=== PATIENT | female | born 1955 | race Caucasian/White ===

== ENCOUNTER 2021-05-15 14:05 | Emergency (ER) | payer MEDICARE, MEDICAID, SELFPAY ==
[2021-05-15 14:19] VITALS: BP 139/74; PULSE 111; RESP 20; TEMP 37.6; O2SAT 96
--- NOTE | 2021-05-15 14:21 | ED.FEMALEGU ---
HPI - Female Genitourinary General Chief complaint: Urogenital-Female Stated complaint: UTI Time Seen by Provider: 05/15/21 14:35 Source: patient Mode of arrival: ambulatory Limitations: no limitations History of Present Illness HPI Narrative: Ariadna Giraldo is a 65 yo female with a PMH of hypertension high cholesterol and 3-way bypass, she stopped smoking 2 months ago, comes here with burning and frequency of urination that started last night, she started taking Azo this morning but realize she needs more medication. Has had multiple UTIs in the past Related Data Home Medications Medication Instructions Recorded Confirmed amitriptyline 05/15/21 amlodipine 05/15/21 aripiprazole mg 05/15/21 atorvastatin 05/15/21 carvedilol 05/15/21 ezetimibe mg 05/15/21 lactulose [Constulose] 05/15/21 liothyronine mcg 05/15/21 lorazepam 05/15/21 lubiprostone [Amitiza] mcg PO 05/15/21 olanzapine mg 05/15/21 omeprazole 05/15/21 warfarin 05/15/21 warfarin 05/15/21 Allergies Allergy/AdvReac Type Severity Reaction Status Date / Time Iodine and Iodide Containing Allergy Hives Verified 05/15/21 14:28 Produc Review of Systems Review of Systems: CONSTITUTIONAL: Denies fever, chills, sweats. EYES: Denies visual changes, redness, discharge. ENT: Denies rhinorrhea, congestion, sore throat, otalgia. CARDIOVASCULAR: Denies chest pain, palpitations, edema. RESPIRATORY: Denies dyspnea, wheezing, cough GASTROINTESTINAL: Denies abdominal pain, nausea, vomiting, diarrhea. GENITOURINARY: has dysuria, hematuria, abnormal discharge SKIN: Denies rash or itching. NEUROLOGIC: Denies numbness, or focal weakness. PSYCHIATRIC: Denies anxiety or depression. [facility] Past Medical History Medical History (Updated 05/15/21 @ 14:49 by Nathalie Coffman CNP) High cholesterol Hypertension Surgical History Surgical History S/P triple vessel bypass Family History Family History (Updated 05/15/21 @ 14:43 by Nathalie Coffman CNP) Other Hypertension Social History Social History (Updated 05/15/21 @ 14:44 by Nathalie Coffman CNP) Smoking status: Former smoker Tobacco type: cigarettes Smoking end date: 03/09/21 Alcohol intake: current Comments At time of signature, I agree with nursing past medical, surgical, social and family history. There is no relevant family history pertinent to the presenting complaint. Exam Narrative: GENERAL: This is a well-nourished, well-developed patient, in mild distress. HEAD: normocephalic, atraumatic. EYES: Sclera clear/white. Vision is grossly intact. EARS: External ears normal. Hearing grossly intact. NOSE: External nose normal without nasal discharge, nares without redness, no rhinorrhea. THROAT: Mucous membranes moist, NECK: Neck supple, non-tender CARDIOVASCULAR: Regular rate and rhythm without murmurs, gallops, or rubs. RESPIRATORY: Clear to auscultation. Breath sounds equal bilaterally. No wheezes, rales, or rhonchi. GASTROINTESTINAL: Abdomen soft, SKIN: warm, intact with no suspicious lesions or rash, good texture and turgor. NEURO: awake, alert, and oriented to person, place and time. There were no obvious focal neurologic abnormalities. Steady gait EXTREMITIES: Normal range of motion. BACK: Nontender without deformity Course Course Emergency [facility]: [facility] of [facility] and frequency since last night UA shows positive nitrite 1+ leukocytes 2+ blood trace ketones 2+ protein Started on Keflex 500 mg 1 twice daily x5 days patient denies history of yeast infection Vital Signs Vital signs: Vital Signs Temperature 99.6 F 05/15/21 14:19 Pulse Rate 111 H 05/15/21 14:19 Respiratory Rate 20 05/15/21 14:19 Blood Pressure 139/74 05/15/21 14:19 Pulse Oximetry 96 05/15/21 14:19 Temperature 99.6 F 05/15/21 14:19 Pulse Rate 111 H 05/15/21 14:19 Res
== END 2021-05-15 14:55 | disposition home or self-care (01) ==
PROVIDERS: Emergency Provider Nurse Practitioner
DX: N30.01 Acute cystitis with hematuria (principal); Z87.891 Personal history of nicotine dependence; E78.00 Pure hypercholesterolemia, unspecified; I10 Essential (primary) hypertension; Z95.1 Presence of aortocoronary bypass graft
CPT/HCPCS: 81003; 87086; 87088; 99213; G0463

== ENCOUNTER 2024-10-25 09:31 | Outpatient (CLI) | payer MEDICARE, MEDICAID, SELFPAY ==
--- OUTSIDE RECORDS SUMMARY | 2024-10-25 10:36 | XMS_ITS | Encounter Summary ---
Author Organization [facility] Address Formerly [facility] [place] [address] Care Team Providers Care Director Of Catering Name Role Phone Catrachito Judd MD Primary Care Provider Unavailab norman Godinez MD, [place] Unavailable [phone] [facility] [phone] Wesley Tinsley DO Unavailable [phone] Raji Judd MD Primary Care Provider [phone] Encounter Details Date Type Department Care Team (Late st Contact Info) Description 03/02/2019 Abstract [facility] [address] [place] [address] Miladis Young, [facility]- [address] [facility] [address] [place] [phone] Social History Tobacco Use Types Packs/Day Years Used Date Smoking Tobacco: Former Cigarettes Q uit: 10/31/2018 Smokeless Tobacco: Never Alcohol Use Standard Drinks/Week Comments Yes 0 (1 standard drink = 0.6 oz pur e alcohol) rarely Comments Unknown Sex and Gender Information Value Date Recorded Sex Assigned at Female 08/28/2024 7:35 AM DISTRIBUTION ANALYST Legal Sex Female 8:01 PM CDT Gender Identity Not on file Sexual Orientation Not on file documented as of this encounter Plan of Treatment Upcoming Encounters Date Type Department Care Team (Late st Contact Info) Description 11/27/2024 10:30 AM CDT [facility] [address] [place] [phone] Miladis Young, ANP- [address] [facility] [address] [place] [phone] documented as of this encounter Procedures Procedure Name Priority Date/Time Associated Diagnosis Comments CMP (ABSTRACTED LAB) Routine 02/07/2019 LIPID PANEL Routine 02/07/2019 documented in this encounter Results * LIPID PANEL (02/07/2019) CHOLESTEROL 165 HDL 49 TRIGLYCERIDES 143 CHOL/HDL RATIO 3.4 LDL (CALCULATED) 87 VLDL CALCULATION 29 02/07/2019 us Catrachito Judd MD LABORATORY Final Result * (ABNORMAL) CMP (ABSTRACTED LAB) (02/07/2019) SODIUM S/P/B 142 POTASSIUM S/P/B 4.4 CHLORIDE S/P/B 108 CO2 24 BUN 12 CREATININE S/P/B 0.6 0.5 - 1.0 EGFR NON-AFR. AMER. 108(A) <=90 CALCIUM S/P/B 8.8 GLUCOSE 130 mg/dL TOTAL PROTEIN S/P/B 6.3 ALBUMIN S/P/B 3.9 3.5 - 5.0 AST 14 ALT 18 ALKALINE PHOSPHATASE S/P/B 97 BILIRUBIN TOTAL S/P/B 0.4 02/07/2019 us Catrachito Judd MD LAB-OUTSIDE/ABSTRACTED Final Res ult documented in this encounter Visit Diagnoses Not on filedocumented in this encounter Additional Health Concerns Infection Onset Date Last Indicated Resolved Time COVID-19 Rule Out 07/11/2023 07/11/2023 07/11/2023 11:22 AM DISTRIBUTION ANALYST COVID-19 Rule Out 10/02/2024 10/02/2024 10/02/2024 1:16 PM DISTRIBUTION ANALYST Respiratory Rule-Out 10/04/2024 10/04/2024 025 11:57 AM DISTRIBUTION ANALYST COVID-19 Rule Out 10/04/2024 10/04/2024 10/04/2024 12:07 PM DISTRIBUTION ANALYST Influenza - Seasonal 10/04/2024 10/04/2024 025 12:33 AM DISTRIBUTION ANALYST documented as of this encounter Care Teams Director Of Catering Relationship Specialty Start Date End Date Catrachito Judd MD PCP - General FAMILY PRACTICE 02/05/16 01/22/22 Raji Judd MD [address] [place] [address] PCP - General acute hospital PRACTICE 01/23/22 Garfield Jean MD CARDIOVASCULAR DISEASE 02/05/16 Miladis Young, ANP- [address] [facility] [address] [place] [address] NURSE PRACTITIONER 12/14/16 Wesley Tinsley DO [address] [place] [address] SURGERY 12/14/16 documented as of this encounter
--- OUTSIDE RECORDS SUMMARY | 2024-10-25 10:36 | XMS_ITS | Data Portability ---
Author Organization [facility], [address] [place] [address] Neurology ([place]) Address [address] [place] [address] Care Team Providers Care Performance Test Architect Name Role Phone RAJI SARAVIA Primary Care Provider Assessment Encounter Date Assessment Date Assessment LastModified by Organization Details LastModified Time 08/23/2024 08/23/2024 DM - A1c was 6.2. Will plan to increase Ozempic to maintenance dose (in hopes of encouraging continued weight loss) when she has used up her current pens. She will let us know she she is on her last shot and we will send 2mg dose. Hemorrhoids -continued pain and bleeding. She saw Dr. Tinsley back in November. She feels her symptoms have worsened. Will arrange recheck to see if surgical options now recommended. CBC collected today. (all complicated by chronic anticoagulation for thromboembolic disorder). Involuntary arm and leg movements -I am wondering if this could be an adverse effect from aripiprazole. Symptoms are not present (or at least not as severely) all day. Her mother has Parkinson's disease. Though this does not sound like Parkinson's, it is very bothersome to Alva. Will plan referral to neuro to evaluate for possible movement disorders. She will also mention to her psychiatrist at next visit. Hyperlipidemia -continue atorvastatin, next lipid panel in the Spring. HTN/ CAD -continue carvedilol, amlodipine, statin, ASA. Thromboembolic disorder -continue Coumadin ppx Continue current medication regimen. Plan routine follow up in 6 months, sooner if needed. Patient voices understanding of and agreement with plan. [email or web address] Not available 08/23/2024 12:48:33 09/25/2024 09/25/2024 Acute worsening of chronic rectal bleeding today. In office, INR 2.1, fingerstick Hb 11.8. We had planned to HOLD Coumadin and continue outpt monitoring but on her way out the door, Alva got very light headed and SOB, had to sit down. So, we decided to have her evaluated and monitored in the ER for syptomatic active bleeding. We will likely have to hold her Coumadin and consult w/ Dr. Tinsley about scope vs hemorrhoid procedure, depending on the outcome of ER observations. Patient voices understanding and agreement with the plan. [email or web address] Not available 09/25/2024 15:35:37 09/29/2024 09/29/2024 ASSESSMENT AND PLAN: Ariadna Giraldo is a 68-year-old female who presents for evaluation of new onset abnormal movements that have since discontinued over the past 2 months in addition to gait instability. At this point, she has multiple stroke risk factors including hypertension, hyperlipidemia, history of smoking and elevation of blood glucose. At this time I recommend we proceed with MRI of the brain with and without contrast to rule out lesions of the basal ganglia that could correlate with hemiballismus abnormal movement. In addition, we will also obtain an MRI of the cervical spine to rule out degenerative changes within the cervical spine that could create difficulty with movement in the right upper extremity and maybe myelopathy induced myoclonus. We will also screen for demyelinating conditions such as multiple sclerosis. I am less inclined to believe this is medication related since she has been on aripiprazole and amitriptyline for long duration. I will check metabolic labs including repeat B12 since she was on a borderline end of 222 at her last check in December 2023. In addition to this, I will check a hepatic function panel and ammonia level. She will have a ceruloplasmin, copper and zinc obtained. I will see her back for follow-up via telehealth in approximately 4 months. I personally spent a total of 20 minutes on the patient on this date of service including both qsmg-ie-hbyx and kqn-irok-iy-face time excluding any separately reportable services. [email or web address] Not available 09/29/2024 13:49:26 10/17/2024 10/17/2024 Anemia, rectal bleeding, anal cancer, ongoing constipation - rectal bleeding has stopped. Hgb was stable at 8.7 on 10/11. We will repeat a CBC today. -Alva has follow up w/ colorectal surgeon at [facility] on of this week. -Alva has not had a BM since she has been home from the hospital on Wednesday. She stopped the Linzess Rx'd by Dr. Tinsley. We are going to add Colace and daily fiber. If not effective, consider Lactulose again. DM -keep Ozempic on hold for now. Continue metformin. A1c collected today. If <7, will likely keep her off of the Ozempic until 1) constipation better controlled and 2) we know what the plan is for her anal carcinoma. She hopes to resume it, as she was pleased with the weight loss. Thromboembolic disorder -she has been back on Coumadin since at least Wednesday, but even before, she thinks, while still in the hospital. Her INR today is 1.3. INcrease Coumadin, alternating 3.5mg and 3mg. Recheck INR on Wednesday. Influenza A -positive on admission. She is still coughing, but overall feeling better. This likely was contributing to some of her increased generalized weakness / fall prior to this admission. Plan f/u with me in 1 week, sooner if needed. Patient voices understanding and agreement with the plan. Results addendum: Hgb 9.1 A1c 5.4, so will keep Alva OFF of Ozempic for the time being. [email or web address] Not available 10/18/2024 17:10:46 10/23/2024 10/23/2024 INR today 1.8. Continue alternating 3mg and 3.5mg. Repeat INR on Wednesday of next week. She has had a good response to BID Colace and daily fiber supplement so far. Will continue. She has an apt w/ specialist this week in [place]. She says that last week the colorectal specialist told her she'd need chemo and radiation and the next apt is to discuss that. We will get records. Plan f/u her in 3-4 weeks, sooner if needed or is any rectal bleeding noted. [email or web address] Not available 10/23/2024 18:35:58 Plan of Treatment Reminders Order Date Submit Date Provider Last Modified By Organization Details Last Modified Time Details Appointments Establish ed Patient 40.EST 2024 01:00P M Cyndi Farris Not available Not available Not available TeleHealt h 15.TELE 2024 02:45P M Dr. Carla Quijano Not available Not available Not available Lab PT (prothrom bin time), fingersti ck, blood 2024 025 [facility], [address], [place], [address], 10/23/2024 11:27:37 hemoglobi n A1c + average glucose, QN, blood 2024 025 [facility] (Pr), [address] [place], [address], 10/18/2024 16:01:55 PT (prothrom bin time), fingersti ck, blood - INR due 10/23/24. Will be done at apt date and time. 2024 025 [facility], [address] [place] [address], [id number], 10/23/2024 11:17:49 CBC 2024 025 [facility] (Pr), [facility] [place], [address], 10/18/2024 16:13:44 hepatic function panel, serum [id number] [facility], [address], [place], [address], 10/13/2024 10:43:10 ammonia, blood 2024 025 [email or web address] [facility], [address], [place], [address], 10/13/2024 10:43:10 cerulopla smin, serum [address] [facility], [address], [place], [address], 10/13/2024 10:43:10 copper, serum or plasma 2024 025 [facility], [address], [place], [address], 10/13/2024 10:43:10 zinc, serum or plasma 2024 025 [email or web address] [facility], [address], [place], [address], 10/13/2024 10:43:10 vitamin B12, serum 2024 025 [email or web address] [facility], [address], [place], [address], 10/13/2024 10:43:10 hemoglobi n (Hb), fingersti ck, blood 2024 025 [email or web address] [facility], [address] [place] [address], [address], 09/25/2024 14:51:07 PT (prothrom bin time), fingersti ck, blood 2024 025 [email or web address] [facility], [address] [place] [address], [address], 09/25/2024 14:51:07 CBC 2024 025 LINDA [facility], [address] [place] [address], [address], 08/24/2024 16:35:55 lipid panel, serum 2024 025 [email or web address] [facility], [address] [place] [address], [address], 08/23/2024 12:47:36 CMP, serum or plasma 2024 025 [email or web address] [facility], [address] [place] [address], [address], 08/23/2024 12:47:36 hemoglobi n A1c + average glucose, QN, blood 2024 025 [email or web address] [facility], [facility] [address], [address], 10/24/2024 17:18:33 Referral general surgeon referral - return to Dr. Tinsley (establ[facility] for this problem, but symptoms worsening ) 2024 025 [email or web address] Not available 09/20/2024 09:32:41 neurologi referral - Dr. Roberson in [facility] 2024 025 [email or web address] Carla Chaudhry'Lam , [address], [address], 10/16/2024 09:00:36 Procedures None recorded. Surgeries None recorded. Imaging MRI, brain + brain stem, w/wo contrast 2024 025 [facility], [address], [place], [address], 10/03/2024 15:30:37 MRI, cervical spine, w/wo contrast 2024 025 [facility], [address], [place], [address], 10/03/2024 15:30:37 Medication Orders warfarin 1 mg tablet 2024 025 [email or web address] [facility] [place], [address], 10/23/2024 11:27:37 Colace 100 mg capsule 2024 025 [facility] [address] [place], [address], 10/17/2024 12:49:22 warfarin 3 mg tablet 2024 025 [facility] [address] [place], [address], 10/17/2024 12:57:50 amlodipin e 2.5 mg tablet 2024 025 [id number] [facility] [address] [place], [address], 09/04/2024 15:47:06 atorvasta tin 80 mg tablet [address] [place] [address] [address] [place], [address], 08/23/2024 12:47:36 ezetimibe 10 mg tablet [address] [place] [address] [address], [address] [place], [address], 08/23/2024 12:47:36 metformin 500 mg tablet [address] [place], [address], 08/23/2024 12:47:36 carvedilo l 25 mg tablet [address] [place] [address] [address], [address] [place], [address], 08/23/2024 12:47:36 Patient TargetsNo targets recorded. Patient InstructionsNo instructions recorded. Reason for Referral Neurologist Referral for Inv oluntary movement Dr. Roberson in [place] Referring Physician: Cyndi Farris, Family Medicine, Encounter Date: 08/23/2024 General Surgeon Referral for Bleeding hemorrhoids return to Dr. Tinsley (established for this problem, but symptoms worsening) Referring Physician: Cyndi Farris Family Medicine, Encounter Date: 08/23/2024 Results Created Date Observation Date Name Description Value Unit Range Abnormal Flag Note LastModifiedBy Organization Detail LastModifiedTime 08/23/19 08/24/2024 CBC CBC Not Available [facility] [address] [place] [address], [address], 08/24/2024 16:35:55 08/23/19 25 08/24/2024 CBC WBC 8.1 K/uL 3.8-11 .2 Not Available [facility] [address] [place] [address], [address], 08/24/2024 16:35:55 08/23/19 25 08/24/2024 CBC RBC 4.44 M/uL 3.92-5 .10 Not Available [facility] [address] [place] [address], [address], 08/24/2024 16:35:55 08/23/19 25 08/24/2024 CBC HGB 9.7 g/dL 11.8-1 5.3 low Not Available [facility] [address] [place] [address], [address], 08/24/2024 16:35:55 08/23/19 25 08/24/2024 CBC HCT 32.5 % 36.5-4 4.8 low Not Available [facility] [address] [place] [address], [address], 08/24/2024 16:35:55 08/23/19 25 08/24/2024 CBC MCV 73.2 fL 80.0-9 9.0 low Not Available [facility] [address] [place] [address], [address], 08/24/2024 16:35:55 08/23/19 25 08/24/2024 CBC MCH 21.8 pg 25.5-3 3.6 low Not Available [facility] [address] [place] [address], [address], 08/24/2024 16:35:55 08/23/19 25 08/24/2024 CBC MCHC 29.8 g/dL 32.0-3 6.0 low Not Available [facility] [address] [place] [address], [address], 08/24/2024 16:35:55 08/23/19 25 08/24/2024 CBC RDW-SD 47.1 fL 35.1 - 46.3 high Not Available [facility] [address] [place] [address], [address], 08/24/2024 16:35:55 08/23/19 25 08/24/2024 CBC plt 231 K/uL 130-40 0 Not Available [facility] [address] [place] [address], [address], 08/24/2024 16:35:55 08/23/19 25 08/24/2024 CBC MPV 10.5 fL 9.3-12 .8 Sligh t aniso cytos is Sligh t poiki locyt osis Sligh t micro cytos is Sligh t polyc hroma rhiannon Few sariah cells Few acant hocyt es Plate lets appea r adequ ate Not Available [facility] [address] [place] [address], [address], 08/24/2024 16:35:55 09/25/19 25 09/25/2024 PT (prot hromb in time) , finge rstic k, blood PT/INR fingerstick Not Available [facility] [address] [place] [address], [address], 09/25/2024 13:01:27 09/25/19 25 09/25/2024 PT (prot hromb in time) , finge rstic k, blood INR 2.1 INR INTER PRETA TION 2.0-3 .0 FOR DEEP VEIN THROM BOSIS PULMO NARY EMBOL ISM ACUTE MYOCA RDIAL INFAR CTION ATRIA L FIBRI LLATI ON 3.0-4 .5 FOR MECHA NICAL HEART VALVE S Not Available [facility] [address] [place] [address], [address], 09/25/2024 13:01:27 09/25/19 25 09/25/2024 hemog lobin (Hb), taylor rstic k, blood hemoglobin, fingerstick 11.8 g/dL 12.0-1 6.0 low Not Available [facility] [address] [place] [address], [address], 09/25/2024 13:01:29 10/18/19 25 10/17/2024 PT (prot hromb in time) , espinozae rstic k, blood PT/INR fingerstick Not Available [facility] [address] [place] [address], [address], 10/17/2024 12:26:44 10/18/19 25 10/17/2024 PT (prot hromb in time) , taylor rstic k, blood INR 1.3 INR INTER PRETA TION 2.0-3 .0 FOR DEEP VEIN THROM BOSIS PULMO NARY EMBOL ISM ACUTE MYOCA RDIAL INFAR CTION ATRIA L FIBRI LLATI ON 3.0-4 .5 FOR MECHA NICAL HEART VALVE S Not Available [facility] [address] [place] [address], [address], 10/17/2024 12:26:44 10/18/19 25 10/18/2024 hemog lobin A1c + avera ge gluco se, QN, blood hemoglobin A1C Not Available [facility] [address] [place] [address], [address], 10/18/2024 16:01:55 10/18/19 25 10/18/2024 hemog lobin A1c + avera ge gluco se, QN, blood HGB A1C 5.4 %_A1C 4.3 - 5.6 Not Available [facility] [address] [place] [address], [address], 10/18/2024 16:01:55 10/18/19 25 10/18/2024 hemog lobin A1c + avera ge gluco se, QN, blood estimated average glucose 108 mg/dL Not Available [facility] [address] [place] [address], [address], 10/18/2024 16:01:55 10/18/19 25 10/18/2024 CBC CBC Not Available [facility] [address] [place] [address], [address], 10/18/2024 16:13:44 10/18/19 25 10/18/2024 CBC WBC 5.9 K/uL 3.8-11 .2 Not Available [facility] [address] [place] [address], [address], 10/18/2024 16:13:44 10/18/19 25 10/18/2024 CBC RBC 3.53 M/uL 3.92-5 .10 low Not Available [facility] [address] [place] [address], [address], 10/18/2024 16:13:44 10/18/19 25 10/18/2024 CBC HGB 9.1 g/dL 11.8-1 5.3 low Not Available [facility] [address] [place] [address], [address], 10/18/2024 16:13:44 10/18/1910/18/2024 CBC HCT 29.9 % 36.5-4 4.8 low Not Available [facility] [address] [place] [address], [address], 10/18/2024 16:13:44 10/18/19 25 10/18/2024 CBC MCV 84.7 fL 80.0-9 9.0 Not Available [facility] [address] [place] [address], [address], 10/18/2024 16:13:44 10/18/1910/18/2024 CBC MCH 25.8 pg 25.5-3 3.6 Not Available [facility] [address] [place] [address], [address], 10/18/2024 16:13:44 10/18/19 25 10/18/2024 CBC MCHC 30.4 g/dL 32.0-3 6.0 low Not Available [facility] [address] [place] [address], [address], 10/18/2024 16:13:44 10/18/19 25 10/18/2024 CBC RDW-SD 70.0 fL 35.1 - 46.3 high Not Available [facility] [address] [place] [address], [address], 10/18/2024 16:13:44 10/18/19 25 10/18/2024 CBC plt 311 K/uL 130-40 0 Not Available [facility] [address] [place] [address], [address], 10/18/2024 16:13:44 10/18/19 25 10/18/2024 CBC MPV 10.4 fL 9.3-12 .8 Plate lets appea r adequ ate Sligh t aniso cytos is Sligh t polyc hroma rhiannon Not Available [facility] [address] [place] [address], [address], 10/18/2024 16:13:44 10/24/19 25 10/23/2024 PT (prot hromb in time) , finge rstic k, blood PT/INR fingerstick Not Available [facility] [address] [place] [address], [address], 10/23/2024 11:17:49 10/24/19 25 10/23/2024 PT (prot hromb in time) , finge rstic k, blood INR 1.8 INR INTER PRETA TION 2.0-3 .0 FOR DEEP VEIN THROM BOSIS PULMO NARY EMBOL ISM ACUTE MYOCA RDIAL INFAR CTION ATRIA L FIBRI LLATI ON 3.0-4 .5 FOR MECHA NICAL HEART VALVE S Not Available [facility] [address] [place] [address], [address], 10/23/2024 11:17:49 09/25/19 25 09/25/2024 CT, head + brain , w/o contr ast No observ ation record ed. [address] [facility] [address] [place], [address], 09/25/2024 17:24:56 09/25/19 25 09/25/2024 XR, chest , 2 view No observ ation record ed. [address] [facility] [address] [place], [address], 09/25/2024 17:24:56 09/26/19 25 09/25/2024 elect citlaly chaney am, jacob ne ECG, 12 leads min No observ ation record ed. [email or web address] [facility] [address] [place], [address], 09/27/2024 10:40:00 10/25/19 25 10/19/2024 CT, abdom en + pelvi s, w/ contr ast No observ ation record ed. [facility] Surgery Speacialist [address] [facility], [place], [address], 10/25/2024 09:43:45 Result Notes None recorded. Problems Name Problem SNOMED Code Status Onset Date Resolution Date Notes Provider Name and Address Organization Details Recorded Time Bleeding hemorrho ids 17358709 Active 2024 Cyndi Farris, EMBROIDERER HAND, [employer] [address] [place] [address], [address], [facility] 5 12:27:37 Post-dis charge follow-u p [id number] Active admitted from office 09/21/24- 09/26/24 for rectal bleeding / anemia. Hb reid 8.2. Gen/surg consulte d. Rec'd OP f/u & HC supposit ory & HOLD Coumadin . 09/28/24 pt reports she resumed Coumadin . Then, is ER visit for fall / difficul ty getting up 10/02/24 (Hb 8.3 stable there, d/c home). Then return 10/04/24, transfer to [facility] ([facility]) for suspecte d GI bleed where EGD unimpres sive (chronic gastriti s), but colonosc opy biopsy identifi ed Anal Carcinom a. May need outpt colorect al referral (?) post-dis charge. Raji Saravia MD [address] [place] [address], [address], [facility] 5 11:36:58 Abnormal movement 514994949 Active radha-bal istic type in . Neurolog y onboard (where-i n pt reported sx's perhaps resolved x2mo). Raji Saravia MD [address] [place] [address], [address], [facility] 5 11:45:05 Abnormal gait 09717369 Active onset perhaps mid . Neurolog y onboard . Raji Saravia MD [address] [place] [address], [address], [facility] 5 11:44:32 Carcinom a in situ of anus [id number] Active on bx at [facility] 10/11/24. Pending outpt colorect al Surg followup on 10/19/24 at [facility], Dr. Jayesh Farris, EMBROID[employer]ER HAND, [employer] [address] [place] [address], [address], [facility] 5 15:00:50 Disorder of tendon 63827975 Completed 01/21/2024 History of Achilles tendonos is of right lower extremit y right calcanea l spur resectio n Achilles tenoplas ty 3 Karuna fry, [facility] 4 09:24:09 Adrenal adenoma [id number] Completed incident al finding on lung CT, left 1.7cm. MRI confirme d aderenal adenoma. Raji Saravia MD [address] [place] [address], [address], [facility] 4 07:03:17 Anemia 798643947 Active 2023 Hb 10.9 on --> nmL on . Then, declined again to 11.1 in in setting of chronic bleeding hemorrho ids. Hb stable at 11.3 (w/ improvin g bleeding ). pt reports increase d hemorrho id bleeding over 6 mo. Hb 9.7. Plan short interval repeat while awaiting return to gen/surg . Fe sulfate started. 08/28/24 Hb 9.4. 09/04 Hb 9.9. pt admitted for acute bleeding , 10/17/24 Hb stable 9.1, see anal ca. - RBC Folate nmL . Cyndi Farris APRN, [employer] [address] [place] [address], [phone], [facility] 5 17:11:30 Coronary arterios clerosis 62877922 Active 2023 dx on cath 2015 (w/u exertion al dyspnea) , & CABG done 02/2016. Cyndi Farris APRN, [employer] [address] [place] [address], [address], [facility] 4 12:33:14 Chronic constipa tion 927788260 Active 2023 Lactulos e nightly rx'd by Dr. Tinsley, who then added Amitiza (along w/ fiber/ topical HC for bleeding hemorrho ids). Amtiza ineffect mavis. then Modest control w/ return to daily docusate , fiber. - prior hx Trial of Linzess ordered by Dr. Alvina Farris, [employer]BR[employer], [employer] [address] [place] [address], [address], [facility] 5 18:37:04 Screenin g colonosc opy Active s/p repeat colonosc opy (while inpt at [facility] ) . - see also Anal Carcinom a. Raji Saravia MD [address] [facility], [facility] [place], [address], [facility] 5 11:36:07 Type 2 diabetes mellitus 02966441 Active dx by A1c >6.5 x2 in 2014. Goal A1c < 7. Hx diet control until metormin e started p A1c 7.5 on . Ozempic added (for DM, wt loss). on hold p GI bleed, constipa tion, dx anal CA & A1c 5.4. Consider re-start ing cautious ly dependin g outcome of upcoming colorect al surgeon consulta tion. - hx Jardianc e until (p Ozempic onboard and instance of UTI). Cyndi Farris APRN, [employer] [address] [facility], [place], [address], [facility] 5 17:13:13 Steatosi s of liver 663754427 Active 2023 noted on MRI abd (for adrenal adenoma) . Cyndi Farris APRN, [employer] [address] [place] [address], [place], [address], [facility] 4 12:34:25 History of divertic ulitis [id number] 9100 Completed 05/2018, persumed divertic ulitis with mild LLQ pain tx with Augmenti n and again 11/2018. Raji Saravia MD [address] [facility], [facility] [place], [address], [facility] 4 07:06:47 Screenin g for malignan t neoplasm of cervix Completed 202301/22/2024 9 nmL cytology and Neg HPV (no further Pap screenin g indicate d after age 65). Cyndi Farris APRN, [employer] [address] [facility], [facility] [place], [address], [facility] 4 12:35:17 Hyperlip idemia 65551636 Active 2023 Statin indicate d for CAD. Tx atorvast atin & ezetimib e - LDL 27 Cyndi Farris APRN, [employer] [address] [place] [address], [address], [facility] 4 12:35:39 [facility] hyperten katelyn 25565284 Active 2023 Goal < 140/90 per JNC8 for concurre nt DM. Controll ed on amlodipi ne and carvedil ol. - HCTZ stopped in 2012 d/t fatigue and hypotens ion. Cyndi Farris APRN, [employer] [address] [place] [address], [address], [facility] 4 12:36:03 Hypothyr oidism 92549868 Active 2023 intermit tent low TSH, T4 f/b multiple normals mx by AMADOU psych. TSH 0.421 Cyndi Farris APRN, [employer] [address] [place] [address], [address], [facility] 4 16:42:10 Hepatiti s C screenin g Completed non-reac tive . Raji Saravia MD [address] [place] [address], [address], [facility] 4 07:06:38 Screenin g for malignan t neoplasm of lung Active 2023 benign appearin g lung nodules on CT, repeat 1 yr. stable, repeat 2024 Cyndi Farris APRN, [employer] [facility] [address] [place] [address], [phone], [facility] 4 12:37:52 Obesity [id number] Active 2023 Ozempic added. on hold d/t constipa tion / newly dx'd anal ca. Cyndi Farris APRN, [employer] [facility] [address] [place] [address], [phone], [facility] 5 13:30:48 Osteoart hritis of knee [id number] Active left, s/p Euflexxa injxn series 2019- 1 (p pain refrctry to steroid injxns & PT). Synvis injxn then by Ortho 04/18/24. Cyndi Farris APRN, [employer] [facility] [address] [place] [address], [phone] 3, [facility] 4 11:34:43 Tear of meniscus of knee [id number] Active 2023 on MRI 02/2021. Cyndi Farris APRN, [employer] [facility] [address] [place] [address], [phone], [facility] 4 12:40:37 Thromboe mbolic disorder [id number] Active 2023 Dx per [facility] Dr. Mc Fall 2010 on w/u L.U.E. DVT & strong FHx DVTs. Labs then (Fall 2010): Factor VIII hyperact ivity & Lupus Anticoag ulant positive . Dr. Mc recommen ded long-ter m anticoag ualtion at that time. Note, also then likely indicati ng Enoxapar in bridgin g while off coumadin for planned procedur es, etc. Cyndi Farris APRN, [employer] [facility] [address] [place] [address], [phone] 3, [facility] 4 12:41:00 Deep venous thrombos is of upper extremit y [id number] Completed L. arm 04/2011 Raji Saravia MD [address] [place], [phone], [facility] 4 07:06:24 Thyroid nodule 991199368 Active 10/2020 Incident ally on carotid u/s (cardiol ogy). Then, Thyroid u/s: multiple bilatera l & isthmus nodules, B9 findings . several stable/ smaller nodules, one rt nodule increase d from 1.3cm to 1.6 cm, stable, Rad's recommen ded repeat u/s again in 1 year. -of note to consider , GLP1 drug started Cyndi Farris APRN, [employer] [facility] [address] [facility], [facility] [place], [phone], [facility] 4 12:42:50 Tibialis posterio r tendinit is [id number] Completed 202301/22/2024 hx repair of left achilles tendon 04/28/17. Cyndi Farris APRN, [employer] [facility] [address] [facility], [facility] [place], [phone], [facility] 4 12:43:26 Mixed anxiety and depressi ve disorder [id number] Active f/b [facility]. Raji Saravia MD [address] [facility], [facility] [place], [phone], [facility] 4 07:05:16 Diabetic retinal eye exam Active 2023 no retinopa thy detected . Cyndi Farris APRN, [employer] [employer] [facility] [address] [facility], [facility] [place], [phone], [facility] 4 11:09:06 Screenin g mammogra phy Active 2023 nmL HH 03/02/24 Cyndi Farris APRN, [employer] [facility] [address] [facility], [facility] [place], [phone], [facility] 4 10:02:03 Problem Notes Documentation Provider Name and Address Organization Details Recorded Time [address] [address] Ariadna Giraldo 68yo F [id number] #[id number] 10/02/2024 Millie Saravia MD, Ariadna Giraldo was seen in our office today 09/29/2024, and a copy of that evaluation is enclosed. Thank you for allowing us to participate in the care of your patient. Please contact us with any questions. Sincerely, Electronically Signed by: CARLA QUIJANO MD, DO Encounter Reason/Date Involuntary arm and leg movements 09/29/2024 - 10:00AM - [facility] ([place])ProblemsReviewed Problems Thyroid nodule - Onset: 01/22/2024 - 10/2020 Incidentally on carotid u/s (cardiology). Then, Thyroid u/s: multiple bilateral & isthmus nodules, B9 findings . several stable/ smaller nodules, one rt nodule increased from 1.3cm to 1.6 cm, stable, Rad's recommended repeat u/s again in 1 year. -of note to consider, GLP1 drug started Hypothyroidism - Onset: 01/22/2024 - intermittent low TSH, T4 f/b multiple normals mx by [facility] psych. TSH 0.421 Type 2 diabetes mellitus - dx by A1c >6.5 x2 in 2014. Goal A1c < 7. Hx diet control until metormine started p A1c 7.5 on . Ozempic added (for DM, wt loss). - hx Jardiance until (p Ozempic onboard and instance of UTI). Hyperlipidemia - Onset: 01/22/2024 - Statin indicated for CAD. Tx atorvastatin & ezetimibe - LDL 27 Obesity - Onset: 01/22/2024 - Jardiance added, Ozempic added. Anemia - Onset: 01/22/2024 - Hb 10.9 on --> nmL on . Then, declined again to 11.1 in in setting of chronic bleeding hemorrhoids. Hb stable at 11.3 (w/ improving bleeding). pt reports increased hemorrhoid bleeding over 6 mo. Hb 9.7. Plan short interval repeat while awaiting return to gen/surg. Fe sulfate started. 08/28/24 Hb 9.4. 09/04 Hb 9.9. - RBC Folate nmL . Mixed anxiety and depressive disorder - f/b [facility]. Essential hypertension - Onset: 01/22/2024 - Goal < 140/90 per J[facility]8 for concurrent DM. Controlled on amlodipine and carvedilol. - HCTZ stopped in 2012 d/t fatigue and hypotension. Coronary arteriosclerosis - Onset: 01/22/2024 - dx on cath 2015 (w/u exertional dyspnea), & CABG done 02/2016. Thromboembolic disorder - Onset: 01/22/2024 - Dx per [facility] Dr. Mc Fall 2010 on w/u L.U.E. DVT & strong FHx DVTs. Labs then (Fall 2010): Factor VIII hyperactivity & Lupus Anticoagulant positive. Dr. Mc recommended long-term anticoagualtion at that time. Note, also then likely indicating Enoxaparin bridging while off coumadin for planned procedures, etc. Bleeding hemorrhoids - Onset: 08/23/2024 Chronic constipation - Onset: 01/22/2024 - Lactulose nightly rx'd by Dr. Tinsley, who then added Amitiza (along w/ fiber/ topical HC for bleeding hemorrhoids). Amtiza ineffective. Sx controlled w/ dulcolax, docusate, fiber. - prior hx Trial of Linzess ordered by Dr. Tinsley Steatosis of liver - Onset: 01/22/2024 - noted on MRI abd (for adrenal adenoma). Acute urinary tract infection - Onset: 04/18/2024 Osteoarthritis of knee - left, s/p Euflexxa injxn series 6766-2946 (p pain refrctry to steroid injxns & PT). Synvis injxn then by Ortho 04/18/24. Involuntary movement - Onset: 08/23/2024 - arm & leg jerking, starting in late 2023. Questionable a.e of aripiprazole vs onset of mvmt disorder. Pending neuro consult. Abnormal movement - Onset: 09/29/2024 Abnormal gait - Onset: 09/29/2024 Tear of meniscus of knee - Onset: 01/22/2024, Left - on MRI 02/2021. Screening mammography - Onset: 03/03/2024 - nmL HH 03/02/24 Screening for malignant neoplasm of lung - Onset: 01/22/2024 - benign appearing lung nodules on CT, repeat 1 yr. stable, repeat 2024 Screening colonoscopy - Onset: 01/22/2024 - s/p colonoscopy 03/2019 tubular adenoma next due in 3 years s/p colonoscopy 07/21/22 tubular adenoma x 2. Diabetic retinal eye exam - Onset: 03/01/2024 - no retinopathy detected. Post-discharge follow-up - Onset: 09/27/2024 - admitted from office 09/21/24-09/26/24 for rectal bleeding/ anemia. Hb reid 8.2. Gen/surg consulted. Rec'd OP f/u & HC suppository & HOLD Coumadin. 09/28/24 pt reports she resumed Coumadin. Plan f/u w/ INR on Wednesday. Allergies Allergies not reviewed (last reviewed 08/23/2024) IODINATED CONTRAST MEDIA: Hives - Reaction: Hives; IODINE-SODIUM IODIDE: Hives - Reaction: Hives; No Known Allergies (InActive) OnsetDate: 06/15/2011; Comment: No Known Allergies ; Some allergies listed in Document: #[id number] could not be added to this patient's chart. Please review this document and add these allergies to the patient's chart manually as needed. Medications Medications not reviewed (last reviewed 09/25/2024) NameDate Source albuterol sulfate HFA 90 mcg/actuation aerosol inhalerINHALE 2 PUFFS BY MOUTH EVERY 6 HOURS NEEDED FOR WHEEZING AND FOR SHORTNESS OF WUYUBQ19/03/23 filled surescripts amitriptyline 100 mg tabletTAKE 1 TABLET BY MOUTH AT WIRXLEH01/29/25 filled surescripts amLODIPine 2.5 mg tabletTAKE 1 TABLET BY MOUTH ONCE DAILY09/15/24 filled surescripts ARIPiprazole 2 mg tabletTAKE 2 TABLETS BY MOUTH IN THE HXNFPQM53/07/25 filled surescripts aspirin 81 mg tablet,delayed releaseTake 1 tablet(s) every day by oral route.04/18/24 entered Nicole Casey atorvastatin 80 mg tabletTAKE 1 TABLET BY MOUTH AT TIJAJOS53/07/25 filled surescripts carvediloL 25 mg tabletTAKE 1 TABLET BY MOUTH TWICE DAILY09/15/24 filled surescripts ezetimibe 10 mg tabletTAKE 1 TABLET BY MOUTH AT WONNBND07/15/25 prescribed Cyndi Farris APRN, CNP FeroSuL 325 mg (65 mg iron) tabletTAKE 1 TABLET BY MOUTH ONCE DAILY09/17/24 filled surescripts hydrocortisone 2.5 % topical creamAPPLY CREAM TO AFFECTED AREA TWICE DAILY09/17/24 filled surescripts Linzess 145 mcg capsuleTAKE 1 CAPSULE BY MOUTH ONCE DAILY09/01/24 filled surescripts liothyronine 5 mcg tabletTAKE 2 TABLETS BY MOUTH ONCE DAILY09/17/24 filled surescripts LORazepam 1 mg tabletTAKE 1 TABLET BY MOUTH TWICE DAILY AND 1/2 (ONE-HALF) TABLET ONCE DAILY NEEDED FOR ANXIETY TOTAL DAILY DOSE 2.5MG09/16/24 filled surescripts metFORMIN 500 mg tabletTAKE 1 TABLET BY MOUTH TWICE DAILY09/15/24 filled surescripts omeprazole 40 mg capsule,delayed releaseTAKE 1 CAPSULE BY MOUTH ONCE DAILY BEFORE BREAKFAST 6AM108/15/23 filled surescripts ONETOUCH DELICA PLUS LANCET 33 GAUGEUSE 1 LANCET TO CHECK GLUCOSE ONCE DAILY BHCWEIRX82/05/25 renewed Raji Saravia MD OneTouch Ultra Test stripsUSE 1 STRIP TO CHECK GLUCOSE ONCE DAILY EWKLGDDO62/05/25 renewed Raji Saravia MD OneTouch Ultra2 MeterCHECK GLUCOSE ONCE DAILY03/29/24 filled surescripts Ozempic 1 mg/dose (4 mg/3 mL) subcutaneous pen injectorINJECT 1MG SUBCUTANEOUSLY ONCE DGAQHQ99/09/25 filled surescripts Tylenol Arthritis Pain 650 mg tablet,extended releaseTake 2 tablet(s) every 8 hours by oral route as needed.04/18/24 entered Nicole Casey warfarin 3 mg tabletTake 1 tab daily on Wednesday, Wednesday and Wednesday. Recheck INR on .09/04/24 prescribed Cyndi Farris APRN, CNP Family HistoryFamily History not reviewed (last reviewed 05/03/2024) Brother - Essential hypertension - Cardiac complication Father - Myocardial infarction ( age: 57) Mother - Parkinson's disease Social HistorySocial History not reviewed (last reviewed 04/18/2024) Substance UseDo you or have you ever smoked tobacco?: Current every day smokerHow many packs per day (PPD)?: 0.5How long have you smoked?: 45 yearsAlcohol Use (History), Type: Chronic Last Edited: 15 Jun 2011 10:41AM Last Reviewed Date: [id number] Former smoker-Quit last week around February 11, 2016. Wearing nicotine patch. - pt did start smoking again - quit again on 12/03/19, Type: Chronic Last Edited: 07 Dec 2019 8:47AM ICD9 Code: V15.82 Last Reviewed Date: [id number] SnomedCode: [id number] ICD10 Code: Z87.891 Surgical HistorySurgical & Procedure History not reviewed (last reviewed 05/03/2024) Surgical procedure - both feet Extraction of cataract - s/p surgical treatment 12/27/17 right eye and 01/10/[address] Alcazar. Open heart surgery - 08/09/2015 Additional HistoryNone recordedHistory of Present IllnessAriadna Giraldo is a 68-year-old female who presents for evaluation of abnormal movements. She has past medical history significant for hypertension, hyperlipidemia, refractory depression, constipation in addition to thyroid nodules, gastroesophageal reflux disease currently on metformin with question of diabetes although last A1c was within reasonable range but elevated also on Ozempic and warfarin for historical upper extremity clot. She is currently on amitriptyline and aripiprazole for mood management and has been on these medications for long duration greater than a year. Within 6 months she began to notice jerking of the right upper and right lower extremity more prominent within the lower extremity in comparison to right upper extremity. This is almost a myoclonic or hemiballismus type movement. This occurred sporadically over the last 6 months, but within the last month or 2 this has completely discontinued. She has not noticed these movements any longer. She has concerns for gait instability for long duration including difficulty and instability and falls correlated with this. She does not know why. She does have a bad knee on the left and attributes most of this to moderate degenerative changes within the left knee. She has had x-rays in confirmation of this. She has had no recent neuro imaging. She has had some lab work including a vitamin B12 that was in a lower range at 222. She had a recent thyroid within normal range. She does not report known history of liver dysfunction. No family members with difficulty with movement as they have aged. She has no known history of B12 deficiency. She reports no hereditary conditions such as Wilsons within the family. She does not report any tremor in correlation with this. No difficulty starting or stopping movements.Review of SystemsAdditionally reports:CONST: No fever, chills, night sweats, or weight loss.EYES: No blurred vision or double vision.ENT: No ear pain, ringing in the ears, hearing loss, sore throat, or mouth lesions.RESP: No cough, sputum production, wheezing, or shortness of breath.CV: No palpitations or chest pain.GI: No abdominal pain, nausea, or vomiting.: No urinary frequency, dysuria, nocturia, or incontinence.MSK: No joint pain, redness, or swelling.SKIN: No lesions or bruising.PSYCH: No recent changes in mood or affect.Reviewed past medical history, surgical history, family history, social history. No changes except as noted.saw Physical ExamCONST: Awake, alert, oriented, pleasant, cooperative, no acute distress.HEENT: Head atraumatic, normocephalic, no lymphadenopathy, normal external ears. Visual mccullough full.RESP: Normal respiratory rate, no increased work of breathing.CV: Normal rate and regular rhythm.GI: No distention, no tenderness.MSK: Extremities: Strength 5 out of 5 in the upper and lower extremities throughout.NEURO: Awareness: Awake, alert and oriented 3, pleasant and cooperative, follows commandsSpeech: No dysarthria, no aphasia, naming, comprehension and fluency intactCranial nerves: Pupils 3 mm both eyes, equally reactive to light, no APD, EOMI, VFF, V1-V3 intact to light touch throughout, smile symmetrical, forehead wrinkling symmetrical, hearing grossly intact conversation, tongue protrudes midline, uvula midlineMotor:Upper extremities: 5/5 Hand flexion b/l, 5/5 biceps b/l, triceps 5/5 b/l, deltoid 5/5 b/lLower extremities: Iliopsoas 5/5 b/l, hamstrings 5/5 b/l, quadriceps 5/5 b/l, dorsiflexion 5/5 b/l, plantar flexion 5/5 b/lSensory:Upper extremities: Intact to light touch b/lLower extremities intact light touch b/lCerebellar: Kyjcls-ce-asuy intact without dysmetria, bjkz-fs-qwxf intact without dysmetriaGait: There is significant decreased leeanna and stride with an antalgic appearance gait more prominent on the left. She does not swing the right upper extremity during ambulation.Reviewed recent diagnostic tests, lab work, and imaging. These were reviewed with the patient.saw Procedure DocumentationNone recordedAssessment/PlanASSESS MENT AND PLAN:Ariadna Giraldo is a 68-year-old female who presents for evaluation of new onset abnormal movements that have since discontinued over the past 2 months in addition to gait instability. At this point, she has multiple stroke risk factors including hypertension, hyperlipidemia, history of smoking and elevation of blood glucose. At this time I recommend we proceed with MRI of the brain with and without contrast to rule out lesions of the basal ganglia that could correlate with hemiballismus abnormal movement. In addition, we will also obtain an MRI of the cervical spine to rule out degenerative changes within the cervical spine that could create difficulty with movement in the right upper extremity and maybe myelopathy induced myoclonus. We will also screen for demyelinating conditions such as multiple sclerosis. I am less inclined to believe this is medication related since she has been on aripiprazole and amitriptyline for long duration. I will check metabolic labs including repeat B12 since she was on a borderline end of 222 at her last check in December 2023. In addition to this, I will check a hepatic function panel and ammonia level. She will have a ceruloplasmin, copper and zinc obtained. I will see her back for follow-up via telehealth in approximately 4 months. I personally spent a total of 20 minutes on the patient on this date of service including both mthu-cy-dzlb and ouo-mnzz-mh-face time excluding any separately reportable services.saw 1.Abnormal wwlivszgcK23.9: Unspecified abnormal involuntary movements MRI, BRAIN + BRAIN STEM, W/WO CONTRAST Height (ft.): 5 ft 2 in Weight (lbs): 191 MRI, CERVICAL SPINE, W/WO CONTRAST Height (ft.): 5 ft 2 in Weight (lbs): 191 HEPATIC FUNCTION PANEL, SERUM AMMONIA, BLOOD CERULOPLASMIN, SERUM COPPER, SERUM OR PLASMA ZINC, PLASMA ([place] ONLY) VITAMIN B12, SERUM 2.Gait jbmiyyebwheI38.81: Unsteadiness on feet Return to Office Raji Saravia MD for TCM Visit 20.EST at [facility] ([place]) on 10/02/2024 at 03:40 PM Carla Quijano MD for TeleHealth 15.TELE at [address] [facility] ([place]) on 02/05/2025 at 02:45 PM Raji Saravia MD [facility], [address], [facility] 10/02/2024 11:46:01 Procedures Surgical History Date Name Laterality Status Provider Name and Address Organization Details Recorded Time 08/09/19 16 open heart surgery completed [facility] 05/03/2024 14:59:17 [facility] 09:25:54 surgical procedure completed [facility] 05/03/2024 14:59:53 Imaging Results Imaging Date Name Status LastModified by Organiz ation Details LastModified Time 09/25/2024 CT, head + brain, w/o contrast completed [address] [facility] [address] [place], [address], 09/25/2024 17:24:56 09/25/2024 XR, chest, 2 view completed [address] [facility] [address] [place], [address], 09/25/2024 17:24:56 09/25/2024 electrocardio gram, routine ECG, 12 leads min completed [address] [facility] [address] [place], [address], 09/27/2024 10:40:00 10/19/2024 CT, abdomen + pelvis, w/ contrast active [facility] [address] [facility], [place], [address], 10/25/2024 09:43:45 Procedure Notes None recorded. Medical Equipment None Reported. Allergies Allergen ID Allergen Name Allergen Category Reaction Reaction Severity Criticality Documentation Date Start Date Code Code System Note Provider Name and Address Organization Details Recorded Time 749169 iodine-so dium iodide medicatio n hives Not available Not available 09/06/20232011 95233 UNK React ion: Hives ; Not Available Not Available Not Available 745852 Iodinated contrast media (substanc e) medicatio n hives Not available Not available 09/06/20232011 94108 2004 SNOMED React ion: Hives ; Not Available Not Available Not Available Medications Name Sig Start Date Stop Date Status Note LastModified by Organization Details LastModified Time metformin 500 mg tablet TAKE 1 TABLET BY MOUTH TWICE DAILY active Not Available Not Available No t Available atorvasta tin 80 mg tablet TAKE 1 TABLET BY MOUTH AT BEDTIME active Not Available Not Available No t Available carvedilo l 25 mg tablet TAKE 1 TABLET BY MOUTH TWICE DAILY active Not Available Not Available No t Available Colace 100 mg capsule Take 1 capsule twice a day by oral route. 2024 active Not Available Not Available Not Avai lable amitripty line 75 mg tablet TAKE 1 TABLET BY MOUTH AT BEDTIME 04/18 completed Not Available Not Available Not Available prednison e 20 mg tablet TAKE TWO TABLETS BY MOUTH 12 HOURS AND [address] SCAN 10/23 completed Not Available Not Available Not Available Tylenol Arthritis Pain 650 mg tablet,ex tended release Take 2 tablets every 8 hours by oral route as needed. active Not Available Not Available No t Available warfarin 2.5 mg tablet take 2.5mg tab along with 1mg tab for a total of 3.5mg tab every day except sat. sun take 4 mg on sat and sun 09/04 completed Not Available Not Available Not Available amlodipin e 2.5 mg tablet TAKE 1 TABLET BY MOUTH ONCE DAILY active Not Available Not Available No t Available acetamino phen 300 mg-codein e 30 mg tablet TAKE 1 TABLET BY MOUTH EVERY 4 TO 6 HOURS NEEDED FOR FOOT PAIN AFTER SURGERY 04/18 completed Not Available Not Available Not Available omeprazol e 40 mg capsule,d elayed release TAKE 1 CAPSULE BY MOUTH ONCE DAILY BEFORE BREAKFAS T 6AM active Not Available Not Available No t Available liothyron ine 5 mcg tablet TAKE 2 TABLETS BY MOUTH ONCE DAILY active Not Available Not Available No t Available aspirin 81 mg tablet,de layed release Take 1 tablet every day by oral route. 10/16 completed Not Available Not Available Not Available warfarin 4 mg tablet take 4mg tab on wed and wednesday only 09/04 completed Not Available Not Available Not Available warfarin 3 mg tablet ALTERNAT E TAKING 3MG AND 3.5MG ONCE DAILY, START 3.5MG TONIGHT (WEDNESDAY ) active Not Available Not Available No t Available OneTouch Ultra Test strips USE 1 STRIP TO CHECK GLUCOSE ONCE DAILY DIRECTED 2024 active Not Available Not Available Not Avai lable cephalexi n 500 mg capsule TAKE ONE CAPSULE BY MOUTH THE DAY BEFORE SURGERY, NONE THE DAY OF SURGERY, THEN TAKE ONE CAPSULE BY MOUTH DAILY FOR 3 DAYS AFTER SURGERY 04/18 completed Not Available Not Available Not Available hydrocort isone 2.5 % topical cream APPLY CREAM TO AFFECTED AREA TWICE DAILY active Not Available Not Available No t Available lorazepam 1 mg tablet TAKE 1 TABLET BY MOUTH TWICE DAILY AND 1/2 TABLET (ONE-CHRISTIANO F) ONCE DAILY NEEDED FOR ANXIETY active Not Available Not Available No t Available warfarin 1 mg tablet take 0.5 tab along with 1- 3mg tab to equal a total of 3.5mg every other day 2024 active Not Available Not Available Not Avai lable cefuroxim e axetil 500 mg tablet TAKE 1 TABLET BY MOUTH EVERY 12 HOURS FOR 7 DAYS 05/03 completed Not Available Not Available Not Available methylpre dnisolone 4 mg tablets in a dose pack TAKE BY MOUTH DIRECTED ON INSIDE OF PACKAGE 01/23 completed Not Available Not Available Not Available albuterol sulfate HFA 90 mcg/actua tion aerosol inhaler INHALE 2 PUFFS BY MOUTH EVERY 6 HOURS NEEDED FOR WHEEZING AND FOR SHORTNES S OF BREATH active Not Available Not Available No t Available amitripty line 100 mg tablet TAKE 1 TABLET BY MOUTH AT BEDTIME active Not Available Not Available No t Available ezetimibe 10 mg tablet TAKE 1 TABLET BY MOUTH AT BEDTIME 2024 active Not Available Not Available Not Avai lable lubiprost one 24 mcg capsule TAKE 1 CAPSULE BY MOUTH TWICE DAILY 04/18 completed Not Available Not Available Not Available aripipraz ole 2 mg tablet TAKE 2 TABLETS BY MOUTH IN THE MORNING active Not Available Not Available No t Available FeroSul 325 mg (65 mg iron) tablet TAKE 1 TABLET BY MOUTH ONCE DAILY active Not Available Not Available No t Available Linzess 145 mcg capsule TAKE 1 CAPSULE BY MOUTH ONCE DAILY 10/16 completed Not Available Not Available Not Available Linzess 290 mcg capsule TAKE 1 CAPSULE BY MOUTH ONCE DAILY 04/18 completed Not Available Not Available Not Available Jardiance 10 mg tablet TAKE 1 TABLET BY MOUTH ONCE DAILY 01/23 completed Not Available Not Available Not Available Jardiance 25 mg tablet TAKE 1 TABLET BY MOUTH ONCE DAILY 05/03 completed ON HOLD 04/18/24* then plan indefint ie hold 05/03/24 p UTI. Could resume if needed for DM control in the future. Not Available Not Available Not Available naloxone 4 mg/actuat ion nasal spray CALL 911. ADMINIST ER A SINGLE SPRAY INTRANAS ALLY INTO ONE NOSTRIL UPON SIGNS OF OPIOID OVERDOSE . MAY REPEAT AFTER 3 MINUTES IF NO RESPONSE . 04/18 completed Not Available Not Available Not Available OneTouch Ultra2 Meter CHECK GLUCOSE ONCE DAILY active Not Available Not Available No t Available OneTouch Delica Plus Lancet 33 gauge USE 1 LANCET TO CHECK GLUCOSE ONCE DAILY DIRECTED 2024 active Not Available Not Available Not Avai lable Ozempic 1 mg/dose (4 mg/3 mL) subcutane ous pen injector INJECT 1MG SUBCUTAN EOUSLY ONCE WEEKLY 10/23 completed Not Available Not Available Not Available Ozempic 0.25 mg or 0.5 mg (2 mg/3 mL) subcutane ous pen injector INJECT 0.5 MG SUBCUTAN EOUSLY WEEKLY 06/06 completed Not Available Not Available Not Available Vitals Date Recorded Body height Body mass index (BMI) Body weight Body temperature Heart rate Oxygen saturation Oxygen saturation in Arterial blood by Pulse oximetry Systolic blood pressure Diastolic blood pressure Provider Name and Address Organization Details Last Updated DateTime 5 157.48 cm 35.4 kg/m2 14996.4 8 g 98.3 [degF] 85 /min 98 % 98 % 108 mm[Hg] 64 mm[Hg] Nicole Carmela [facility] 5 12:04:50 Date Recorded Body height Body mass index (BMI) Body weight Body temperature Heart rate Oxygen saturation Oxygen saturation in Arterial blood by Pulse oximetry Systolic blood pressure Diastolic blood pressure Provider Name and Address Organization Details Last Updated DateTime 5 157.48 cm 34 kg/m2 31246.4 6 g 97.8 [degF] 93 /min 99 % 99 % 102 mm[Hg] 80 mm[Hg] Karuna Licealisa arcos [facility] 5 12:19:33 Date Recorded Body height Body mass index (BMI) Body weight Heart rate Oxygen saturation Oxygen saturation in Arterial blood by Pulse oximetry Systolic blood pressure Diastolic blood pressure Provider Name and Address Organization Details Last Updated DateTime 5 157.48 cm 34.9 kg/m2 83761.4 2 g 90 /min 98 % 98 % 122 mm[Hg] 66 mm[Hg] Sandra Simpson [facility] 5 10:01:20 Date Recorded Body height Body mass index (BMI) Body weight Body temperature Heart rate Oxygen saturation Oxygen saturation in Arterial blood by Pulse oximetry Systolic blood pressure Diastolic blood pressure Provider Name and Address Organization Details Last Updated DateTime 5 157.48 cm 33.5 kg/m2 83356.8 4 g 98.2 [degF] 85 /min 96 % 96 % 128 mm[Hg] 76 mm[Hg] Nicole Casey [facility] 5 12:21:01 Date Recorded Body height Body mass index (BMI) Body weight Body temperature Respiratory rate Heart rate Oxygen saturation Oxygen saturation in Arterial blood by Pulse oximetry Systolic blood pressure Diastolic blood pressure Provider Name and Address Organization Details Last Updated DateTime 5 157.48 cm 33.7 kg/m2 79233.7 g 97.4 [degF] 20 /min 90 /min 99 % 99 % 136 mm[Hg] 82 mm[Hg] Arpita Lee [facility] 5 10:41:30 Social History Question Answer Notes LastModified by Organizat ion Details LastModified Time Tobacco Smoking Status Current Every Day [facility]18[facility] 14:24:04 How Many Packs Per Day (PPD)? 0.5 Information not available 04/18/2024 How Long Have You Smoked? 45 Years Information not available 04/18/2024 Sex: Unknown Functional Status None recorded. Mental Status None recorded. Family History Relationship Description Onset Age of this Age Resolved Age Notes LastModified by Organization Details LastModified Time Brother Essential hypertension [email or web address] Not available 14:57:15 Brother Cardiac complication hcopple Not available 14:57:47 Father Myocardial infarction 57 [email or web address] Not available 05/03 14:58:08 Mother Parkinson's disease hcopple Not available 2023 14:58:18 Medical History No medical history recorded. Gynecological HistoryNo gynecological history recorded. Obstetrics History GPAL:G 0 P 0 0 0 0 Immunizations Vaccine Type Date Status Note Provider Nam e and Address Organization Details Recorded Time Tdap 2 completed Nicole Casey [facility] 10/17/2024 12:01:41 Influenza, split virus, quadrivalent, preservative 0 completed [facility] 09/25/2024 12:19:51 Influenza, recombinant, quadrivalent, PF 2 completed [facility] 09/25/2024 12:19:51 COVID-19, mRNA, LNP-S, PF, 100 mcg/0.5mL dose or 50 mcg/0.25mL dose 1 completed [facility] 09/25/2024 12:19:51 COVID-19, mRNA, LNP-S, PF, 100 mcg/0.5mL dose or 50 mcg/0.25mL dose 1 completed [facility] 09/25/2024 12:19:51 COVID-19, mRNA, LNP-S, PF, 100 mcg/0.5mL dose or 50 mcg/0.25mL dose 1 completed [facility] 09/25/2024 12:19:51 COVID-19, mRNA, LNP-S, bivalent, PF, 30 mcg/0.3 mL dose 2 completed Karuna [facility] 09/25/2024 12:19:51 Past Encounters Encounter ID Performer Location Encounter Start Date Encounter Closed Date Diagnosis/Indication Diagnosis SNOMED-CT Code Diagnosis ICD10 Code Diagnosis Note [id number] Raji Saravia MD [facility] ([place]) [place] [address] 01/24/2024 11:19:56 01/24/2024 12:21:34 Type 2 diabetes mellitus without complication 645320081 E11.9 Anemia 498793855 D64.9 Thromboemb olic disorder 033543553 I74.9 Hypothyroidism 28277856 E03.9 [id number] Raji Saravia MD [facility] ([place] [address] 04/18/2024 14:02:48 04/18/2024 14:58:13 Acute urinary tract infection 024648168 N39.0 [id number] Raji Saravia MD [facility] ([place]) [address] [place] [address] 05/03/2024 14:27:06 05/03/2024 15:42:20 Type 2 diabetes mellitus without complication 178912834 E11.9 Acute urin iván tract infection 672909404 N39.0 Type 2 tiffanie betes mellitus 18745261 E11.9 [id number] [facility]) [place] [address] 08/23/2024 11:48:17 08/23/2024 12:36:03 Type 2 diabetes mellitus without complication 475468355 E11.9 Bleeding hemorrhoids 515 17190 K64.9 Involuntary movement 267 792562 R25.9 Hypertensive disorder 38 337141 I10 Hyperlipidemia 50269999 E78.5 Coronary arteriosclerosis 17187922 I25.10 Thromboemb olic disorder 549160563 I74.9 [id number] Carla Quijano MD [facility] ([place]) [address] [place] [address] 09/29/2024 09:53:14 09/29/2024 11:49:32 Abnormal movement 374626750 R25.9 Abnormal gait 69244591 R 26.81 [id number] Raji Saravia MD [facility] ([place]) [address] [place] [address] 09/25/2024 12:10:54 09/25/2024 13:03:15 Bleeding hemorrhoids 95256353 K64.9 Anemia 732669841 D64.9 Thromboemb olic disorder 768956321 I74.9 [id number] [facility]) [address] [place] [address] 10/17/2024 11:56:17 10/17/2024 13:02:02 Type 2 diabetes mellitus 84713601 E11.9 Anemia 524237922 D64.9 Chronic constipation 236 546025 K59.09 Thromboemb olic disorder 580765322 I74.9 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 Post-disch arge follow-up 393734440 Z09 [id number] Raji Saravia MD [facility] ([place]) [address] [place] [address] 10/23/2024 10:33:08 10/23/2024 11:01:11 Thromboembolic disorder 254633955 I74.9 Carcinoma in situ of anus 58305813 D01.3 Chronic constipation 236 613047 K59.09 Health Concerns Section Related Observation LastModified by Organization Detai ls LastModified Time None Recorded Concern Status LastModified by Organization Details LastModified Time None Recorded Advance Directives Directive None Recorded Payers Encounter Date Sequence Insurance Name Policy Number Policy De [place] Covered Member ID De La [place]ega Member ID Guarantor Name 08/23/2024 1 [place] Ariadna Camposikin [id number] Ariadna Olguin [place] 08/23/2024 2 [place] [employer] Ariadna Giraldo [id number] Ariadna Olguin Entri[place] 09/25/2024 1 [place] Ariadna Olguin [place] [id number] Ariadna Olguin Entrikin 09/25/2024 2 [place] Ariadna Camposikiisrrael [id number] Ariadna Olguin Entrikin 09/29/2024 1 [place] Ariadna Camposikin [id number] Ariadna Olguin Entrikin 09/29/2024 2 [place] [facility] Ariadna Rubion [id number] Ariadna Olguin Entrikin 10/17/2024 1 [place] Ariadna Camposikin [id number] Ariadna Olguin Entrikin 10/17/2024 2 [place] [facility] Ariadna Camposikin [id number] Ariadna Olguin Entrikin 10/23/2024 1 [place] Ariadna Camposikin [id number] Ariadna Olguin [place]kin 10/23/2024 2 [place] [facility] AID Ariadna Camposikin [id number] Ariadna Giraldo Notes Date Note Type Note Provider Name and Address Organization Details Recorded Time 08/23/2024 text/html Med Check- [facility] [place]- 2 falls in the last month in the snow, no injuries Follow up on HYPERTENSION-Do you check your blood pressure range outside of clinic (if so, what values)?: no-Blood pressure medication(s) taken today?: yes-Dizziness?: no-Chest pain?: no-shortness of breath?: no Targeted Review of Systems:-Headaches?: no-Heart palpitations?: no-weakness/numbness?: no-Vision changes?: no-Leg or ankle swelling?: yes, left leg sometimes Follow Up DIABETES- Frequency of home glucose checks?: 3 times a week---- fasting (range):---- pre-lunch: 127-134---- pre-supper:---- bedtime:- Diabetic eye exam in the past 12 months? yes- Checking feet daily? yes- Do you ever or how many days per week do you miss your medication doses? no- Low Blood Sugar episodes? no- Are you interested in cadmium liquor maker referral for diabetes education? no- Numbness or tingling in the toes? no-weight loss has stalled on Ozempic. Jerking movements in hands and legs- most days (about 5 days per week) Alva has been having involuntary jerking motions of her arms. Typically worse in the mornings and evenings. This doesn't happen during the day. It is disruptive enough that she gets so frustrated, she just goes to bed in the evenings. Arms jerk backwards, sometimes she even hits herself.- Onset 1.5 Months approximately.- sometimes also notes similar in legs but arms are worse. Bleeding hemorrhoid-seems to be worse. Sometimes clots, [employer]. Often has blood in the stool after BM. Cyndi Farris APRN, [employer] [address] [place] [address], [phone], [facility] 08/23/2024 12:48:53 09/25/2024 text/html Alva woke up at 2 am having active bleeding from her rectum. She was oozing blood and passing larger amounts every 20 minutes all morning. She is feeling lightheaded at times, a little short of breath.-she has been battling bleeding hemorrhoids for months. Dr. Tinsley has started Linzess, HC suppositoriees.-she had noted a slowing in the bleeding the last month or so, until today. She has never had this much bleeding before.-no abdominal pain. She continues to struggle w/ constipation. Last BM 2 weeks ago, but that is not all that unusual for her. Goes about every 5 days usually. Normal appetite, no n/v. Cyndi Farris APRN, [employer] [address] [place] [address], [phone], [facility] 09/25/2024 15:36:21 09/29/2024 text/html Ariadna Giraldo is a 68-year-old female who presents for evaluation of abnormal movements. She has past medical history significant for hypertension, hyperlipidemia, refractory depression, constipation in addition to thyroid nodules, gastroesophageal reflux disease currently on metformin with question of diabetes although last A1c was within reasonable range but elevated also on Ozempic and warfarin for historical upper extremity clot. She is currently on amitriptyline and aripiprazole for mood management and has been on these medications for long duration greater than a year. Within 6 months she began to notice jerking of the right upper and right lower extremity more prominent within the lower extremity in comparison to right upper extremity. This is almost a myoclonic or hemiballismus type movement. This occurred sporadically over the last 6 months, but within the last month or 2 this has completely discontinued. She has not noticed these movements any longer. She has concerns for gait instability for long duration including difficulty and instability and falls correlated with this. She does not know why. She does have a bad knee on the left and attributes most of this to moderate degenerative changes within the left knee. She has had x-rays in confirmation of this. She has had no recent neuro imaging. She has had some lab work including a vitamin B12 that was in a lower range at 222. She had a recent thyroid within normal range. She does not report known history of liver dysfunction. No family members with difficulty with movement as they have aged. She has no known history of B12 deficiency. She reports no hereditary conditions such as [place] within the family. She does not report any tremor in correlation with this. No difficulty starting or stopping movements. 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 Patient initially presented to outside hospital on 10/04/2024 with weakness and has been falling for couple of months. No syncope. Will get lightheaded and fall. Reported some dark tarry stool but not consistently. Reported constipation. At outside hospital noted to have hypertension, anemia. Fecal occult blood positive. Respiratory viral panel positive for influenza infection. Status post Tamiflu. Chest x-ray with small right pleural effusion, groundglass opacity in the left lung base, mild cardiomegaly. CT head negative. CT chest opacities( likely atelectasis) in right and left lung, motion artifact. Patient is transferred for GI consult. Admitted with acute blood loss anemia, suspected GI blood loss. Warfarin held. GI consulted. Course complicated by multiple loose stools with blood on 10/08/2024. Underwent endoscopy on 10/11/2024. Noted normal esophagus, erythematous mucosa in the prepyloric region of the stomach. Biopsied. Recommended no aspirin, ibuprofen, naproxen or other nonsteroidal anti-inflammatory drugs. Recommended use of proton pump inhibitor daily for 2 weeks. Palpable rectal mass found on distal rectal exam. Colonoscopy revealed diverticulosis in the sigmoid colon, in the descending colon. Noted likely malignant tumor at the anus. Biopsied. Colorectal surgery consulted in the setting of anal mass, most likely a new cancer. CEA normal. Colorectal surgery team recommended CT abdomen pelvis, however patient was very eager to discharge home and would like to follow-up with colorectal surgery team as an outpatient. Outpatient imaging ordered. Pending biopsy results, recommended establishing care with medication oncology and radiation oncology. Falls were thought to be secondary to hypotension and anemia. Worked with PT and OT who recommended home. Patient is discharged to home in stable condition. Advised to follow-up with PCP in 5 days and specialist as per schedule. - Pt has a follow up apt on at [facility] for Dr. Randell Naqvi Colorectal Surgery with a CT scan prior to apt. - Seeing psychiatrist tomorrow - Due for INR, has been back on Coumadin 3mg since home on Wednesday. Overall feeling better. She has had no rectal bleeding since admission to the hospital. She is still constipated. No BM since being in the hospital and getting a suppository. Cyndi Farris APRN, [employer] [address] [place] [address], [phone], [facility] 10/18/2024 17:10:55 10/23/2024 text/html patient is here today for a 1 week follow up on constipation. Needs INR rechecked today.-since starting the Colace BID and fiber daily, she has had a good BM. She feels overall better in that respect. She has not had any rectal bleeding. -wants to know if she should restart ozempic or not Cyndi Farris APRN, [employer] [address] [place] [address], [phone], [facility] 10/23/2024 18:38:25 OBGyn Episode No OBEpisode recorded.
--- OUTSIDE RECORDS SUMMARY | 2024-10-25 10:36 | XMS_ITS | Clinical Summary ---
Author Organization 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 Active LORazepam (ATIVAN) 1 mg tablet Take 1 mg by mouth 2 times daily. Active metFORMIN (GLUCOPHAGE) 500 mg tablet Take 500 mg by mouth 2 times daily with meals. Active warfarin (COUMADIN) 3 mg tablet Take 3 mg by mouth daily. Active amLODIPine (NORVASC) 2.5 mg tablet Take 1 Tablet (2.5 mg) by mouth daily. 30 Tablet 10/12/19 25 Active omeprazole (PriLOSEC) 40 mg Capsule, Delayed Release(E.C.) Take 1 Capsule (40 mg) by mouth daily. 30 Capsule 10/12/19 25 Active amitriptyline (ELAVIL) 100 mg tablet Take 1 Tablet (100 mg) by mouth daily at bedtime. 30 Tablet 10/12/19 25 Active carvediloL (COREG) 25 mg tablet Take 1 Tablet (25 mg) by mouth 2 times daily with meals. 60 Tablet 10/12/19 25 Active atorvastatin (LIPITOR) 80 mg tablet Take 1 Tablet (80 mg) by mouth daily. 30 Tablet 10/12/19 25 Active ezetimibe (ZETIA) 10 mg tablet Take 1 Tablet (10 mg) by mouth daily. 30 Tablet 10/12/19 25 Active liothyronine (CYTOMEL) 5 mcg Tablet Take 2 Tablets (10 mcg) by mouth daily. 60 Tablet 10/12/19 25 Active predniSONE (DELTASONE) 20 mg tablet Take 2 Tablets (40 mg) by mouth see administration instructions. 4 Tablet 10/14/19 25 Active diphenhydrAMI NE (BENADRYL) 25 mg capsule Take 2 Capsules (50 mg) by mouth see administration instructions. 2 Capsule 10/14/19 25 Active amitriptyline (ELAVIL) 100 mg tablet Take 100 mg by mouth daily at bedtime. 2024 Discontinued amLODIPine (NORVASC) 2.5 mg tablet Take 2.5 mg by mouth daily. 2024 Discontinued aspirin (ECOTRIN EC) 81 mg Tablet, Delayed Release (E.C.) Take 81 mg by mouth daily. 2024 Discontinued atorvastatin (LIPITOR) 80 mg tablet Take 80 mg by mouth daily. 2024 Discontinued carvediloL (COREG) 25 mg tablet Take 25 mg by mouth 2 times daily with meals. 2024 Discontinued ezetimibe (ZETIA) 10 mg tablet Take 10 mg by mouth daily. 2024 Discontinued liothyronine (CYTOMEL) 5 mcg Tablet Take 10 mcg by mouth daily. 2024 Discontinued omeprazole (PriLOSEC) 40 mg Capsule, Delayed Release(E.C.) Take 40 mg by mouth daily. 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 Influenza with pneumonia 10/05/2024 Hematochezia 10/05/2024 terminal carman (current) use of anticoagulants 2024 Encounters Date Type Department Care Team Description 10/26/19 9:00 AM CDT Office Visit [facility] Oncology and Hematology - [place] [address] [place] [id number] Rufus Amin MD Anal cancer (CMS/HCC) (Primary Dx) 10/21/19 25 Results Follow-Up [facility] Gastroenterology [facility] [address] [facility] [address] [place] [phone] Hunter Kemp, PATHOLOGY 10/20/19 25 12:30 PM CDT Office Visit [facility] Surgical [facility] [place] [id number] [place] [phone] Dennis Boothe MD 10/20/19 25 10:15 AM CDT Ancillary Procedure [address] [id number] Cristin Vázquez PA-C Mass of anus 10/20/19 25 Orders Only [facility] [place] [id number] [facility] [address] [place] [phone] Dennis Boothe MD Anal cancer (CMS/HCC) (Primary Dx) 10/20/19 25 Orders Only [facility] [place] [id number] [facility] [address] [place] [phone] Dennis Boothe MD Anal cancer (CMS/HCC) (Primary Dx) 10/14/19 25 Orders Only [facility] [place] [id number] [facility] [address] [place] [phone] Dennis Boothe MD 10/13/19 25 Orders Only [facility] [place] [id number] [facility] [address] [place] [phone] Cristin Vázquez PA-C Mass of anus (Primary Dx) 10/12/19 25 8:30 AM [employer] H[employer]ORY TE[employer]ER - 10/12/19 25 9:15 AM [employer] HISTORY TEACHER Surgery [facility] GI Lab [facility] [address] [place] [phone] Hunter Kemp DO ESOPHAGOGASTRODUODENOSCOPY 10/12/19 8:26 AM [employer] TE[employer]ER Anesthesia Event [facility] GI Lab S [facility] [address] [place] [address] Shon Gilmore MD 10/12/19 External Device Data STL ABSTRACTION Provider, Abstract 10/11/19 External Device Data [facility] ABSTRACTION Provider, Abstract 10/11/19 External Device Data ST[facility] ABSTRACTION Provider, Abstract 10/05/19 Travel 10/04/19 11:13 PM [employer] H[employer]ORY TE[employer]ER - 10/12/19 6:48 PM [employer] HISTORY TEACHER Hospital Encounter [facility] Medical Telemetry [address] [place] [address] Loida Ferguson MD Weitzel, MD Ras Sutton Shady, MD Nuspl, DO Danyel Acosta Vanaja, MD Acute blood loss anemia Discharge Disposition: Home or Self Care from Last 3 Months Family History Medical History Relation Name Comments Colon Cancer Neg Hx Social History Tobacco Use Types Packs/Day Years Used Date Smoking Tobacco: Some Days Cigarettes Tobacco Cessation:Ready to Q uit: Not Asked; Counseling Given: Not Answered Alcohol Use Standard Drinks/Week Comments Yes 0 (1 standard drink = 0.6 oz pur e alcohol) occ. Feeling Safe Answer Date Recorded Are you in a relationship wi th someone who hurts you emotionally and/or physically? No 10/04/2024 Food Insecurity Answer Date Recorded Social/Environmental Concerns No concerns Transportation Needs Answer Date Record ed Social/Environmental Concerns No concerns Housing Stability Answer Date Recorded Social/Environmental Concerns No concerns Utility Needs Answer Date Recorded Social/Environmental Concerns No concerns Comments Unknown Sex and Gender Information Value Date Recorded Sex Assigned at Not on file Legal Sex Female 4:49 PM [employer] TE[employer]ER Gender Identity Not on file Sexual Orientation Not on file Last Filed Vital Signs Vital Sign Reading Time Taken Comments Blood Pressure 131/81 10/25/2024 8:39 AM CDT Pulse 84 10/25/2024 8:39 AM CDT Temperature 35 C (95 F) 10/25/2024 8:39 AM CDT Respiratory Rate 15 10/25/2024 8:39 AM CDT Oxygen Saturation 90% 10/25/2024 8:39 AM CDT Inhaled Oxygen Concentration - - Weight 81.9 kg (180 lb 9.6 oz) 10/25/2024 8:39 A M CDT Height 157.5 cm (5' 2 ) 10/25/2024 8:39 AM CDT Body Mass Index 33.03 10/25/2024 8:39 AM CDT Plan of Treatment Upcoming Encounters Date Type Department Care Team (Late st Contact Info) Description 11/14/2024 4:00 PM CDT Telephone Check Up [facility]ology - [place] [address] [facility] [address] [place] [address] Rufus Amin MD [address] [facility] [employer] [address] [place] [address] Health Maintenance Due Date Last Done Comments DIABETES ANNUAL FOOT EXAM 11/04/1975 DIABETES ANNUAL RETINAL EXAM 11/04/1975 DIABETES MICROALBUMIN ANNUAL SCREEN 11/04/1975 LDL CHOLESTEROL ANNUAL 11/04/1975 PNEUMOCOCCAL VACCINE 50+ YEA RS (1 of 2 - PCV) 1976 Traditional Medicare (ACO) A nnual Wellness Visit 1976 BREAST CANCER SCREENING 1997 FIT-DNA Q 3 years 2002 FIT/FOBT Q 1 year 2002 Flex Sig/CT Colonography Q 5 years 2002 ZOSTER VACCINE (1 of 2) 11/04/2007 RSV VACCINE (60+ or ) (1 - Risk 60-74 years 1-dose series) 2017 OSTEOPOROSIS SCREENING 2022 INFLUENZA VACCINE (#1) 2024 05/21/2022, 2019 COVID-19 Vaccine (5 - 2023-2 5 season) 2024 05/21/2022, 07/08/2021, 11/20/2020, Additional history exists DIABETES HBA1C Q 6 MONTHS 04/19/20252024, 10/05/2024, 12/24/2023 DTAP/TDAP/TD VACCINES (2 - T d or Tdap) 01/24/2032 01/23/2022 COLORECTAL SCREENING 10/11/2034 10/11/2024, 10/11/2024, Colorectal Cancer Screening 10/11/2034 Procedures Procedure Name Priority Date/Time Associated Diagnosis Comments CT ABDOMEN PELVIS W CONTRAST Routine 10:54 AM CDT Mass of anus POC GLUCOSE Routine 10/11/2024 1:34 PM [employer] H[employer] TE[employer]ER POC GLUCOSE Routine 10/11/2024 10:44 AM [employer] HISTORY TEACHER POC GLUCOSE Routine 10/11/2024 9:06 AM [employer] HISTORY TEACHER COLONOSCOPY REPORT 10/11/2024 9:02 AM [employer] H[employer]ORY TEACHER PATHOLOGY Pathology 10/11/2024 8:42 AM [employer] HISTORY TEACHER UPPER ENDOSCOPY REPORT 8:41 AM [employer] HISTORY TEACHER COLONOSCOPY 10/11/2024 8:30 AM [employer] S[employer] HISTORY TEACHER ESOPHAGOGASTRODUODENOSCOPY 10/11 8:30 AM [employer] S[employer] HISTORY TEACHER POC GLUCOSE Routine 10/11/2024 8:25 AM [employer] SCHO[employer] HISTORY TEACHER POC GLUCOSE Routine 10/11/2024 6:42 AM [employer] HISTORY TEACHER CEA Routine 10/11/2024 4:53 AM [employer] S[employer] HISTORY TEACHER PROTIME-INR Routine 10/11/2024 4:53 AM [employer] S[employer] HISTORY TEACHER BASIC METABOLIC PANEL Routine 10/11/2024 4:53 AM [employer] S[employer] HISTORY TEACHER CBC WITHOUT DIFFERENTIAL Routine 025 4:53 AM [employer] S[employer] HISTORY TEACHER POC GLUCOSE Routine 10/11/2024 2:26 AM [employer] S[employer] HISTORY TEACHER POC GLUCOSE Routine 10/10/2024 10:03 PM [employer] HISTORY TEACHER POC GLUCOSE Routine 10/10/2024 3:50 PM [employer] HISTORY TEACHER POC GLUCOSE Routine 10/10/2024 2:53 PM [employer] HISTORY TEACHER POC GLUCOSE Routine 10/10/2024 2:52 PM [employer] HISTORY TEACHER PROTIME-INR Routine 10/10/2024 12:34 PM [employer] HISTORY TEACHER CBC WITHOUT DIFFERENTIAL Routine 025 12:34 PM [employer] HISTORY TEACHER POC GLUCOSE Routine 10/10/2024 9:50 AM [employer] HISTORY TEACHER POC GLUCOSE Routine 10/09/2024 11:53 PM [employer] HISTORY TEACHER POC GLUCOSE Routine 10/09/2024 7:40 PM [employer] HISTORY TEACHER POC GLUCOSE Routine 10/09/2024 1:00 PM [employer] HISTORY TEACHER POC GLUCOSE Routine 10/09/2024 8:50 AM [employer] S[employer] HISTORY TEACHER PROTIME-INR Routine 10/09/2024 7:48 AM [employer] S[employer] HISTORY TEACHER BASIC METABOLIC PANEL Routine 10/09/2024 7:48 AM MIDD[employer] S[employer] HISTORY TEACHER CBC WITHOUT DIFFERENTIAL Routine 025 7:48 AM [employer] S[employer] HISTORY TEACHER POC GLUCOSE Routine 10/08/2024 9:30 PM [employer] HISTORY TEACHER POC GLUCOSE Routine 10/08/2024 6:02 PM [employer] HISTORY TEACHER POC GLUCOSE Routine 10/08/2024 12:38 PM MID[employer] S[employer] HISTORY TEACHER CBC WITHOUT DIFFERENTIAL Routine 025 9:37 AM [employer] S[employer] HISTORY TEACHER PROTIME-INR Routine 10/08/2024 9:37 AM MIDD[employer] SCHOOL HISTORY TEACHER POC GLUCOSE Routine 10/08/2024 7:47 AM MID[employer] SCHOOL HISTORY TEACHER POC GLUCOSE Routine 10/07/2024 11:33 PM [employer] SCHO[employer] HISTORY TEACHER POC GLUCOSE Routine 10/07/2024 9:15 PM MIDD[employer] S[employer] HISTORY TEACHER POC GLUCOSE Routine 10/07/2024 6:20 PM MIDD[employer] S[employer] HISTORY TEACHER POC GLUCOSE Routine 10/07/2024 1:28 PM [employer] S[employer] HISTORY TEACHER BASIC METABOLIC PANEL Routine 10/07/2024 9:57 AM MIDD[employer] S[employer] HISTORY TEACHER CBC WITHOUT DIFFERENTIAL Routine 9:57 AM [employer] S[employer] HISTORY TEACHER PROTIME-INR Routine 10/07/2024 9:57 AM MIDD[employer] S[employer]OL HISTORY TEACHER POC GLUCOSE Routine 10/07/2024 7:45 AM MID[employer] S[employer] HISTORY TEACHER POC GLUCOSE Routine 10/06/2024 11:46 PM [employer] S[employer] HISTORY TEACHER POC GLUCOSE Routine 10/06/2024 7:02 PM [employer] S[employer]OL HISTORY TEACHER HEMOGLOBIN AND HEMATOCRIT Routine 2024 4:42 PM MID[employer] S[employer] HISTORY TEACHER POC GLUCOSE Routine 10/06/2024 12:21 PM MIDD[employer] SCHOOL HISTORY TEACHER POC GLUCOSE Routine 10/06/2024 8:34 AM [employer] SCHOOL HISTORY TEACHER HEMOGLOBIN AND HEMATOCRIT Routine 2024 4:30 AM MIDD[employer] SCHOOL HISTORY TEACHER PROTIME-INR Routine 10/06/2024 4:30 AM MIDD[employer] SCHOOL HISTORY TEACHER HEMOGLOBIN AND HEMATOCRIT Routine 2024 10:54 PM MID[employer] SCHOOL HISTORY TEACHER POC GLUCOSE Routine 10/05/2024 8:16 PM MIDD[employer] SCHOOL HISTORY TEACHER POC GLUCOSE Routine 10/05/2024 4:39 PM MIDD[employer] SCHOOL HISTORY TEACHER HEMOGLOBIN A1C Routine 10/05/2024 4:14 PM MIDDLE SCHOOL HISTORY TEACHER HEMOGLOBIN AND HEMATOCRIT Routine 2024 4:14 PM MIDD[employer] SCHOOL HISTORY TEACHER HEMOGLOBIN AND HEMATOCRIT Routine 2024 1:20 PM MIDD[employer] SCHOOL HISTORY TEACHER POC GLUCOSE Routine 10/05/2024 11:39 AM MIDD[employer] SCHOOL HISTORY TEACHER POC GLUCOSE Routine 10/05/2024 10:34 AM MIDD[employer] SCHOOL HISTORY TEACHER POC GLUCOSE Routine 10/05/2024 8:53 AM MIDD[employer] SCHOOL HISTORY TEACHER POC GLUCOSE Routine 10/05/2024 8:34 AM MIDD[employer] SCHOOL HISTORY TEACHER POC GLUCOSE Routine 10/05/2024 8:15 AM MIDD[employer] SCHOOL HISTORY TEACHER HEMOGLOBIN AND HEMATOCRIT Routine 2024 7:25 AM MIDD[employer] SCHOOL HISTORY TEACHER POC GLUCOSE Routine 10/05/2024 7:24 AM MIDD[employer] SCHOOL HISTORY TEACHER POC GLUCOSE Routine 10/05/2024 6:54 AM MIDD[employer] SCHOOL HISTORY TEACHER POC GLUCOSE Routine 10/05/2024 6:20 AM MIDD[employer] SCHOOL HISTORY TEACHER POC GLUCOSE Routine 10/05/2024 6:18 AM MIDD[employer] SCHOOL HISTORY TEACHER POC GLUCOSE Routine 10/05/2024 5:39 AM MIDD[employer] SCHOOL HISTORY TEACHER POC GLUCOSE Routine 10/05/2024 5:37 AM MIDD[employer] SCHOOL HISTORY TEACHER POC GLUCOSE Routine 10/05/2024 4:17 AM MIDD[employer] SCHOOL HISTORY TEACHER POC GLUCOSE Routine 10/05/2024 3:54 AM MIDD[employer] SCHO[employer] HISTORY TEACHER POC GLUCOSE Routine 10/05/2024 3:43 AM MIDD[employer] S[employer] HISTORY TEACHER PROTIME-INR Routine 10/05/2024 2:33 AM [employer] S[employer] HISTORY TEACHER FERRITIN Routine 10/05/2024 12:36 AM [employer] HISTORY TEACHER IRON, TIBC, AND PERCENT SATURATION Routine 10/05/2024 12:36 AM [employer] S[employer] HISTORY TEACHER DIFFERENTIAL, MANUAL Stat 10/05/2024 12:36 AM [employer] S[employer] HISTORY TEACHER PROCALCITONIN Routine 10/05/2024 12:36 AM [employer] S[employer] HISTORY TEACHER LACTIC ACID Stat 10/05/2024 12:36 AM [employer] S[employer] HISTORY TEACHER COMPREHENSIVE METABOLIC PANEL Stat 12:36 AM MIDD[employer] S[employer] HISTORY TEACHER CBC WITH DIFFERENTIAL Stat 10/05/2024 12:36 AM MIDDLE S[employer] HISTORY TEACHER from Last 3 Months Results * CT ABDOMEN PELVIS W CONTRAST (10/19/2024 10:54 AM CDT) Anatomical Region Laterality Modality Abdomen Computed Tomogra phy 10/19/2024 10:4 1 AM CDT Impressions 10/19/2024 11:30 AM CDT IMPRESSION: Mass-like soft tissue at the anus, probably represents the reported anal mass. Limited evaluation due to lack of distention. 2.9 x 1.5 x 1.8 cm right inguinal node. This is nonspecific. Narrative 10/19/2024 11:30 AM CDT EXAM: CT ABDOMEN PELVIS W CONTRAST STUDY DATE: 10/19/2024 10:54 AM CLINICAL INDICATION: Mass of anus COMPARISON: None CONTRAST: IOPAMIDOL 61 % INTRAVENOUS SOLUTION (SINGLE USE VIAL) Given:100 mL PROCEDURE: Contiguous axial CT images of the abdomen and pelvis are obtained after administration of intravenous contrast. Coronal and sagittal reformatted images were processed and reviewed. Radiation dose reduction technique was utilized. FINDINGS: The visualized lung bases are clear. There are moderate calcifications of the descending thoracic aorta. No pericardial effusion or pericardial thickening. There are no focal enhancing lesions in the liver. The gallbladder is normal in appearance. No calcified gallstones. No gallbladder wall thickening or pericholecystic fluid. There is no intrahepatic or extrahepatic biliary ductal dilatation. There are no focal enhancing lesions in the spleen. No perihepatic or perisplenic fluid collections. There are no focal lesions in the pancreas. No pancreatic ductal dilatation or peripancreatic fluid collections. The bilateral adrenal glands are normal in appearance. There are no obstructing renal or ureteral calculi. No hydronephrosis bilaterally. The bilateral kidneys demonstrates symmetric renal parenchymal enhancement. There are moderate chronic artery calcifications. There are moderate calcifications in the proximal superior mesenteric artery. There are severe calcifications at the origin of the bilateral renal arteries. No abdominal aortic aneurysm. There are advanced calcifications of the infrarenal abdominal aorta. There is no lymphadenopathy in the abdomen and pelvis by CT size criteria. There is a 2.9 x 1.5 x 1.8 cm right inguinal node (series 2, image 163). There is a 3 x 1.9 mass-like soft tissue at the anus (series 601, images 36-40), probably corresponds to the reported interval mass. There is limited evaluation on this CT study due to lack distention of the anus. No dilated loops of bowel or small bowel obstruction. There is a duodenal diverticulum arising from the junction of the second and third portions of the duodenum (series 2, image 51). No free air or free fluid. The bladder is normal in appearance. There are no stones in the bladder. The reproductive organs are unremarkable. There is a hemangioma in L3 vertebral body. There are degenerative changes of the lumbar spine. There is a 3 mm calcified lesion in the uterus (series 602, image 89), may represent a small calcified fibroid. Procedure Note Marlene Galarza MD - 10/19/2024 EXAM: CT ABDOMEN PELVIS W CONTRAST STUDY DATE: 10/19/2024 10:54 AM CLINICAL INDICATION: Mass of anus COMPARISON: None CONTRAST: IOPAMIDOL 61 % INTRAVENOUS SOLUTION (SINGLE USE VIAL) Given:100 mL PROCEDURE: Contiguous axial CT images of the abdomen and pelvis are obtained after administration of intravenous contrast. Coronal and sagittal reformatted images were processed and reviewed. Radiation dose reduction technique was utilized. FINDINGS: The visualized lung bases are clear. There are moderate calcifications of the descending thoracic aorta. No pericardial effusion or pericardial thickening. There are no focal enhancing lesions in the liver. The gallbladder is normal in appearance. No calcified gallstones. No gallbladder wall thickening or pericholecystic fluid. There is no intrahepatic or extrahepatic biliary ductal dilatation. There are no focal enhancing lesions in the spleen. No perihepatic or perisplenic fluid collections. There are no focal lesions in the pancreas. No pancreatic ductal dilatation or peripancreatic fluid collections. The bilateral adrenal glands are normal in appearance. There are no obstructing renal or ureteral calculi. No hydronephrosis bilaterally. The bilateral kidneys demonstrates symmetric renal parenchymal enhancement. There are moderate chronic artery calcifications. There are moderate calcifications in the proximal superior mesenteric artery. There are severe calcifications at the origin of the bilateral renal arteries. No abdominal aortic aneurysm. There are advanced calcifications of the infrarenal abdominal aorta. There is no lymphadenopathy in the abdomen and pelvis by CT size criteria. There is a 2.9 x 1.5 x 1.8 cm right inguinal node (series 2, image 163). There is a 3 x 1.9 mass-like soft tissue at the anus (series 601, images 36-40), probably corresponds to the reported interval mass. There is limited evaluation on this CT study due to lack distention of the anus. No dilated loops of bowel or small bowel obstruction. There is a duodenal diverticulum arising from the junction of the second and third portions of the duodenum (series 2, image 51). No free air or free fluid. The bladder is normal in appearance. There are no stones in the bladder. The reproductive organs are unremarkable. There is a hemangioma in L3 vertebral body. There are degenerative changes of the lumbar spine. There is a 3 mm calcified lesion in the uterus (series 602, image 89), may represent a small calcified fibroid. IMPRESSION: Mass-like soft tissue at the anus, probably represents the reported anal mass. Limited evaluation due to lack of distention. 2.9 x 1.5 x 1.8 cm right inguinal node. This is nonspecific. Cristin Vázquez PA-C CT ORDERABLES Final Result * (ABNORMAL) POC GLUCOSE (10/11/2024 1:34 PM [employer]ORY TEACHER) Only the most recent of44 resultswithin the time period is included. GLUCOSE POC 147(H) 74 - 99 mg/dL 10/11/2024 1:34 PM [employer] H[employer]ORY TEACHER [facility] SPECIMEN SOURCE, GLUCOSE POC Whole Blood 10/11/2024 1:34 PM [employer] H[employer]ORY TE[employer]ER [employer] [facility] COMMENT, GLU POC Notified RN/MD 10/11/2024 1:34 PM [employer] H[employer]ORY TEACHER [facility] Blood, whole 10/11/2024 1:34 PM [employer] HISTORY TEACHER 10/11/2024 1:36 PM [employer] H[employer]ORY TEACHER us Odell Montaño MD POINT OF CARE TESTING [id number] [address] [place] [address] * COLONOSCOPY REPORT (10/11/2024 9:02 AM [employer] HISTORY TEACHER) Narrative Procedure Note Hunter Kemp DO - 10/11/2024 9:02 AM CST [facility] Endoscopy Patient Name: Ariadna Giraldo Procedure Date: 10/11/2024 Date of : 1955 Attending MD: Hunter Kemp MD, Procedure: Colonoscopy Indications: Hematochezia, Acute post hemorrhagic anemia Providers: Hunter Kemp MD Referring MD: Medicines: Monitored Anesthesia Care Complications: No immediate complications. Procedure: Informed consent was obtained for the procedure, including moderate sedation after risks were discussed. Based on the pre-procedure assessment, including review of the patient's medical history, medications, allergies, and review of systems, the patient was deemed to be an appropriate candidate for sedation. A timeout was performed. Continuous ECG monitoring, pulse oximetry, blood pressure monitoring, and direct observation were performed. The Colonoscope was introduced through the anus and advanced to the terminal ileum. The colonoscopy was performed without difficulty. The patient tolerated the procedure well. The quality of the bowel preparation was good. Anatomical landmarks were photographed. Estimated Blood Loss: Estimated blood loss was minimal. Findings: The perianal examination was normal. The digital rectal exam findings include palpable rectal mass. Diverticula were found in the sigmoid colon and descending colon. Retroflexion in the right colon was performed. The terminal ileum appeared normal. A frond-like/villous non-obstructing mass was found at the anus. Oozing was present. This was biopsied with a cold forceps for histology. Estimated blood loss was minimal. Impression: - Palpable rectal mass found on digital rectal exam. - Diverticulosis in the sigmoid colon and in the descending colon. - The examined portion of the ileum was normal. - Likely malignant tumor at the anus. Biopsied. Recommendation: - Await pathology results. - [facility] to [facility]. - Refer to a colo-rectal surgeon. - No further recommendations from GI. Will sign off. Hunter Kemp MD 10/11/2024 9:02:16 AM This report has been signed electronically. Number of Addenda: [address]; [place] [address] Hunter Kemp DO GI PROCEDURE ORDERABLES Fin al Result * PATHOLOGY (10/11/2024 8:42 AM [employer] H[employer]ORY TEACHER) CASE REPORT Surgical Pathology R eport Case: [id number] Authorizing Provider: Hunter Kemp DO Collected: 10/11/2024 08:42 AM Ordering Location: [facility] GI Lab [place] Received: 10/11/2024 10:57 AM Pathologist: Eber Holcomb MD Specimens: A) - Stomach, bx B) - Anus, anal mass bx 5:12 PM [employer]ORY TE[employer]ER [facility] FINAL DIAGNOSIS A. Stomach, biopsy: - Active chronic gastritis. B. 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 - See microscopic description. 5:12 PM [employer] HISTORY TEACHER [facility] at [address] [employer] H[employer] TEACHER GROSS DESCRIPTION The specimens are received in two containers labeled Ariadna Sharif Giraldo. Received in the first container, additionally labeled stomach biopsy are 2 pieces of white-coleman tissue that are 0.2 cm in greatest dimension. The entire specimen is submitted in cassette A1. Received in the second container additionally labeled anal mass biopsy is a 0.3 x 0.2 x 0.1 cm piece of pink-red tissue that is entirely submitted in cassette B1. [facility] 5 5:12 PM [facility] MICROSCOPIC DESCRIPTION The slides are labeled [id number] and Ariadna Giraldo. The stomach biopsy shows antral mucosa with mild active inflammation within gastric pits and mild to moderate associated chronic inflammation within the lamina propria. Metaplastic changes are not identified. A cytokeratin immunostain does not show an occult infiltrative process. Helicobacter organisms are not identified on H&E, and a Helicobacter pylori immunostain is negative. The anal mass shows thickened squamous epithelium which shows enlarged, hyperchromatic, moderately atypical cells with a lack of maturation from base to surface. The cells show a high nuclear-cytoplasmic ratio and and elevated mitotic rate. A p16 immunostain shows strong, diffuse staining. There is a dense associated chronic inflammatory infiltrate within the submucosa, however a definitively infiltrative growth pattern is not identified, including with the aid of a pancytokeratin immunostain. Notably, however, there is a small focus of tumor cells with adherent fibrin in what appears to be a vascular space. A CD31 immunostain performed on the slide (only seen on A1-1, H&E slide destained and restained; see attached image for original H&E) does not show circumferential staining such that lymphovascular invasion is not definitive. The impression of a frond-like, palpable mass is noted, and the tissue sampled may not be farm loan representative of the entire lesion. 5 5:12 PM [facility] OPERATIVE PROCEDURE 1: ESOPHAGOGASTRODUODENOSCOP Y 2: COLONOSCOPY 5 5:12 PM [facility] CLINICAL INFORMATION A Gastritis, r/o h.pylori Gastritis, r/o h.pylori 5 5:12 PM [facility] COMMENT Special stain, immunohistochemical, and/or in situ hybridization results are interpreted with controls that demonstrate appropriate staining reactions. Note on use of immunohistochemistry reagents and in situ hybridization probes: These tests were developed and their performance characteristics determined by [facility], Department of Laboratory Medicine. It has not been cleared or approved by the U.S. Food and Drug Administration. The FDA has determined that such clearance or approval is not necessary. The test is used for clinical purposes. It should not be regarded as investigational or for research. This laboratory is certified to perform high complexity testing. Frozen section/operating room consultation, gross examination and dissection, and case sign out may have been performed in part or completely in the following laboratories: [facility], CLIA #[id number] [address] [place] [address] [facility], CLIA #[id number] [address] [place] [address] [facility], [place] #[id number] [address] [place] [address] This report was created with the [employer] voice-activated dictation system. Inherent to this system is the possibility of syntax, grammar, punctuation and other errors that could impact the interpretation of the report. If there are interpretative questions about aspects of this report, please contact the performing pathologist. 5:12 PM [employer] [facility] Tissue ENTIRE STOMACH / Unknown Collection / Unknown 10/11/2024 8:42 AM [employer] 10/11/2024 10:57 AM [employer] Comment:Gastritis, r/o h.pyl lito Tissue specimen (specimen) ANAL STRUCTURE / Unknown 10/11/2024 8:57 AM [employer] 10/11/2024 10:57 AM [employer] Comment:R/o malignancy Hunter Kemp DO PATHOLOGY/CYTOLOGY ORDERABL ES Final Result [id number] [address] [facility] [address] * UPPER ENDOSCOPY REPORT (10/11/2024 8:41 AM [employer]) Narrative Procedure Note Hunter Kemp DO - 10/11/2024 8:41 AM CST [facility] Endoscopy Patient Name: Ariadna Giraldo Procedure Date: 10/11/2024 Date of : 1955 Attending MD: Hunter Kemp MD, Procedure: Upper GI endoscopy Indications: Acute post hemorrhagic anemia, Hematochezia, Melena Providers: Hunter Kemp MD Referring MD: Medicines: Monitored Anesthesia Care Complications: No immediate complications. Procedure: Informed consent was obtained for the procedure, including moderate sedation after risks were discussed. Based on the pre-procedure assessment, including review of the patient's medical history, medications, allergies, and review of systems, the patient was deemed to be an appropriate candidate for sedation. A timeout was performed. Continuous ECG monitoring, pulse oximetry, blood pressure monitoring, and direct observation were performed. The was introduced through the mouth, and advanced to the third part of duodenum. The upper GI endoscopy was accomplished without difficulty. The patient tolerated the procedure well. Estimated Blood Loss: Estimated blood loss was minimal. Findings: The examined esophagus was normal. Patchy mildly erythematous mucosa without bleeding was found in the prepyloric region of the stomach. Biopsies were taken with a cold forceps for histology. Biopsies were taken with a cold forceps for Helicobacter pylori testing. Estimated blood loss was minimal. The examined duodenum was normal. The cardia and gastric fundus were normal on retroflexion. Impression: - Normal esophagus. - Erythematous mucosa in the prepyloric region of the stomach. Biopsied. - Normal examined duodenum. Recommendation: - Await pathology results. - No aspirin, ibuprofen, naproxen, or other non-steroidal anti-inflammatory drugs. - Use a proton pump inhibitor PO daily for 2 weeks. Hunter Kemp MD 10/11/2024 8:41:28 AM This report has been signed electronically. Number of Addenda: [address]; [place] [address] us Hunter Kemp DO GI PROCEDURE ORDERABLES Fin al Result * PROTIME-INR (10/11/2024 4:53 AM [employer]) Only the most recent of7 resultswithin the time period is included. PROTIME 14.2 12.7 - 15.1 Seconds 10/11/2024 5:24 AM [employer] [facility] LABORATORY [facility] INR 1.1 0.9 - 1.1 10/11/2024 5:24 AM [facility] Blood Venipuncture / Unknown 10/11/2024 4:53 AM [employer] 10/11/2024 5:02 AM [employer]ER Narrative [facility] LABORATORY [facility] - 10/11/2024 5:24 AM [employer] INR Therapeutic Range: Adult: 2.0 - 3.0 for pulmonary embolism or prophylaxis against venous thrombosis or systemic embolization. 2.0 - 3.0 for patients with tissue heart valves. 2.5 - 3.5 for patients with mechanical heart valves or post CA. Pediatric (12 years and under): 1.5 - 3.0 Although the target range in children is not well established, INR values of 1.5 - 3.0 are recommended for most patients. Higher values have been used in children with prosthetic cardiac valves and hereditary clotting disorders. [place] (<3 days) therapeutic ranges have not been established. Cee Whitt DO HEMATOLOGY ORDERABLES Final Result [facility]# [id number] [address] [facility] [address] * (ABNORMAL) CBC WITHOUT DIFFERENTIAL (10/11/2024 4:53 AM [employer]) Only the most recent of5 resultswithin the time period is included. WBC 5.4 4.0 - 9.8 K/uL 10/11/2024 5:23 AM [facility] RBC 3.62(L) 3.90 - 4.90 M/uL 10/11/2024 5:23 AM [facility] HEMOGLOBIN 8.7(L) 11.8 - 14.8 g/dL 10/11/2024 5:23 AM [facility] HEMATOCRIT 29.6(L) 35.5 - 44.0 % 10/11/2024 5:23 AM [facility] MCV 81.8(L) 82.0 - 99.0 fL 10/11/2024 5:23 AM [facility] MCH 24.0(L) 27.2 - 32.6 pg 10/11/2024 5:23 AM [facility] MCHC 29.4(L) 31.5 - 35.5 g/dL 10/11/2024 5:23 AM [facility] PLATELETS 241 140 - 350 K/uL 10/11/2024 5:23 AM [facility] MPV 10.3 9.3 - 12.4 fL 10/11/2024 5:23 AM [facility] RDW 24.4(H) 11.5 - 14.5 % 10/11/2024 5:23 AM [facility] RDW-STDEV 71.1(H) 37.1 - 48.7 fL 10/11/2024 5:23 AM [facility] Blood Venipuncture / Unknown 10/11/2024 4:53 AM [employer] 10/11/2024 5:02 AM [employer] us Cee Whitt DO HEMATOLOGY ORDERABLES Final Result [facility]# [id number] [address] [facility] [place] [address] * CEA (10/11/2024 4:53 AM [employer]ER) CEA 3.7 <3.9 ng/mL 10/11/2024 3:04 PM [facility] Blood Venipuncture / Unknown 10/11/2024 4:53 AM [employer] 10/11/2024 5:02 AM [employer] TE[employer]ER Narrative [facility] - 10/11/2024 3:04 PM [employer] Reference Range: Non-smoker: </= 3.8 ng/mL Smoker: < 5.5 ng/mL The concentration of CEA in a given specimen, as determined by assays from different manufacturers, can vary because of differences in assay methods and reagent specificity. Values obtained with different assay methods cannot be used interchangeably. The testing method in use is the ADRIAN Electrochemiluminescence immunoassay. Results cannot be interpreted as absolute evidence of the presence or absence of malignancy. Values should be interpreted with caution during . Odell Montaño MD CHEMISTRY ORDERABLES Final Resul t [facility] [employer] SERVICES [facility] CLIA# [id number] [address] [facility] [address] [address] * (ABNORMAL) BASIC METABOLIC PANEL (10/11/2024 4:53 AM [employer]ER) Only the most recent of3 resultswithin the time period is included. SODIUM 144 136 - 145 mmol/L 10/11/2024 5:55 AM [facility] [employer] [facility] POTASSIUM 3.6 3.5 - 5.0 mmol/L 10/11/2024 5:55 AM [facility] CHLORIDE 108(H) 98 - 107 mmol/L 10/11/2024 5:55 AM [facility] CO2 27 22 - 29 mmol/L 10/11/2024 5:55 AM [facility] CALCIUM 8.6 8.6 - 10.2 mg/dL 10/11/2024 5:55 AM [facility] BUN 7(L) 8 - 23 mg/dL 10/11/2024 5:55 AM [facility] CREATININE 0.55 0.51 - 0.95 mg/dL 10/11/2024 5:55 AM [facility] GLUCOSE 89 74 - 99 mg/dL 10/11/2024 5:55 AM [facility] GFR >60 >=60 mL/min/1.7 3 sq meter 10/11/2024 5:55 AM [facility] Comment:eGFR calculated with 2020 CKD-EPI equation. Vegetarian diet, extremely high or low muscle mass, and may affect results. Cystatin C with Glomerular Filtration Rate is a suitable alternative for these patients. ANION GAP 9 8 - 16 mmol/L 10/11/2024 5:55 AM [employer]ER [facility] LABORATORY [facility] Blood Venipuncture / Unknown 10/11/2024 4:53 AM [employer]ER 10/11/2024 5:02 AM [employer]ER Cee Whitt DO CHEMISTRY ORDERABLES Final R esult Performing Organization Address [facility] Co de Phone Number [facility]# [id number] [address] [place] [address] * (ABNORMAL) HEMOGLOBIN AND HEMATOCRIT (10/06/2024 4:42 PM [employer]ER) Only the most recent of6 resultswithin the time period is included. HEMOGLOBIN 8.2(L) 11.8 - 14.8 g/dL 10/06/2024 5:24 PM [employer]ER [facility] HEMATOCRIT 28.2(L) 35.5 - 44.0 % 10/06/2024 5:24 PM [employer]ER [facility] Blood Venipuncture / Unknown 10/06/2024 4:42 PM [employer]ER 10/06/2024 4:58 PM [employer]ER Inez Hogue MD HEMATOLOGY ORDERABLES Sydni l Result Performing Organization Address [facility] Co de Phone Number [facility]# [id number] [address] [place] [address] * HEMOGLOBIN A1C (10/05/2024 4:14 PM [employer]ER) HEMOGLOBIN A1C 5.2 <5.7 % 10/06/2024 1:08 AM [employer]ER [facility] EST. AVG GLUCOSE, A1C 103 mg/dL 10/06/2024 1:08 AM [facility] Blood Venipuncture / Unknown 10/05/2024 4:14 PM [employer] 10/05/2024 4:46 PM [employer]ORY TE[employer]ER [facility]O [facility] - 10/06/2024 1:08 AM [employer]ER HGB A1C INTERPRETATION NORMAL: <5.7% PRE-DIABETES: 5.7 - 6.4% DIABETES: 6.5% OR GREATER Myrna Luis NP CHEMISTRY ORDERABLES Final Re sult [facility] CLIA# [id number] [address] [place] [address] * PROCALCITONIN (10/05/2024 12:36 AM [employer]ER) PROCALCITONIN <0.06 <=0.25 ng/mL 10/05/2024 1:14 AM [employer] H[employer]ORY TE[employer]ER [facility] Blood Venipuncture / Unknown 10/05/2024 12:36 AM [employer]ER 10/05/2024 12:40 AM [employer]ORY TE[employer]ER [facility] - 10/05/2024 1:14 AM [employer]ORY TE[employer]ER The utility of procalcitonin is limited/NOT recommended in certain populations (e.g. newborns, dialysis/ESRD, patients with recent major surgery/trauma/garcia, liver cirrhosis, viral hepatitis, certain cancers, etc.). Procalcitonin levels MUST be interpreted in the context of the patient's clinical condition and CANNOT be solely relied upon for diagnosis of infection. <0.25 ng/mL: Bacterial infection unlikely, particularly lower respiratory tract infections. <0.5 ng/mL: Low risk for progression to severe sepsis/septic shock. Localized infection possible. Measurements done early (<6 hours) after systemic process starts may still be low. 0.5-2 ng/mL: Moderate risk for progression to severe sepsis/septic shock. >2 ng/mL: High risk for progression to severe sepsis/septic shock. If antibiotics ARE administered, repeat testing is recommended every 2-3 days to help guide antibiotic cessation. Once a decrease of 80% or more has occurred from baseline, discontinuation of antibiotics should strongly be considered in clinically stable patients. Procalcitonin is produced in the setting of systemic inflammation, particularly bacterial infections. It is detectable within 2-4 hours and peaks within 6-24 hours. Inez Hogue MD CHEMISTRY ORDERABLES Final Result Performing Organization Address [facility]/ZIP Co de Phone Number [facility]# [id number] [address] [place] [address] * MANUAL DIFFERENTIAL (10/05/2024 12:36 AM [employer]ORY TE[employer]ER) PLATELET EST. Consistent w Count 10/05/2024 1:40 AM [employer] H[employer]ORY TEACHER [facility] LABORATORY SERVICES - . [facility] ANISOCYTOSIS 1+ /hpf 10/05/2024 1:40 AM [employer]ER [facility] LABORATORY SERVICES - . [facility] POIKILOCYTES 1+ /hpf 10/05/2024 1:40 AM [employer] TE[employer]ER [facility] LABORATORY SERVICES - [facility] POLYCHROMASIA 1+ /hpf 10/05/2024 1:40 AM [employer] H[employer] TE[employer]ER [facility] LABORATORY SERVICES - . [facility] OVALOCYTES 1+ /hpf 10/05/2024 1:40 AM [employer] LABORATORY SERVICES - . [facility] Blood Venipuncture / Unknown 10/05/2024 12:36 AM [employer] TE[employer]ER 10/05/2024 12:40 AM [employer] TE[employer]ER Inez Hogue MD HEMATOLOGY ORDERABLES COM Final Result Performing Organization Address [facility] Phone Number [facility]# [id number] [address] [place] [address] * LACTIC ACID (10/05/2024 12:36 AM [employer] H[employer]ORY TEACHER) LACTIC ACID 1.0 <=2.0 mmol/L 10/05/2024 1:04 AM [employer] TE[employer]ER [facility] LABORATORY SERVICES [facility] Blood Venipuncture / Unknown 10/05/2024 12:36 AM [employer] TE[employer]ER 10/05/2024 12:40 AM [employer] TE[employer]ER Inez Hogue MD CHEMISTRY ORDERABLES Final Result Performing Organization Address City/[facility]/ZIP Co de Phone Number [facility]# [id number] [address] [place] [address] * (ABNORMAL) IRON, TIBC, AND PERCENT SATURATION (10/05/2024 12:36 AM [employer] TEACHER) [facility] IRON 12(L) 37 - 145 ug/dL 10/05/2024 2:18 PM [facility] TIBC 314 250 - 450 ug/dL 10/05/2024 2:18 PM [facility] IRON % SATURATION 4(L) 15 - 50 % 10/05/2024 2:18 PM [facility] TRANSFERRIN 247 200 - 360 mg/dL 10/05/2024 2:18 PM [facility] Blood Venipuncture / Unknown 10/05/2024 12:36 AM [employer]ER 10/05/2024 12:40 AM [employer] TE[employer]ER Alka AUGUSTIN CHEMISTRY ORDERABLES [facility] al Result [facility] CLIA# [id number] [address] [place] [address] * (ABNORMAL) CBC WITH DIFFERENTIAL (10/05/2024 12:36 AM [employer] H[employer] TEACHER) [facility] WBC 3.8(L) 4.0 - 9.8 K/uL 10/05/2024 1:03 AM [facility] RBC 3.58(L) 3.90 - 4.90 M/uL 10/05/2024 1:03 AM [facility] HEMOGLOBIN 8.7(L) 11.8 - 14.8 g/dL 10/05/2024 1:03 AM [facility] HEMATOCRIT 30.1(L) 35.5 - 44.0 % 10/05/2024 1:03 AM [facility] MCV 84.1 82.0 - 99.0 fL 10/05/2024 1:03 AM [employer] LABORATORY SERVICES - . [facility] MCH 24.3(L) 27.2 - 32.6 pg 10/05/2024 1:03 AM [employer] LABORATORY SERVICES - [facility] MCHC 28.9(L) 31.5 - 35.5 g/dL 10/05/2024 1:03 AM [employer] LABORATORY SERVICES - . [facility] RDW 10/05/2024 1:03 AM [employer] LABORATORY SERVICES - [facility] Comment:Parameter not availa ble PLATELETS 179 140 - 350 K/uL 10/05/2024 1:03 AM [employer] LABORATORY SERVICES - . [facility] MPV 9.7 9.3 - 12.4 fL 10/05/2024 1:03 AM [employer] LABORATORY SERVICES - . [facility] NEUTROPHILS 73 % 10/05/2024 1:03 AM [employer] LABORATORY SERVICES - . [facility] LYMPHOCYTES 15 % 10/05/2024 1:03 AM [employer] LABORATORY SERVICES - . [facility] MONOCYTES 12 % 10/05/2024 1:03 AM [employer] LABORATORY SERVICES - . [facility] EOSINOPHILS 0 % 10/05/2024 1:03 AM [employer] LABORATORY SERVICES - . [facility] BASOPHILS 0 % 10/05/2024 1:03 AM [employer] LABORATORY SERVICES - . [facility] IMMATURE GRANULOCYTES 0 % 10/05/2024 1:03 AM [employer] LABORATORY SERVICES - [facility] NEUTROPHIL ABSOLUTE 2.72 1.90 - 7.00 K/uL 10/05/2024 1:03 AM [employer] LABORATORY SERVICES - . [facility] LYMPHOCYTE ABSOLUTE 0.56(L) 0.70 - 4.50 K/uL 10/05/2024 1:03 AM [employer] LABORATORY SERVICES - . [facility] MONOCYTE ABSOLUTE 0.45 0.10 - 1.30 K/uL 10/05/2024 1:03 AM [employer] LABORATORY SERVICES - . [facility] EOSINOPHIL ABSOLUTE 0.00 0.00 - 0.70 K/uL 10/05/2024 1:03 AM [employer] LABORATORY SERVICES - . [facility] BASOPHILS ABSOLUTE 0.01 0.00 - 0.20 K/uL 10/05/2024 1:03 AM [employer] LABORATORY SERVICES - . [facility] IMMATURE GRANULOCYTES ABSOLUTE 0.01 0.00 - 0.03 K/uL 10/05/2024 1:03 AM [employer] LABORATORY SERVICES - . [facility] Blood Venipuncture / Unknown 10/05/2024 12:36 AM [employer] 10/05/2024 12:40 AM [employer]ER Inez Hogue MD HEMATOLOGY ORDERABLES Sydni l Result Performing Organization Address [facility]/ZIP Co de Phone Number [facility] CLIA# [id number] [address] [place] [address] * FERRITIN (10/05/2024 12:36 AM [employer] TEACHER) FERRITIN 70.2 13.0 - 150.0 ng/mL 10/05/2024 2:18 PM [facility] [employer] LABORATORY SERVICES [facility] Blood Venipuncture / Unknown 10/05/2024 12:36 AM [employer] TE[employer]ER 10/05/2024 12:40 AM [employer] TE[employer]ER Alka AUGUSTIN CHEMISTRY ORDERABLES Fin al Result Performing Organization Address [facility]/ZIP Co de Phone Number [facility] [employer] [facility] CLIA# [id number] [address] [place] [address] * (ABNORMAL) COMPREHENSIVE METABOLIC PANEL (10/05/2024 12:36 AM [employer] TE[employer]ER) SODIUM 140 136 - 145 mmol/L 10/05/2024 1:09 AM [employer] LABORATORY SERVICES [facility] POTASSIUM 3.7 3.5 - 5.0 mmol/L 10/05/2024 1:09 AM [employer] LABORATORY SERVICES - . [facility] CHLORIDE 105 98 - 107 mmol/L 10/05/2024 1:09 AM [employer] LABORATORY SERVICES - . [facility] CO2 24 22 - 29 mmol/L 10/05/2024 1:09 AM [facility] [employer] LABORATORY SERVICES - [facility] CALCIUM 8.4(L) 8.6 - 10.2 mg/dL 10/05/2024 1:09 AM [employer] LABORATORY SERVICES - [facility] BUN 14 8 - 23 mg/dL 10/05/2024 1:09 AM [employer] LABORATORY SERVICES - [facility] CREATININE 0.63 0.51 - 0.95 mg/dL 10/05/2024 1:09 AM [facility] GLUCOSE 70(L) 74 - 99 mg/dL 10/05/2024 1:09 AM [facility] TOTAL PROTEIN 6.2(L) 6.7 - 8.6 g/dL 10/05/2024 1:09 AM [facility] ALBUMIN 3.4(L) 3.5 - 5.2 g/dL 10/05/2024 1:09 AM [facility] BILIRUBIN TOTAL 0.2 0.2 - 1.1 mg/dL 10/05/2024 1:09 AM [facility] ALKALINE PHOSPHATASE 71 35 - 104 U/L 10/05/2024 1:09 AM [facility] AST 30 <33 U/L 10/05/2024 1:09 AM [facility] ALT 17 <34 U/L 10/05/2024 1:09 AM [facility] GFR >60 >=60 mL/min/1.7 3 sq meter 10/05/2024 1:09 AM [facility] Comment:eGFR calculated with 2020 CKD-EPI equation. Vegetarian diet, extremely high or low muscle mass, and may affect results. Cystatin C with Glomerular Filtration Rate is a suitable alternative for these patients. ANION GAP 11 8 - 16 mmol/L 10/05/2024 1:09 AM [facility] Blood Venipuncture / Unknown 10/05/2024 12:36 AM [employer]ER 10/05/2024 12:40 AM [facility] - 10/05/2024 1:09 AM [facility] Samples containing indocyanine green cause interferences on Total and/or Direct Bilirubin and must not be measured. us Inez Hogue MD CHEMISTRY ORDERABLES Final Result [id number] [address] [place] [address] from Last 3 Months Insurance MEDICARE PART A AND B MED[place]ID [place] RX [facility] Medicare Part D MEDICARE PART A AND B MEDICARE PART A AND B [place] Advance Directives For more information, please contact: [phone] * Full Code (Latest Code Status on File) Date Activated Date Inactivated Comments 10/05/2024 12:38 AM 10/11/2024 8:58 PM Care Teams Hydraulic Plumber Helper Relationship Specialty Start Date End Date Raji Judd MD [address] [place] [address] PCP - General Family Practice 10/05/24
--- OUTSIDE RECORDS SUMMARY | 2024-10-25 10:36 | XMS_ITS | Encounter Summary ---
Author Organization [facility] Address [address] [place] [address] Care Team Providers Care Playback Operator Name Role Phone Catrachito Judd MD Primary Care Provider Unavailab norman Godinez MD, [place] Unavailable [phone] Miladis Young ANP-BC Unavailable +-[phone] Wesley Tinsley DO Unavailable [phone] Raji Judd MD Primary Care Provider [phone] Encounter Details Date Type Department Care Team (Late st Contact Info) Description 01/14/2019 Abstract [facility] CONVERSION [address] [place] [address] , Generic Conversion, Social History Tobacco Use Types Packs/Day Years Used Date Smoking Tobacco: Former Cigarettes Q uit: 07/28/2017 Smokeless Tobacco: Never Alcohol Use Standard Drinks/Week Comments Yes 0 (1 standard drink = 0.6 oz pur e alcohol) once a week Comments Unknown Sex and Gender Information Value Date Recorded Sex Assigned at Female 08/28/2024 7:35 AM CASE LINER Legal Sex Female 8:01 PM CDT Gender Identity Not on file Sexual Orientation Not on file documented as of this encounter Plan of Treatment Upcoming Encounters Date Type Department Care Team (Late st Contact Info) Description 11/27/2024 10:30 AM CDT Office Visit [facility] [address] [place] [phone] Miladis Young, ANP-BC [address] [facility] [address] [place] [address] documented as of this encounter Visit Diagnoses Not on filedocumented in this encounter Additional Health Concerns Infection Onset Date Last Indicated Resolved Time COVID-19 Rule Out 07/11/2023 07/11/2023 07/11/2023 11:22 AM CASE LINER COVID-19 Rule Out 10/02/2024 10/02/2024 10/02/2024 1:16 PM CASE LINER Respiratory Rule-Out 10/04/2024 10/04/2024 025 11:57 AM CASE LINER COVID-19 Rule Out 10/04/2024 10/04/2024 10/04/2024 12:07 PM CASE LINER Influenza - Seasonal 10/04/2024 10/04/2024 025 12:33 AM CASE LINER documented as of this encounter Care Teams Playback Operator Relationship Specialty Start Date End Date Catrachito Judd MD PCP - General FAMILY PRACTICE 02/05/16 01/22/22 Raji Judd MD [address] [place] [address] PCP - General FAMILY PRACTICE 01/23/22 [place] Jean MD CARDIOVASCULAR DISEASE 02/05/16 Miladis Young, [facility]- [address] [facility] [address] [place] [address] NURSE PRACTITIONER 12/14/16 Wesley Tinsley DO [address] [place] [address] SURGERY 12/14/16 documented as of this encounter
--- OUTSIDE RECORDS SUMMARY | 2024-10-25 10:37 | XMS_ITS | Encounter Summary ---
Author Organization [facility] Address [facility] [place] [address] Care Team Providers Care Social Worker Name Role Phone Catrachito Judd MD Primary Care Provider Unavailab norman Godinez MD, [place] Unavailable [phone] Miladis Young [facility]- Unavailable [phone] Wesley Tinsley DO Unavailable [phone] Raji Judd MD Primary Care Provider [phone] Encounter Details Date Type Department Care Team (Late st Contact Info) Description 02/01/2016 Abstract [facility] [address] [place] [address] Gar[place] Jean MD [address] [address] Social History Tobacco Use Types Packs/Day Years Used Date Smoking Tobacco: Smoker, Current Status Unknown Alcohol Use Standard Drinks/Week Comments No 0 (1 standard drink = 0.6 oz pur e alcohol) Comments Unknown Sex and Gender Information Value Date Recorded Sex Assigned at Female 08/28/2024 7:35 AM ACCOUNTING MANAGER Legal Sex Female 8:01 PM CDT Gender Identity Not on file Sexual Orientation Not on file documented as of this encounter Plan of Treatment Upcoming Encounters Date Type Department Care Team (Late st Contact Info) Description 11/27/2024 10:30 AM CDT Office Visit [facility] [address] Miladis Young ANP-BC [address] [facility] [address] [place] [address] documented as of this encounter Visit Diagnoses Not on filedocumented in this encounter Additional Health Concerns Infection Onset Date Last Indicated Resolved Time COVID-19 Rule Out 07/11/2023 07/11/2023 07/11/2023 11:22 AM ACCOUNTING MANAGER COVID-19 Rule Out 10/02/2024 10/02/2024 10/02/2024 1:16 PM ACCOUNTING MANAGER Respiratory Rule-Out 10/04/2024 10/04/2024 025 11:57 AM ACCOUNTING MANAGER COVID-19 Rule Out 10/04/2024 10/04/2024 10/04/2024 12:07 PM ACCOUNTING MANAGER Influenza - Seasonal 10/04/2024 10/04/2024 025 12:33 AM ACCOUNTING MANAGER documented as of this encounter Care Teams Social Worker Relationship Specialty Start Date End Date Catrachito Judd MD PCP - General FAMILY PRACTICE 02/05/16 01/22/22 Raji Judd MD [address] [place] [address] PCP - General FAMILY PRACTICE 01/23/22 [place] Jean MD CARDIOVASCULAR DISEASE 02/05/16 Miladis Young, ANP-BC [address] [facility] [address] [place] [address] NURSE PRACTITIONER 12/14/16 Wesley Tinsley DO [address] [place] [address] SURGERY 12/14/16 documented as of this encounter
--- OUTSIDE RECORDS SUMMARY | 2024-10-25 10:37 | XMS_ITS | Encounter Summary ---
Author Organization [facility] Address [address] [place] [address] Care Team Providers Care Library Director Name Role Phone Raji Judd MD Primary Care Provider [phone] Reason for Referral * Radiology Services (Routine) - Open Specialty Diagnoses / Procedures Referred By Contac t Referred To Contact Diagnoses Anal cancer (CMS/HCC) Procedures IR BIOPSY Rufus Amin MD [email or web address] [place], [place] [address] Phone: tel: fax: Referral ID Status Reason Start Date Expiration Date V isits Requested Visits Authorized [id number] Open CRS to Schedule 10/25/2024 11/25/2025 1 1 * Eval and Treat (Routine) - Open Specialty Diagnoses / Procedures Referred By Contac t Referred To Contact Oncology Diagnoses Anal cancer (CMS/HCC) Procedures [place] OFFICE/OUTPATIENT ESTABLISHED MOD MDM 30 MIN [place] OFFICE/OUTPATIENT NEW MODERATE MDM 45 MINUTES Rufus Amin MD [email or web address] [place] [address] Phone: tel: fax: Referral ID Status Reason Start Date Expiration Date Visits Re quested Visits Authorized [id number] Open 10/25/2024 10/26/2025 1 1 * Radiation Therapy (Routine) - Open Specialty Diagnoses / Procedures Referred By Contac t Referred To Contact Diagnoses Anal cancer (CMS/HCC) Procedures [place] OFFICE/OUTPATIENT ESTABLISHED MOD MDM 30 MIN [place] OFFICE/OUTPATIENT NEW MODERATE MDM 45 MINUTES Noe Escobar MD [address] [place] [address] Phone: tel: fax: Referral ID Status Reason Start Date Expiration Date Visits Re quested Visits Authorized [id number] Open 10/25/2024 10/25/2025 1 1 * PET Scan (Routine) - Open Specialty Diagnoses / Procedures Referred By Contac t Referred To Contact Diagnoses Anal cancer (CMS/HCC) Procedures PET TUMOR OR INFECTION IMG W CT SKB MD Rufus Amin MD [email or web address] [place] [address] Phone: tel: fax: [place] [address] Referral ID Status Reason Start Date Expiration Date V isits Requested Visits Authorized [id number] Open STL CTS 10/25/2024 11/25/2025 1 1 Reason for Visit * Reason Comments Cancer Establish Care * Eval and Treat (Routine) - Authorized Specialty Diagnoses / Procedures Referred By Contac t Referred To Contact Hematology and Oncology / Oncology Diagnoses Anal cancer (CMS/HCC) Procedures [place] OFFICE/OUTPATIENT ESTABLISHED MOD MDM 30 MIN [place] OFFICE/OUTPATIENT NEW MODERATE MDM 45 MINUTES Dennis Boothe MD [address] [place] [address] Phone: tel: fax: Rufus Amin MD [email or web address] [place] [phone] Phone: tel: fax: Referral ID Status Reason Start Date Expiration Date V isits Requested Visits Authorized [id number] Authorized 10/19/2024 10/19/2025 2 2 Encounter Details Date Type Department Care Team (Late st Contact Info) Description 10/25/2024 9:00 AM CDT Office Visit [facility] Oncology and Hematology - [place] [address] [facility] [address] [place] [address] Rufus Amin MD [address] [facility] [address] [place] [address] Anal cancer (CMS/HCC) (Primary Dx) Social History Tobacco Use Types Packs/Day Years [...] on file Legal Sex 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 Gender Identity Not on file Sexual Orientation Not on file documented as of this encounter Last Filed Vital Signs Vital Sign Reading [...] Mass Index 33.03 10/25/2024 8:39 AM CDT documented in this encounter Progress Notes * Rufus Amin MD - 10/25/2024 9:13 AM CDT Hematology-oncology consult Note Requesting Physician Dennis Boothe MD Primary Care Physician Raji Judd MD Problem list Patient Active Problem List Diagnosis Code Acute blood loss anemia D62 Hypotension I95.9 DM (diabetes mellitus), type 2 (CMS/HCC) E11.9 Major depression F32.9 Benign essential HTN I10 CAD (coronary atherosclerotic disease) I25.10 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 Measurable Disease ? Reason for Visit Ariadna Giraldo is a 68 y.o. female who was referred for consultation for anal cancer. History of present illness This is a 68-year-old obese female with history of type 2 diabetes, hypertension, anxietyand depression as well as history of left upper extremity blood clot in 2010 likely provoked with the IV insertion. She has been on Coumadin since then. Patient was admitted to the outside hospital on October 04 with weakness light and lightheadedness. She was found to be anemic and Hemoccult stool was positive. She was transferred to the [facility] with acute blood loss anemia on October 04. She underwent EGD on October 11 that came back normal. Colonoscopy showed diverticulosis in the sigmoid colon and malignant appearing tumor at the anus. Colorectal surgery was consulted. 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 CT scanchest abdomen and pelvis was also performed on October 19 showed 2.9 x 1.5 x 1.8 cm right inguinal lymph node nonspecific along with masslike soft tissue at the anus. Past Medical History No past medical history on file. Hypertension Hyperlipidemia Hypothyroidism History of left upper extremity DVT Depression and anxiety Type 2 diabetes Surgical History Past Surgical History: Procedure Laterality Date HX CATARACT REMOVAL Bilateral 08/2018 HX COLONOSCOPY N/A 10/11/2024 COLONOSCOPY performed by Hunter Kemp DO at [facility] HX ESOPHAGOGASTRODUODENOSCOPY N/A 10/11/2024 ESOPHAGOGASTRODUODENOSCOPY performed by Hunter Kemp DO at [facility] HX FOOT SURGERY Bilateral 08/2016 HX HEART SURGERY 02/07/2016 triple bypass HX NECK SURGERY Left from an infected tooth Medications Current Outpatient Medications Medication Sig Dispense Refill predniSONE (DELTASONE) 20 mg tablet Take 2 Tablets (40 mg) by mouth see administration instructions. 4 Tablet 0 diphenhydrAMINE (BENADRYL) 25 mg capsule Take 2 Capsules (50 mg) by mouth see administration instructions. 2 Capsule 0 amLODIPine (NORVASC) 2.5 mg tablet Take 1 Tablet (2.5 mg) by mouth daily. 30 Tablet 0 omeprazole (PriLOSEC) 40 mg Capsule, Delayed Release(E.C.) Take 1 Capsule (40 mg) by mouth daily. 30 Capsule 0 amitriptyline (ELAVIL) 100 mg tablet Take 1 Tablet (100 mg) by mouth daily at bedtime. 30 Tablet 0 carvediloL (COREG) 25 mg tablet Take 1 Tablet (25 mg) by mouth 2 times daily with meals. 60 Tablet 0 atorvastatin (LIPITOR) 80 mg tablet Take 1 Tablet (80 mg) by mouth daily. 30 Tablet 0 ezetimibe (ZETIA) 10 mg tablet Take 1 Tablet (10 mg) by mouth daily. 30 Tablet 0 liothyronine (CYTOMEL) 5 mcg Tablet Take 2 Tablets (10 mcg) by mouth daily. 60 Tablet 0 empagliflozin (Jardiance) 25 mg tablet Take 25 mg by mouth daily in the morning. LORazepam (ATIVAN) 1 mg tablet Take 1 mg by mouth 2 times daily. metFORMIN (GLUCOPHAGE) 500 mg tablet Take 500 mg by mouth 2 times daily with meals. warfarin (COUMADIN) 3 mg tablet Take 3 mg by mouth daily. No current facility-administered medications for this visit. Allergies Allergies Allergen Reactions Iodinated Contrast Media Hives Iodinated contrast media (substance) Immunizations: Immunization History Administered Date(s) Administered (Pfizer Bivalent)(12 Yr Up) COVID-19 Vaccine - Emergency Use Authorization, MRNA, Lnp-S(Pf) 30 Mcg/0.3 Ml Susp 05/21/2022 (SPIKEVAX) (12 YRS UP PRIMARY SERIES) COVID-19 VACCINE - MRNA-1273(PF) 100 MCG/0.5 ML IM SUSP 10/22/2020, 11/20/2020, 07/08/2021 Family History Family History Problem Relation Name Age of Onset Colon Cancer Neg Hx Social History Social History Tobacco Use Smoking status: Some Days Types: Cigarettes Smokeless tobacco: Not on file Substance Use Topics Alcohol use: Yes Comment: occ. Review of Systems Constitutional: Patient did not mention fever; no night sweats; no anorexia; no weight loss; no fatique NEENT: Patient did not mention headache; no change in vision; no change in hearing; no sore throat;no dysphagia Respiratory: Patient did not mention shortness of breath; no pleuritic chest pain; no cough; no hemoptysis Cardiac: Patient did not mention cardiac-like chest pain; no palpitations; no orthopnea; no PND; noDOE Breasts: Patient did not mention tenderness; no masses GI: Patient did not mention abdominal pain; no nausea; no vomiting; no diarrhea; no hematochezia; no melena : Patient did not mention dysuria; no frequency; no hesitancy; no hematuria MANAGING EDITOR: Musculosketetal: Patient did not mention bone pain; no arthralgia; no joint swelling; no myalgia; Skin: Patient did not mention pruritis; no rash; no petechiae; no ecchymoses Endocrine: Patient did not mention polydipsia; no polyuria; no unusual weight gain Neuro: Patient did not mention headache; no change in vision; no sensory changes; no muscle weakness; no confusion; no seizures Psych: Patient did not mention anxiety; no depression; Physical Exam Vitals: As per nursing note Constitutional: Well developed, well nourished, no acute distress, non-toxic appearance Teeth and gum. No signs of infection or swelling. Eyes: PERRL, conjunctiva normal HEENT: Atraumatic, external ears normal, nose normal, oropharynx moist, no pharyngeal exudates. no sinus tenderness Neck- normal range of motion, no tenderness, supple Respiratory: No respiratory distress, normal breath sounds, no rales, no wheezing Cardiovascular: Normal rate, normal rhythm, no murmurs, no gallops, no rubs GI: Soft, nondistended, normal bowel sounds, nontender, no splenomegaly, no hepatomegaly, no mass, no rebound, no guarding : No costovertebral angle tenderness Musculoskeletal: No edema, no tenderness, no deformities. Back- no tenderness Integument: Well hydrated, no rash, Digits and nails inspection normal Lymphatic: No lymphadenopathy noted Neurologic: Alert & oriented x 3, CN 2-12 normal, normal motor function, normal sensory function, no focal deficits noted Psychiatric: Speech and behavior appropriate Anal exam showed anal tumor. labs No results found for this or any previous visit (from the past 24 hours). Pathology ? Imaging & Other Studies Performance Status? Assessment / Plan: ? 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 Patient presented with GI bleed and anemia. EGD showed gastritis. Colonoscopy showed diverticulosis in the sigmoid colon and malignant appearing tumor at the anus. Colorectal surgery was consulted. 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 CT scan chest abdomen and pelvis was also performed on October 19 showed 2.9 x1.5 x 1.8 cm right inguinal lymph node nonspecific along with masslike soft tissue at the anus. I have discussed this case with Dr. Luna. I discussed with patient regarding the treatment for squamous cell carcinoma of anus. I will order PET scan as well as biopsy of the inguinal lymph node. Iwill also order the HIV testing. We discussed the treatment that include radiation therapy with oral chemotherapy with Xeloda 825 mg/m?? p.o. twice daily during the days of radiation therapy along with mitomycin 10 mg/m?? IV bolus day 1 and day 29. She will be referred for chemotherapy teaching as well. I will discuss the PET scan and the biopsy results with her and 1 to 2 weeks. I have answered all her questions to patient satisfaction. Hypertension. Patient is on amlodipine and carvedilol. Hypothyroidism. Patient is on Cytomel. Hyperlipidemia. She is on Zetia. Type 2 diabetes. Patient is on metformin and Jardiance. History of left upper extremity DVT. That was provoked due to the IV line. She has no further bloodclot. I would recommend discontinuation of warfarin. I recommended to discuss with the primary carephysician as well. Thank you very much for allowing me to participate in Ariadna Giraldo's evaluation and management. Please feel free to contact if I can be of any further assistance in your patient???s care requiring hematology or oncology evaluation. Sincerely, ? ? Rufus Eloisa M.D. cell TOBACCO COUNSELING She is not a tobacco/nicotine user. Rufus Amin MD ,10/25/2024 9:29 AM ? Total time spent 60 minutes, two third of the total time spent counseling patient [id number]. CC:?Dennis Boothe MD Cady, Benjamin Ware, MD documented in this encounter Miscellaneous Notes * Addendum Note - Mitch Leong - 10/25/2024 10:21 AM CDTAddended by: MITCH LEONG on: 10/25/2024 10:21 AM Modules accepted: Orders documented in this encounter Plan of Treatment Upcoming Encounters Date Type Department Care Team (Late st Contact Info) Description 11/14/2024 4:00 PM CDT Telephone Check Up [facility] Oncology and Hematology [facility] [address] [place] [address] [address] Rufus Amin MD [address] [facility] [address] [place] [address] Scheduled Orders Name Type Priority Associated Diagnoses Orde r Schedule PET TUMOR OR INFECTION IMG W CT SKB MDTH Imaging Routine Anal cancer (CMS/HCC) 1 Occurrences starting 10/25/2024 until 10/25/2025 HIV DETECTION W/REFLX CONFIRMATION Lab Routine Anal cancer (CMS/HCC) Ordered: 10/25/2024 BIOPSY Procedures Routine Anal cancer (CMS/HCC) Ordered: 10/25/2024 IR BIOPSY Imaging Routine Anal cancer (CMS/HCC) Expected: 10/25/2024, Expires: 10/25/2025 Scheduled Referrals Name Type Priority Associated Diagnoses Orde r Schedule AMB REFERRAL TO RADIATION ONCOLOGY Outpatient Referral Routine Anal cancer (CMS/HCC) Ordered: 10/25/2024 AMB REFERRAL TO CHEMO TEACHING Outpatient Referral Routine Anal cancer (CMS/HCC) Ordered: 10/25/2024 documented as of this encounter Visit Diagnoses Diagnosis Anal cancer (CMS/HCC)- Primary Malignant neoplasm of anus, unspecified site documented in this encounter Care Teams Library Director Relationship Specialty Start Date End Date Raji Judd MD [address] [place] [address] PCP - General Family Practice 10/05/24 documented as of this encounter
--- OUTSIDE RECORDS SUMMARY | 2024-10-25 10:37 | XMS_ITS | Encounter Summary ---
Author Organization [facility] Address [facility] [place] [address] Care Team Providers Care Research Nurse Practitioner Name Role Phone Catrachito Judd MD Primary Care Provider Unavailab norman Godinez MD, [place] Unavailable [phone] Miladis Young [facility]- Unavailable [phone] Wesley Tinsley DO Unavailable [phone] Raji Judd MD Primary Care Provider [phone] Encounter Details Date Type Department Care Team (Late st Contact Info) Description 12/30/2015 Abstract [facility] [address] [place] [address] [place] Jean MD [address] [address] Social History Tobacco Use Types Packs/Day Years Used Date Smoking Tobacco: Smoker, Current Status Unknown Alcohol Use Standard Drinks/Week Comments No 0 (1 standard drink = 0.6 oz pur e alcohol) Comments Unknown Sex and Gender Information Value Date Recorded Sex Assigned at Female 08/28/2024 7:35 AM FIRST RESPONDER Legal Sex Female 8:01 PM CDT Gender Identity Not on file Sexual Orientation Not on file documented as of this encounter Plan of Treatment Upcoming Encounters Date Type Department Care Team (Late st Contact Info) Description 11/27/2024 10:30 AM CDT Office Visit [facility] [address] Miladis Young ANP-BC [address] [facility] [address] [place] [address] documented as of this encounter Visit Diagnoses Not on filedocumented in this encounter Additional Health Concerns Infection Onset Date Last Indicated Resolved Time COVID-19 Rule Out 07/11/2023 07/11/2023 07/11/2023 11:22 AM FIRST RESPONDER COVID-19 Rule Out 10/02/2024 10/02/2024 10/02/2024 1:16 PM FIRST RESPONDER Respiratory Rule-Out 10/04/2024 10/04/2024 025 11:57 AM FIRST RESPONDER COVID-19 Rule Out 10/04/2024 10/04/2024 10/04/2024 12:07 PM FIRST RESPONDER Influenza - Seasonal 10/04/2024 10/04/2024 025 12:33 AM FIRST RESPONDER documented as of this encounter Care Teams Research Nurse Practitioner Relationship Specialty Start Date End Date Catrachito Judd MD PCP - General FAMILY PRACTICE 02/05/16 01/22/22 Raji Judd MD [address] [place] [address] PCP - General FAMILY PRACTICE 01/23/22 [place] Jean MD CARDIOVASCULAR DISEASE 02/05/16 Miladis Young, ANP-BC [address] [facility] [address] [place] [address] NURSE PRACTITIONER 12/14/16 Wesley Tinsley DO [address] [place] [address] SURGERY 12/14/16 documented as of this encounter
--- OUTSIDE RECORDS SUMMARY | 2024-10-25 10:37 | XMS_ITS | Encounter Summary ---
Author Organization [facility] Address [address] [place] [address] Care Team Providers Care Superintendent Laundry Name Role Phone Miranda Godinez MD, [place] Unavailable [phone] Miladis Young Unavailable [phone] Wesley Tinsley DO Unavailable [phone] Raji Judd MD Primary Care Provider [phone] Reason for Visit * Reason Onset Date Comments Schedule Test 10/24/2024 Encounter Details Date Type Department Care Team (Late st Contact Info) Description 10/24/2024 Telephone [facility] [address] [place] [address] Miladis Young ANP-BC [address] [facility] [address] [place] [address] Schedule Test Social History Tobacco Use Types Packs/Day Years Used Date Smoking Tobacco: Every Day Cigarettes 1 35 Started: 08/04/1985; Last attempted to quit: 08/04/2020 Smokeless Tobacco: Never Alcohol Use Standard Drinks/Week Comments Yes 0 (1 standard drink = 0.6 oz pur e alcohol) rarely AUDIT-C Answer Date Recorded Frequency of Alcohol Consumption Never 07/25/2019 Average Number of Drinks Not on file 019 Frequency of Binge Drinking Not on file 07/09 Comments No Sex and Gender Information Value Date Recorded Sex Assigned at Female 08/28/2024 7:35 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 Legal Sex Female 8:01 PM CDT Gender Identity Not on file Sexual Orientation Not on file documented as of this encounter Progress Notes * Katie Cagle - 10/24/2024 9:25 AM CDT ----- Message from Doretha Ennis sent at 10/23/2024 8:04 AM CDT ----- This needs scheduled ----- Message ----- From: Myrna Ac Sent: 10/21/2024 12:00 AM CDT To: [facility] Miladis Young Nurse Check Carotid Duplex precert documented in this encounter Plan of Treatment Upcoming Encounters Date Type Department Care Team ([facility] st Contact Info) Description 11/27/2024 10:30 AM CDT Office Visit [place] [facility] [address] [place] [id number] Miladis Young ANP-BC [address] [address] documented as of this encounter Visit Diagnoses Not on filedocumented in this encounter Care Teams Superintendent Laundry Relationship Specialty Start Date End Date Raji Judd MD [address] [place] [address] PCP - General FAMILY PRACTICE 01/23/22 [place] Jean MD CARDIOVASCULAR DISEASE 02/05/16 Miladis Young ANP-BC [address] [address] NURSE PRACTITIONER 12/14/16 Wesley Tinsley DO [address] [place] [address] SURGERY 12/14/16 documented as of this encounter
--- OUTSIDE RECORDS SUMMARY | 2024-10-25 10:37 | XMS_ITS | Encounter Summary ---
Author Organization [facility] Address [facility] [place] [address] Care Team Providers Care Senior Painter Name Role Phone Catrachito Judd MD Primary Care Provider Unavailab norman Godinez MD, [place] Unavailable [phone] Miladis Young [facility]- Unavailable [phone] Wesley Tinsley DO Unavailable [phone] Raji Judd MD Primary Care Provider [phone] Encounter Details Date Type Department Care Team (Late st Contact Info) Description 01/29/2016 [facility] [address] [place] [phone] [place] Jean MD [address] [address] Social History Tobacco Use Types Packs/Day Years Used Date Smoking Tobacco: Every Day Cigarettes 1 35 Started: 08/04/1985; Last attempted to quit: 08/04/2020 Smokeless Tobacco: Never Alcohol Use Standard Drinks/Week Comments Yes 0 (1 standard drink = 0.6 oz pur e alcohol) rarely Comments No Sex and Gender Information Value Date Recorded Sex Assigned at Female 08/28/2024 7: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 Legal Sex Female 8:01 PM CDT Gender Identity Not on file Sexual Orientation Not on file documented as of this encounter Plan of Treatment Upcoming Encounters Date Type Department Care Team (Late st Contact Info) Description 11/27/2024 10:30 AM CDT Office Visit [facility] [address] [place] [address] Miladis Yonug ANP-BC [address] [phone] documented as of this encounter Visit Diagnoses Not on filedocumented in this encounter Additional Health Concerns Infection Onset Date Last Indicated Resolved Time COVID-19 Rule Out 07/11/2023 07/11/2023 07/11/2023 11:22 AM ASSORTMENT PLANNER COVID-19 Rule Out 10/02/2024 10/02/2024 10/02/2024 1:16 PM ASSORTMENT PLANNER Respiratory Rule-Out 10/04/2024 10/04/2024 025 11:57 AM ASSORTMENT PLANNER COVID-19 Rule Out 10/04/2024 10/04/2024 10/04/2024 12:07 PM ASSORTMENT PLANNER Influenza - Seasonal 10/04/2024 10/04/2024 025 12:33 AM ASSORTMENT PLANNER documented as of this encounter Care Teams Senior Painter Relationship Specialty Start Date End Date Catrachito Judd MD PCP - General FAMILY PRACTICE 02/05/16 01/22/22 Raji Judd MD [address] [place] [address] PCP - General FAMILY PRACTICE 01/23/22 [place] Jean MD CARDIOVASCULAR DISEASE 02/05/16 Miladis Young, ANP-BC [id number] [place] [address] NURSE PRACTITIONER 12/14/16 Wesley Tinsley DO [address] [place] [address] SURGERY 12/14/16 documented as of this encounter
--- OUTSIDE RECORDS SUMMARY | 2024-10-25 10:37 | XMS_ITS | Clinical Summary ---
Author Organization [facility] Address [address] [place] [address] Care Team Providers Care Grain Shipper Name Role Phone Miranda Godinez MD, [place] Unavailable [phone] Miladis Young ANP-BC Unavailable [phone] Wesley Tinsley DO Unavailable [phone] Raji Judd MD Primary Care Provider [phone] Allergies Active Allergy Reactions Criticality Noted Date Comments Iodine Hives 08/25/2020 Povidone Iodine Hives 08/25/2020 Medications aspirin EC (ASPIRIN EC) 81 MG tablet Take 1 tablet (81 mg total) by mouth daily. 01/17/20 16 Active liothyronine 5 MCG Tab Take 2 tablets (10 mcg total) by mouth daily. 12/31/19 16 Active omeprazole 40 MG capsule Take 1 tablet by mouth daily. 05/15/20 11 Active carvedilol 25 MG tablet Take 1 tablet (25 mg total) by mouth 2 (two) times a day. 60 tablet 11 02/01/20 18 Active amlodipine 2.5 MG tablet Take 1 tablet (2.5 mg total) by mouth daily. 2 01/31/20 19 Active atorvastatin 80 MG tablet Take 1 tablet (80 mg total) by mouth daily. 90 tablet 1 02/23/20 19 Active ezetimibe 10 MG tablet Take 1 tablet (10 mg total) by mouth daily. 90 tablet 3 09/26/19 20 Active Acetaminophen (TYLENOL ARTHRITIS PAIN OR) Take 1 tablet by mouth daily as needed. Active LORazepam 1 MG tablet Take 1 tablet (1 mg total) by mouth. 1 by mouth twice a day and 1/2 tab by mouth once a day 07/10/20 21 Active ARIPiprazole 2 MG tablet Take 2 tablets (4 mg total) by mouth daily. 08/10/19 22 Active metFORMIN (GLUCOPHAGE) 500 MG tablet Take 1 tablet (500 mg total) by mouth 2 (two) times daily. 02/18/20 22 Active JARDIANCE 10 MG tablet Take 2.5 tablets (25 mg total) by mouth daily. 08/19/19 23 Active ONETOUCH ULTRA test strip 1 strip by Other route daily. 07/08/20 22 Active albuterol sulfate HFA 108 (90 Base) MCG/ACT inhaler Inhale 2 puffs into the lungs every 6 (six) hours as needed for Wheezing or Shortness of breath (Chest tightness). 18 g 07/11/20 23 Active Lancets (ONETOUCH DELICA PLUS [id number]) [facility] USE 1 LANCET TO CHECK GLUCOSE ONCE DAILY 08/17/19 24 Active amitriptyline (ELAVIL) 100 MG tablet Take 1 tablet (100 mg total) by mouth nightly at bedtime. at bedtime. 11/11/19 24 Active LINZESS 145 MCG capsule Take 1 capsule (145 mcg total) by mouth daily. Active FEROSUL 325 (65 Fe) MG tablet Take 1 tablet (325 mg total) by mouth daily. 09/17/19 25 Active liothyronine (CYTOMEL) 5 MCG Tab Take 2 tablets (10 mcg total) by mouth daily. Active warfarin (COUMADIN) 3 MG tablet Take 1 tablet (3 mg total) by mouth daily. Wednesday-Wednesday Active warfarin (COUMADIN) 1 MG tablet Take 3.5 tablets (3.5 mg total) by mouth see administration instructions. Wednesday and wednesday Active OZEMPIC 1 mg/dose injection (PEN) 1 mg once a week. Ac tive warfarin 1 MG tablet Take by mouth daily. As directed by primary provider 01/04/20 21 2024 Discontinued OZEMPIC, 0.25 OR 0.5 MG/DOSE, 2 MG/3ML injection (PEN) Inject 1 mg into the skin every 7 days. 2024 Discontinued Active Problems Problem Noted Date Diagnosed Date Loose body of left knee 02/13/2021 Tear of medial meniscus of l eft knee, current, unspecified tear type, subsequent encounter 02/13/2021 Bilateral carotid artery stenosis 10/07/2020 Traumatic tear of left rotat or cuff, unspecified tear extent, initial encounter 08/22/2020 Closed nondisplaced fracture of greater tuberosity of left humerus with routine healing 08/15/2020 Primary osteoarthritis of left knee 08/24/2019 Coronary artery disease invo lving stebbins coronary artery of stebbins heart 02/01/2016 HTN (hypertension) Dyslipidemia Hypercoagulable state (HHS/HCC) Resolved Problems Problem Noted Date Diagnosed Date Resolved Date CAD (coronary artery disease) 12/07/2016 Encounters Date Type Department Care Team Description 10/24/2024 [facility]phone [facility] [address] [place] [address] Miladis Young, ANP- Schedule Test 10/04/2024 10:57 AM MONTESSORI TODDLER TEACHER - 10/04/2024 9:43 PM MONTESSORI TODDLER TEACHER Emergency [facility] [place] [address] Efrain Aguilar, Iglesia Wright MD Generalized Weakness; Fall Discharge Disposition: Transfer to Acute Care Hospital 10/04/2024 Travel 10/02/2024 11:38 AM MONTESSORI TODDLER TEACHER - 10/02/2024 3:14 PM MONTESSORI TODDLER TEACHER Emergency [facility] [place] [address] Kelsy Nichols MD Multiple Falls Discharge Disposition: Home or Self Care (Routine Discharge) 10/02/2024 Travel 09/29/2024 7:55 AM MONTESSORI TODDLER TEACHER - 09/29/2024 11:59 PM MONTESSORI TODDLER TEACHER Hospital Encounter [facility] [address] [place] [address] Wesley Tinsley, Discharge Disposition: Home or Self Care (Routine Discharge) 09/29/2024 Orders Only [facility] [place] [address] Wesley Tinsley DO 09/29/2024 Travel 09/15/2024 2:28 PM MONTESSORI TODDLER TEACHER - 09/15/2024 11:59 PM MONTESSORI TODDLER TEACHER Hospital Encounter [facility] [address] [place] [address] Raji Judd MD Discharge Disposition: Home or Self Care (Routine Discharge) 09/15/2024 Orders Only [facility] [address] [place] [address] Raji Judd MD 09/15/2024 Travel 09/07/2024 8:08 AM MONTESSORI TODDLER TEACHER - 09/07/2024 11:59 PM MONTESSORI TODDLER TEACHER Hospital Encounter [facility] [address] [address] Raji Judd MD Discharge Disposition: Home or Self Care (Routine Discharge) 09/07/2024 Orders Only [facility] [address] [place] [address] [address] Raji Judd MD 09/07/2024 Travel 09/04/2024 7:55 AM MONTESSORI TODDLER TEACHER - 09/04/2024 11:59 PM MONTESSORI TODDLER TEACHER Hospital Encounter [facility] [address] [place] [address] Raji Judd MD Discharge Disposition: Home or Self Care (Routine Discharge) 09/04/2024 7:54 AM MONTESSORI TODDLER TEACHER Hospital Encounter [facility] [address] [place] [address] Cyndi Farris FNP Discharge Disposition: Home or Self Care (Routine Discharge) 09/04/2024 Orders Only [facility] [address] [place] [address] Raji Judd MD 09/04/2024 Orders Only [facility] [address] [place] [address] Cyndi Farris FNP 09/04/2024 Travel 08/28/2024 7:43 AM MONTESSORI TODDLER TEACHER - 08/28/2024 11:59 PM MONTESSORI TODDLER TEACHER Hospital Encounter [facility] [address] [place] [address] Raji Judd MD Discharge Disposition: Home or Self Care (Routine Discharge) 08/28/2024 7:35 AM MONTESSORI TODDLER TEACHER - 08/28/2024 7:42 AM MONTESSORI TODDLER TEACHER Hospital Encounter [facility] [address] [place] [address] Cyndi Farris FNP Discharge Disposition: Home or Self Care (Routine Discharge) 08/28/2024 Orders Only [facility] [address] [place] [address] Raji Judd MD 08/28/2024 Orders Only [facility] [address] [place] [address] Cyndi Farris FNP 08/28/2024 Travel 08/11/2024 8:50 AM MONTESSORI TODDLER TEACHER - 08/11/2024 11:59 PM MONTESSORI TODDLER TEACHER Hospital Encounter [place] [id number] [place] [address] Raji Judd MD Discharge Disposition: Home or Self Care (Routine Discharge) 08/11/2024 Orders Only [place] [address] [place] [address] Raji Judd MD 08/11/2024 Travel from Last 3 Months Immunizations Name Administration Dates Next Due Tdap (Boostrix) 01/23/2022 Family History Medical History Relation Comments mitral valve prolapse Brother Heart Attack Father Heart Disease Father Depression Mother Parkinson's Disease Mother COPD Sister Heart Disease Sister Relation Status Comments Brother Alive Father Mother Alive Sister Alive Social History Tobacco Use Types Packs/Day Years [...] Sex Assigned at Female 08/28/2024 7:35 AM MONTESSORI TODDLER TEACHER Legal Sex Female 8:01 PM CDT Gender Identity Not on file Sexual Orientation Not on file Last Filed Vital Signs Vital Sign Reading Time Taken Comments Blood Pressure 122/96 10/04/2024 9:36 PM MONTESSORI TODDLER TEACHER Pulse 98 10/04/2024 9:36 PM MONTESSORI TODDLER TEACHER Temperature 37.2 C (99 F) 10/04/2024 9:38 PM MONTESSORI TODDLER TEACHER Respiratory Rate 21 10/04/2024 9:36 PM MONTESSORI TODDLER TEACHER Oxygen Saturation 94% 10/04/2024 9:36 PM MONTESSORI TODDLER TEACHER Inhaled Oxygen Concentration - - Weight 89.8 kg (198 lb) 10/04/2024 11:01 AM MONTESSORI TODDLER TEACHER Height 152.4 cm (5') 10/04/2024 11:01 AM MONTESSORI TODDLER TEACHER Body Mass Index 38.67 10/04/2024 11:01 AM MONTESSORI TODDLER TEACHER Plan of Treatment Upcoming Encounters Date Type Department Care Team (Late st Contact Info) Description 11/27/2024 10:30 AM CDT [facility] [address] [place] [address] Miladis Young, ANP-BC [address] [facility] [address] [place] [address] Health Maintenance Due Date Last Done Comments ASCVD Statin 1955 Kidney Health Evaluation 1955 Meningococcal Vaccine (1 - Risk 2-dose series) 11/04/1959 Pneumococcal Vaccine: 65+ Years (1 of 2 - PCV) 11/04/1963 Meningococcal B Vaccine (1 of 5 - Increased Risk) 11/04/1967 Diabetes: Retinopathy Eye Exam 11/04/1975 Hepatitis C 11/04/1975 Mammogram Screening 1997 Zoster Vaccines (1 of 2) 11/04/2007 RSV Immunization or 60+ Years (1 - Risk 60-74 years 1-dose series) 2017 Annual Medicare Wellness Visit 2022 Dexa Scan (General) 2022 COVID-19 Vaccine ( - season) 2024 05/21/2022, 07/08/2021, 11/20/2020, Additional history exists Influenza Adult (#1) 2024 05/21/2022, 05/01/20 20 Hemoglobin A1C 06/25/2024 12/24/2023, 092 08/2022, 07/17/2022, Additional history exists Lipid Panel 12/23/2024 12/24/2023, 06/0 03/2023, 01/31/2021, Additional history exists Colorectal Cancer Screening FIT/FOBT (1 Year) 10/04/2025 10/04/2024 Lung Cancer Screening 10/04/2025 10/04/2024 , 09/13/2023, 09/01/2022 DTaP, Tdap and Td Vaccines (2 - Td or Tdap) 01/24/2032 01/23/2022 Colorectal Cancer Screening Colonoscopy (10 Years) Discontinued RSV Immunizations Under 20 Months Aged Out No longer eligible based on patient's age to complete this topic Procedures Procedure Name Priority Date/Time Associated Diagnosis Comments HEMOGLOBIN AND HEMATOCRIT STAT 10/04/2024 7:05 PM MONTESSORI TODDLER TEACHER TYPE & SCREEN STAT 10/04/2024 3:07 PM MONTESSORI TODDLER TEACHER OCCULT BLOOD, FECES STAT 10/04/2024 2 :37 [address] TODDLER [address]ER CT CHEST WO CON STAT 10/04/2024 1:27 PM MONTESSORI TODDLER TEACHER DRUG SCREEN RAPID STAT 10/04/2024 1:2 3 PM MONTESSORI TODDLER TEACHER HC URINALYSIS AUTO W/MICRO STAT 10/04/2024 1:23 [address]I TODDLER [address]ACHER CT HEAD WO CON STAT 10/04/2024 11:58 AM MONTESSORI TODDLER TEACHER XR TIBIA+FIBULA LT 2V STAT 10/04/2024 11:57 AM MONTESSORI TODDLER TEACHER XR TIBIA+FIBULA RT 2V STAT 10/04/2024 11:57 AM MONTESSORI TODDLER TEACHER XR CHEST PA+LAT STAT 10/04/2024 11:57 AM MONTESSORI TODDLER TEACHER SALICYLATE STAT 10/04/2024 11:30 AM MONTESSORI TODDLER TEACHER ACETAMINOPHEN STAT 10/04/2024 11:30 AM MONTESSORI TODDLER TEACHER ETHANOL STAT 10/04/2024 11:30 AM MONTESSORI TODDLER TEACHER CK (CPK) STAT 10/04/2024 11:30 AM MONTESSORI TODDLER TEACHER TROPONIN, QUANT STAT 10/04/2024 11:30 AM MONTESSORI TODDLER TEACHER COMPREHENSIVE METABOLIC PANEL STAT 10/04/2024 11:30 AM MONTESSORI TODDLER TEACHER CBC W/DIFF AUTOMATED STAT 10/04/2024 11:30 AM MONTESSORI TODDLER TEACHER CORONAVIRUS (COVID-19) ANTIGEN STAT 10/04/2024 11:23 AM MONTESSORI TODDLER TEACHER INFLUENZA A & B STAT 10/04/2024 11:23 AM MONTESSORI TODDLER TEACHER ECG 12-LEAD Routine 10/04/2024 11:20 AM MONTESSORI TODDLER TEACHER CORONAVIRUS (COVID-19) ANTIGEN STAT 10/02/2024 12:22 PM MONTESSORI TODDLER TEACHER INFLUENZA A & B STAT 10/02/2024 12:22 PM MONTESSORI TODDLER TEACHER XR CHEST PORTABLE STAT 10/02/2024 12: 18 [address] MONTESS[address]I TODDLER [address]ACHER CT HEAD WO CON STAT 10/02/2024 12:18 PM MONTESSORI TODDLER TEACHER LACTIC ACID W REFLEX (SEPSIS) STAT 10/02/2024 12:00 PM MONTESSORI TODDLER TEACHER TROPONIN, QUANT STAT 10/02/2024 12:00 PM MONTESSORI TODDLER TEACHER PROTHROMBIN TIME, VENOUS STAT 10/02/2024 12:00 PM MONTESSORI TODDLER TEACHER ETHANOL STAT 10/02/2024 12:00 PM MONTESSORI TODDLER TEACHER CK (CPK) STAT 10/02/2024 12:00 PM MONTESSORI TODDLER TEACHER COMPREHENSIVE METABOLIC PANEL STAT 10/02/2024 12:00 PM MONTESSORI TODDLER TEACHER CBC W/DIFF AUTOMATED STAT 10/02/2024 12:00 PM MONTESSORI TODDLER TEACHER PARTIAL THROMBOPLASTIN TIME,PTT Routine 09/29/2024 8:17 AM MONTESSORI TODDLER TEACHER FPC (current) use of anticoagulants Factor VIII deficiency (CMS/HCC HHS/HCC) PROTHROMBIN TIME, VENOUS Routine 09/29/2024 8:17 AM MONTESSORI TODDLER TEACHER director long term care (current) use of anticoagulants Factor VIII deficiency (CMS/HCC HHS/HCC) CBC W/DIFF AUTOMATED Routine 09/29/2024 8:17 AM MONTESSORI TODDLER TEACHER FPC (current) use of anticoagulants Factor VIII deficiency (CMS/HCC HHS/HCC) PROTHROMBIN TIME, VENOUS Routine 09/15/2024 2:56 PM MONTESSORI TODDLER TEACHER 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) PROTHROMBIN TIME, VENOUS Routine 09/07/2024 8:20 AM MONTESSORI TODDLER TEACHER 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) PROTHROMBIN TIME, VENOUS Routine 09/04/2024 8:08 AM MONTESSORI TODDLER TEACHER 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) CBC W/DIFF AUTOMATED Routine 09/04/2024 8:08 AM MONTESSORI TODDLER TEACHER Anemia, unspecified PROTHROMBIN TIME, VENOUS Routine 08/28/2024 7:46 AM MONTESSORI TODDLER TEACHER 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) CBC W/DIFF AUTOMATED Routine 08/28/2024 7:46 AM MONTESSORI TODDLER TEACHER Anemia, unspecified PROTHROMBIN TIME, VENOUS Routine 08/11/2024 8:58 AM MONTESSORI TODDLER TEACHER 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) LIPID PANEL Routine 12/24/2023 7:08 AM CDT Diabetes mellitus, type 2 Hyperlipidemia HEMOGLOBIN, GLYCOSYLATED Routine 12/24/2023 7:08 AM CDT Diabetes mellitus, type 2 Hyperlipidemia COLONOSCOPY Routine MONTESSORI TODDLER TEACHER from Last 3 Months or Most Recently Relevant to Health Maintenance Results * (ABNORMAL) HEMOGLOBIN AND HEMATOCRIT (10/04/2024 7:05 PM MONTESSORI TODDLER TEACHER) HGB 9.1(L) 12.0 - 16.0 G/DL 10/04/2024 7:10 PM MONTESSORI TODDLER TEACHER [facility] HCT 30.8(L) 36.0 - 47.0 % 10/04/2024 7:10 PM MONTESSORI TODDLER TEACHER [facility] 10/04/2024 7:05 PM MONTESSORI TODDLER TEACHER us Iglesia Oliver MD LABORATORY Final Res ult [facility] [address] [place] [address], * TYPE & SCREEN (10/04/2024 3:07 PM MONTESSORI TODDLER TEACHER) UNITS ORDERED 2 10/04/2024 4:08 PM MONTESSORI TODDLER TEACHER [facility] ABO/RH B POSITIVE 10/04/2024 4:08 PM MONTESSORI TODDLER TEACHER [facility] ANTIBODY SCREEN NEGATIVE 4:08 PM [facility] SAMPLE EXPIRATION 10/07/2024,235 9 10/04/2024 4:08 PM MONTESSORI TODDLER TEACHER [facility] BLOOD UNIT NUMBER [id number] 10/04/2024 4:31 PM MONTESSORI TODDLER TEACHER [facility] PRODUCT: PC LEUKOPOOR 10/04/2024 4:31 PM MONTESSORI TODDLER TEACHER [facility] UNIT DIVISION 00 10/04/2024 4:31 PM MONTESSORI TODDLER TEACHER [facility] BLOOD UNIT STATUS UNIT RELEASED 10/08/2024 10:45 PM MONTESSORI TODDLER TEACHER [facility] TRANSFUSION STATUS OK TO TRANSFUSE 10/04/2024 4:31 PM MONTESSORI TODDLER TEACHER [facility] CROSSMATCH COMPATIBLE 10/04/2024 4:31 PM MONTESSORI TODDLER TEACHER [facility] BLOOD UNIT NUMBER [id number] 10/04/2024 4:31 PM MONTESSORI TODDLER TEACHER [facility] PRODUCT: PC LEUKOPOOR 10/04/2024 4:31 PM MONTESSORI TODDLER TEACHER [facility] UNIT DIVISION 00 10/04/2024 4:31 PM MONTESSORI TODDLER TEACHER [facility] BLOOD UNIT STATUS UNIT RELEASED 10/08/2024 10:45 PM MONTESSORI TODDLER TEACHER [facility] TRANSFUSION STATUS OK TO TRANSFUSE 10/04/2024 4:31 PM MONTESSORI TODDLER TEACHER [facility] CROSSMATCH COMPATIBLE 10/04/2024 4:31 PM MONTESSORI TODDLER TEACHER [facility] 10/04/2024 3:07 PM MONTESSORI TODDLER TEACHER us Efrain Aguilar DO BLOOD BANK TEST ORDERABLES F inal Result Performing Organization Address City/[facility]/ZIP Co de Phone Number [facility] [address] [place] [address], [place] [phone] * (ABNORMAL) OCCULT BLOOD, FECES (10/04/2024 2:37 PM MONTESSORI TODDLER TEACHER) OCCULT BLOOD FECAL POSITIVE(A ) NEGATIVE 10/04/2024 3:27 PM MONTESSORI TODDLER TEACHER [facility] Comment:1+ STOOL SPECIMEN / Unknown 10/04/2024 2:37 PM MONTESSORI TODDLER TEACHER us Efrain Aguilar DO BODY FLUIDS AND STOOLS ORDER JENAINE Final Result Performing Organization Address City/[facility]/ZIP Co de Phone Number [facility] [address] [place] [address], [place] [phone] * CT CHEST WO CON (10/04/2024 1:27 PM MONTESSORI TODDLER TEACHER) Anatomical Region Laterality Modality Chest Computed Tomogra phy 10/04/2024 1:43 PM MONTESSORI TODDLER TEACHER Impressions 10/04/2024 1:47 PM MONTESSORI TODDLER TEACHER IMPRESSION: Suspected atelectatic changes are present within the right and left lung. Respiratory motion artifact compromises the examination. No pleural effusions. Mild cardiomegaly. Ordered By: EFRAIN AGUILAR Interpreted By: Jose G Wiseman MD, 10/04/2024 1:43 PM Narrative 10/04/2024 1:47 PM MONTESSORI TODDLER TEACHER [address] [place] [address] Procedure(s): CT CHEST WO CON Date of service: 10/04/2024 1:12 PM Provided clinical information: 68 years, Female, chest trauma history of a fall. Positive for influenza. Procedure and materials: Helical images of the chest are obtained from superior to the thoracic inlet to inferior to the costophrenic angles. Examination is performed without intravenous contrast. A dose lowering technique was used for this procedure, which may include, but is not limited to, dose reduction technique, automated exposure control, iterative reconstruction, ALARA (As Low As Reasonably Achievable), or Image Gently techniques. Comparison studies: September 13, 2023. Findings: Axillae: No enlarged axillary lymph nodes. Mediastinum/Nikki: Mild Cardiomegaly. No definitely enlarged mediastinal or hilar lymph nodes are present. Lung Parenchyma:Atelectatic changes are present in the posterior aspect of the right upper lobe. Mild dependent atelectatic changes are present in the right left lower lung. Respiratory motion artifact does decrease sensitivity to mild interstitial changes. Slight lower lung opacifications are present this could relate to volume averaging of the pulmonary vasculature versus areas of atelectasis. No pleural effusions. Visualized Upper abdominal structures:Unremarkable. Bone Windows:Mild kyphosis of the thoracic spine. Procedure Note Jose G Wiseman MD - 10/04/[address] [place] [address] Procedure(s): CT CHEST WO CON Date of service: 10/04/2024 1:12 PM Provided clinical information: 68 years, Female, chest trauma historyof a fall. Positive for influenza. Procedure and materials: Helical images of the chest are obtained fromsuperior to the thoracic inlet to inferior to the costophrenic angles.Examination is performed without intravenous contrast. A dose lowering technique was used for this procedure, which may include,but is not limited to, dose reduction technique, automated exposurecontrol, iterative reconstruction, ALARA (As Low As ReasonablyAchievable), or Image Gently techniques. Comparison studies: September 13, 2023. Findings: Axillae: No enlarged axillary lymph nodes. Mediastinum/Nikki: Mild Cardiomegaly. No definitely enlarged mediastinal or hilar lymph nodes are present. Lung Parenchyma:Atelectatic changes are present in the posterior aspect ofthe right upper lobe. Mild dependent atelectatic changes are present inthe right left lower lung. Respiratory motion artifact does decreasesensitivity to mild interstitial changes. Slight lower lung opacifications are present this could relate to volumeaveraging of the pulmonary vasculature versus areas of atelectasis. Nopleural effusions. Visualized Upper abdominal structures:Unremarkable. Bone Windows:Mild kyphosis of the thoracic spine. IMPRESSION: Suspected atelectatic changes are present within the right and left lung.Respiratory motion artifact compromises the examination. No pleural effusions. Mild cardiomegaly. Ordered By: EFRAIN AGUILAR Interpreted By: Jose G Wiseman MD, 10/04/2024 1:43 PM us Efrain Aguilar DO CT Final Result * (ABNORMAL) DRUG SCREEN RAPID (10/04/2024 1:23 PM MONTESSORI TODDLER TEACHER) CANNABINOIDS SCREEN (U) NEGATIVE NEGATIVE 10/04/2024 1:49 PM MONTESSORI TODDLER TEACHER [facility] PHENCYCLIDINE PCP (U) NEGATIVE NEGATIVE 10/04/2024 1:49 PM MONTESSORI TODDLER TEACHER [facility] COCAINE METABOLITES (U) NEGATIVE NEGATIVE 10/04/2024 1:49 PM MONTESSORI TODDLER TEACHER [facility] METHAMPHETAMINE SCREEN (U) NEGATIVE NEGATIVE 10/04/2024 1:49 PM MONTESSORI TODDLER TEACHER [facility] OPIATE SCREEN (U) NEGATIVE NEGATIVE 025 1:49 PM MONTESSORI TODDLER TEACHER [facility] AMPHETAMINE SCREEN (U) NEGATIVE NEGATIVE 10/04/2024 1:49 PM MONTESSORI TODDLER TEACHER [facility] BENZODIAZEPINES SCREEN (U) POSITIVE(A) NEGATIVE 10/04/2024 1:49 PM MONTESSORI TODDLER TEACHER [facility] TRICYCLIC ANTIDEPRESSANT SCREEN (U) POSITIVE(A) NEGATIVE 10/04/2024 1:49 PM MONTESSORI TODDLER TEACHER [facility] METHADONE (U) NEGATIVE NEGATIVE 10/04/2024 1:49 PM MONTESSORI TODDLER TEACHER [facility] BARBITURATES SCREEN (U) NEGATIVE NEGATIVE 10/04/2024 1:49 PM MONTESSORI TODDLER TEACHER [facility] OXYCODONE SCREEN (U) NEGATIVE NEGATIVE 10/04/2024 1:49 PM MONTESSORI TODDLER TEACHER [facility] URINE TOX COMMENT THIS TEST METHODOLOGY IS DESIGNED AND OFFERED A RAPID TURNAROUND, QUALITATIVE SCREENING PROCEDURE TO AID IN THE IMMEDIATE MEDICAL ASSESSMENT OF PATIENTS SUSPECTED OF SUBSTANCE ABUSE. 10/04/2024 1:23 PM MONTESSORI TODDLER TEACHER [facility] Comment: CLINICAL CONSIDERATION AND PROFESSIONAL JUDGMENT MUST BE APPLIED TO ANY DRUG OF ABUSE TEST RESULT, BOTH POSITIVE AND NEGATIVE. CONFIRMATORY QUANTITATIVE RESULTS ARE AVAILABLE THROUGH OUR REFERENCE LABORATORY. URINE SPECIMEN / Unknown 10/04/2024 1:23 PM MONTESSORI TODDLER TEACHER us Efrain Aguilar DO URINE ORDERABLES Final Resul t [facility] [address] [address], * (ABNORMAL) URINALYSIS (10/04/2024 1:23 PM MONTESSORI TODDLER TEACHER) COLOR (U) YELLOW 10/04/2024 1:44 PM MONTESSORI TODDLER TEACHER [facility] TRANSPARENCY SLIGHTLY CLOUDY 10/04/2024 1:44 PM MONTESSORI TODDLER TEACHER [facility] SPECIFIC GRAVITY (U) 1.030(H) 1.000 - 1.025 10/04/2024 1:44 PM MONTESSORI TODDLER TEACHER [facility] Comment:EQUAL TO OR GREATER THAN U PH 5.5 5.0 - 8.0 10/04/2024 1:44 PM MONTESSORI TODDLER TEACHER [facility] LEUKOCYTES (U) NEGATIVE NEGATIVE 10/04/2024 1:44 PM MONTESSORI TODDLER TEACHER [facility] NITRITES NEGATIVE NEGATIVE 10/04/2024 1:44 PM MONTESSORI TODDLER TEACHER [facility] PROTEIN RANDOM (U) 2+(A) NEGATIVE 10/04/2024 1:44 PM MONTESSORI TODDLER TEACHER [facility] GLUCOSE (U) NEGATIVE NEGATIVE 10/04/2024 1:44 PM MONTESSORI TODDLER TEACHER [facility] KETONES MG/DL (U) TRACE(A) NEGATIVE 10/04/2024 1:44 PM MONTESSORI TODDLER TEACHER [facility] UROBILINOGEN 0.2 <1.0 EU/DL 10/04/2024 1:44 PM MONTESSORI TODDLER TEACHER [facility] BLOOD (U) 3+(A) NEGATIVE 10/04/2024 1:44 PM MONTESSORI TODDLER TEACHER [facility] WBC/HPF 0-5 0 - 5 /HPF 10/04/2024 1:44 PM [employer]ESS[employer]I TODDLER TEACHER [facility] Comment:PERFORMED ON UNSPUN URINE RBC/HPF 0-5 0 - 5 /HPF 10/04/2024 1:44 PM [employer] TE[employer]ER [facility] EPI/LPF MANY /LPF 10/04/2024 1:44 PM [employer]ESS[employer] TODDL[employer] TE[employer]ER [facility] MUCUS PRESENT 10/04/2024 1:44 PM [employer]ESS[employer] TODDL[employer] TE[employer]ER [facility] BILIRUBIN CONF ICTO (U) UNABLE TO PERFORM NOT ENOUGH SPECIMEN NEGATIVE 10/04/2024 1:44 PM [employer]ESS[employer] TODDL[employer] TEACHER [facility] URINE SPECIMEN OBTAINED BY CLEAN CATCH PROCEDURE / Unknown 10/04/2024 1:23 PM [employer]ESS[employer]DL[employer] TE[employer]ER us Efrain Aguilar DO URINE ORDERABLES Final Resul t [facility] [address] [place] [address], * CT HEAD WO CON (10/04/2024 11:58 AM [employer]ESS[employer] TODDLER TEACHER) Only the most recent of2 resultswithin the time period is included. Anatomical Region Laterality Modality Head Computed Tomogra phy 10/04/2024 12:0 0 PM [employer] TEACHER Impressions 10/04/2024 12:01 PM [employer] TODDLER TEACHER IMPRESSION: No CT evidence of an acute intracranial abnormality. Ordered By: EFRAIN AGUILAR Interpreted By: Shadi Perez MD, 10/04/2024 12:00 PM Narrative 10/04/2024 12:01 PM [employer] TODDLER TEACHER [place] [id number] [facility] [place] [address] Examination: CT HEAD WO CON, 10/04/2024 11:58 AM. Technique: Computed tomographic images of the head were obtained without intravenous contrast. Additional coronal and sagittal reformatted images were generated at a separate workstation. A dose lowering technique was used for this procedure, which may include, but is not limited to, dose reduction technique, automated exposure control, the use of iterative reconstruction, and ALARA (As Low As Reasonably Achievable) / Image Gently techniques. Clinical history: fall Comparison: CT head 10/02/2024 Findings: There is no acute intracranial hemorrhage. There is no extra-axial collection. Mild global cerebral volume loss with ex vacuo dilatation of ventricles and cerebral sulci. Basal cisterns appear normal. Prior bilateral ocular lens extractions with prosthetic lens implantation. Mild to moderate mucosal thickening involving left maxillary sinus. Mastoid air cells are well aerated. There is no acute fracture nor destructive process of the visualized osseous structures. Procedure Note Shadi Perez MD - 10/04/2024 [place] [id number] [facility] [place] [address] Examination: CT HEAD WO CON, 10/04/2024 11:58 AM. Technique: Computed tomographic images of the head were obtained withoutintravenous contrast. Additional coronal and sagittal reformatted imageswere generated at a separate workstation. A dose lowering technique wasused for this procedure, which may include, but is not limited to, dosereduction technique, automated exposure control, the use of iterativereconstruction, and ALARA (As Low As Reasonably Achievable) / Image Gentlytechniques. Clinical history: fall Comparison: CT head 10/02/2024 Findings: There is no acute intracranial hemorrhage. There is no extra-axialcollection. Mild global cerebral volume loss with ex vacuo dilatation ofventricles and cerebral sulci. Basal cisterns appear normal. Priorbilateral ocular lens extractions with prosthetic lens implantation. Mildto moderate mucosal thickening involving left maxillary sinus. Mastoid aircells are well aerated. There is no acute fracture nor destructive processof the visualized osseous structures. IMPRESSION: No CT evidence of an acute intracranial abnormality. Ordered By: EFRAIN AGUILAR Interpreted By: Shadi Perez MD, 10/04/2024 12:00 PM Efrain Aguilar DO CT Final Result * XR TIBIA+FIBULA RT 2V (10/04/2024 11:57 AM [employer]ESS[employer]I TODDLER TEACHER) Anatomical Region Laterality Modality TibFib Radiographic Gill ging 10/04/2024 12:4 2 PM [employer]ESS[employer]I TODDLER TEACHER Impressions 10/04/2024 12:44 PM [employer] TODDLER TEACHER IMPRESSION: Mild soft tissue swelling about the medial lateral malleoli. Ordered By: EFRAIN AGUILAR Interpreted By: Jose G Wiseman MD, 10/04/2024 12:42 PM Narrative 10/04/2024 12:44 PM [employer]ESS[employer]I TODDLER TEACHER [address] [place] [id number] Procedure(s): XR TIBIA+FIBULA RT 2V Date of service: 10/04/2024 11:30 AM Provided clinical information: 68 years, Female, fall Procedure and materials: AP and lateral Comparison studies: None Findings: No definitive evidence of knee effusion. No fracture, dislocation or acute bony abnormality of the tibia or fibula. Mild soft tissue swelling is present inferior to the medial and lateral malleoli. Achilles and plantar enthesopathy. Procedure Note Jose G Wiseman MD - 10/04/[address] [place] [address] Procedure(s): XR TIBIA+FIBULA RT 2V Date of service: 10/04/2024 11:30 AM Provided clinical information: 68 years, Female, fall Procedure and materials: AP and lateral Comparison studies: None Findings: No definitive evidence of knee effusion. No fracture, dislocation or acute bony abnormality of the tibia orfibula. Mild soft tissue swelling is present inferior to the medial and lateralmalleoli. Achilles and plantar enthesopathy. IMPRESSION: Mild soft tissue swelling about the medial lateral malleoli. Ordered By: EFRAIN AGUILAR Interpreted By: Jose G Wiseman MD, 10/04/2024 12:42 PM us Efrain Aguilar DO GENERAL IMAGING Final Result * XR TIBIA+FIBULA LT 2V (10/04/2024 11:57 AM M[employer]ESSORI TODDLER TEACHER) Anatomical Region Laterality Modality TibFib Radiographic Gill ging 10/04/2024 12:4 4 PM M[employer]ESS[employer]I TODDLER TEACHER Impressions 10/04/2024 12:45 PM M[employer]ESSORI TODDLER TEACHER FINDINGS AND IMPRESSION: The tibia and fibula are intact without evidence of fracture, dislocation or acute bony abnormality. There is cortical irregularity about the medial tibial plateau with medial plateau and medial femoral condyle osteophytes. Findings concerning for degenerative changes. If there is symptomatology at this level further evaluation with knee radiographs recommended. Ordered By: EFRAIN AGUILAR Interpreted By: Jose G Wiseman MD, 10/04/2024 12:44 PM Narrative 10/04/2024 12:45 PM [employer] TODDL[employer] TE[employer]ER [address] [place] [address] Procedure(s): XR TIBIA+FIBULA LT 2V Date of service: 10/04/2024 11:30 AM Provided clinical information: 68 years, Female, fall Procedure and materials: AP and lateral view. Comparison studies: None. Procedure Note Jose G Wiseman MD - 10/04/[address] [place] [address] Procedure(s): XR TIBIA+FIBULA LT 2V Date of service: 10/04/2024 11:30 AM Provided clinical information: 68 years, Female, fall Procedure and materials: AP and lateral view. Comparison studies: None. FINDINGS AND IMPRESSION: The tibia and fibula are intact without evidence of fracture, dislocationor acute bony abnormality. There is cortical irregularity about the medial tibial plateau with medialplateau and medial femoral condyle osteophytes. Findings concerning fordegenerative changes. If there is symptomatology at this level furtherevaluation with knee radiographs recommended. Ordered By: EFRAIN AGUILAR Interpreted By: Jose G Wiseman MD, 10/04/2024 12:44 PM Efrain Aguilar DO GENERAL IMAGING Final Result * XR CHEST PA+LAT (10/04/2024 11:57 AM M[employer]ESSORI TODDLER TEACHER) Anatomical Region Laterality Modality Chest Radiographic Gill ging 10/04/2024 12:0 5 PM [employer]ESS[employer]I TODDLER TEACHER Impressions 10/04/2024 12:08 PM [employer]ESS[employer]I TODDLER TEACHER IMPRESSION: 1. Small right pleural effusion. 2. Groundglass opacity the left lung base that could be seen with a pulmonary contusion, atelectasis or pneumonia, given the clinical setting. If warranted clinically, CT chest could be beneficial for further characterization. 3. Mild cardiomegaly. Ordered By: EFRAIN AGUILAR Interpreted By: Shadi Perez MD, 10/04/2024 12:05 PM Narrative 10/04/2024 12:08 PM M[employer]ESSORI TODDLER TEACHER [address] [place] [address] Examination: XR CHEST PA+LAT, 10/04/2024 11:30 AM. Technique: Upright AP and lateral radiographs of the chest Clinical history: chest wall injury, fall Comparison: Chest radiograph 10/02/2024 Findings: Multiple leads overlying the chest. Cerclage wires approximating median sternotomy. Vascular ostial markers. Mild cardiomegaly. Pulmonary vascular pattern appears unremarkable. Small right pleural effusion. Groundglass opacity the left lung base that could be seen with atelectasis or pneumonia. Moderate to marked osseous demineralization. The thoracic vertebral body heights appear preserved, allowing for reduced detail. Procedure Note Shadi Perez MD - 10/04/[address] [place] [address] Examination: XR CHEST PA+LAT, 10/04/2024 11:30 AM. Technique: Upright AP and lateral radiographs of the chest Clinical history: chest wall injury, fall Comparison: Chest radiograph 10/02/2024 Findings: Multiple leads overlying the chest. Cerclage wires approximating mediansternotomy. Vascular ostial markers. Mild cardiomegaly. Pulmonary vascularpattern appears unremarkable. Small right pleural effusion. Groundglassopacity the left lung base that could be seen with atelectasis orpneumonia. Moderate to marked osseous demineralization. The thoracicvertebral body heights appear preserved, allowing for reduced detail. IMPRESSION: 1. Small right pleural effusion. 2. Groundglass opacity the left lung base that could be seen with apulmonary contusion, atelectasis or pneumonia, given the clinical setting.If warranted clinically, CT chest could be beneficial for furthercharacterization. 3. Mild cardiomegaly. Ordered By: EFRAIN AGUILAR Interpreted By: Shadi Perez MD, 10/04/2024 12:05 PM us Efrain Aguilar DO GENERAL IMAGING Final Result * (ABNORMAL) COMPREHENSIVE METABOLIC PANEL (10/04/2024 11:30 AM M[employer]ESSORI TODDLER TEACHER) Only the most recent of2 resultswithin the time period is included. SODIUM S/P/B 145 136 - 145 MMOL/L 10/04/2024 12:01 PM [facility] POTASSIUM S/P/B 3.8 3.5 - 5.1 MMOL/L 10/04/2024 12:01 PM [facility] CHLORIDE S/P/B 108(H) 98 - 107 MMOL/L 10/04/2024 12:01 PM [facility] CO2 25.1 21.0 - 32.0 MMOL/L 10/04/2024 12:01 PM [facility] GLUCOSE 80 70 - 99 MG/DL 10/04/2024 12:01 PM [facility] Comment: FASTING GLUCOSE 100 TO 125 MG/DL IS CONSISTENT WITH IMPAIRED FASTING GLUCOSE. FASTING GLUCOSE >125 MG/DL IS CONSISTENT WITH DIABETES. RANDOM GLUCOSE >200 MG/DL WITH HYPERGLYCEMIC SYMPTOMS IS CONSISTENT WITH DIABETES. PER ADA GUIDELINES BUN 21 6 - 24 MG/DL 10/04/2024 12:01 PM [facility] CREATININE S/P/B 0.97 0.55 - 1.02 MG/DL 10/04/2024 12:01 PM [facility] CALCIUM S/P/B 7.9(L) 8.4 - 10.5 MG/DL 10/04/2024 12:01 PM [facility] BILIRUBIN TOTAL S/P/B 0.3 0.2 - 1.0 MG/DL 10/04/2024 12:01 PM [facility] Comment: THIS ASSAY IS NOT RECOMMENDED FOR PATIENTS UNDERGOING TREATMENT WITH ELTROMBOPAG DUE TO THE POTENTIAL FOR FALSELY ELEVATED RESULTS. ALKALINE PHOSPHATASE S/P/B 64 50 - 130 U/L 10/04/2024 12:01 PM [facility] AST 24 15 - 37 U/L 10/04/2024 12:01 PM [facility] ALT 23 14 - 59 U/L 10/04/2024 12:01 PM [facility] TOTAL PROTEIN S/P/B 5.4(L) 6.4 - 8.2 G/DL 10/04/2024 12:01 PM [facility] ALBUMIN S/P/B 2.5(L) 3.4 - 5.0 G/DL 10/04/2024 12:01 PM [facility] ANION GAP 11.9 5.0 - 15.0 MMOL/L 10/04/2024 12:01 PM [facility] OSMOLALITY (CALC) 302 MOSM/KG 025 12:01 PM [facility] Comment:REFERENCE RANGE NOT ESTABLISHED GFR ESTIMATE 64(L) >89 ML/MIN/1. 73 M2 10/04/2024 12:01 PM [facility] GFR NOTES GFR REFERENCE S: 10/04/2024 12:01 PM [facility] Comment: THE ESTIMATED GFR IS CALCULATED USING THE 2020 CKD-EPI EQUATION. THE FOLLOWING CATEGORIES FOR GRADING RENAL FUNCTION ARE RECOMMENDED BY THE INTERNATIONAL SOCIETY OF NEPHROLOGY (KDIGO 2012 CLINICAL PRACTICE GUIDELINE). G1,NORMAL OR HIGH: >89 ml/min/1.73 m2 G2,MILDLY DECREASED: 60-89 ml/min/1.73 m2 G3A,MILDLY TO MODERATELY DECREASED: 45-59 ml/min/1.73 m2 G3B,MODERATELY TO SEVERELY DECREASED: 30-44 ml/min/1.73 m2 G4,SEVERELY DECREASED: 15-29 ml/min/1.73 m2 G5,KIDNEY FAILURE: <15 ml/min/1.73 m2 10/04/2024 11:3 0 AM [employer]ESS[employer]I TODDLER TEACHER us Efrain Aguilar DO LABORATORY Final Result [facility] [address] [address], * (ABNORMAL) CBC W/DIFF AUTOMATED (10/04/2024 11:30 AM MONTESSORI TODDLER TEACHER) Only the most recent of5 resultswithin the time period is included. WBC 3.99(L) 4.00 - 10.80 x10'3/uL 10/04/2024 12:07 PM [facility] RBC 3.28(L) 4.10 - 5.40 x10'6/uL 10/04/2024 12:07 PM [facility] HGB 7.9(L) 12.0 - 16.0 G/DL 10/04/2024 12:07 PM [facility] HCT 26.9(L) 36.0 - 47.0 % 10/04/2024 12:07 PM [facility] MCV 82.0 78.0 - 100.0 FL 10/04/2024 12:07 PM [facility] MCH 24.1(L) 27.0 - 31.0 PG 10/04/2024 12:07 PM [facility] MCHC 29.4(L) 33.0 - 36.0 G/DL 10/04/2024 12:07 PM [facility] RDW RESULTS NOT AVAILABLE 11.5 - 14.5 % 10/04/2024 12:07 PM [facility] PLT 168 150 - 350 x10'3/uL 10/04/2024 12:07 PM [facility] MPV 9.3 7.4 - 10.4 FL 10/04/2024 12:07 PM [facility] CBC COMMENT NORMAL REFERENCE RANGE NOT ESTABLISHED FOR THE PROPORTIONAL LEUKOCYTE DIFFERENTIAL. 10/04/2024 12:07 PM [facility] NEUTROPHILS % 55.8 % 10/04/2024 12:20 PM [facility] LYMPHOCYTES % 19.0 % 10/04/2024 12:20 PM [facility] MONOCYTES % 21.8 % 10/04/2024 12:20 PM [facility] EOSINOPHILS % 2.8 % 10/04/2024 12:20 PM [facility] BASOPHILS % 0.3 % 10/04/2024 12:20 PM [facility] IMMATURE GRANS % 0.3 % 10/04/19 12:20 PM [facility] NRBC % 0.0 % 10/04/2024 12:20 PM [facility] ABS. NEUTROPHILS 2.23 1.60 - 8.30 x10'3/uL 10/04/2024 12:20 PM [facility] ABS. LYMPHOCYTES 0.76(L) 0.80 - 4.70 x10'3/uL 10/04/2024 12:20 PM [facility] ABS. MONOCYTES 0.87 0.00 - 1.50 x10'3/uL 10/04/2024 12:20 PM [facility] ABS. EOSINOPHILS 0.11 0.00 - 0.40 x10'3/uL 10/04/2024 12:20 PM [facility] ABS. BASOPHILS 0.01 0.00 - 0.20 x10'3/uL 10/04/2024 12:20 PM [facility] ABS. IMMATURE GRANULOCYTES 0.01 0.00 - 0.03 x10'3/uL 10/04/2024 12:20 PM [facility] ABS. NUCLEATED RBC'S 0.00 0.00 - 0.01 x10'3/uL 10/04/2024 12:20 PM M[employer]ESSORI TODDLER TEACHER [facility] PLT MORPH. NORMAL 10/04/2024 12:20 PM M[employer]ESSORI TODDLER TEACHER [facility] RBC MORPHOLOGY 2+ 10/04/2024 12:20 PM M[employer]ESSORI TODDLER TEACHER [facility] Comment: ANISOCYTOSIS 2+ POIKILOCYTOSIS 1+ POLYCHROMASIA 2+ HYPOCHROMASIA 1+ TARGET CELLS 10/04/2024 11:3 0 AM M[employer]ESSORI TODDLER TEACHER us Efrain Aguilar DO LABORATORY Final Result Performing Organization Address City/[facility]/ZIP Co de Phone Number [facility] [address] [place] [address], [place] [phone] * TROPONIN, QUANT (10/04/2024 11:30 AM MONTESSORI TODDLER TEACHER) Only the most recent of2 resultswithin the time period is included. TROPONIN I HIGH SENSITIVITY 8 0 - 51 ng/L 10/04/2024 12:01 PM M[employer]ESSORI TODDLER TEACHER [facility] 10/04/2024 11:3 0 AM MONTESSORI TODDLER TEACHER us Efrain Aguilar DO LABORATORY Final Result Performing Organization Address [facility]/ZIP Co de Phone Number [facility] [address] [place] [address], [place] [phone] * SALICYLATE (10/04/2024 11:30 AM MONTESSORI TODDLER TEACHER) SALICYLATES 5.9 2.8 - 20.0 MG/DL 10/04/2024 12:01 PM MONTESSORI TODDLER TEACHER [facility] 10/04/2024 11:3 0 AM MONTESSORI TODDLER TEACHER us Efrain Aguilar DO LABORATORY Final Result Performing Organization Address City/[facility]/ZIP Co de Phone Number [facility] [address] [place] [address], [place] [phone] * ETHANOL (10/04/2024 11:30 AM MONTESSORI TODDLER TEACHER) Only the most recent of2 resultswithin the time period is included. ALCOHOL S/P/B <0.003 <0.003 G/DL 10/04/2024 12:01 PM MONTESSORI TODDLER TEACHER [facility] 10/04/2024 11:3 0 AM MONTESSORI TODDLER TEACHER us Efrain Aguilar DO LABORATORY Final Result Performing Organization Address City/[facility]/ZIP Co de Phone Number [facility] [address] [place] [address], [place] [phone] * CK (CPK) (10/04/2024 11:30 AM MONTESSORI TODDLER TEACHER) Only the most recent of2 resultswithin the time period is included. CPK 79 26 - 192 U/L 10/04/2024 12:01 PM MONTESSORI TODDLER TEACHER [facility] 10/04/2024 11:3 0 AM MONTESSORI TODDLER TEACHER us Efrain Aguilar DO LABORATORY Final Result Performing Organization Address [facility] Co de Phone Number [facility] [address] [place] [address], * (ABNORMAL) ACETAMINOPHEN (10/04/2024 11:30 AM MONTESSORI TODDLER TEACHER) ACETAMINOPHEN S/P/B 9.9(L) 10.0 - 30.0 MCG/ML 10/04/2024 12:01 PM MONTESSORI TODDLER TEACHER [facility] 10/04/2024 11:3 0 AM MONTESSORI TODDLER TEACHER us Efrain Aguilar DO LABORATORY Final Result Performing Organization Address City/[facility] Co de Phone Number [facility] [address] [place] [address], [place] [phone] * CORONAVIRUS (COVID-19) ANTIGEN (10/04/2024 11:23 AM MONTESSORI TODDLER TEACHER) Only the most recent of2 resultswithin the time period is included. CORONAVIRUS ANTIGEN IA NEGATIVE NEGATIVE 10/04/2024 12:07 PM MONTESSORI TODDLER TEACHER [facility] Comment: NEGATIVE RESULTS DO NOT RULE OUT SARS-COV-2 INFECTION AND SHOULD NOT BE USED THE SOLE BASIS FOR TREATMENT OR PATIENT MANAGEMENT DECISIONS, INCLUDING INFECTION CONTROL DECISIONS. NEGATIVE RESULTS SHOULD BE CONSIDERED IN THE CONTEXT OF A PATIENT'S RECENT EXPOSURES, HISTORY AND THE PRESENCE OF CLINICAL SIGNS AND SYMPTOMS CONSISTENT WITH COVID 19. THIS TEST HAS BEEN AUTHORIZED BY THE FDA UNDER AN EMERGENCY USE AUTHORIZATION (EUA) FOR USE BY AUTHORIZED LABORATORIES. SPECIMEN TYPE NASAL 10/04/2024 11:27 AM MONTESSORI TODDLER TEACHER [facility] NASAL NASAL STRUCTURE / Unknown 10/04/2024 11:23 AM MONTESSORI TODDLER TEACHER us Efrain Aguilar DO MICROBIOLOGY - GENERAL ORDER JEANINE Final Result Performing Organization Address City/[facility]/ZIP Co de Phone Number [facility] [address] [place] [address], [place] [phone] * (ABNORMAL) INFLUENZA A & B (10/04/2024 11:23 AM MONTESSORI TODDLER TEACHER) Only the most recent of2 resultswithin the time period is included. Pathologist [facility] SPECIMEN TYPE (INFLUENZA) NASOPHARYNGEAL SWAB 10/04/2024 11:27 AM MONTESSORI TODDLER TEACHER [facility] INFLUENZA A POSITIVE(A) NEGATIVE 10/04/2024 11:57 AM MONTESSORI TODDLER TEACHER [facility] Comment: CALLED TO BASILIO LOPEZ AT 1157 SH READ BACK AND VERIFIED INFLUENZA B NEGATIVE NEGATIVE 10/04/2024 11:57 AM MONTESSORI TODDLER TEACHER [facility] NASAL NASOPHARYNGEAL SWAB / Unknown 10/04/2024 11:23 AM MONTESSORI TODDLER TEACHER us Efrain Aguilar DO MICROBIOLOGY - GENERAL ORDER JEANINE Final Result Performing Organization Address City/[facility]/ZIP Co de Phone Number [facility] [address] [place] [address], [place] [phone] * ECG 12 lead (10/04/2024 11:20 AM MONTESSORI TODDLER TEACHER) 10/04/2024 11:2 0 AM MONTESSORI TODDLER TEACHER Narrative [facility] [place] [facility] - 10/04/2024 8:06 PM MONTESSORI TODDLER TEACHER [address] 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: : 1955 Requested By: EFRAIN AGUILAR Order Number: [id number] Reading MD: Chritsiano Zambrano Measurements Intervals [place] Rate: 73 P: 29 AK: 154 QRS: -8 QRSD: 124 T: 4 QT: 402 QTc: 445 Interpretive Statements SINUS RHYTHM POSSIBLE RIGHT VENTRICULAR CONDUCTION DELAY MINIMAL ST DEPRESSION ESSORI TODDLER TEACHER us Efrain Aguilar DO ECG ORDERABLES Final Result [facility] * XR CHEST PORTABLE (10/02/2024 12:18 PM MONTESSORI TODDLER TEACHER) Anatomical Region Laterality Modality Chest Radiographic Gill ging 10/02/2024 12:2 1 PM M[employer]ESSORI TODDLER TEACHER Impressions 10/02/2024 12:22 PM MONTESSORI TODDLER TEACHER IMPRESSION: No acute findings Ordered By: KELSY NICHOLS Interpreted By: Loc Castaneda MD, 10/02/2024 12:21 PM Narrative 10/02/2024 12:22 PM MONTESSORI TODDLER TEACHER [place] [address] [place] [address] SINGLE VIEW OF THE CHEST Clinical history: Cough Comparison: July 11, 2023 A single view of the chest demonstrates a limited inspiratory effort with crowding of bronchovascular markings. The cardiac silhouette is normal in size. Sternotomy changes are again evident. Overall, the lungs are clear Procedure Note Loc Castnaeda MD - 10/02/[address] [place] [address] SINGLE VIEW OF THE CHEST Clinical history: Cough Comparison: July 11, 2023 A single view of the chest demonstrates a limited inspiratory effort withcrowding of bronchovascular markings. The cardiac silhouette is normal insize. Sternotomy changes are again evident. Overall, the lungs are clear IMPRESSION: No acute findings Ordered By: KELSY NICHOLS Interpreted By: Loc Castaneda MD, 10/02/2024 12:21 PM Kelsy Nichols MD GENERAL IMAGING Final Result * LACTIC ACID W REFLEX (SEPSIS) (10/02/2024 12:00 PM MONTESSORI TODDLER TEACHER) LACTIC ACID VENOUS 1.4 0.4 - 2.0 MMOL/L 10/02/2024 12:36 PM MONTESSORI TODDLER TEACHER [facility] 10/02/2024 12:0 0 PM M[employer]ESSORI TODDLER TEACHER Kelsy Nichols MD LABORATORY Final Result [facility] [address] [place] [address], * (ABNORMAL) PROTIME/INR, VENOUS (10/02/2024 12:00 PM MONTESSORI TODDLER TEACHER) Only the most recent of7 resultswithin the time period is included. PROTIME 17.0(H) 9.4 - 12.5 SEC 10/02/2024 1:24 PM MONTESSORI TODDLER TEACHER [facility] INR 1.5(H) 0.8 - 1.0 10/02/2024 1:24 PM MONTESSORI TODDLER TEACHER [facility] 10/02/2024 12:0 0 PM MONTESSORI TODDLER TEACHER Kelsy Nichols MD LABORATORY Final Result Performing Organization Address [facility]/ZIP Co de Phone Number [facility] [address] [place], [place] [id number], * PARTIAL THROMBOPLASTIN TIME,PTT (09/29/2024 8:17 AM MONTESSORI TODDLER TEACHER) PTT 28.7 25.1 - 36.5 SEC 09/29/2024 8:37 AM MONTESSORI TODDLER TEACHER [facility] 09/29/2024 8:17 AM MONTESSORI TODDLER TEACHER Wesley Tinsley DO LABORATORY Final Result Performing Organization Address [facility]/ZIP Co de Phone Number [facility] [address] [place] [id number], * (ABNORMAL) HEMOGLOBIN, GLYCOSYLATED (12/24/2023 7:08 AM CDT) HGB A1C 6.2(H) <5.7 % 12/24/2023 1:08 PM CDT [facility] ESTIMATED AVG GLUCOSE 131(H) 74 - 114 MG/DL 12/24/2023 1:08 PM CDT [facility] 12/24/2023 7:08 AM CDT Cyndi E White FLAP PRESSER LABORATORY Final Result [facility] [address] [place] [address], [id number] * LIPID PANEL (12/24/2023 7:08 AM CDT) CHOLESTEROL 104 MG/DL 12/24/2023 12:16 PM CDT [facility] Comment:DESIRABLE: <200 TRIGLYCERIDES 104 MG/DL 12/24/2023 12:16 PM CDT [facility] Comment:<150 NORMAL HDL 56 >49 MG/DL 12/24/2023 12:16 PM CDT [facility] LDL-C 27 MG/DL 12/24/2023 12:16 PM CDT [facility] Comment:<100 OPTIMAL VLDL CALCULATION 21 MG/DL 12/24/19 24 12:16 PM CDT [facility] Comment:REFERENCE RANGE NOT ESTABLISHED CHOL/HDL RATIO 1.9 12/24/2023 12:16 PM CDT [facility] Comment:REFERENCE RANGE NOT ESTABLISHED LDL/HDL 0.5 12/24/2023 12:16 PM CDT [facility] Comment:REFERENCE RANGE NOT ESTABLISHED NON HDL CHOLESTEROL 48 MG/DL 12/24/2023 12:16 PM CDT [facility] Comment:REFERENCE RANGE NOT ESTABLISHED 12/24/2023 7:08 AM CDT Cyndi Farris [facility] Final Result Performing Organization Address City/[facility]/ZIP Co de Phone Number [facility] [address] [place] [address], [id number] * Colonoscopy ( MONTESSORI TODDLER TEACHER) Narrative [facility] TO EPIC CONVERSION - MONTESSORI TODDLER TEACHER Documented hx of procedure Procedure Note , Generic Conversion, - 06/12/2018 Documented hx of procedure us Generic Conversion Md MD CASTRO PROCEDURE ORDERABLES Final Result [facility] TO EPIC CONVERSION from Last 3 Months or Most Recently Relevant to Health Maintenance [place] [id number] MEDICARE MEDICARE MEDICAID Care Teams Grain Shipper Relationship Specialty Start Date End Date Raji Judd MD [address] [place] [id number] PCP - General FAMILY PRACTICE 01/23/22 Garfield Jean MD CARDIOVASCULAR DISEASE 02/05/16 Miladis Young, ANP- [address] [facility] [address] [place] [address] NURSE PRACTITIONER 12/14/16 Wesley Tinsley DO [address] [place] [address] SURGERY 12/14/16
--- OUTSIDE RECORDS SUMMARY | 2024-10-25 10:37 | XMS_ITS | Encounter Summary ---
Author Organization [facility] Address [address] [place] [address] Care Team Providers Care Drying Machine Operator Package Yarns Name Role Phone Raji Judd MD Primary Care Provider [phone] Encounter Details Date Type Department Care Team ([facility] Contact Info) Description 10/20/2024 Results Follow-Up [facility] Gastroenterology [facility] [address] [address] Hunter Kemp, DO [address] [address] PATHOLOGY Social History Tobacco Use Types Packs/Day Years Used Date Smoking Tobacco: Some Days Cigarettes Alcohol Use Standard Drinks/Week Comments Yes 0 [...] on file Legal Sex Female 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 Gender Identity Not on file Sexual Orientation Not on file documented as of this encounter Plan of Treatment Upcoming Encounters Date Type Department Care Team ([facility] Contact Info) Description 11/14/2024 4:00 PM CDT Telephone Check Up [facility] Oncology and Hematology - Christian [address] [facility] [address] [place] [address] Rufus Amin MD [address] [facility] [address] [place] [address] documented as of this encounter Visit Diagnoses Not on filedocumented in this encounter Care Teams Drying Machine Operator Package Yarns Relationship Specialty Start Date End Date Raji Judd MD [address] [place] [address] PCP - General Family Practice 10/05/24 documented as of this encounter
[2024-10-25 11:06] LABS: HIV 1/2 Ab P24 Ag Result Negative (Negative)
== END 2024-10-25 09:32 | disposition home or self-care (01) ==
LOC: ANHLAB 09:32
PROVIDERS: Visit Provider Internal Medicine Hematology & Oncology
DX: C21.0 Malignant neoplasm of anus, unspecified (principal)
CPT/HCPCS: 36415; 86703; G0432

== ENCOUNTER 2024-11-07 08:14 | Outpatient (CLI) | payer MEDICARE, MEDICAID, SELFPAY ==
--- NOTE | ~2024-11-07 | PE_ITS ---
EXAMINATION: PET skull to mid thigh DATE: 11/07/2024 11:51 INDICATION: Anal cancer TECHNIQUE: Blood glucose level was 93 mg/dL. 10.431 mCi of 18-fluorodeoxyglucose (18-FDG) was adminis tered i.v. Low dose computed tomography (CT) images were acquired from the base of the brain to the p roximal thighs for attenuation correction and anatomic localization. Positron emission tomography (PE T) images were acquired in the same distribution beginning 54 minutes after injection. Images includi ng fused PET/CT images were reconstructed in axial, coronal, and sagittal planes. Automated exposure control technique was employed. The dose-length product was 1071.27mGy-cm. COMPARISON: None FINDINGS: Head/neck: There is symmetric increased activity in the oral cavity, palatine tonsils, laryngeal muscles and ocu lar muscles without CT correlate, likely physiologic. No pathologically enlarged cervical lymphadenop athy or suspicious foci of increased FDG uptake in the visualized head or neck. Chest: Mild bibasilar atelectasis. No suspicious pulmonary nodules, pneumonia, pulmonary edema or pleural ef fusion. Heart size normal. Atherosclerotic coronary artery calcific lesion. Postoperative change of p rior sternotomy and coronary artery bypass grafting. Vascular is normal in caliber. No pathologically enlarged or FDG avid thoracic lymphadenopathy. Abdomen/pelvis/proximal thighs: Physiologic renal accumulation and excretion of FDG activity in the kidneys, bladder and along portio ns of ureters. Normal degree and heterogenous pattern of increased uptake throughout the liver withou t radiologic correlate or dominant FDG avid lesion. The gallbladder, pancreas, spleen and bilateral a drenal glands are normal. Mild to moderate uptake scattered throughout the bowels without radiologic correlate, also likely physiologic. There is significantly higher uptake at the anus with maximal SUV of 22.6 and where there is circumferential wall thickening consistent with reported primary anal can cer. 3.4 x 1.5 cm right inguinal lymph node with marked increased FDG uptake with maximal SUV of 20.3 . No other abnormal foci of increased FDG uptake or pathologically enlarged lymphadenopathy in the ab domen, pelvis or proximal thighs. Musculoskeletal: There is extravasated soft tissue activity at the central rounded site of injection at the dorsal rig ht hand with mild activity extending linearly along the lymphatics of the right upper extremity. Ther e is mild activity with maximal SUV of 3.2 cm about the peripheral cortex of the lateral right clavic le the level of the coracoclavicular ligament which is without evident correlate on the CT imaging. N o suspicious lytic, blastic or other FDG avid bone lesions to suggest osseous metastatic disease. IMPRESSION: 1. Circumferential wall thickening with prominent increased FDG uptake at the anus consistent with re ported primary anal cancer. 2. Enlarged and similarly promptly FDG avid right inguinal lymph node consistent with metastatic dise ase. No other lesions suspicious for metastatic disease. 3. Very mild uptake at the lateral right clavicle which appears centered peripherally along the tal x/periosteum which given the relatively low activity, lack of radiologic correlate or other concernin g bone lesions be highly unlikely for metastatic disease. The peripheral pattern of activity suggests possible healing nondisplaced fracture. Correlate for history of prior trauma or pain at this locati on. Reviewed, dictated and finalized at location A. IMPRESSION: 1. Circumferential wall thickening with prominent increased FDG uptake at the a nus consistent with reported primary anal cancer. 2. Enlarged and similarly promptly FDG avid right inguinal lymph node consisten t with metastatic disease. No other lesions suspicious for metastatic disease. 3. Very mild uptake at the lateral right clavicle which appears centered periph erally along the cortex/periosteum which given the relatively low activity, lac k of radiologic correlate or other concerning bone lesions be highly unlikely f or metastatic disease. The peripheral pattern of activity suggests possible hea ling nondisplaced fracture. Correlate for history of prior trauma or pain at is location.
--- OUTSIDE RECORDS SUMMARY | 2024-11-07 08:20 | XMS_ITS | Encounter Summary ---
Author Organization [facility] Address [address] [place] [address] Care Team Providers Care Body Presser Name Role Phone Catrachito Judd MD Primary Care Provider Unavailab norman Godinez MD, Garfield Unavailable [phone] Miladis Young ANP-BC Unavailable +-[phone] Wesley Tinsley DO Unavailable +-[phone] Raji Judd MD Primary Care Provider [phone] Encounter Details Date Type Department Care Team (Late st Contact Info) Description 01/14/2019 Abstract [facility] CONVERSION [address] [place] [address] , Generic Conversion, Social History Tobacco Use Types Packs/Day Years Used Date Smoking Tobacco: Former Cigarettes Q uit: 07/28/2017 Smokeless Tobacco: Never Alcohol Use Standard Drinks/Week Comments Yes 0 (1 standard drink = 0.6 oz pur e alcohol) once a week Comments Unknown Sex and Gender Information Value Date Recorded Sex Assigned at Female 08/28/2024 7:35 AM OTC CLERK Legal Sex Female 8:01 PM CDT Gender Identity Not on file Sexual Orientation Not on file documented as of this encounter Plan of Treatment Upcoming Encounters Date Type Department Care Team (Late st Contact Info) Description 11/27/2024 10:30 AM CDT Office Visit [facility] [address] [place] [address] Miladis Young, ANP-BC [address] [facility] [address] [place] [address] documented as of this encounter Visit Diagnoses Not on filedocumented in this encounter Additional Health Concerns Infection Onset Date Last Indicated Resolved Time COVID-19 Rule Out 07/11/2023 07/11/2023 07/11/2023 11:22 AM OTC CLERK COVID-19 Rule Out 10/02/2024 10/02/2024 10/02/2024 1:16 PM OTC CLERK Respiratory Rule-Out 10/04/2024 10/04/2024 025 11:57 AM OTC CLERK COVID-19 Rule Out 10/04/2024 10/04/2024 10/04/2024 12:07 PM OTC CLERK Influenza - Seasonal 10/04/2024 10/04/2024 025 12:33 AM OTC CLERK documented as of this encounter Care Teams Body Presser Relationship Specialty Start Date End Date Catrachito Judd MD PCP - General FAMILY PRACTICE 02/05/16 01/22/22 Raji Judd MD [address] [place] [address] PCP - General FAMILY PRACTICE 01/23/22 Garfield Jean MD CARDIOVASCULAR DISEASE 02/05/16 Miladis Young, [facility]- [address] [facility] [address] [place] [address] NURSE PRACTITIONER 12/14/16 Wesley Tinsley DO [address] [place] [address] SURGERY 12/14/16 documented as of this encounter
--- OUTSIDE RECORDS SUMMARY | 2024-11-07 08:20 | XMS_ITS | Encounter Summary ---
Author Organization [facility] Address [facility] [place] [address] Care Team Providers Care Drop Wire Stringer Name Role Phone Catrachito Judd MD Primary Care Provider Unavailab norman Godinez MD, Garfield Unavailable +-[phone] [facility] Un[facility] +[phone] Wesley Tinsley DO Unavailable [phone] Raji Judd MD Primary Care Provider [phone] Encounter Details Date Type Department Care Team (Late st Contact Info) Description 03/02/2019 Abstract [facility] [address] [place] [address] Miladis Young, [facility]- [address] [facility] [address] [place] [address] Social History Tobacco Use Types Packs/Day Years Used Date Smoking Tobacco: Former Cigarettes Q uit: 10/31/2018 Smokeless Tobacco: Never Alcohol Use Standard Drinks/Week Comments Yes 0 (1 standard drink = 0.6 oz pur e alcohol) rarely Comments Unknown Sex and Gender Information Value Date Recorded Sex Assigned at Female 08/28/2024 7:35 AM FINISHING MANAGER Legal Sex Female 8:01 PM CDT Gender Identity Not on file Sexual Orientation Not on file documented as of this encounter Plan of Treatment Upcoming Encounters Date Type Department Care Team (Late st Contact Info) Description 11/27/2024 10:30 AM CDT [facility] [address] [place] [address] Miladis Young, ANP- [address] [facility] [address] [place] [address] documented as of this encounter Procedures Procedure [...] Rule Out 07/11/2023 07/11/2023 07/11/2023 11:22 AM FINISHING MANAGER COVID-19 Rule Out 10/02/2024 10/02/2024 10/02/2024 1:16 PM FINISHING MANAGER Respiratory Rule-Out 10/04/2024 10/04/2024 025 11:57 AM FINISHING MANAGER COVID-19 Rule Out 10/04/2024 10/04/2024 10/04/2024 12:07 PM FINISHING MANAGER Influenza - Seasonal 10/04/2024 10/04/2024 025 12:33 AM FINISHING MANAGER documented as of this encounter Care Teams Drop Wire Stringer Relationship Specialty Start Date End Date Catrachito Judd MD PCP - General FAMILY PRACTICE 02/05/16 01/22/22 Raji Judd MD [address] [place] [address] PCP - [facility] PRACTICE 01/23/22 Garfield Jean MD CARDIOVASCULAR DISEASE 02/05/16 Miladis Young, ANP- [address] [facility] [address] [place] [address] NURSE PRACTITIONER 12/14/16 Wesley Tinsley DO [address] [place] [address] SURGERY 12/14/16 documented as of this encounter
--- OUTSIDE RECORDS SUMMARY | 2024-11-07 08:21 | XMS_ITS | Encounter Summary ---
Author Organization [facility] Address [facility] [place] [address] Care Team Providers Care Pharmacy District Manager Name Role Phone Catrachito Judd MD Primary Care Provider Unavailab norman Godinez MD, Garfield Unavailable [phone] Miladis Young [facility]- Unavailable +[phone] Wesley Tinsley DO Unavailable [phone] Raji Judd MD Primary Care Provider [phone] Encounter Details Date Type Department Care Team (Late st Contact Info) Description 02/01/2016 Abstract [facility] [address] [place] [address] Garfield Jean MD [address] [address] Social History Tobacco Use Types Packs/Day Years Used Date Smoking Tobacco: Smoker, Current Status Unknown Alcohol Use Standard Drinks/Week Comments No 0 (1 standard drink = 0.6 oz pur e alcohol) Comments Unknown Sex and Gender Information Value Date Recorded Sex Assigned at Female 08/28/2024 7:35 AM FRUIT LOADER Legal Sex Female 8:01 PM CDT Gender Identity Not on file Sexual Orientation Not on file documented as of this encounter Plan of Treatment Upcoming Encounters Date Type Department Care Team (Late st Contact Info) Description 11/27/2024 10:30 AM CDT Office Visit [facility] [address] Miladis Young ANP-BC [address] [facility] [address] [place] [address] documented as of this encounter Visit Diagnoses Not on filedocumented in this encounter Additional Health Concerns Infection Onset Date Last Indicated Resolved Time COVID-19 Rule Out 07/11/2023 07/11/2023 07/11/2023 11:22 AM FRUIT LOADER COVID-19 Rule Out 10/02/2024 10/02/2024 10/02/2024 1:16 PM FRUIT LOADER Respiratory Rule-Out 10/04/2024 10/04/2024 025 11:57 AM FRUIT LOADER COVID-19 Rule Out 10/04/2024 10/04/2024 10/04/2024 12:07 PM FRUIT LOADER Influenza - Seasonal 10/04/2024 10/04/2024 025 12:33 AM FRUIT LOADER documented as of this encounter Care Teams Pharmacy District Manager Relationship Specialty Start Date End Date Catrachito Judd MD PCP - General FAMILY PRACTICE 02/05/16 01/22/22 Raji Judd MD [address] [place] [address] PCP - General FAMILY PRACTICE 01/23/22 Garfield Jean MD CARDIOVASCULAR DISEASE 02/05/16 Miladis Young, ANP-BC [address] [facility] [address] [place] [address] NURSE PRACTITIONER 12/14/16 Wesley Tinsley DO [address] [place] [address] SURGERY 12/14/16 documented as of this encounter
--- OUTSIDE RECORDS SUMMARY | 2024-11-07 08:21 | XMS_ITS | Encounter Summary ---
Author Organization [facility] Address [address] [place] [address] Care Team Providers Care Service Clerk Name Role Phone Raji Judd MD Primary Care Provider [phone] Encounter Details Date Type Department Care Team (Late Contact Info) Description 10/20/2024 Results Follow-Up 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 Gender Identity Not on file Sexual Orientation Not on file documented as of this encounter Plan of Treatment Upcoming Encounters Date Type Department Care Team (Late Contact Info) Description 11/14/2024 4:00 PM CDT Telephone Check Up [facility] Oncology and Hematology - Christian [address] [facility] [address] [place] [address] Rufus Amin MD [address] [facility] [address] [place] [address] documented as of this encounter Visit Diagnoses Not on filedocumented in this encounter Care Teams Service Clerk Relationship Specialty Start Date End Date Raji Judd MD [address] [place] [address] PCP - General Family Practice 10/05/24 documented as of this encounter
--- OUTSIDE RECORDS SUMMARY | 2024-11-07 08:21 | XMS_ITS | Encounter Summary ---
Author Organization [facility] Address [facility] [place] [address] Care Team Providers Care Systems Lead Name Role Phone Catrachito Judd MD Primary Care Provider Unavailab norman Godinez MD, Garfield Unavailable [phone] Miladis Young [facility]- Unavailable +[phone] Wesley Tinsley DO Unavailable [phone] Raji Judd MD Primary Care Provider [phone] Encounter Details Date Type Department Care Team (Late st Contact Info) Description 01/29/2016 [facility] [address] [place] [address] Garfield Jean MD [address] [address] Social History Tobacco Use Types Packs/Day Years Used Date Smoking Tobacco: Every Day Cigarettes 1 35 Started: 08/04/1985; Last attempted to quit: 08/04/2020 Smokeless Tobacco: Never Alcohol Use Standard Drinks/Week Comments Yes 0 (1 standard drink = 0.6 oz pur e alcohol) rarely Comments No Sex and Gender Information Value Date Recorded Sex Assigned at Female 08/28/2024 7:35 AM PIANO REGULATOR Legal Sex Female 8:01 PM CDT Gender Identity Not on file Sexual Orientation Not on file documented as of this encounter Plan of Treatment Upcoming Encounters Date Type Department Care Team (Late st Contact Info) Description 11/27/2024 10:30 AM CDT Office Visit [facility] [address] [place] [address] Miladis Young ANP-BC [address] [address] documented as of this encounter Visit Diagnoses Not on filedocumented in this encounter Additional Health Concerns Infection Onset Date Last Indicated Resolved Time COVID-19 Rule Out 07/11/2023 07/11/2023 07/11/2023 11:22 AM PIANO REGULATOR COVID-19 Rule Out 10/02/2024 10/02/2024 10/02/2024 1:16 PM PIANO REGULATOR Respiratory Rule-Out 10/04/2024 10/04/2024 025 11:57 AM PIANO REGULATOR COVID-19 Rule Out 10/04/2024 10/04/2024 10/04/2024 12:07 PM PIANO REGULATOR Influenza - Seasonal 10/04/2024 10/04/2024 025 12:33 AM PIANO REGULATOR documented as of this encounter Care Teams Systems Lead Relationship Specialty Start Date End Date Catrachito Judd MD PCP - General FAMILY PRACTICE 02/05/16 01/22/22 Raji Judd MD [address] [place] [address] PCP - General FAMILY PRACTICE 01/23/22 Garfield Jean MD CARDIOVASCULAR DISEASE 02/05/16 Miladis Young, ANP-BC [address] [place] [place] [address] NURSE PRACTITIONER 12/14/16 Wesley Tinsley DO [address] [place] [address] SURGERY 12/14/16 documented as of this encounter
--- OUTSIDE RECORDS SUMMARY | 2024-11-07 08:21 | XMS_ITS | Encounter Summary ---
Author Organization [facility] Address [facility] [place] [address] Care Team Providers Care Automation Consultant Name Role Phone Catrachito Judd MD Primary Care Provider Unavailab norman Godinez MD, Garfield Unavailable [phone] Miladis Young [facility]- Unavailable +-[phone] Wesley Tinsley DO Unavailable [phone] Raji Judd MD Primary Care Provider [phone] Encounter Details Date Type Department Care Team (Late st Contact Info) Description 12/30/2015 Abstract [facility] [address] [place] [address] Garfield Jean MD [address] [address] Social History Tobacco Use Types Packs/Day Years Used Date Smoking Tobacco: Smoker, Current Status Unknown Alcohol Use Standard Drinks/Week Comments No 0 (1 standard drink = 0.6 oz pur e alcohol) Comments Unknown Sex and Gender Information Value Date Recorded Sex Assigned at Female 08/28/2024 7:35 AM SHOT BAGGER Legal Sex Female 8:01 PM CDT Gender Identity Not on file Sexual Orientation Not on file documented as of this encounter Plan of Treatment Upcoming Encounters Date Type Department Care Team (Late st Contact Info) Description 11/27/2024 10:30 AM CDT Office Visit [facility] [address] Miladis Young ANP-BC [address] [facility] [address] [place] [address] documented as of this encounter Visit Diagnoses Not on filedocumented in this encounter Additional Health Concerns Infection Onset Date Last Indicated Resolved Time COVID-19 Rule Out 07/11/2023 07/11/2023 07/11/2023 11:22 AM SHOT BAGGER COVID-19 Rule Out 10/02/2024 10/02/2024 10/02/2024 1:16 PM SHOT BAGGER Respiratory Rule-Out 10/04/2024 10/04/2024 025 11:57 AM SHOT BAGGER COVID-19 Rule Out 10/04/2024 10/04/2024 10/04/2024 12:07 PM SHOT BAGGER Influenza - Seasonal 10/04/2024 10/04/2024 025 12:33 AM SHOT BAGGER documented as of this encounter Care Teams Automation Consultant Relationship Specialty Start Date End Date Catrachito Judd MD PCP - General FAMILY PRACTICE 02/05/16 01/22/22 Raji Judd MD [address] [place] [address] PCP - General FAMILY PRACTICE 01/23/22 Garfield Jean MD CARDIOVASCULAR DISEASE 02/05/16 Miladis Young, ANP-BC [address] [facility] [address] [place] [address] NURSE PRACTITIONER 12/14/16 Wesley Tinsley DO [address] [place] [address] SURGERY 12/14/16 documented as of this encounter
--- OUTSIDE RECORDS SUMMARY | 2024-11-07 08:21 | XMS_ITS | Clinical Summary ---
Author Organization [facility] Address [address] [place] [address] Phone Care Team Providers Care Minilab Operator Name Role Phone Raji Judd MD Primary Care Provider [phone] Allergies Active Allergy Reactions Criticality Noted Date [...] administration instructions. 2 Capsule 10/14/19 25 Active capecitabine (Xeloda) 500 mg tablet Take 3 tablets by mourh twice a day Wednesday through Wednesday with radiation therapy treatment 120 Tablet 10/26/19 25 Active amitriptyline (ELAVIL) 100 mg tablet [...] 10/05/2024 Influenza with pneumonia 10/05/2024 Hematochezia 10/05/2024 assisted (current) use of anticoagulants 2024 Encounters Date Type Department Care Team Description 11/03/19 10:33 AM CDT - 11/03/19 11:59 PM CDT Hospital Encounter [facility] Interventional Radiology [address] [place] [address] Rufus Amin MD [facility] Ir Discharge Disposition: Home or Self Care 11/01/19 Telephone [facility] Oncology and Hematology [facility] [address] [place] [address] Rufus Amin MD Biopsy Questions 10/28/19 Telephone [facility] Oncology and Hematology [facility] [address] [place] [phone] Rufus Amin MD Medication Review 10/27/19 25 Orders Only [facility] Oncology and Hematology [facility] [address] [place] [phone] Rufus Amin MD 10/27/19 Specialty Pharmacy [facility] Specialty Pharmacy [facility] [place] [phone] Evelina Bettencourt, PHARMACIST Specialty Pharmacy Prior Auth Coordination 10/26/19 9:00 AM CDT Office Visit [facility] Oncology [facility] Hematology [facility] [address] [place] [phone] Rufus Amin MD Anal cancer (CMS/HCC) (Primary Dx) 10/26/19 Orders Only [facility] Oncology and Hematology [facility] [address] [place] [phone] Rufus Amin MD 10/21/19 25 Results Follow-Up [facility] Gastroenterology [facility] [address] [facility] [address] [place] [address] Hunter Kemp, DO PATHOLOGY 10/20/19 25 12:30 PM CDT Office Visit [facility] Surgical Spec [id number] [facility] [address] [place] [address] Dennis Boothe MD 10/20/19 25 10:15 AM CDT Ancillary Procedure [facility] [address] [place] [phone] Cristin Vázquez PA-C Mass of anus 10/20/19 25 Orders Only [facility] Surgical Spec [id number] [place] [phone] Dennis Boothe MD Anal cancer (CMS/HCC) (Primary Dx) 10/20/19 25 Orders Only [facility] Surgical Spec [id number] [place] [phone] Dennis Boothe MD Anal cancer (CMS/HCC) (Primary Dx) 10/14/19 25 Orders Only [facility] Surgical Spec [id number] [place] [phone] Dennis Boothe MD 10/13/19 25 Orders Only [facility] Surgical Spec [id number] [place] [phone] Cristin Vázquez PA-C Mass of anus (Primary Dx) 10/12/19 25 8:30 AM SHERIFF SERGEANT - 10/12/19 25 9:15 AM SHERIFF SERGEANT Surgery [facility] [address] [place] [address] Hunetr Kemp, ESOPHAGOGASTRODUODENOSCOPY 10/12/19 25 8:26 AM SHERIFF SERGEANT Anesthesia Event [facility] [address] [place] [address] Shon Gilmore MD 10/12/19 25 External Device Data STL ABSTRACTION Provider, Abstract 10/11/19 25 External Device Data STL ABSTRACTION Provider, Abstract 10/11/19 25 External Device Data ST[facility] ABSTRACTION Provider, Abstract 10/05/19 25 Travel 10/04/19 25 11:13 PM SHERIFF SERGEANT - 10/12/19 6:48 PM SHERIFF SERGEANT Hospital Encounter [facility] Medical Telemetry [address] [place] [address] Loida Ferguson MD Weitzel, MD Ras Sutton [...] on file Legal Sex Female 4:49 PM SHERIFF SERGEANT Gender Identity Not on file Sexual Orientation Not on file Last Filed Vital Signs Vital Sign Reading Time Taken Comments Blood Pressure 122/48 11/02/2024 11:28 AM CDT Pulse 87 11/02/2024 11:28 AM CDT Temperature 35 C (95 F) 10/25/2024 8:39 AM CDT Respiratory Rate 18 11/02/2024 11:28 AM CDT Oxygen Saturation 97% 11/02/2024 11:28 AM CDT Inhaled Oxygen Concentration - - Weight 81.9 kg (180 lb 9.6 oz) 10/25/2024 8:39 A M CDT Height 157.5 cm (5' 2 ) 10/25/2024 8:39 AM CDT Body Mass Index 33.03 10/25/2024 8:39 AM CDT Plan of Treatment Upcoming Encounters Date Type Department Care Team (Late st Contact Info) Description 11/14/2024 4:00 PM CDT Telephone Check Up [facility] Oncology and Hematology - [place] [address] [facility] [address] [place] [address] Rufus Amin MD [address] [facility] [address] [place] [address] Health Maintenance Due Date Last [...] VACCINE (#1) 2024 05/21/2022, 2019 COVID-19 Vaccine ( - 2023-2 5 season) 2024 05/21/2022, 07/08/2021, 11/20/2020, Additional history exists DIABETES HBA1C Q 6 MONTHS 04/19/20252024, 10/05/2024, 12/24/2023 DTAP/TDAP/TD VACCINES (2 - T d or Tdap) 01/24/2032 01/23/2022 COLORECTAL SCREENING 10/11/2034 10/11/2024, 10/11/2024, Colorectal Cancer Screening 10/11/2034 Procedures Procedure Name Priority Date/Time Associated Diagnosis Comments US GUIDE NEEDLE PLACEMENT Routine 2024 11:44 AM CDT Anal cancer (CMS/HCC) PATHOLOGY Pathology 11/02/2024 11:38 AM CDT CHG HIV 1&2 ANTIBODY SINGLE ASSAY IA Routine 10/25/2024 3:[address] ABDOMEN PELVIS W CONTRAST Routine 10:54 AM CDT Mass of anus POC GLUCOSE Routine 10/11/2024 1:34 PM SHERIFF SERGEANT POC GLUCOSE Routine 10/11/2024 10:44 AM SHERIFF SERGEANT POC GLUCOSE Routine 10/11/2024 9:06 AM SHERIFF SERGEANT COLONOSCOPY REPORT 10/11/2024 9:02 AM SHERIFF SERGEANT PATHOLOGY Pathology 10/11/2024 8:42 AM SHERIFF SERGEANT UPPER ENDOSCOPY REPORT 8:41 AM SHERIFF SERGEANT COLONOSCOPY 10/11/2024 8:30 AM SHERIFF SERGEANT ESOPHAGOGASTRODUODENOSCOPY 10/11 8:30 AM SHERIFF SERGEANT POC GLUCOSE Routine 10/11/2024 8:25 AM SHERIFF SERGEANT POC GLUCOSE Routine 10/11/2024 6:42 AM SHERIFF SERGEANT CEA Routine 10/11/2024 4:53 AM SHERIFF SERGEANT PROTIME-INR Routine 10/11/2024 4:53 AM SHERIFF SERGEANT BASIC METABOLIC PANEL Routine 10/11/2024 4:53 AM SHERIFF SERGEANT CBC WITHOUT DIFFERENTIAL Routine 025 4:53 AM SHERIFF SERGEANT POC GLUCOSE Routine 10/11/2024 2:26 AM SHERIFF SERGEANT POC GLUCOSE Routine 10/10/2024 10:03 PM SHERIFF SERGEANT POC GLUCOSE Routine 10/10/2024 3:50 PM SHERIFF SERGEANT POC GLUCOSE Routine 10/10/2024 2:53 PM SHERIFF SERGEANT POC GLUCOSE Routine 10/10/2024 2:52 PM SHERIFF SERGEANT PROTIME-INR Routine 10/10/2024 12:34 PM SHERIFF SERGEANT CBC WITHOUT DIFFERENTIAL Routine 025 12:34 PM SHERIFF SERGEANT POC GLUCOSE Routine 10/10/2024 9:50 AM SHERIFF SERGEANT POC GLUCOSE Routine 10/09/2024 11:53 PM SHERIFF SERGEANT POC GLUCOSE Routine 10/09/2024 7:40 PM SHERIFF SERGEANT POC GLUCOSE Routine 10/09/2024 1:00 PM SHERIFF SERGEANT POC GLUCOSE Routine 10/09/2024 8:50 AM SHERIFF SERGEANT PROTIME-INR Routine 10/09/2024 7:48 AM SHERIFF SERGEANT BASIC METABOLIC PANEL Routine 10/09/2024 7:48 AM SHERIFF SERGEANT CBC WITHOUT DIFFERENTIAL Routine 025 7:48 AM SHERIFF SERGEANT POC GLUCOSE Routine 10/08/2024 9:30 PM SHERIFF SERGEANT POC GLUCOSE Routine 10/08/2024 6:02 PM SHERIFF SERGEANT POC GLUCOSE Routine 10/08/2024 12:38 PM SHERIFF SERGEANT CBC WITHOUT DIFFERENTIAL Routine 025 9:37 AM SHERIFF SERGEANT PROTIME-INR Routine 10/08/2024 9:37 AM SHERIFF SERGEANT POC GLUCOSE Routine 10/08/2024 7:47 AM SHERIFF SERGEANT POC GLUCOSE Routine 10/07/2024 11:33 PM SHERIFF SERGEANT POC GLUCOSE Routine 10/07/2024 9:15 PM SHERIFF SERGEANT POC GLUCOSE Routine 10/07/2024 6:20 PM SHERIFF SERGEANT POC GLUCOSE Routine 10/07/2024 1:28 PM SHERIFF SERGEANT BASIC METABOLIC PANEL Routine 10/07/2024 9:57 AM SHERIFF SERGEANT CBC WITHOUT DIFFERENTIAL Routine 025 9:57 AM SHERIFF SERGEANT PROTIME-INR Routine 10/07/2024 9:57 AM SHERIFF SERGEANT POC GLUCOSE Routine 10/07/2024 7:45 AM SHERIFF SERGEANT POC GLUCOSE Routine 10/06/2024 11:46 PM SHERIFF SERGEANT POC GLUCOSE Routine 10/06/2024 7:02 PM SHERIFF SERGEANT HEMOGLOBIN AND HEMATOCRIT Routine 2024 4:42 PM SHERIFF SERGEANT POC GLUCOSE Routine 10/06/2024 12:21 PM SHERIFF SERGEANT POC GLUCOSE Routine 10/06/2024 8:34 AM SHERIFF SERGEANT HEMOGLOBIN AND HEMATOCRIT Routine 2024 4:30 AM SHERIFF SERGEANT PROTIME-INR Routine 10/06/2024 4:30 AM SHERIFF SERGEANT HEMOGLOBIN AND HEMATOCRIT Routine 2024 10:54 PM SHERIFF SERGEANT POC GLUCOSE Routine 10/05/2024 8:16 PM SHERIFF SERGEANT POC GLUCOSE Routine 10/05/2024 4:39 PM SHERIFF SERGEANT HEMOGLOBIN A1C Routine 10/05/2024 4:14 PM SHERIFF SERGEANT HEMOGLOBIN AND HEMATOCRIT Routine 2024 4:14 PM SHERIFF SERGEANT HEMOGLOBIN AND HEMATOCRIT Routine 2024 1:20 PM SHERIFF SERGEANT POC GLUCOSE Routine 10/05/2024 11:39 AM SHERIFF SERGEANT POC GLUCOSE Routine 10/05/2024 10:34 AM SHERIFF SERGEANT POC GLUCOSE Routine 10/05/2024 8:53 AM SHERIFF SERGEANT POC GLUCOSE Routine 10/05/2024 8:34 AM SHERIFF SERGEANT POC GLUCOSE Routine 10/05/2024 8:15 AM SHERIFF SERGEANT HEMOGLOBIN AND HEMATOCRIT Routine 2024 7:25 AM SHERIFF SERGEANT POC GLUCOSE Routine 10/05/2024 7:24 AM SHERIFF SERGEANT POC GLUCOSE Routine 10/05/2024 6:54 AM SHERIFF SERGEANT POC GLUCOSE Routine 10/05/2024 6:20 AM SHERIFF SERGEANT POC GLUCOSE Routine 10/05/2024 6:18 AM SHERIFF SERGEANT POC GLUCOSE Routine 10/05/2024 5:39 AM SHERIFF SERGEANT POC GLUCOSE Routine 10/05/2024 5:37 AM SHERIFF SERGEANT POC GLUCOSE Routine 10/05/2024 4:17 AM SHERIFF SERGEANT POC GLUCOSE Routine 10/05/2024 3:54 AM SHERIFF SERGEANT POC GLUCOSE Routine 10/05/2024 3:43 AM SHERIFF SERGEANT PROTIME-INR Routine 10/05/2024 2:33 AM SHERIFF SERGEANT FERRITIN Routine 10/05/2024 12:36 AM SHERIFF SERGEANT IRON, TIBC, AND PERCENT SATURATION Routine 10/05/2024 12:36 AM SHERIFF SERGEANT DIFFERENTIAL, MANUAL Stat 10/05/2024 12:36 AM SHERIFF SERGEANT PROCALCITONIN Routine 10/05/2024 12:36 AM SHERIFF SERGEANT LACTIC ACID Stat 10/05/2024 12:36 AM SHERIFF SERGEANT COMPREHENSIVE METABOLIC PANEL Stat 12:36 AM SHERIFF SERGEANT CBC WITH DIFFERENTIAL Stat 10/05/2024 12:36 AM SHERIFF SERGEANT from Last 3 Months Results * US GUIDE NEEDLE PLACEMENT (11/02/2024 11:44 AM CDT) Anatomical Region Laterality Modality X-Ray Angiograph y 11/02/2024 11:4 4 AM CDT Impressions 11/02/2024 4:26 PM CDT Impression: Ultrasound-guided biopsy of a right inguinal lymph node, as described above. DICTATION LOCATION: Location [address] [place] [address] 11/02/2024 4:26 PM CDT Procedure: Ultrasound-guided biopsy of a right inguinal lymph node. History: 68-year-old female with enlarged right inguinal lymph node IR: Garfield Bocanegra MD Anesthesia: Local Procedure in detail: The procedure and possible complications were explained in detail and informed consent was obtained. Limited ultrasound evaluation of the region of interest was performed. A site was marked in the right groin. The marked site and skin around the region was prepped and draped in a sterile fashion. Local anesthesia was provided with 1% Lidocaine. A 17 gauge co-axial needle system was advanced to the enlarged right inguinal lymph node under real-time ultrasound guidance. A grayscale ultrasound image was obtained for PACS. Subsequently, multiple core samples were acquired with an 18 gauge biopsy device. Samples were sent for pathology and flow cytometry testing. A dressing was applied. Final post-biopsy imaging did not show any immediate complication. The patient tolerated the procedure well. Procedure Note Garfield Bocanegra MD - 11/02/2024 Procedure: Ultrasound-guided biopsy of a right inguinal lymph node. History: 68-year-old female with enlarged right inguinal lymph node IR: Garfield Bocanegra MD Anesthesia: Local Procedure in detail: The procedure and possible complications were explained in detail and informed consent was obtained. Limited ultrasound evaluation of the region of interest was performed. A site was marked in the right groin. The marked site and skin around the region was prepped and draped in a sterile fashion. Local anesthesia was provided with 1% Lidocaine. A 17 gauge co-axial needle system was advanced to the enlarged right inguinal lymph node under real-time ultrasound guidance. A grayscale ultrasound image was obtained for PACS. Subsequently, multiple core samples were acquired with an 18 gauge biopsy device. Samples were sent for pathology and flow cytometry testing. A dressing was applied. Final post-biopsy imaging did not show any immediate complication. The patient tolerated the procedure well. Impression: Ultrasound-guided biopsy of a right inguinal lymph node, as described above. DICTATION LOCATION: Location 1 - [facility] us Rufus Amin MD US ORDERABLES Final Result * PATHOLOGY (11/02/2024 11:38 AM CDT) Only the most recent of2 resultswithin the time period is included. 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 The tissue is entirely submitted in cassettes A1 and A2. Additionally received with the specimen in saline are 3 semitranslucent white-coleman tissue cores each measuring approximately 1.0 cm in length and less than 0.1 cm in diameter. The remaining 2 cores are submitted in cassette A3. The remaining core in saline is sent to [facility] for flow cytometry. Per the specimen problem report: The specimen container was originally received with no source designation. The source was confirmed to be right inguinal lymph node . [facility] 5 3:06 PM [facility] MICROSCOPIC DESCRIPTION The slides are labeled [id number] and Ariadna Giraldo. 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 Sections of the right inguinal lymph node biopsy show multiple cores of predominately fibrotic lymph node with extensive involvement by metastatic carcinoma characterized by nests of basaloid cells with a streaming appearance with multifocal areas of glenda keratinization. Mitoses and apoptoses are readily appreciated, as well as central necrosis. The tumor cells are diffusely positive for CK5/6, p40, and p16. These findings are consistent with metastatic p16 positive squamous cell carcinoma, most likely from the anal mass. 5 3:06 PM [facility] OPERATIVE PROCEDURE right inguinal lymph node biopsy 5 3:06 PM [facility] CLINICAL INFORMATION Right inguinal lymph node biopsy. Please send 2 specimens- 1 pathology 1 RPMI enlarged node 5 3:06 PM [facility] IMMUNOPHENOTYPIC ANALYSIS Flow cytometric analysis performed on the right inguinal lymph node at [email or web address] shows a paucicellular specimen with decreased viability. 47% of the total events are lymphocytes, consisting predominately of CD3 positive T cells (79%) with a normal CD4/CD8 ratio (1.8: 1) and no aberrant antigen loss of CD2, CD5, or CD7. 17% of the lymphocytes (76 total events) are CD19 positive, CD20 positive B cells. Too few B cells are present for adequate clonality and immunophenotypic analyses. 45% of the total events are granulocytes with no CD34 positive blast population. Moreover, 5% of the total events are NK cells and less than 1% of the total nodes are monocytes and plasma cells. The technical component only of flow cytometry analysis (17 markers) is performed by [employer], [place], [place]. To view the report, click the link below. 3:06 PM CDT [facility] COMMENT Special stain, immunohistochemical, and/or in situ hybridization results are interpreted with controls that demonstrate appropriate staining reactions. Note on use of immunohistochemistry reagents and in situ hybridization probes: These tests were developed and their performance characteristics determined by [facility], Department of Laboratory Medicine. It has not [...] part or completely in the following laboratories: [facility], CLIA #[id number] [address] [place] [address] [facility], [place] #[id number] [address] [place] [address] [facility]/[place], [place] #[id number] [place] [address] This report was created with the [email or web address] voice-activated dictation system. Inherent to this system is the possibility of syntax, grammar, punctuation and other errors that could impact the interpretation of the report. If there are interpretative questions about aspects of this report, please contact the performing pathologist. 3:06 PM CDT [facility] Tissue (Lymph nodes, right) Collection / Unknown 11/02/2024 11:38 AM CDT 11/02/2024 2:27 PM CDT Comment:Right inguinal lymph node biopsy. Please send 2 specimens- 1 pathology 1 [facility] Tissue specimen (specimen) (Lymph nodes, right) Collection / Unknown 11/02/2024 11:38 AM CDT 11/02/2024 4:02 PM CDT us Garfield Bocanegra MD PATHOLOGY/CYTOLOGY ORDERABLES F inal Result [facility]# [id number] [address] [place] [address] * CHG HIV 1&2 ANTIBODY SINGLE ASSAY IA (10/25/2024 3:34 PM CDT) Rufus Amin MD [facility] - LABORATORY Final Result * CT ABDOMEN PELVIS W CONTRAST (10/19/2024 [...] * (ABNORMAL) POC GLUCOSE (10/11/2024 1:34 PM SHERIFF SERGEANT) Only the most recent of44 resultswithin the time period is included. GLUCOSE POC 147(H) 74 - 99 mg/dL 10/11/2024 1:34 PM SHERIFF SERGEANT [facility] SPECIMEN SOURCE, GLUCOSE POC Whole Blood 10/11/2024 1:34 PM SHERIFF SERGEANT [facility] COMMENT, GLU POC Notified RN/MD 10/11/2024 1:34 PM SHERIFF SERGEANT [facility] Blood, whole 10/11/2024 1:34 PM SHERIFF SERGEANT 10/11/2024 1:36 PM SHERIFF SERGEANT us Odell Montaño MD POINT OF CARE TESTING Final Resu lt [facility]# [id number] [address] [place] [address] * COLONOSCOPY REPORT (10/11/2024 9:02 AM SHERIFF SERGEANT) Narrative Procedure Note Hunter Kemp, - 10/11/2024 9:02 AM CST [facility] Endoscopy Patient Name: Ariadna Giraldo Procedure Date: [...] of Addenda: [address]; [place] [address] Hunter Kemp DO GI PROCEDURE ORDERABLES Fin al Result * UPPER ENDOSCOPY REPORT (10/11/2024 8:41 AM SHERIFF SERGEANT) Narrative Procedure Note Hunter Kemp DO - 10/11/2024 8:41 AM CST [facility] Endoscopy Patient Name: Ariadna Giraldo Procedure Date: [...] electronically. Number of Addenda: [address]; [place] [address] Hunter Kemp DO GI PROCEDURE ORDERABLES Fin al Result * PROTIME-INR (10/11/2024 4:53 AM SHERIFF SERGEANT) Only the most recent of7 resultswithin the time period is included. PROTIME 14.2 12.7 - 15.1 Seconds 10/11/2024 5:24 AM SHERIFF SERGEANT [facility] INR 1.1 0.9 - 1.1 10/11/2024 5:24 AM [facility] Blood Venipuncture / Unknown 10/11/2024 4:53 AM SHERIFF SERGEANT 10/11/2024 5:02 AM SHERIFF SERGEANT [facility] LABORATORY SERVICES - [facility] - 10/11/2024 5:24 AM SHERIFF SERGEANT INR Therapeutic Range: Adult: 2.0 - 3.0 for pulmonary embolism or prophylaxis against venous thrombosis or systemic embolization. 2.0 - 3.0 for patients with tissue heart valves. 2.5 - 3.5 for patients with mechanical heart valves or post ME. Pediatric (12 years and under): 1.5 - 3.0 Although the target range in children is not well established, INR values of 1.5 - 3.0 are recommended for most patients. Higher values have been used in children with prosthetic cardiac valves and hereditary clotting disorders. (<3 days) therapeutic ranges have not been established. us Cee Whitt DO HEMATOLOGY ORDERABLES Final Result [employer] [facility] CLIA# [id number] [address] [place] [address] * (ABNORMAL) CBC WITHOUT DIFFERENTIAL (10/11/2024 4:53 AM SHERIFF SERGEANT) Only the most recent of5 resultswithin the time period is included. WBC 5.4 4.0 - 9.8 K/uL 10/11/2024 5:23 AM [facility] RBC 3.62(L) 3.90 - 4.90 M/uL 10/11/2024 5:23 AM [facility] HEMOGLOBIN 8.7(L) 11.8 - 14.8 g/dL 10/11/2024 5:23 AM [facility] HEMATOCRIT 29.6(L) 35.5 - 44.0 % 10/11/2024 5:23 AM [facility] MCV 81.8(L) 82.0 - 99.0 fL 10/11/2024 5:23 AM [facility] MCH 24.0(L) 27.2 - 32.6 pg 10/11/2024 5:23 AM [facility] MCHC 29.4(L) 31.5 - 35.5 g/dL 10/11/2024 5:23 AM [facility] PLATELETS 241 140 - 350 K/uL 10/11/2024 5:23 AM [facility] [employer] MPV 10.3 9.3 - 12.4 fL 10/11/2024 5:23 AM [facility] RDW 24.4(H) 11.5 - 14.5 % 10/11/2024 5:23 AM [facility] [employer] RDW-STDEV 71.1(H) 37.1 - 48.7 fL 10/11/2024 5:23 AM [facility] [employer] [facility] Blood Venipuncture / Unknown 10/11/2024 4:53 AM SHERIFF SERGEANT 10/11/2024 5:02 AM SHERIFF SERGEANT Cee Whitt DO HEMATOLOGY ORDERABLES Final Result Performing Organization Address [facility]/ZIP Co de Phone Number [facility]# [id number] [address] [place] [address] * CEA (10/11/2024 4:53 AM SHERIFF SERGEANT) Pathologist [facility] CEA 3.7 <3.9 ng/mL 10/11/2024 3:04 PM [facility] Blood Venipuncture / Unknown 10/11/2024 4:53 AM SHERIFF SERGEANT 10/11/2024 5:02 AM SHERIFF SERGEANT Narrative [facility] - 10/11/2024 3:04 PM SHERIFF SERGEANT Reference Range: Non-smoker: </= 3.8 ng/mL Smoker: [...] Montaño MD CHEMISTRY ORDERABLES Final Resul t Performing Organization Address [facility] Co de Phone Number [facility]# [id number] [address] [place] [address] * (ABNORMAL) BASIC METABOLIC PANEL (10/11/2024 4:53 AM SHERIFF SERGEANT) Only the most recent of3 resultswithin the time period is included. SODIUM 144 136 - 145 mmol/L 10/11/2024 5:55 AM [facility] POTASSIUM 3.6 3.5 - 5.0 mmol/L 10/11/2024 5:55 AM [facility] CHLORIDE 108(H) 98 - 107 mmol/L 10/11/2024 5:55 AM [facility] CO2 27 22 - 29 mmol/L 10/11/2024 5:55 AM [facility] CALCIUM 8.6 8.6 - 10.2 mg/dL 10/11/2024 5:55 AM [facility] BUN 7(L) 8 - 23 mg/dL 10/11/2024 5:55 AM [facility] CREATININE 0.55 0.51 - 0.95 mg/dL 10/11/2024 5:55 AM [facility] GLUCOSE 89 74 - 99 mg/dL 10/11/2024 5:55 AM [facility] GFR >60 >=60 mL/min/1.7 3 sq meter 10/11/2024 5:55 AM [facility] Comment:eGFR calculated with 2020 CKD-EPI equation. Vegetarian diet, extremely high or low muscle mass, and may affect results. Cystatin C with Glomerular Filtration Rate is a suitable alternative for these patients. ANION GAP 9 8 - 16 mmol/L 10/11/2024 5:55 AM [facility] Blood Venipuncture / Unknown 10/11/2024 4:53 AM [facility] 10/11/2024 5:02 AM [facility] us Cee Whitt DO CHEMISTRY ORDERABLES Final R esult [facility]# [id number] [address] [place] [address] [place] [address] * (ABNORMAL) HEMOGLOBIN AND HEMATOCRIT (10/06/2024 4:42 PM [facility]) Only the most recent of6 resultswithin the time period is included. HEMOGLOBIN 8.2(L) 11.8 - 14.8 g/dL 10/06/2024 5:24 PM [facility] HEMATOCRIT 28.2(L) 35.5 - 44.0 % 10/06/2024 5:24 PM [facility] Blood Venipuncture / Unknown 10/06/2024 4:42 PM [facility] 10/06/2024 4:58 PM [facility] Inez Hogue MD HEMATOLOGY ORDERABLES Sydni l Result Performing Organization Address [facility] Co de Phone Number [facility]# [id number] [address] [place] [address] * HEMOGLOBIN A1C (10/05/2024 4:14 PM [facility]) HEMOGLOBIN A1C 5.2 <5.7 % 10/06/2024 1:08 AM [facility] EST. AVG GLUCOSE, A1C 103 mg/dL 10/06/2024 1:08 AM [facility] Blood Venipuncture / Unknown 10/05/2024 4:14 PM [facility] 10/05/2024 4:46 PM [facility] [employer] [facility] - 10/06/2024 1:08 AM [facility] HGB A1C INTERPRETATION NORMAL: <5.7% PRE-DIABETES: 5.7 - 6.4% DIABETES: 6.5% OR GREATER Myrna Luis NP CHEMISTRY ORDERABLES Final Re sult Performing Organization Address [facility] Co de Phone Number [facility]# [id number] [address] [place] [address] * PROCALCITONIN (10/05/2024 12:36 AM [facility]) PROCALCITONIN <0.06 <=0.25 ng/mL 10/05/2024 1:14 AM [facility] Blood Venipuncture / Unknown 10/05/2024 12:36 AM [facility] 10/05/2024 12:40 AM [facility] [employer] [employer] [facility] - 10/05/2024 1:14 AM [facility]ER[facility]GE[facility] The utility of procalcitonin is limited/NOT recommended [...] Inez Hogue MD CHEMISTRY ORDERABLES Final Result [facility] SERVICES [facility]# [id number] [address] [facility] [place] [address] * MANUAL DIFFERENTIAL (10/05/2024 12:36 AM [facility]) PLATELET EST. Consistent w Count 10/05/2024 1:40 AM [facility] - . [facility] ANISOCYTOSIS 1+ /hpf 10/05/2024 1:40 AM [facility] [employer] SERVICES - . [facility] POIKILOCYTES 1+ /hpf 10/05/2024 1:40 AM [facility] - . [facility] POLYCHROMASIA 1+ /hpf 10/05/2024 1:40 AM [facility] - . [facility] OVALOCYTES 1+ /hpf 10/05/2024 1:40 AM [facility] - . [facility] Blood Venipuncture / Unknown 10/05/2024 12:36 AM [facility] 10/05/2024 12:40 AM [facility] Inez Hogue MD HEMATOLOGY ORDERABLES COM Final Result Performing Organization Address [facility] Co de Phone Number [id number] [address] [place] [address] * LACTIC ACID (10/05/2024 12:36 AM [facility]GE[facility]) LACTIC ACID 1.0 <=2.0 mmol/L 10/05/2024 1:04 AM [facility] Blood Venipuncture / Unknown 10/05/2024 12:36 AM [facility] 10/05/2024 12:40 AM [facility] Inez Hogue MD CHEMISTRY ORDERABLES Final Result Performing Organization Address [facility] de Phone Number [facility] [id number] [address] [place] [address] * (ABNORMAL) IRON, TIBC, AND PERCENT SATURATION (10/05/2024 12:36 AM [facility]) IRON 12(L) 37 - 145 ug/dL 10/05/2024 2:18 PM [facility] TIBC 314 250 - 450 ug/dL 10/05/2024 2:18 PM [facility] IRON % SATURATION 4(L) 15 - 50 % 10/05/2024 2:18 PM [facility] TRANSFERRIN 247 200 - 360 mg/dL 10/05/2024 2:18 PM [facility] Blood Venipuncture / Unknown 10/05/2024 12:36 AM [facility] 10/05/2024 12:40 AM [facility] [employer] AUGUSTIN CHEMISTRY ORDERABLES Fin al Result [facility] CLIA# [id number] [address] [place] [address] * (ABNORMAL) CBC WITH DIFFERENTIAL (10/05/2024 12:36 AM SHERIFF SERGEANT) [facility] WBC 3.8(L) 4.0 - 9.8 K/uL 10/05/2024 1:03 AM [facility] RBC 3.58(L) 3.90 - 4.90 M/uL 10/05/2024 1:03 AM [employer] [facility] - [facility] HEMOGLOBIN 8.7(L) 11.8 - 14.8 g/dL 10/05/2024 1:03 AM [facility] HEMATOCRIT 30.1(L) 35.5 - 44.0 % 10/05/2024 1:03 AM [employer] [facility] - [facility] MCV 84.1 82.0 - 99.0 fL 10/05/2024 1:03 AM [employer] [facility] MCH 24.3(L) 27.2 - 32.6 pg 10/05/2024 1:03 AM [employer] [facility] - [facility] MCHC 28.9(L) 31.5 - 35.5 g/dL 10/05/2024 1:03 AM [employer] [facility] RDW 10/05/2024 1:03 AM [employer] [facility] Comment:Parameter not availa ble PLATELETS 179 140 - 350 K/uL 10/05/2024 1:03 AM [employer] [facility] MPV 9.7 9.3 - 12.4 fL 10/05/2024 1:03 AM [employer] [facility] NEUTROPHILS 73 % 10/05/2024 1:03 AM [employer] [facility] LYMPHOCYTES 15 % 10/05/2024 1:03 AM [employer] [facility] MONOCYTES 12 % 10/05/2024 1:03 AM [employer] [facility] EOSINOPHILS 0 % 10/05/2024 1:03 AM [employer] [facility] BASOPHILS 0 % 10/05/2024 1:03 AM [facility] IMMATURE GRANULOCYTES 0 % 10/05/2024 1:03 AM [facility] NEUTROPHIL ABSOLUTE 2.72 1.90 - 7.00 K/uL 10/05/2024 1:03 AM [facility] LYMPHOCYTE ABSOLUTE 0.56(L) 0.70 - 4.50 K/uL 10/05/2024 1:03 AM [facility]ORY [facility] MONOCYTE ABSOLUTE 0.45 0.10 - 1.30 K/uL 10/05/2024 1:03 AM [facility] EOSINOPHIL ABSOLUTE 0.00 0.00 - 0.70 K/uL 10/05/2024 1:03 AM [facility]ORY [facility] BASOPHILS ABSOLUTE 0.01 0.00 - 0.20 K/uL 10/05/2024 1:03 AM [facility] IMMATURE GRANULOCYTES ABSOLUTE 0.01 0.00 - 0.03 K/uL 10/05/2024 1:03 AM [facility] Blood Venipuncture / Unknown 10/05/2024 12:36 AM [facility] 10/05/2024 12:40 AM [facility] Inez Hogue MD HEMATOLOGY ORDERABLES Sydni l Result [facility] CLIA# [id number] [address] [facility] [place] [address] * FERRITIN (10/05/2024 12:36 AM SHERIFF SERGEANT) Pathologist [facility] FERRITIN 70.2 13.0 - 150.0 ng/mL 10/05/2024 2:18 PM [facility]ER[facility]GEANT [facility] Blood Venipuncture / Unknown 10/05/2024 12:36 AM [facility]ER[facility]GEANT 10/05/2024 12:40 AM [facility] [employer] AUGUSTIN CHEMISTRY ORDERABLES Fin al Result [facility] [place]# [id number] [address] [address] * (ABNORMAL) COMPREHENSIVE METABOLIC PANEL (10/05/2024 12:36 AM [facility]) SODIUM 140 136 - 145 mmol/L 10/05/2024 1:09 AM [facility] - [facility] POTASSIUM 3.7 3.5 - 5.0 mmol/L 10/05/2024 1:09 AM [facility] CHLORIDE 105 98 - 107 mmol/L 10/05/2024 1:09 AM [facility] CO2 24 22 - 29 mmol/L 10/05/2024 1:09 AM [facility] CALCIUM 8.4(L) 8.6 - 10.2 mg/dL 10/05/2024 1:09 AM [facility] BUN 14 8 - 23 mg/dL 10/05/2024 1:09 AM [facility] CREATININE 0.63 0.51 - 0.95 mg/dL 10/05/2024 1:09 AM [facility] GLUCOSE 70(L) 74 - 99 mg/dL 10/05/2024 1:09 AM [facility] TOTAL PROTEIN 6.2(L) 6.7 - 8.6 g/dL 10/05/2024 1:09 AM [facility] ALBUMIN 3.4(L) 3.5 - 5.2 g/dL 10/05/2024 1:09 AM [facility] BILIRUBIN TOTAL 0.2 0.2 - 1.1 mg/dL 10/05/2024 1:09 AM [facility] ALKALINE PHOSPHATASE 71 35 - 104 U/L 10/05/2024 1:09 AM [facility] AST 30 <33 U/L 10/05/2024 1:09 AM [facility] ALT 17 <34 U/L 10/05/2024 1:09 AM [facility] GFR >60 >=60 mL/min/1.7 3 sq meter 10/05/2024 1:09 AM [facility] Comment:eGFR calculated with 2020 CKD-EPI equation. Vegetarian diet, extremely high or low muscle mass, and may affect results. Cystatin C with Glomerular Filtration Rate is a suitable alternative for these patients. ANION GAP 11 8 - 16 mmol/L 10/05/2024 1:09 AM [facility] Blood Venipuncture / Unknown 10/05/2024 12:36 AM [facility] 10/05/2024 12:40 AM [facility] Narrative [facility] - 10/05/2024 1:09 AM [facility]GE[facility] Samples containing indocyanine green cause interferences on Total and/or Direct Bilirubin and must not be measured. us Inez Hogue MD CHEMISTRY ORDERABLES Final Result [facility] CLIA# [id number] [address] [facility] [address] [place] [address] from Last 3 Months Insurance MEDICARE PART A AND B MEDICAID [place] RX MOVE Guides Medicare Part D RX RoomReveal Medicare Part B MEDICARE PART A AND B MEDICARE [place] A [place] B [place] Advance Directives For more information, please contact: [phone] * Full Code (Latest Code Status on File) Date Activated Date Inactivated Comments 10/05/2024 12:38 AM 10/11/2024 8:58 PM Care Teams [employer] Operator Relationship Specialty Start Date End Date Raji Judd MD [address] [place] [address] PCP - General Family Practice 10/05/24
--- OUTSIDE RECORDS SUMMARY | 2024-11-07 08:21 | XMS_ITS | Clinical Summary ---
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 6 Active liothyronine 5 MCG Tab Take 2 tablets (10 mcg total) by mouth daily. 6 Active omeprazole 40 MG capsule Take 1 tablet by mouth daily. 1 Active carvedilol 25 MG tablet Take 1 tablet (25 mg total) by mouth 2 (two) times a day. 60 tablet 11 8 Active amlodipine 2.5 MG tablet Take 1 tablet (2.5 mg total) by mouth daily. 2 9 Active atorvastatin 80 MG tablet Take 1 tablet (80 mg total) by mouth daily. 90 tablet 1 9 Active ezetimibe 10 MG tablet Take 1 tablet (10 mg total) by mouth daily. 90 tablet 3 0 Active Acetaminophen (TYLENOL ARTHRITIS PAIN OR) Take 1 tablet by mouth daily as needed. Active LORazepam 1 MG tablet Take 1 tablet (1 mg total) by mouth. 1 by mouth twice a day and 1/2 tab by mouth once a day 1 Active ARIPiprazole 2 MG tablet Take 2 tablets (4 mg total) by mouth daily. 2 Active metFORMIN (GLUCOPHAGE) 500 MG tablet Take 1 tablet (500 mg total) by mouth 2 (two) times daily. 2 Active JARDIANCE 10 MG tablet Take 2.5 tablets (25 mg total) by mouth daily. 3 Active mVisumTOUCH ULTRA test strip 1 strip by Other route daily. 2 Active albuterol sulfate HFA 108 (90 Base) MCG/ACT inhaler Inhale 2 puffs into the lungs every 6 (six) hours as needed for Wheezing or Shortness of breath (Chest tightness). 18 g 3 Active Lancets (ONETOUCH DELICA PLUS [id number]) [facility] USE 1 LANCET TO CHECK GLUCOSE ONCE DAILY 4 Active amitriptyline (ELAVIL) 100 MG tablet Take 1 tablet (100 mg total) by mouth nightly at bedtime. at bedtime. 4 Active LINZESS 145 MCG capsule Take 1 capsule (145 mcg total) by mouth daily. Active FEROSUL 325 (65 Fe) MG tablet Take 1 tablet (325 mg total) by mouth daily. 5 Active liothyronine (CYTOMEL) 5 MCG Tab Take [...] 1 mg once a week. Ac tive Active Problems Problem Noted Date Diagnosed Date [...] knee 08/24/2019 Coronary artery disease invo lving [place] coronary artery of [place] heart 02/01/2016 HTN (hypertension) Dyslipidemia Hypercoagulable state (HHS/HCC) Resolved Problems Problem Noted Date Diagnosed Date Resolved Date CAD (coronary artery disease) 12/07/2016 Encounters Date Type Department Care Team Description 10/24/2024 Telephone [facility] [address] [place] [address] Miladis Young, ANP-BC Schedule Test 10/04/2024 10:57 AM RECORD CENTER SPECIALIST - 10/04/2024 9:43 PM RECORD CENTER SPECIALIST Emergency [facility] [place] [address] Efrain Aguilar, Iglesia Wright MD Generalized Weakness; Fall Discharge Disposition: Transfer to [facility] 10/04/2024 Travel 10/02/2024 11:38 AM RECORD CENTER SPECIALIST - 10/02/2024 3:14 PM RECORD CENTER SPECIALIST [facility] [place] [address] Kelsy Nichols MD Multiple Falls Discharge Disposition: Home or Self Care (Routine Discharge) 10/02/2024 Travel 09/29/2024 7:55 AM RECORD CENTER SPECIALIST - 09/29/2024 11:59 PM RECORD CENTER SPECIALIST Hospital Encounter [facility] [place] [address] Wesley Tinsley DO Discharge Disposition: Home or Self Care (Routine Discharge) 09/29/[address] [facility] [place] [address] Wesley Tinsley DO 09/29/2024 Travel 09/15/2024 2:28 PM RECORD CENTER SPECIALIST - 09/15/2024 11:59 PM RECORD CENTER SPECIALIST Hospital Encounter [facility] [address] Raji Judd MD Discharge Disposition: Home or Self Care (Routine Discharge) 09/15/[address] [facility] [place] [address] Raji Judd MD 09/15/2024 Travel 09/07/2024 8:08 AM RECORD CENTER SPECIALIST - 09/07/2024 11:59 PM RECORD CENTER SPECIALIST Hospital Encounter [facility] [address] [place] [address] Raji Judd MD Discharge Disposition: Home or Self Care (Routine Discharge) 09/07/2024 Orders Only [facility] [address] [place] [address] Raji Judd MD 09/07/2024 Travel 09/04/2024 7:55 AM RECORD CENTER SPECIALIST - 09/04/2024 11:59 PM RECORD CENTER SPECIALIST Hospital Encounter [facility] [address] [place] [address] Raji Judd MD Discharge Disposition: Home or Self Care (Routine Discharge) 09/04/2024 7:54 AM RECORD CENTER SPECIALIST Hospital Encounter [facility] [address] [place] [address] Cyndi Farris FNP Discharge Disposition: Home or Self Care (Routine Discharge) 09/04/2024 Orders Only [facility] [address] [place] [address] Raji Judd MD 09/04/2024 Orders Only [facility] [address] [place] [address] Cyndi Farris FNP 09/04/2024 Travel 08/28/2024 7:43 AM RECORD CENTER SPECIALIST - 08/28/2024 11:59 PM RECORD CENTER SPECIALIST Hospital Encounter [facility] [address] [place] [address] Raji Judd MD Discharge Disposition: Home or Self Care (Routine Discharge) 08/28/2024 7:35 AM RECORD CENTER SPECIALIST - 08/28/2024 7:42 AM RECORD CENTER SPECIALIST Hospital Encounter [facility] [address] [place] [address] Cyndi Farris FNP Discharge Disposition: Home or Self Care (Routine Discharge) 08/28/2024 Orders Only [facility] [address] [place] [address] Raji Judd MD 08/28/2024 Orders Only [facility] [address] [place] [address] KaleighCyndiROBERT 08/28/2024 Travel 08/11/2024 8:50 AM RECORD CENTER SPECIALIST - 08/11/2024 11:59 PM RECORD CENTER SPECIALIST Hospital Encounter [facility] [address] [place] [address] Raji Judd MD Discharge Disposition: Home or Self Care (Routine Discharge) 08/11/2024 Orders Only [address] [place] [address] Raji Judd MD 08/11/2024 Travel from Last [...] Sex Assigned at Female 08/28/2024 7:35 AM RECORD CENTER SPECIALIST Legal Sex Female 8:01 PM CDT Gender Identity Not on file Sexual Orientation Not on file Last Filed Vital Signs Vital Sign Reading Time Taken Comments Blood Pressure 122/96 10/04/2024 9:36 PM RECORD CENTER SPECIALIST Pulse 98 10/04/2024 9:36 PM RECORD CENTER SPECIALIST Temperature 37.2 C (99 F) 10/04/2024 9:38 PM RECORD CENTER SPECIALIST Respiratory Rate 21 10/04/2024 9:36 PM RECORD CENTER SPECIALIST Oxygen Saturation 94% 10/04/2024 9:36 PM RECORD CENTER SPECIALIST Inhaled Oxygen Concentration - - Weight 89.8 kg (198 lb) 10/04/2024 11:01 AM RECORD CENTER SPECIALIST Height 152.4 cm (5') 10/04/2024 11:01 AM RECORD CENTER SPECIALIST Body Mass Index 38.67 10/04/2024 11:01 AM RECORD CENTER SPECIALIST Plan of Treatment Upcoming Encounters Date Type Department Care Team (Late st Contact Info) Description 11/27/2024 10:30 AM CDT Office Visit [facility] [address] [place] [address] Miladis Young, ANP-BC [address] [facility] [address] [place] [id number] Health Maintenance Due Date Last Done Comments [...] 05/21/2022, 05/01/20 20 Hemoglobin A1C 06/25/2024 12/24/2023, 09/2 08/2022, 07/17/2022, Additional history exists Lipid Panel [...] HEMOGLOBIN AND HEMATOCRIT STAT 10/04/2024 7:05 PM RECORD CENTER SPECIALIST TYPE & SCREEN STAT 10/04/2024 3:07 PM RECORD CENTER SPECIALIST OCCULT BLOOD, FECES STAT 10/04/2024 2 :[address] CHEST WO CON STAT 10/04/2024 1:27 PM RECORD CENTER SPECIALIST DRUG SCREEN RAPID STAT 10/04/2024 1:2 3 PM RECORD CENTER SPECIALIST HC URINALYSIS AUTO W/MICRO STAT 10/04/2024 1:[address] HEAD WO CON STAT 10/04/2024 11:58 AM RECORD CENTER SPECIALIST XR TIBIA+FIBULA LT 2V STAT 10/04/2024 11:57 AM RECORD CENTER SPECIALIST XR TIBIA+FIBULA RT 2V STAT 10/04/2024 11:57 AM RECORD CENTER SPECIALIST XR CHEST PA+LAT STAT 10/04/2024 11:57 AM RECORD CENTER SPECIALIST SALICYLATE STAT 10/04/2024 11:30 AM RECORD CENTER SPECIALIST ACETAMINOPHEN STAT 10/04/2024 11:30 AM RECORD CENTER SPECIALIST ETHANOL STAT 10/04/2024 11:30 AM RECORD CENTER SPECIALIST CK (CPK) STAT 10/04/2024 11:30 AM RECORD CENTER SPECIALIST TROPONIN, QUANT STAT 10/04/2024 11:30 AM RECORD CENTER SPECIALIST COMPREHENSIVE METABOLIC PANEL STAT 10/04/2024 11:30 AM RECORD CENTER SPECIALIST CBC W/DIFF AUTOMATED STAT 10/04/2024 11:30 AM RECORD CENTER SPECIALIST CORONAVIRUS (COVID-19) ANTIGEN STAT 10/04/2024 11:23 AM RECORD CENTER SPECIALIST INFLUENZA A & B STAT 10/04/2024 11:23 AM RECORD CENTER SPECIALIST ECG 12-LEAD Routine 10/04/2024 11:20 AM RECORD CENTER SPECIALIST CORONAVIRUS (COVID-19) ANTIGEN STAT 10/02/2024 12:22 PM RECORD CENTER SPECIALIST INFLUENZA A & B STAT 10/02/2024 12:22 PM RECORD CENTER SPECIALIST XR CHEST PORTABLE STAT 10/02/2024 12: [address] HEAD WO CON STAT 10/02/2024 12:18 PM RECORD CENTER SPECIALIST LACTIC ACID W REFLEX (SEPSIS) STAT 10/02/2024 12:00 PM RECORD CENTER SPECIALIST TROPONIN, QUANT STAT 10/02/2024 12:00 PM RECORD CENTER SPECIALIST PROTHROMBIN TIME, VENOUS STAT 10/02/2024 12:00 PM RECORD CENTER SPECIALIST ETHANOL STAT 10/02/2024 12:00 PM RECORD CENTER SPECIALIST CK (CPK) STAT 10/02/2024 12:00 PM RECORD CENTER SPECIALIST COMPREHENSIVE METABOLIC PANEL STAT 10/02/2024 12:00 PM RECORD CENTER SPECIALIST CBC W/DIFF AUTOMATED STAT 10/02/2024 12:00 PM RECORD CENTER SPECIALIST PARTIAL THROMBOPLASTIN TIME,PTT Routine 09/29/2024 8:17 AM RECORD CENTER SPECIALIST [facility]CI (current) use of anticoagulants Factor VIII deficiency (CMS/HCC HHS/HCC) PROTHROMBIN TIME, VENOUS Routine 09/29/2024 8:17 AM RECORD CENTER SPECIALIST [employer] (current) use of anticoagulants Factor VIII deficiency (CMS/HCC HHS/HCC) CBC W/DIFF AUTOMATED Routine 09/29/2024 8:17 AM RECORD CENTER SPECIALIST [facility]CI (current) use of anticoagulants Factor VIII deficiency (CMS/HCC HHS/HCC) PROTHROMBIN TIME, VENOUS Routine 09/15/2024 2:56 PM RECORD CENTER SPECIALIST 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) PROTHROMBIN TIME, VENOUS Routine 09/07/2024 8:20 AM RECORD CENTER SPECIALIST 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) PROTHROMBIN TIME, VENOUS Routine 09/04/2024 8:08 AM RECORD CENTER SPECIALIST 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) CBC W/DIFF AUTOMATED Routine 09/04/2024 8:08 AM RECORD CENTER SPECIALIST Anemia, unspecified PROTHROMBIN TIME, VENOUS Routine 08/28/2024 7:46 AM RECORD CENTER SPECIALIST 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) CBC W/DIFF AUTOMATED Routine 08/28/2024 7:46 AM RECORD CENTER SPECIALIST Anemia, unspecified PROTHROMBIN TIME, VENOUS Routine 08/11/2024 8:58 AM RECORD CENTER SPECIALIST 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) LIPID PANEL Routine 12/24/2023 7:08 AM CDT Diabetes mellitus, type 2 Hyperlipidemia HEMOGLOBIN, GLYCOSYLATED Routine 12/24/2023 7:08 AM CDT Diabetes mellitus, type 2 Hyperlipidemia COLONOSCOPY Routine RECORD CENTER SPECIALIST from Last 3 Months or Most Recently Relevant to Health Maintenance Results * (ABNORMAL) HEMOGLOBIN AND HEMATOCRIT (10/04/2024 7:05 PM RECORD CENTER SPECIALIST) [facility] Signature HGB 9.1(L) 12.0 - 16.0 G/DL 10/04/2024 7:10 PM RECORD CENTER SPECIALIST [facility] HCT 30.8(L) 36.0 - 47.0 % 10/04/2024 7:10 PM RECORD CENTER SPECIALIST [facility] 10/04/2024 7:05 PM RECORD CENTER SPECIALIST us Iglesia Oliver MD LABORATORY Final Res ult [facility] [address] [place] [address], * TYPE & SCREEN (10/04/2024 3:07 PM RECORD CENTER SPECIALIST) UNITS ORDERED 2 10/04/2024 4:08 PM RECORD CENTER SPECIALIST [facility] ABO/RH B POSITIVE 10/04/2024 4:08 PM RECORD CENTER SPECIALIST [facility] ANTIBODY SCREEN NEGATIVE 4:08 PM RECORD CENTER SPECIALIST [facility] SAMPLE EXPIRATION 10/07/2024,235 9 10/04/2024 4:08 PM RECORD CENTER SPECIALIST [facility] BLOOD UNIT NUMBER [id number] 10/04/2024 4:31 PM RECORD CENTER SPECIALIST [facility] PRODUCT: PC LEUKOPOOR 10/04/2024 4:31 PM RECORD CENTER SPECIALIST [facility] UNIT DIVISION 00 10/04/2024 4:31 PM RECORD CENTER SPECIALIST [facility] BLOOD UNIT STATUS UNIT RELEASED 10/08/2024 10:45 PM RECORD CENTER SPECIALIST [facility] TRANSFUSION STATUS OK TO TRANSFUSE 10/04/2024 4:31 PM RECORD CENTER SPECIALIST [facility] CROSSMATCH COMPATIBLE 10/04/2024 4:31 PM RECORD CENTER SPECIALIST [facility] BLOOD UNIT NUMBER [id number] 10/04/2024 4:31 PM RECORD CENTER SPECIALIST [facility] PRODUCT: PC LEUKOPOOR 10/04/2024 4:31 PM RECORD CENTER SPECIALIST [facility] UNIT DIVISION 00 10/04/2024 4:31 PM RECORD CENTER SPECIALIST [facility] BLOOD UNIT STATUS UNIT RELEASED 10/08/2024 10:45 PM RECORD CENTER SPECIALIST [facility] TRANSFUSION STATUS OK TO TRANSFUSE 10/04/2024 4:31 PM RECORD CENTER SPECIALIST [facility] CROSSMATCH COMPATIBLE 10/04/2024 4:31 PM RECORD CENTER SPECIALIST [facility] 10/04/2024 3:07 PM RECORD CENTER SPECIALIST us Efrain Aguilar DO BLOOD BANK TEST ORDERABLES F inal Result [place] [address] [place] [address], [place] [phone] * (ABNORMAL) OCCULT BLOOD, FECES (10/04/2024 2:37 PM RECORD CENTER SPECIALIST) OCCULT BLOOD FECAL POSITIVE(A ) NEGATIVE 10/04/2024 3:27 PM RECORD CENTER SPECIALIST [facility] Comment:1+ STOOL SPECIMEN / Unknown 10/04/2024 2:37 PM RECORD CENTER SPECIALIST us Efrain Aguilar DO BODY FLUIDS AND STOOLS ORDER JEANINE Final Result Performing Organization Address [facility] Co de Phone Number [address] [address], [place] [phone] * CT CHEST WO CON (10/04/2024 1:27 PM RECORD CENTER SPECIALIST) Anatomical Region Laterality Modality Chest Computed Tomogra phy 10/04/2024 1:43 PM RECORD CENTER SPECIALIST Impressions 10/04/2024 1:47 PM RECORD CENTER SPECIALIST IMPRESSION: Suspected atelectatic changes are present within the right and left lung. Respiratory motion artifact compromises the examination. No pleural effusions. Mild cardiomegaly. Ordered By: EFRAIN AGUILAR Interpreted By: Jose G Wiseman MD, 10/04/2024 1:43 PM Narrative 10/04/2024 1:47 PM RECORD CENTER SPECIALIST [address] [place] [address] Procedure(s): CT CHEST WO CON Date of [...] Note Jose G Wiseman MD - 10/04/[address] [place] [address] [facility] [place] [address] Procedure(s): CT CHEST WO CON Date of [...] Jose G Wiseman MD, 10/04/2024 1:43 PM Efrain Aguilar DO CT Final Result * (ABNORMAL) DRUG SCREEN RAPID (10/04/2024 1:23 PM RECORD CENTER SPECIALIST) CANNABINOIDS SCREEN (U) NEGATIVE NEGATIVE 10/04/2024 1:49 PM RECORD CENTER SPECIALIST [facility] PHENCYCLIDINE PCP (U) NEGATIVE NEGATIVE 10/04/2024 1:49 PM RECORD CENTER SPECIALIST [facility] COCAINE METABOLITES (U) NEGATIVE NEGATIVE 10/04/2024 1:49 PM RECORD CENTER SPECIALIST [facility] METHAMPHETAMINE SCREEN (U) NEGATIVE NEGATIVE 10/04/2024 1:49 PM RECORD CENTER SPECIALIST [facility] OPIATE SCREEN (U) NEGATIVE NEGATIVE 025 1:49 PM RECORD CENTER SPECIALIST [facility] AMPHETAMINE SCREEN (U) NEGATIVE NEGATIVE 10/04/2024 1:49 PM RECORD CENTER SPECIALIST [facility] BENZODIAZEPINES SCREEN (U) POSITIVE(A) NEGATIVE 10/04/2024 1:49 PM RECORD CENTER SPECIALIST [facility] TRICYCLIC ANTIDEPRESSANT SCREEN (U) POSITIVE(A) NEGATIVE 10/04/2024 1:49 PM RECORD CENTER SPECIALIST [facility] METHADONE (U) NEGATIVE NEGATIVE 10/04/2024 1:49 PM RECORD CENTER SPECIALIST [facility] BARBITURATES SCREEN (U) NEGATIVE NEGATIVE 10/04/2024 1:49 PM RECORD CENTER SPECIALIST [facility] OXYCODONE SCREEN (U) NEGATIVE NEGATIVE 10/04/2024 1:49 PM RECORD CENTER SPECIALIST [facility] URINE TOX COMMENT THIS TEST METHODOLOGY IS DESIGNED AND OFFERED A RAPID TURNAROUND, QUALITATIVE SCREENING PROCEDURE TO AID IN THE IMMEDIATE MEDICAL ASSESSMENT OF PATIENTS SUSPECTED OF SUBSTANCE ABUSE. 10/04/2024 1:23 PM RECORD CENTER SPECIALIST [facility] Comment: CLINICAL CONSIDERATION AND PROFESSIONAL JUDGMENT MUST BE APPLIED TO ANY DRUG OF ABUSE TEST RESULT, BOTH POSITIVE AND NEGATIVE. CONFIRMATORY QUANTITATIVE RESULTS ARE AVAILABLE THROUGH OUR REFERENCE LABORATORY. URINE SPECIMEN / Unknown 10/04/2024 1:23 PM RECORD CENTER SPECIALIST us Efrain Aguilar DO URINE ORDERABLES Final Resul t [facility] [address] [email or web address] [address], * (ABNORMAL) URINALYSIS (10/04/2024 1:23 PM RECORD CENTER SPECIALIST) COLOR (U) YELLOW 10/04/2024 1:44 PM RECORD CENTER SPECIALIST [facility] TRANSPARENCY SLIGHTLY CLOUDY 10/04/2024 1:44 PM RECORD CENTER SPECIALIST [facility] SPECIFIC GRAVITY (U) 1.030(H) 1.000 - 1.025 10/04/2024 1:44 PM RECORD CENTER SPECIALIST [facility] Comment:EQUAL TO OR GREATER THAN U PH 5.5 5.0 - 8.0 10/04/2024 1:44 PM RECORD CENTER SPECIALIST [facility] LEUKOCYTES (U) NEGATIVE NEGATIVE 10/04/2024 1:44 PM RECORD CENTER SPECIALIST [facility] NITRITES NEGATIVE NEGATIVE 10/04/2024 1:44 PM RECORD CENTER SPECIALIST [facility] PROTEIN RANDOM (U) 2+(A) NEGATIVE 10/04/2024 1:44 PM RECORD CENTER SPECIALIST [facility] GLUCOSE (U) NEGATIVE NEGATIVE 10/04/2024 1:44 PM RECORD CENTER SPECIALIST [facility] KETONES MG/DL (U) TRACE(A) NEGATIVE 10/04/2024 1:44 PM RECORD CENTER SPECIALIST [facility] UROBILINOGEN 0.2 <1.0 EU/DL 10/04/2024 1:44 PM RECORD CENTER SPECIALIST [facility] BLOOD (U) 3+(A) NEGATIVE 10/04/2024 1:44 PM RECORD CENTER SPECIALIST [facility] WBC/HPF 0-5 0 - 5 /HPF 10/04/2024 1:44 PM RECORD CENTER SPECIALIST [facility] Comment:PERFORMED ON UNSPUN URINE RBC/HPF 0-5 0 - 5 /HPF 10/04/2024 1:44 PM RECORD CENTER SPECIALIST [facility] EPI/LPF MANY /LPF 10/04/2024 1:44 PM RECORD CENTER SPECIALIST [facility] MUCUS PRESENT 10/04/2024 1:44 PM RECORD CENTER SPECIALIST [facility] BILIRUBIN CONF ICTO (U) UNABLE TO PERFORM NOT ENOUGH SPECIMEN NEGATIVE 10/04/2024 1:44 PM RECORD CENTER SPECIALIST [facility] URINE SPECIMEN OBTAINED BY CLEAN CATCH PROCEDURE / Unknown 10/04/2024 1:23 PM RECORD CENTER SPECIALIST us Efrain Aguilar DO URINE ORDERABLES Final Resul t [place] [id number] [email or web address] [address], * CT HEAD WO CON (10/04/2024 11:58 AM RECORD CENTER SPECIALIST) Only the most recent of2 resultswithin the time period is included. Anatomical Region Laterality Modality Head Computed Tomogra phy 10/04/2024 12:0 0 PM RECORD CENTER SPECIALIST Impressions 10/04/2024 12:01 PM RECORD CENTER SPECIALIST IMPRESSION: No CT evidence of an acute intracranial abnormality. Ordered By: EFRAIN AGUILAR Interpreted By: Shadi Perez MD, 10/04/2024 12:00 PM Narrative 10/04/2024 12:01 PM RECORD CENTER SPECIALIST [place] [address] [facility] [address] [place] [address] Examination: CT HEAD WO CON, 10/04/2024 11:58 [...] Procedure Note Shadi Perez MD - 10/04/[address] [place] [address] [facility] [place] [address] Examination: CT HEAD WO CON, 10/04/2024 11:58 [...] By: Shadi Perez MD, 10/04/2024 12:00 PM us Efrain Aguilar DO CT Final Result * XR TIBIA+FIBULA RT 2V (10/04/2024 11:57 AM RECORD CENTER SPECIALIST) Anatomical Region Laterality Modality TibFib Radiographic Gill ging 10/04/2024 12:4 2 PM RECORD CENTER SPECIALIST Impressions 10/04/2024 12:44 PM RECORD CENTER SPECIALIST IMPRESSION: Mild soft tissue swelling about the medial lateral malleoli. Ordered By: EFRAIN AGUILAR Interpreted By: Jose G Wiseman MD, 10/04/2024 12:42 PM Narrative 10/04/2024 12:44 PM RECORD CENTER SPECIALIST [address] [place] [address] Procedure(s): XR TIBIA+FIBULA RT 2V Date of [...] Note Jose G Wiseman MD - 10/04/[address] [place] [address] Procedure(s): XR TIBIA+FIBULA RT 2V Date of [...] XR TIBIA+FIBULA LT 2V (10/04/2024 11:57 AM RECORD CENTER SPECIALIST) Anatomical Region Laterality Modality TibFib Radiographic Gill ging 10/04/2024 12:4 4 PM RECORD CENTER SPECIALIST Impressions 10/04/2024 12:45 PM RECORD CENTER SPECIALIST FINDINGS AND IMPRESSION: The tibia and fibula [...] 10/04/2024 12:44 PM Narrative 10/04/2024 12:45 PM RECORD CENTER SPECIALIST [address] [place] [address] Procedure(s): XR TIBIA+FIBULA LT 2V Date of service: 10/04/2024 11:30 AM Provided clinical information: 68 years, Female, fall Procedure and materials: AP and lateral view. Comparison studies: None. Procedure Note Jose G Wiseman MD - 10/04/[address] [place] [address] Procedure(s): XR TIBIA+FIBULA LT 2V Date of [...] Jose G Wiseman MD, 10/04/2024 12:44 PM us Efrain Aguilar DO GENERAL IMAGING Final Result * XR CHEST PA+LAT (10/04/2024 11:57 AM RECORD CENTER SPECIALIST) Anatomical Region Laterality Modality Chest Radiographic Gill ging 10/04/2024 12:0 5 PM RECORD CENTER SPECIALIST Impressions 10/04/2024 12:08 PM RECORD CENTER SPECIALIST IMPRESSION: 1. Small right pleural effusion. 2. Groundglass opacity the left lung base that could be seen with a pulmonary contusion, atelectasis or pneumonia, given the clinical setting. If warranted clinically, CT chest could be beneficial for further characterization. 3. Mild cardiomegaly. Ordered By: EFRAIN AGUILAR Interpreted By: Shadi Perez MD, 10/04/2024 12:05 PM Narrative 10/04/2024 12:08 PM RECORD CENTER SPECIALIST [address] [place] [address] Examination: XR CHEST PA+LAT, 10/04/2024 11:30 AM. [...] Procedure Note Shadi Perez MD - 10/04/[address] [place] [address] Examination: XR CHEST PA+LAT, 10/04/2024 11:30 AM. [...] (ABNORMAL) COMPREHENSIVE METABOLIC PANEL (10/04/2024 11:30 AM RECORD CENTER SPECIALIST) Only the most recent of2 resultswithin the time period is included. SODIUM S/P/B 145 136 - 145 MMOL/L 10/04/2024 12:01 PM [facility] POTASSIUM S/P/B 3.8 3.5 - 5.1 MMOL/L 10/04/2024 12:01 PM [facility] CHLORIDE S/P/B 108(H) 98 - 107 MMOL/L 10/04/2024 12:01 PM [facility] CO2 25.1 21.0 - 32.0 MMOL/L 10/04/2024 12:01 PM [facility] GLUCOSE 80 70 - 99 MG/DL 10/04/2024 12:01 PM [facility] Comment: FASTING GLUCOSE 100 TO 125 MG/DL IS CONSISTENT WITH IMPAIRED FASTING GLUCOSE. FASTING GLUCOSE >125 MG/DL IS CONSISTENT WITH DIABETES. RANDOM GLUCOSE >200 MG/DL WITH HYPERGLYCEMIC SYMPTOMS IS CONSISTENT WITH DIABETES. PER ADA GUIDELINES BUN 21 6 - 24 MG/DL 10/04/2024 12:01 PM [facility] CREATININE S/P/B 0.97 0.55 - 1.02 MG/DL 10/04/2024 12:01 PM [facility] CALCIUM S/P/B 7.9(L) 8.4 - 10.5 MG/DL 10/04/2024 12:01 PM [facility] BILIRUBIN TOTAL S/P/B 0.3 0.2 - 1.0 MG/DL 10/04/2024 12:01 PM [facility] Comment: THIS ASSAY IS NOT RECOMMENDED FOR PATIENTS UNDERGOING TREATMENT WITH ELTROMBOPAG DUE TO THE POTENTIAL FOR FALSELY ELEVATED RESULTS. ALKALINE PHOSPHATASE S/P/B 64 50 - 130 U/L 10/04/2024 12:01 PM [facility] AST 24 15 - 37 U/L 10/04/2024 12:01 PM [facility] ALT 23 14 - 59 U/L 10/04/2024 12:01 PM [facility] TOTAL PROTEIN S/P/B 5.4(L) 6.4 - 8.2 G/DL 10/04/2024 12:01 PM [facility] ALBUMIN S/P/B 2.5(L) 3.4 - 5.0 G/DL 10/04/2024 12:01 PM [facility] ANION GAP 11.9 5.0 - 15.0 MMOL/L 10/04/2024 12:01 PM [facility] OSMOLALITY (CALC) 302 MOSM/KG 025 12:01 PM [facility] Comment:REFERENCE RANGE NOT ESTABLISHED GFR ESTIMATE 64(L) >89 ML/MIN/1. 73 M2 10/04/2024 12:01 PM [facility] GFR NOTES GFR REFERENCE S: 10/04/2024 12:01 PM [facility] Comment: THE ESTIMATED GFR IS [...] <15 ml/min/1.73 m2 10/04/2024 11:3 0 AM [facility] us Efrain Aguilar DO LABORATORY Final Result [facility] [address] [email or web address] [address], * (ABNORMAL) CBC W/DIFF AUTOMATED (10/04/2024 11:30 AM [facility]IST) Only the most recent of5 resultswithin the time period is included. WBC 3.99(L) 4.00 - 10.80 x10'3/uL 10/04/2024 12:07 PM [facility] RBC 3.28(L) 4.10 - 5.40 x10'6/uL 10/04/2024 12:07 PM [facility] HGB 7.9(L) 12.0 - 16.0 G/DL 10/04/2024 12:07 PM [facility] HCT 26.9(L) 36.0 - 47.0 % 10/04/2024 12:07 PM [facility] MCV 82.0 78.0 - 100.0 FL 10/04/2024 12:07 PM [facility] MCH 24.1(L) 27.0 - 31.0 PG 10/04/2024 12:07 PM [facility] MCHC 29.4(L) 33.0 - 36.0 G/DL 10/04/2024 12:07 PM [facility] RDW RESULTS NOT AVAILABLE 11.5 - 14.5 % 10/04/2024 12:07 PM [facility] PLT 168 150 - 350 x10'3/uL 10/04/2024 12:07 PM [facility] MPV 9.3 7.4 - 10.4 FL 10/04/2024 12:07 PM [facility] CBC COMMENT NORMAL REFERENCE RANGE NOT ESTABLISHED FOR THE PROPORTIONAL LEUKOCYTE DIFFERENTIAL. 10/04/2024 12:07 PM [facility] NEUTROPHILS % 55.8 % 10/04/2024 12:20 PM [facility] LYMPHOCYTES % 19.0 % 10/04/2024 12:20 PM [facility] MONOCYTES % 21.8 % 10/04/2024 12:20 PM [facility] EOSINOPHILS % 2.8 % 10/04/2024 12:20 PM [facility] BASOPHILS % 0.3 % 10/04/2024 12:20 PM [facility] IMMATURE GRANS % 0.3 % 10/04/19 12:20 PM [facility] NRBC % 0.0 % 10/04/2024 12:20 PM [facility] ABS. NEUTROPHILS 2.23 1.60 - 8.30 x10'3/uL 10/04/2024 12:20 PM [facility] ABS. LYMPHOCYTES 0.76(L) 0.80 - 4.70 x10'3/uL 10/04/2024 12:20 PM [facility] ABS. MONOCYTES 0.87 0.00 - 1.50 x10'3/uL 10/04/2024 12:20 PM [facility] ABS. EOSINOPHILS 0.11 0.00 - 0.40 x10'3/uL 10/04/2024 12:20 PM [facility] ABS. BASOPHILS 0.01 0.00 - 0.20 x10'3/uL 10/04/2024 12:20 PM [facility] ABS. IMMATURE GRANULOCYTES 0.01 0.00 - 0.03 x10'3/uL 10/04/2024 12:20 PM [facility] ABS. NUCLEATED RBC'S 0.00 0.00 - 0.01 x10'3/uL 10/04/2024 12:20 PM [facility] PLT MORPH. NORMAL 10/04/2024 12:20 PM [facility] RBC MORPHOLOGY 2+ 10/04/2024 12:20 PM [facility] Comment: ANISOCYTOSIS 2+ POIKILOCYTOSIS 1+ POLYCHROMASIA 2+ HYPOCHROMASIA 1+ TARGET CELLS 10/04/2024 11:3 0 AM [facility] SPECIALIST us Efrain Aguilar DO LABORATORY Final Result Performing Organization Address City/[facility]/ZIP Co de Phone Number [facility] [address] [place] [address], * TROPONIN, QUANT (10/04/2024 11:30 AM [facility]) Only the most recent of2 resultswithin the time period is included. TROPONIN I HIGH SENSITIVITY 8 0 - 51 ng/L 10/04/2024 12:01 PM [facility] 10/04/2024 11:3 0 AM [facility] us Efrain Aguilar DO LABORATORY Final Result Performing Organization Address [facility] Co de Phone Number [facility] [address] [place] [phone], * SALICYLATE (10/04/2024 11:30 AM [facility]) SALICYLATES 5.9 2.8 - 20.0 MG/DL 10/04/2024 12:01 PM [facility] 10/04/2024 11:3 0 AM [facility] us Efrain Aguilar DO LABORATORY Final Result Performing Organization Address City/[facility] Co de Phone Number [facility] [address] [place] [phone], * ETHANOL (10/04/2024 11:30 AM [facility]) Only the most recent of2 resultswithin the time period is included. ALCOHOL S/P/B <0.003 <0.003 G/DL 10/04/2024 12:01 PM [facility] 10/04/2024 11:3 0 AM [facility] us Efrain Aguilar DO LABORATORY Final Result Performing Organization Address [facility]/ZIP Co de Phone Number [facility] [address] [place] [address], [place] [phone] * CK (CPK) (10/04/2024 11:30 AM [facility]) Only the most recent of2 resultswithin the time period is included. CPK 79 26 - 192 U/L 10/04/2024 12:01 PM [facility] 10/04/2024 11:3 0 AM [facility] us Efrani Aguilar DO LABORATORY Final Result Performing Organization Address [facility] de Phone Number [facility] [address] [place] [address], [place] [phone] * (ABNORMAL) ACETAMINOPHEN (10/04/2024 11:30 AM [facility]) ACETAMINOPHEN S/P/B 9.9(L) 10.0 - 30.0 MCG/ML 10/04/2024 12:01 PM [facility] 10/04/2024 11:3 0 AM [facility] us Efrain Aguilar DO LABORATORY Final Result Performing Organization Address [facility] Co de Phone Number [facility] [address] [place] [address], [place] [phone] * CORONAVIRUS (COVID-19) ANTIGEN (10/04/2024 11:23 AM [facility]) Only the most recent of2 resultswithin the time period is included. CORONAVIRUS ANTIGEN IA NEGATIVE NEGATIVE 10/04/2024 12:07 PM [facility] Comment: NEGATIVE RESULTS DO NOT [...] LABORATORIES. SPECIMEN TYPE NASAL 10/04/2024 11:27 AM [facility] NASAL NASAL STRUCTURE / Unknown 10/04/2024 11:23 AM [facility] us Efrain Aguilar DO MICROBIOLOGY - GENERAL ORDER JEANINE Final Result Performing Organization Address [facility] Co de Phone Number [address] [address], [place] [phone] * (ABNORMAL) INFLUENZA A & B (10/04/2024 11:23 AM [facility]) Only the most recent of2 resultswithin the time period is included. SPECIMEN TYPE (INFLUENZA) NASOPHARYNGEAL SWAB 10/04/2024 11:27 AM [facility] INFLUENZA A POSITIVE(A) NEGATIVE 10/04/2024 11:57 AM [facility] Comment: CALLED TO BASILIO LOPEZ AT 1157 [address] READ BACK AND VERIFIED INFLUENZA B NEGATIVE NEGATIVE 10/04/2024 11:57 AM [facility] NASAL NASOPHARYNGEAL SWAB / Unknown 10/04/2024 11:23 AM [facility] us Efrain Aguilar DO MICROBIOLOGY - GENERAL ORDER JEANINE Final Result Performing Organization Address [facility] Co de Phone Number [facility] [address] [place], [place] [address] [address], [place] [phone] * ECG 12 lead (10/04/2024 11:20 AM [facility]) 10/04/2024 11:2 0 AM [facility] Maricarmen [facility] - 10/04/2024 8:[address] [place] [address] Test Date: 2024-10-04 Pat Name: ARIADNA PINEDA Department: 3 Room: EXAM 606 Gender: Female Perinatal Director: : 1955 Requested By: EFRAIN AGUILAR Order Number: [id number] Reading MD: Christiano Zambrano Measurements Intervals [place]raim Rate: 73 P: 29 RI: 154 QRS: -8 QRSD: 124 T: 4 QT: 402 QTc: 445 Interpretive Statements SINUS RHYTHM POSSIBLE RIGHT VENTRICULAR CONDUCTION DELAY MINIMAL ST DEPRESSION RD CENTER SPECIALIST Procedure Note Christiano Zambrano MD - 10/04/[address] [place] [address] Test Date: 2024-10-04 Pat Name: ARIADNA PINEDA Department: 3 Room: EXAM 606 Gender: Female Perinatal Director: : 1955 Requested By: EFRAIN AGUILAR Order Number: [id number] Reading MD: Christiano Zambrano Measurements Intervals [place]im Rate: 73 P: 29 RI: 154 QRS: -8 QRSD: 124 T: 4 QT: 402 QTc: 445 Interpretive Statements SINUS RHYTHM POSSIBLE RIGHT VENTRICULAR CONDUCTION DELAY MINIMAL ST DEPRESSION RD CENTER SPECIALIST Efrain Aguilar DO ECG ORDERABLES Final Result Performing Organization Address City/State/[facility] Co de Phone Number [facility] * XR CHEST PORTABLE (10/02/2024 12:18 PM [facility]) Anatomical Region Laterality Modality Chest Radiographic Gill ging 10/02/2024 12:2 1 PM [facility] Impressions 10/02/2024 12:22 PM [facility] IMPRESSION: No acute findings Ordered By: KELSY NICHOLS Interpreted By: Loc Castaneda MD, 10/02/2024 12:21 PM Narrative 10/02/2024 12:22 PM [facility] [address] [place] [address] SINGLE VIEW OF THE CHEST Clinical history: Cough Comparison: July 11, 2023 A single view of the chest demonstrates a limited inspiratory effort with crowding of bronchovascular markings. The cardiac silhouette is normal in size. Sternotomy changes are again evident. Overall, the lungs are clear Procedure Note Loc Castaneda MD - 10/02/2024 [facility] [address] [facility] [place] [address] SINGLE VIEW OF THE CHEST Clinical history: [...] ACID W REFLEX (SEPSIS) (10/02/2024 12:00 PM [facility]) LACTIC ACID VENOUS 1.4 0.4 - 2.0 MMOL/L 10/02/2024 12:36 PM [facility] 10/02/2024 12:0 0 PM [facility] Kelsy Nichols MD LABORATORY Final Result [facility] [address] [place] [address], * (ABNORMAL) PROTIME/INR, VENOUS (10/02/2024 12:00 PM [facility]) Only the most recent of7 resultswithin the time period is included. PROTIME 17.0(H) 9.4 - 12.5 SEC 10/02/2024 1:24 PM [facility] INR 1.5(H) 0.8 - 1.0 10/02/2024 1:24 PM [facility] 10/02/2024 12:0 0 PM [facility] Kelsy Nichols MD LABORATORY Final Result Performing Organization Address City/[facility]/ZIP Co de Phone Number [facility] [address] [place] [address], * PARTIAL THROMBOPLASTIN TIME,PTT (09/29/2024 8:17 AM [facility]) PTT 28.7 25.1 - 36.5 SEC 09/29/2024 8:37 AM [facility] 09/29/2024 8:17 AM [facility] Wesley Tinsley DO LABORATORY Final Result Performing Organization Address [facility] Co de Phone Number [facility] [place] [address], * (ABNORMAL) HEMOGLOBIN, GLYCOSYLATED (12/24/2023 7:08 AM CDT) HGB A1C 6.2(H) <5.7 % 12/24/2023 1:08 PM CDT [facility] ESTIMATED AVG GLUCOSE 131(H) 74 - 114 MG/DL 12/24/2023 1:08 PM CDT [facility] 12/24/2023 7:08 AM CDT Cyndi JONES LABORATORY Final Result Performing Organization Address City/[facility]/ZIP Co de Phone Number [facility] [address] [place] [address], [place] [phone] * LIPID PANEL (12/24/2023 7:08 AM CDT) CHOLESTEROL 104 MG/DL 12/24/2023 12:16 PM CDT [facility] Comment:DESIRABLE: <200 TRIGLYCERIDES 104 MG/DL 12/24/2023 12:16 PM CDT [facility] Comment:<150 NORMAL HDL 56 >49 MG/DL 12/24/2023 12:16 PM CDT [facility] LDL-C 27 MG/DL 12/24/2023 12:16 PM CDT [facility] Comment:<100 OPTIMAL VLDL CALCULATION 21 MG/DL 12/24/19 24 12:16 PM CDT [facility] Comment:REFERENCE RANGE NOT ESTABLISHED CHOL/HDL RATIO 1.9 12/24/2023 12:16 PM T [facility] Comment:REFERENCE RANGE NOT ESTABLISHED LDL/HDL 0.5 12/24/2023 12:16 PM T [facility] Comment:REFERENCE RANGE NOT ESTABLISHED NON HDL CHOLESTEROL 48 MG/DL 12/24/2023 12:16 PM T [facility] Comment:REFERENCE RANGE NOT ESTABLISHED 12/24/2023 7:08 AM CDT Cyndi Farris [employer] RENTAL CLERK LABORATORY Final Result Performing Organization Address [facility]/ZIP Co de Phone Number [facility] [address] [place] [address], [phone] * Colonoscopy ( [facility]) Narrative [facility] TO EPIC CONVERSION - [facility] SPECIAL[facility] Documented hx of procedure Procedure Note Md Generic MD Xavier - 06/12/2018 Documented hx of procedure Jamilah Park Md, MD GI PROCEDURE ORDERABLES Final Result [facility] TO EPIC CONVERSION from Last 3 Months or Most Recently Relevant to Health Maintenance [place] [address] MEDICARE MEDICARE MEDICAID Care Teams Bedspread Cutter Relationship Specialty Start Date End Date Raji Judd MD [address] [place] [address] PCP - General FAMILY PRACTICE 01/23/22 Garfield Jean MD CARDIOVASCULAR DISEASE 02/05/16 Miladis Young, [facility]- [address] [facility] [address] [place] [address] NURSE PRACTITIONER 12/14/16 Welsey Tinsley DO [address] [place] [address] SURGERY 12/14/16
[2024-11-07 09:32] LABS: Glucose Point of Care 93 mg/dl (65-105)
[2024-11-07 09:32] LABS: Glucose Point of Care < 20 mg/dl (65-105)
[2024-11-07 09:32] LABS: Glucose Point of Care 30 mg/dl (65-105)
== END 2024-11-07 08:15 | disposition home or self-care (01) ==
PROVIDERS: Visit Provider Internal Medicine Hematology & Oncology
DX: C21.8 Malignant neoplasm of overlapping sites of rectum, anus and anal canal (principal); R59.0 Localized enlarged lymph nodes; R93.7 Abnormal findings on diagnostic imaging of other parts of musculoskeletal system
CPT/HCPCS: 78815; A9552

== ENCOUNTER 2025-01-17 11:59 | Outpatient (CLI) | payer MEDICARE, MEDICAID, SELFPAY ==
--- NOTE | ~2025-01-17 | US_ITS ---
EXAMINATION:US venous doppler LE LT INDICATION:Left leg edema TECHNIQUE: Multiple grayscale, color flow and Doppler images of the left lower extremity deep venous systems were obtained and reviewed. COMPARISON:No prior studies for comparison. FINDINGS: The common femoral, superficial femoral and popliteal veins demonstrate normal respiratory variation, augmentation and compressibility. Color flow is also seen within the posterior tibial, pe roneal, greater saphenous and profunda veins. IMPRESSION: 1: No lower extremity deep venous thrombosis. Reviewed, dictated and finalized at location B.
--- OUTSIDE RECORDS SUMMARY | 2025-01-17 14:06 | XMS_ITS | Encounter Summary ---
Author Organization [facility] Address [address] [place] [address] Care Team Providers Care Contact Person Name Role Phone Raji Judd MD Primary Care Provider [phone] Encounter Details Date Type Department Care Team (Late Contact Info) Description 01/12/2025 Orders Only [facility] Oncology and Hematology - [place] [address] [facility] [address] [place] [address] Rufus Amin MD [address] [facility] [address] [place] [address] Social History Tobacco Use Types Packs/Day Years Used Date Smoking Tobacco: Some Days Cigarettes Alcohol Use Standard Drinks/Week Comments Yes 0 (1 standard drink = 0.6 oz pur e alcohol) occ. Feeling Safe Answer Date Recorded Are you in a relationship wi th someone who hurts you emotionally and/or physically? No 10/04/2024 Food Insecurity Answer Date Recorded Patient needs follow up regardin 11/29/2024 Transportation Needs Answer Date Record ed Patient needs follow up regardin 11/29/2024 Housing Stability Answer Date Recorded Social/Environmental Concerns No concerns Utility Needs Answer Date Recorded Patient needs follow up regardin 11/29/2024 Comments Unknown Sex and Gender Information Value Date Recorded Sex Assigned at Not on file Legal Sex Female 4:49 PM [employer] Gender Identity Not on file Sexual Orientation Not on file documented as of this encounter Plan of Treatment Upcoming Encounters Date Type Department Care Team (Late st Contact Info) Description 02/15/2025 11:15 AM CDT Office Visit [facility] Oncology and Hematology - [place] [address] [facility] [address] [place] [address] Rufus Amin MD [address] [facility] [address] [place] [address] documented as of this encounter Procedures Procedure Name Priority Date/Time Associated Diagnosis Comments BASIC METABOLIC PANEL Routine 01/11/2025 1:18 PM CDT documented in this encounter Results * BASIC METABOLIC PANEL (01/11/2025 1:18 PM CDT) Blood Rufus Amin MD CHEMISTRY ORDERABLES Final Resu lt documented in this encounter Visit Diagnoses Not on filedocumented in this encounter Care Teams Contact Person Relationship Specialty Start Date End Date Raji Judd MD [address] [place] [address] PCP - General Family Practice 10/05/24 documented as of this encounter
--- OUTSIDE RECORDS SUMMARY | 2025-01-17 14:06 | XMS_ITS | Clinical Summary ---
Author Organization [facility] Address [address] [place] [address] Phone Care Team Providers Care Auto Inspection Specialist Name Role Phone Raji Judd MD Primary Care Provider [phone] Allergies Active Allergy Reactions Criticality Noted Date [...] administration instructions. 4 Tablet 10/14/19 25 Active diphenhydrAMIN E (BENADRYL) 25 mg capsule Take 2 Capsules (50 mg) by mouth see administration instructions. 2 Capsule 10/14/19 25 Active ondansetron (ZOFRAN ODT) 8 mg Tablet, Rapid Dissolve Dissolve 1 tablet on top of tongue then swallow with saliva every 8 hours as needed for nausea or vomiting 30 Tablet 1 11/22/19 25 Active capecitabine (Xeloda) 500 mg tablet Take 3 tablets by mouth twice a day with meals Wednesday through Wednesday on days of radiation therapy treatment only 120 Tablet 5 8:02 AM CDT 12/21/19 25 Active capecitabine (Xeloda) 500 mg tablet Take 3 tablets by mouth twice a day with meals Wednesday through Wednesday on days of radiation therapy treatment only 120 Tablet 5 10:51 AM CDT 10/26/19 25 025 Discontin ued(Reord er) Active Problems Problem Noted Date Diagnosed Date Heme positive stool 11/28/2024 Normocytic anemia 10/06/2024 Acute blood loss anemia 10/05/2024 Hypotension 10/05/2024 DM (diabetes mellitus), type 2 10/05/2024 Major depression 10/05/2024 Benign essential HTN 10/05/2024 CAD (coronary atherosclerotic disease) 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 Influenza with pneumonia 10/05/2024 Hematochezia 10/05/2024 FCI (current) use of anticoagulants 2024 Encounters Date Type Department Care Team Description 01/17/2025 9:30 AM CDT Office Visit [facility] Oncology and Hematology [facility] [address] [place] [address] Rufus Amin MD Left leg swelling (Primary Dx); Anal cancer (CMS/HCC) 01/17/2025 Orders Only [facility] Oncology and Hematology [facility] [address] [place] [phone] uRfus Amin MD 01/12/2025 Orders Only [facility] Oncology and Hematology - Christian [address] [place] [address] Rufus Amin MD 01/09/2025 External Device Data STL ABSTRACTION Provider, Abstract 01/08/2025 Orders Only [facility] Oncology and Hematology - [place] [address] [place] [phone] Rufus Amin MD Anal cancer ([facility]/HCC) 01/05/2025 Orders Only [facility] Oncology and Hematology - [address] [place] [address] Rufus Amin MD 01/05/2025 Telephone [facility] Oncology and Hematology - [place] [address] [place] [phone] Rufus Amin MD Medication Review 01/02/2025 9:15 AM CDT Office Visit [facility] Oncology and Hematology - [place] [address] [place] [address] Rufus Amin MD Anal cancer (CMS/HCC) (Primary Dx) 12/25/2024 Orders Only [facility] Oncology and Hematology - [address] [place] [phone] Rufus Amin MD Anal cancer (CMS/HCC) 12/21/2024 Specialty Pharmacy [facility] [address] [place] [address] [place] [address] Ann Ornelas, PHARMACIST Specialty Pharmacy Refill Coordination 12/20/2024 Refill [facility]ematology - [place] [address] [place] [address] Rufus Amin MD 12/14/2024 Orders Only [facility] Oncology and Hematology - [address] [place] [address] Rufus Amin MD 12/13/2024 9:15 AM CDT Office Visit [facility] Oncology and Hematology - [place] [address] [place] [address] Rufus Amin MD Anal cancer (CMS/HCC) (Primary Dx) 12/13/2024 Orders Only [facility] Oncology and Hematology - [place] [address] [place] [address] Rufus Amin MD 12/12/2024 External Device Data STL ABSTRACTION Provider, Abstract 12/12/2024 External Device Data STL ABSTRACTION Provider, Abstract 12/12/2024 External Device Data STL ABSTRACTION Provider, Abstract 12/11/2024 Orders Only [facility] Oncology [facility] Hematology - [place] [address] [place] [address] Rufus Amin MD Anal cancer ([facility]/HCC) 12/06/2024 Abstract [facility]cology [facility] Hematology - [place] [address] [place] [address] Rufus Amin MD 12/05/2024 Orders Only [facility] Oncology and Hematology - [place] [address] [place] [address] Rufus Amin MD 12/04/2024 Orders Only [facility] Oncology and Hematology - [place] [address] [place] [address] Rufus Amin MD 12/01/2024 Orders Only [facility] Oncology and Hematology - [place] [address] [place] [address] Rufus Amin MD Anal cancer ([facility]/HCC) (Primary Dx) 11/28/2024 Specialty Pharmacy [facility] [address] [place] [phone] Colette Lundy, PHARMACIST Specialty Pharmacy Clinical Assessment 11/28/2024 Specialty Pharmacy [facility] [address] [facility] [place] [phone] Colette Lundy, PHARMACIST Specialty Pharmacy Refill Coordination 11/21/2024 Refill [facility] Oncology and Hematology - [place] [address] [place] [address] Rufus Amin MD 11/21/2024 External Device Data STL ABSTRACTION Provider, Abstract 11/14/2024 4:00 PM CDT Telephone Check Up [facility] Oncology and Hematology - [place] [address] [place] [address] Rufus Amin MD 11/08/2024 Orders Only [facility] Oncology [facility] Hematology - [place] [address] [place] [address] Rufus Amin MD 11/07/2024 External Device Data STL ABSTRACTION Provider, Abstract 11/07/2024 External Device Data STL ABSTRACTION Provider, Abstract 11/07/2024 External Device Data STL ABSTRACTION Provider, Abstract 11/07/2024 Orders Only [facility] Oncology and Hematology - [place] [address] [place] [address] Rufus Amin MD 11/02/2024 10:33 AM CDT - 11/02/2024 11:59 PM CDT Hospital Encounter [facility] Interventional Radiology [facility] [address] [place] [address] Rufus Amin MD Nur, [facility] Discharge Disposition: Home or Self Care 10/31/2024 Telephone [facility] Oncology and Hematology - [place] [address] [place] [address] Rufus Amin MD Biopsy Questions 10/27/2024 Telephone [facility] Oncology and Hematology - [address] [place] [address] Rufus Amin MD Medication Review 10/26/2024 Orders Only [facility] Oncology and Hematology [facility] [address] [place] [address] Rufus Amin MD 10/26/2024 Specialty Pharmacy [facility] [address] [facility] [place] [address] Evelina Bettencourt, PHARMACIST Specialty Pharmacy Prior Auth Coordination 10/25/2024 9:00 AM CDT Office Visit [facility] Oncology [facility] [address] [place] [address] Rufus Amin MD Anal cancer (CMS/HCC) (Primary Dx) 10/25/2024 Orders Only [facility] [address] [place] [address] Rufus Amin MD 10/20/2024 Results Follow-Up [facility] Gastroenterology [facility] [address] [facility] [address] [place] [address] Hunter Kemp DO PATHOLOGY 10/19/2024 12:30 PM CDT Office Visit [facility] Surgical [facility] [place] [address] [facility] [address] [place] [address] Dennis Boothe MD Anal squamous cell carcinoma (CMS/HCC) (Primary Dx) 10/19/2024 10:15 AM CDT Ancillary Procedure [facility] [address] [place] [address] Cristin Vázquez PA-C Mass of anus 10/19/2024 Orders Only [facility] [place] [address] [place] [address] Dennis Boothe MD Anal cancer (CMS/HCC) (Primary Dx) 10/19/2024 Orders Only [facility] [place] [address] [place] [address] Dennis Boothe MD Anal cancer (CMS/HCC) (Primary Dx) from Last 3 Months Family History Medical [...] on file Legal Sex Female 4:49 PM DIRECTOR METABOLISM Gender Identity Not on file Sexual Orientation Not on file Last Filed Vital Signs Vital Sign Reading Time Taken Comments Blood Pressure 117/68 01/17/2025 9:21 AM CDT Pulse 83 01/17/2025 9:21 AM CDT Temperature 36.9 C (98.4 F) 01/17/2025 9:21 AM CDT Respiratory Rate 16 01/17/2025 9:21 AM CDT Oxygen Saturation 90% 01/17/2025 9:21 AM CDT Inhaled Oxygen Concentration - - Weight 88 kg (194 lb) 01/17/2025 9:21 AM CDT Height 157.5 cm (5' 2) 10/25/2024 8:39 AM CDT Body Mass Index 35.48 10/25/2024 8:39 AM CDT Plan of Treatment Upcoming Encounters Date Type Department Care Team (Late st Contact Info) Description 02/15/2025 11:15 AM CDT Office Visit [facility] Oncology and Hematology - [place] [address] [facility] [address] [place] [address] Rufus Amin MD [address] [facility] [address] [place] [address] Health Maintenance Due Date Last Done Comments DIABETES ANNUAL FOOT EXAM 11/04/1975 DIABETES ANNUAL RETINAL EXAM 11/04/1975 DIABETES MICROALBUMIN ANNUAL SCREEN 11/04/1975 LDL CHOLESTEROL ANNUAL 11/04/1975 PNEUMOCOCCAL VACCINE 50+ YEA RS (1 of 2 - PCV) 1976 BREAST CANCER SCREENING 1997 FIT-DNA Q [...] Name Priority Date/Time Associated Diagnosis Comments US VENOUS DOPPLER LEG LEFT Routine 01/17/2025 1:18 PM CDT BASIC METABOLIC PANEL Routine 01/17/2025 12:49 PM CDT COMPREHENSIVE METABOLIC PANEL Routine 01/17/2025 12:48 PM CDT BASIC METABOLIC PANEL Routine 01/11/2025 1:18 PM CDT COMPREHENSIVE METABOLIC PANEL Routine 01/02/2025 3:59 PM CDT BASIC METABOLIC PANEL Routine 12/13/2024 4:19 PM CDT CBC WITH AUTODIFFERENTIAL Routine 12/13/2024 10:16 AM CDT COMPREHENSIVE METABOLIC PANEL Routine 12/04/2024 3:47 PM CDT BASIC METABOLIC PANEL Routine 12/04/2024 11:18 AM CDT CO ANOSCOPY DX W/COLLJ SPEC BR/WA SPX WHEN PRFRMD Routine 11/08/2024 9:28 PM CDT Anal squamous cell carcinoma (CMS/HCC) GLUCOSE LEVEL Routine 11/07/2024 1:11 PM CDT PET BONE IMG W CT SKL BSE MID THG Routine 11/07/2024 9:42 AM CDT US GUIDE NEEDLE PLACEMENT Routine 11/02/2024 11:44 AM CDT Anal cancer (CMS/HCC) PATHOLOGY Pathology 11/02/2024 11:38 AM CDT CHG HIV 1&2 ANTIBODY SINGLE ASSAY IA Routine 10/25/2024 3:[address] ABDOMEN PELVIS W CONTRAST Routine 10/19/2024 10:54 AM CDT Mass of anus COLONOSCOPY REPORT 10/11/2024 9: 02 AM DIRECTOR METABOLISM HEMOGLOBIN A1C Routine 10/05/2024 4:14 PM DIRECTOR METABOLISM from Last 3 Months or Most Recently Relevant to Health Maintenance Results * US VENOUS DOPPLER LEG LEFT (01/17/2025 1:18 PM CDT) Anatomical Region Laterality Modality Lower Extremity Ultrasound us Rufus Amin MD US ORDERABLES Final Result * BASIC METABOLIC PANEL (01/17/2025 12:49 PM CDT) Only the most recent of4 resultswithin the time period is included. Blood us Rufus Amin MD CHEMISTRY ORDERABLES Final Resu lt * COMPREHENSIVE METABOLIC PANEL (01/17/2025 12:48 PM CDT) Only the most recent of3 resultswithin the time period is included. Blood us Rufus Amin MD CHEMISTRY ORDERABLES Final Resu lt * CBC WITH AUTODIFFERENTIAL (12/13/2024 10:16 AM CDT) Blood us Rufus Amin MD HEMATOLOGY ORDERABLES Final Res ult * CO ANOSCOPY DX W/COLLJ SPEC BR/WA SPX WHEN PRFRMD (11/08/2024 9:28 PM CDT) Narrative [facility] - 11/08/2024 9:28 PM CDT Dennis Boothe MD 11/08/2024 9:28 PM See progress note. us Dennis Boothe MD PROCEDURE/MINOR SURGICAL O RDERABLES Final Result [facility] * GLUCOSE LEVEL (11/07/2024 1:11 PM CDT) Blood us Rufus Amin MD CHEMISTRY ORDERABLES Final Resu lt * PET BONE IMG W CT SKB MD (11/07/2024 9:42 AM CDT) Anatomical Region Laterality Modality Positron Emissio n Tomography (PET) us Rufus Amin MD PE ORDERABLES Final Result * US GUIDE NEEDLE PLACEMENT (11/02/2024 11:44 AM CDT) Anatomical Region Laterality Modality X-Ray Angiograph y 11/02/2024 11:4 4 AM CDT Impressions 11/02/2024 4:26 PM CDT Impression: Ultrasound-guided biopsy of a right inguinal lymph node, as described above. DICTATION LOCATION: Location 1 - [facility] Narrative 11/02/2024 4:26 PM CDT Procedure: Ultrasound-guided biopsy [...] described above. DICTATION LOCATION: Location 1 - [facility] us Rufus Amin MD US ORDERABLES Final Result * PATHOLOGY (11/02/2024 11:38 AM CDT) CASE REPORT Surgical Pathology Report Case: [id number] Authorizing Provider: Garfield Bocanegra MD Collected: 11/02/2024 11:38 AM Ordering Location: [facility] Interventional Received: 11/02/2024 02:27 PM Radiology [facility] Pathologist: Marie Card MD Specimens: A) - Lymph nodes, right B) - Lymph nodes, right, lymph nodes, right 5 3:06 PM [facility] [employer] [facility] FINAL DIAGNOSIS Lymph node, right inguinal, biopsy: - 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 Per the specimen problem report: The specimen container was originally received with no source designation. The source was confirmed to be right inguinal lymph node. [facility] 5 3:06 PM [facility] MICROSCOPIC DESCRIPTION The slides are labeled [id number] and Ariadna Giraldo. 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 Sections of the right inguinal lymph node [...] from the anal mass. 5 3:06 PM [facility] OPERATIVE PROCEDURE right inguinal lymph node biopsy 5 3:06 PM [facility] CLINICAL INFORMATION Right inguinal lymph node biopsy. Please send 2 specimens- 1 pathology 1 RPMI enlarged node 5 3:06 PM [facility] IMMUNOPHENOTYPIC ANALYSIS Flow cytometric analysis performed on the right inguinal lymph node at [facility] shows a paucicellular specimen with decreased viability. [...] cytometry analysis (17 markers) is performed by [employer], [place], [place]. To view the report, click the link below. 5 3:06 PM [facility] COMMENT Special stain, immunohistochemical, and/or in situ hybridization results are interpreted with controls that demonstrate appropriate staining reactions. Note on use of immunohistochemistry reagents and in situ hybridization probes: These tests were developed and their performance characteristics determined by [facility], Department of Laboratory Medicine. It has [...] part or completely in the following laboratories: [facility], CLIA #[id number] [address] [place] [address] [facility], [place] #[id number] [address] [place] [address] [facility]/[place], [place] #[id number] [address] [place] [address] This report was created with the [employer] voice-activated dictation system. Inherent to this system is the possibility of syntax, grammar, punctuation and other errors that could impact the interpretation of the report. If there are interpretative questions about aspects of this report, please contact the performing pathologist. 3:06 PM CDT [facility] Tissue (Lymph nodes, right) Collection / Unknown 11/02/2024 11:38 AM CDT 11/02/2024 2:27 PM CDT Comment:Right inguinal lymph node biopsy. Please send 2 specimens- 1 pathology 1 [facility] Tissue specimen (specimen) (Lymph nodes, right) Collection / Unknown 11/02/2024 11:38 AM CDT 11/02/2024 4:02 PM CDT us Garfield Bocanegra MD PATHOLOGY/CYTOLOGY ORDERABLES F inal Result [facility]# [id number] [address] [place] [address] * CHG HIV 1&2 ANTIBODY SINGLE ASSAY IA (10/25/2024 3:34 PM CDT) us Rufus Amin MD CHG - LABORATORY Final [...] cm right inguinal node. This is nonspecific. us Cristin Prader PA-C CT ORDERABLES Final Result * COLONOSCOPY REPORT (10/11/2024 9:02 AM DIRECTOR METABOLISM) Narrative Procedure Note Kemp Hunter Ball DO - 10/11/2024 9:02 AM CST [facility] Endoscopy Patient Name: Ariadna Giraldo Procedure [...] signed electronically. Number of Addenda: [address]; [place] [address] Hunter Kemp DO GI PROCEDURE ORDERABLES Fin al Result * HEMOGLOBIN A1C (10/05/2024 4:14 PM DIRECTOR METABOLISM) HEMOGLOBIN A1C 5.2 <5.7 % 10/06/2024 1:08 AM DIRECTOR METABOLISM [employer] EST. AVG GLUCOSE, A1C 103 mg/dL 10/06/2024 1:08 AM DIRECTOR METABOLISM [employer] [facility] Blood Venipuncture / Unknown 10/05/2024 4:14 PM DIRECTOR METABOLISM 10/05/2024 4:46 PM DIRECTOR METABOLISM Narrative [facility] LABORATORY [facility] - 10/06/2024 1:08 AM DIRECTOR METABOLISM HGB A1C INTERPRETATION NORMAL: <5.7% PRE-DIABETES: 5.7 - 6.4% DIABETES: 6.5% OR GREATER Myrna Luis SENIOR STATISTICAL PROGRAMMER CHEMISTRY ORDERABLES Final Re sult [facility] [employer] [facility] CLIA# [id number] [address] [place] [place] [address] from Last 3 Months or Most Recently Relevant to Health Maintenance Insurance MEDICARE PART A AND B MEDICAID [place] RX [employer] Medicare Part D RX [employer] Medicare Part B MEDICARE PART A AND B [place] Advance Directives For more information, please contact: [phone] * Full Code (Latest Code Status on File) Date Activated Date Inactivated Comments 10/05/2024 12:38 AM 10/11/2024 8:58 PM Care Teams Auto Inspection Specialist Relationship Specialty Start Date End Date Raji Judd MD [address] [place] [address] PCP - General Family Practice 10/05/24
--- OUTSIDE RECORDS SUMMARY | 2025-01-17 14:06 | XMS_ITS | Data Portability ---
Author Organization [facility], [address] [place] [address] Neurology ([place]) Address [address] [place] [address] Care Team Providers Care Shrimp Header Name Role Phone RAJI SARAVIA Primary Care Provider [phone] ELENITA AMIN Medical Oncologist Assessment Encounter Date Assessment Date Assessment LastModified by Organization Details LastModified Time 09/25/2024 09/25/2024 Acute worsening of chronic rectal [...] voices understanding and agreement with the plan. [email or web address] Not available 09/25/2024 15:35:37 09/29/2024 09/29/2024 ASSESSMENT [...] on this date of service including both xiuf-xn-zvit and ihy-brcg-qr-face time excluding any separately reportable services. saw [email or web address] Not available 09/29/2024 13:49:26 10/17/2024 10/17/2024 Anemia, rectal bleeding, anal cancer, ongoing constipation - rectal bleeding has stopped. Hgb was stable at 8.7 on 10/11. We will repeat a CBC today. -Alva has follow up w/ colorectal surgeon at [facility] on of this week. -Alva has not [...] OFF of Ozempic for the time being. Not available 10/18/2024 17:10:46 10/23/2024 10/23/2024 INR today 1.8. Continue alternating 3mg and 3.5mg. Repeat INR on Wednesday of next week. She has had a good response to BID Colace and daily fiber supplement so far. Will continue. She has an apt w/ specialist this week in [place]. She says that last week the colorectal specialist told her she'd need chemo and radiation and the next apt is to discuss that. We will get records. Plan f/u her in 3-4 weeks, sooner if needed or is any rectal bleeding noted. Not available 10/23/2024 18:35:58 11/15/2024 11/15/2024 Constipation -resume Colace, continue daily fiber then as needed laxatives. CMP, CBC, lipid, TSH collected today. Plan f/u here in 3 mo, sooner, of course, if needed. She will be busy with upcoming oncology visits. She has a son who is an RN and sister helping her. Patient voices understanding and agreement with the plan. Not available 11/15/2024 16:14:38 Plan of Treatment Reminders Order Date Submit Date Provider Last Modified By Organization Details Last Modified Time Details Appointments Establish ed Patient 40.EST 2024 02:40P M Cyndi Farris Not available Not available Not available Lab PT (prothrom bin time), fingersti ck, blood 2024 025 [facility], [address], [place], [address], 10/26/2024 17:10:56 hemoglobi n A1c + average glucose, QN, blood 2024 025 [facility] ([place]), [address] [place], [address], 10/18/2024 16:01:55 PT (prothrom bin time), fingersti ck, blood - INR due 10/23/24. Will be done at apt date and time. 2024 025 LINDA [facility], [address] [place] [address], [place], [address], 10/23/2024 11:17:49 CBC 2024 025 LINDA [facility] ([place]), [address] [facility], [place], [address], 10/18/2024 16:13:44 hepatic function panel, serum [address] [facility], [address], [place], [address], 12/20/2024 18:27:21 ammonia, blood [address] [facility], [address], [place], [address], 01/04/2025 10:54:23 cerulopla smin, serum [address] [facility], [address], [place], [address], 01/04/2025 10:54:23 copper, serum or plasma [address] [facility], [address], [place], [address], 01/04/2025 10:54:23 zinc, serum or plasma [address] [facility], [address], [place], [address], 01/04/2025 10:54:23 vitamin B12, serum [address] [facility], [address], [place], [address], 01/04/2025 10:54:23 hemoglobi n (Hb), fingersti ck, blood 2024 025 [email or web address] [facility], [address] [place] [address], [id number], 09/25/2024 14:51:07 PT (prothrom bin time), fingersti ck, blood 2024 025 [email or web address] [facility], [address] [place] [address], [id number], 09/25/2024 14:51:07 Referral None recorded. Procedures None recorded. Surgeries None recorded. Imaging MRI, brain + brain stem, w/wo contrast 2024 025 [facility], [address], [place], [address], 12/21/2024 11:23:06 MRI, cervical spine, w/wo contrast 2024 025 [facility], [address], [place], [address], 12/21/2024 11:21:27 Medication Orders Colace 100 mg capsule 2024 025 [facility], [facility] [place], [address], 11/15/2024 15:26:12 warfarin 1 mg tablet 2024 025 [facility], [facility] [place], [address], 10/26/2024 19:01:26 Colace 100 mg capsule 2024 025 [facility], [address] [place] [address], [id number], 10/17/2024 12:49:22 warfarin 3 mg tablet 2024 025 [facility], [address] [place] [address], [id number], 10/26/2024 17:04:35 Patient TargetsNo targets recorded. Patient Instructions Encounter Date Encounter Id Patient Instructions Last Modified By Organization Details Last Modified Time 10/23/2024 [id number] Attending Addendum 10/26/24 At [facility]'s Oncology visit this week, Dr. Amin recommended STOP coumadin. Upon receiving this note, I put in a message to update him on her history and prior workup / recommendatoin for indefinite duration anti-coag. He called me and we spoke directly. 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 Dr. Amin was impressed, as was I, that she has since had about 15yrs of no recurrence (albeit while on coumadin). He felt that best course was to STOP the coumadin given the potential ineraction (negating the benefits) with the planned chemotreatments, and that those labs described are NOT expected to convey much risk for her in the greater context at this point in life. So, we will plan to STOP the coumadin. [email or web address] Not available 10/26/2024 16:59:59 Reason for Referral None Reported. Results Created Date Observation Date Name Description Value Unit Range Abnormal Flag Note LastModifiedBy Organization Detail LastModifiedTime 09/25/1909/25/2024 PT (prot hromb in time) , finge rstic k, blood PT/INR fingerstick Not Available [facility] [address] [place] [address], [id number], 09/25/2024 13:01:27 09/25/19 25 09/25/2024 PT (prot hromb in time) , finge rstic k, blood INR 2.1 INR INTER PRETA TION 2.0-3 .0 FOR DEEP VEIN THROM BOSIS PULMO NARY EMBOL ISM ACUTE MYOCA RDIAL INFAR CTION ATRIA L FIBRI LLATI ON 3.0-4 .5 FOR MECHA NICAL HEART VALVE S Not Available [facility] [address] [place], [address], 09/25/2024 13:01:27 09/25/19 25 09/25/2024 hemog lobin (Hb), taylor rstic k, blood hemoglobin, fingerstick 11.8 g/dL 12.0-1 6.0 low Not Available [facility] [address] [place] [address], [id number], 09/25/2024 13:01:29 10/18/19 25 10/17/2024 PT (prot hromb in time) , espinozae rstic k, blood PT/INR fingerstick Not Available [facility] [address] [place] [address], [id number], 10/17/2024 12:26:44 10/18/19 25 10/17/2024 PT (prot hromb in time) , taylor rstic k, blood INR 1.3 INR INTER PRETA TION 2.0-3 .0 FOR DEEP VEIN THROM BOSIS PULMO NARY EMBOL ISM ACUTE MYOCA RDIAL INFAR CTION ATRIA L FIBRI LLATI ON 3.0-4 .5 FOR MECHA NICAL HEART VALVE S Not Available [facility] [address] [place] [address], [id number], 10/17/2024 12:26:44 10/18/19 25 10/18/2024 hemog lobin A1c + avera ge gluco se, QN, blood hemoglobin A1C Not Available [facility] [address] [place] [address], [address], 10/18/2024 16:01:55 10/18/19 25 10/18/2024 hemog lobin A1c + avera ge gluco se, QN, blood HGB A1C 5.4 %_A1C 4.3 - 5.6 Not Available [facility] [address] [place] [address], [id number], 10/18/2024 16:01:55 10/18/19 25 10/18/2024 hemog lobin A1c + avera ge gluco se, QN, blood estimated average glucose 108 mg/dL Not Available [facility] [address] [place] [address], [id number], 10/18/2024 16:01:55 10/18/19 25 10/18/2024 CBC CBC Not Available [facility] [address] [place] [address], [address], 10/18/2024 16:13:44 10/18/19 25 10/18/2024 CBC WBC 5.9 K/uL 3.8-11 .2 Not Available [facility] [address] [place] [address], [address], 10/18/2024 16:13:44 10/18/19 25 10/18/2024 CBC RBC 3.53 M/uL 3.92-5 .10 low Not Available [facility] [address] [place] [address], [address], 10/18/2024 16:13:44 10/18/19 25 10/18/2024 CBC HGB 9.1 g/dL 11.8-1 5.3 low Not Available [facility] [address] [place] [address], [address], 10/18/2024 16:13:44 10/18/1910/18/2024 CBC HCT 29.9 % 36.5-4 4.8 low Not Available [facility] [address] [place] [address], [address], 10/18/2024 16:13:44 10/18/1910/18/2024 CBC MCV 84.7 fL 80.0-9 9.0 Not Available [facility] [address] [place] [address], [address], 10/18/2024 16:13:44 10/18/1910/18/2024 CBC MCH 25.8 pg 25.5-3 3.6 Not Available [facility] [address] [place] [address], [address], 10/18/2024 16:13:44 10/18/19 25 10/18/2024 CBC MCHC 30.4 g/dL 32.0-3 6.0 low Not Available [facility] [address] [place] [address], [address], 10/18/2024 16:13:44 10/18/19 25 10/18/2024 CBC RDW-SD 70.0 fL 35.1 - 46.3 high Not Available [facility] [address] [place] [address], [address], 10/18/2024 16:13:44 10/18/19 25 10/18/2024 CBC plt 311 K/uL 130-40 0 Not Available [facility] [address] [place] [address], [id number], 10/18/2024 16:13:44 10/18/19 25 10/18/2024 CBC MPV 10.4 fL 9.3-12 .8 Plate lets appea r adequ ate Sligh t aniso cytos is Sligh t polyc hroma rhiannon Not Available [facility] [address] [place] [address], [address], 10/18/2024 16:13:44 10/24/19 25 10/23/2024 PT (prot hromb in time) , finge rstic k, blood PT/INR fingerstick Not Available [facility] [address] [place] [address], [id number], 10/23/2024 11:17:49 10/24/19 25 10/23/2024 PT (prot hromb in time) , finge rstic k, blood INR 1.8 INR INTER PRETA TION 2.0-3 .0 FOR DEEP VEIN THROM BOSIS PULMO NARY EMBOL ISM ACUTE MYOCA RDIAL INFAR CTION ATRIA L FIBRI LLATI ON 3.0-4 .5 FOR MECHA NICAL HEART VALVE S Not Available [facility] [address] [place] [address], [address], 10/23/2024 11:17:49 11/16/1911/16/2024 CBC CBC Not Available [facility] [address] [place] [address], [address], 11/16/2024 15:37:46 11/16/19 25 11/16/2024 CBC WBC 5.6 K/uL 3.8-11 .2 Not Available [facility] [address] [place] [address], [address], 11/16/2024 15:37:46 11/16/19 25 11/16/2024 CBC RBC 4.20 M/uL 3.92-5 .10 Not Available [facility] [address] [place] [address], [address], 11/16/2024 15:37:46 11/16/19 25 11/16/2024 CBC HGB 10.5 g/dL 11.8-1 5.3 low Not Available [facility] [address] [place] [address], [address], 11/16/2024 15:37:46 11/16/1911/16/2024 CBC HCT 33.9 % 36.5-4 4.8 low Not Available [facility] [address] [place] [address], [address], 11/16/2024 15:37:46 11/16/1911/16/2024 CBC MCV 80.7 fL 80.0-9 9.0 Not Available [facility] [address] [place] [address], [address], 11/16/2024 15:37:46 11/16/1911/16/2024 CBC MCH 25.0 pg 25.5-3 3.6 low Not Available [facility] [address] [place] [address], [address], 11/16/2024 15:37:46 11/16/19 25 11/16/2024 CBC MCHC 31.0 g/dL 32.0-3 6.0 low Not Available [facility] [address] [place] [address], [address], 11/16/2024 15:37:46 11/16/19 25 11/16/2024 CBC RDW-SD 59.0 fL 35.1 - 46.3 high Not Available [facility] [address] [place] [address], [address], 11/16/2024 15:37:46 11/16/19 25 11/16/2024 CBC plt 218 K/uL 130-40 0 Not Available [facility] [address] [place] [address], [address], 11/16/2024 15:37:46 11/16/19 25 11/16/2024 CBC MPV 10.6 fL 9.3-12 .8 Not Available [facility] [address] [place] [address], [address], 11/16/2024 15:37:46 11/16/19 25 11/16/2024 TSH, ultra -sens itive , serum TSH3 0.575 uIU/m L .340-5 .600 Not Available [facility] [address] [place] [address], [address], 11/16/2024 16:07:40 11/16/19 25 11/16/2024 lipid panel , serum lipid profile Not Available [facility] [address] [place] [address], [address], 11/16/2024 16:12:48 11/16/19 25 11/16/2024 lipid panel , serum cholesterol 127 mg/dL <25-20 0 Not Available [facility] [address] [place] [address], [address], 11/16/2024 16:12:48 11/16/19 25 11/16/2024 lipid panel , serum triglyceride 133 mg/dL 15-200 Not Available [facility] [address] [place] [address], [address], 11/16/2024 16:12:48 11/16/19 25 11/16/2024 lipid panel , serum HDL 63 mg/dL >40 Not Available [facility] [address] [place] [address], [address], 11/16/2024 16:12:48 11/16/19 25 11/16/2024 lipid panel , serum LDL, calculated 37 mg/dL 5-100 Not Available [facility] [address] [place] [address], [address], 11/16/2024 16:12:48 11/16/19 25 11/16/2024 lipid panel , serum VLDL 27 mg/dL 1-40 Not Available [facility] [address] [place] [address], 15[address], 11/16/2024 16:12:48 11/16/1911/16/2024 lipid panel , serum chol/HDL 2.0 ratio 0.0-4. 4 Not Available [facility] [address] [place] [address], [address], 11/16/2024 16:12:48 11/16/1911/16/2024 CMP, serum or plasm a comp. met. panel Not Available [facility] [address] [place] [address], [address], 11/16/2024 16:35:18 11/16/1911/16/2024 CMP, serum or plasm a sodium 142 mmol/ L 136-14 6 Not Available [facility] [address] [place] [address], [address], 11/16/2024 16:35:18 11/16/19 25 11/16/2024 CMP, serum or plasm a potassium 4.2 mmol/ L 3.5-5. 1 Not Available [facility] [address] [place] [address], 268[address], 11/16/2024 16:35:18 11/16/19 25 11/16/2024 CMP, serum or plasm a chloride 108 mmol/ L 98-110 Not Available [facility] [address] [place] [address], [address], 11/16/2024 16:35:18 11/16/19 25 11/16/2024 CMP, serum or plasm a CO2 25 mEq/L 20-32 Not Available [facility] [address] [place] [address], [address], 11/16/2024 16:35:18 11/16/19 25 11/16/2024 CMP, serum or plasm a anion gap 13 mmol/ L 10-22 Not Available [facility] [address] [place] [address], 100[address], 11/16/2024 16:35:18 11/16/19 25 11/16/2024 CMP, serum or plasm a glucose 174 mg/dL 70-100 high Not Available [facility] [address] [place] [address], 87[address], 11/16/2024 16:35:18 11/16/19 25 11/16/2024 CMP, serum or plasm a calcium 9.5 mg/dL 8.4-10 .4 Not Available [facility] [address] [place] [address], 723[address], 11/16/2024 16:35:18 11/16/19 25 11/16/2024 CMP, serum or plasm a total protein 6.7 g/dL 6.4-8. 3 Not Available [facility] [address] [place] [address], 25681, 11/16/2024 16:35:18 11/16/19 25 11/16/2024 CMP, serum or plasm a albumin 4.5 g/dL 3.5-5. 3 Not Available [facility] [address] [place] [address], 8[address], 11/16/2024 16:35:18 11/16/19 25 11/16/2024 CMP, serum or plasm a ALP 92 U/L 44 - 127 Not Available [facility] [address] [place] [address], [address], 11/16/2024 16:35:18 11/16/19 25 11/16/2024 CMP, serum or plasm a AST (SGOT) 24 U/L 10-40 Not Available [facility] [address] [place] [address], [id number], 11/16/2024 16:35:18 11/16/19 25 11/16/2024 CMP, serum or plasm a total bilirubin 0.2 mg/dL 0.2-1. 2 Not Available [facility] [address] [place] [address], [address], 11/16/2024 16:35:18 11/16/19 25 11/16/2024 CMP, serum or plasm a ALT (SGPT) 18 U/L 8-35 Not Available [facility] [address] [place] [address], [address], 11/16/2024 16:35:18 11/16/19 25 11/16/2024 CMP, serum or plasm a BUN 13 mg/dL 7-21 Not Available [facility] [address] [place] [address], [address]66[address], 11/16/2024 16:35:18 11/16/19 25 11/16/2024 CMP, serum or plasm a creatinine 0.7 mg/dL 0.7-1. 3 Not Available [facility] [address] [place] [address], [address], 11/16/2024 16:35:18 11/16/19 25 11/16/2024 CMP, serum or plasm a CKD-epi GFR 95 eGFR was calcu lated using the 2020 CKD-E PI equat ion. ([employer] salima Kidne y Disea se has an eGFR less than 60 mL/mi n/1.7 3mm for a perio d of three month s or more. ) This calcu latio n has not been valid ated for patie nt ages <18 or >90 years old. Not Available [facility] [address] [place] [address], [place], [address], 11/16/2024 16:35:18 09/25/19 25 09/25/2024 CT, head + brain , w/o contr ast No observ ation record ed. [address] [facility] [address] [place], [address], 09/25/2024 17:24:56 09/25/19 25 09/25/2024 XR, chest , 2 view No observ ation record ed. [address] [facility] [address] [place], [address], 09/25/2024 17:24:56 09/26/19 25 09/25/2024 elect rocar diogr am, routi ne ECG, 12 leads min No observ ation record ed. [email or web address] [facility] [address] [place], [address], 09/27/2024 10:40:00 10/25/19 25 10/19/2024 CT, abdom en + pelvi s, w/ contr ast No observ ation record ed. [address] [facility] Speacialist [address] [place] [address], [place], [address], 10/26/2024 18:56:04 11/16/19 25 11/07/2024 PET, skull base to mid-t high No observ ation record ed. [place] [id number] [facility] [address], [place], [address], 11/16/2024 09:47:59 12/22/19 MRI, cervi scarlett spine , w/wo contr ast No observ ation record ed. [email or web address] [facility] [address], [place], [address], 12/28/2024 16:30:18 12/22/19 MRI, brain + brain stem, w/wo contr ast No observ ation record ed. chelsey [facility] [address], [place], [address], 12/29/2024 08:44:32 Result Notes None recorded. Problems Name Problem SNOMED Code Status Onset Date Resolution Date Notes Provider Name and Address Organization Details Recorded Time Bleeding hemorrho ids 35130320 Active 2024 Cyndi Farris, PHARMACEUTICAL PHYSICIAN, FOILING MACHINE OPERATOR [address] [place] [address], [address], [facility] 5 12:27:37 Post-dis charge follow-u p [id number] Active admitted from office 09/21/24- 09/26/24 for rectal bleeding / anemia. Hb reid 8.2. Gen/surg consulte d. Rec'd OP f/u & HC supposit ory & HOLD Coumadin . 09/28/24 pt reports she resumed Coumadin . Then, [facility] is ER visit for fall / difficul ty getting up 10/02/24 (Hb 8.3 stable there, d/c home). Then return 10/04/24, transfer to [facility] ([facility]) for suspecte d GI bleed where EGD unimpres sive (chronic gastriti s), but colonosc opy biopsy identifi ed Anal Carcinom a. May need outpt colorect al referral (?) post-dis charge. Raji Saravia MD [address] [place], [address], [facility] 5 11:36:58 Abnormal movement 437673508 Active radha-bal istic type in . Neurolog y onboard (where-i n pt reported sx's perhaps resolved x2mo). Raji Saravia MD [address] [place], [address], [facility] 5 11:45:05 Abnormal gait [id number] Active onset perhaps mid . Neurolog y onboard . Raji Saravia MD [address] [facility], [place], [address], [facility] 5 11:44:32 Carcinom a in situ of anus 80551472 Active on bx at [facility] 10/11/24. Heme-Onc onboard ([facility] in [facility] ). 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 Oncology planning radiatio n/ chemo . Cyndi Farris, PHARMACEUTICAL PHYSICIAN, FOILING MACHINE OPERATOR [address] , [place], [address], [facility] 5 21:59:11 Disorder of tendon 55764547 Completed 01/21/2024 History of Achilles tendonos is of right lower extremit y right calcanea l spur resectio n Achilles tenoplas ty 3 Karuna Holley n null, [facility] 4 09:24:09 Adrenal adenoma [id number] Completed incident al finding on lung CT, left 1.7cm. MRI confirme d aderenal adenoma. Raji Saravia MD [address] [facility], [place], [address], [facility] 4 07:03:17 Anemia 493119559 Active 2023 Hb 10.9 on --> nmL [...] 10/17/24 Hb stable 9.1, see anal ca. Hb 10.5 - RBC Folate nmL . Cyndi Farris APRN, FOILING MACHINE OPERATOR [address] [place] [address], [address], [facility] 5 22:21:21 Coronary arterios clerosis 64627384 Active 2023 dx on cath 2015 (w/u exertion al dyspnea) , & CABG done 02/2016. Cyndi Farris APRN, FOILING MACHINE OPERATOR [address] [place] [address], [address], [facility] 4 12:33:14 Chronic constipa tion 389848828 Active 2023 Lactulos e nightly rx'd by Dr. Tinsley, who then added Amitiza (along w/ fiber/ topical HC for bleeding hemorrho ids). Amtiza ineffect mavis. then Modest control w/ return to daily docusate , fiber. Also see anal CA. - prior hx Trial of Linzess ordered by Dr. Alvina Farris, PHARMACEUTICAL PHYSICIAN, FOILING MACHINE OPERATOR [address] [place] [address], [address], [facility] 5 16:15:18 Screenin g colonosc opy Active s/p repeat colonosc opy (while inpt at [facility] ) . - see also Anal Carcinom a. Raji Saravia MD [address] [place] [address], [address], [facility] 5 11:36:07 Type 2 diabetes mellitus 30869763 Active dx by A1c >6.5 x2 in 2015. Goal A1c < 7. Hx diet control [...] and instance of UTI). Cyndi Farris APRN, FOILING MACHINE OPERATOR [address] [facility], [place], [address], [facility] 5 17:13:13 Steatoti c liver disease 438582663 Active 2023 noted on MRI abd (for adrenal adenoma) . Cyndi Farris APRN, FOILING MACHINE OPERATOR [address] [facility], [place], [address], [facility] 4 12:34:25 History of divertic ulitis [id number] 9100 Completed 05/2018, persumed divertic ulitis with mild LLQ pain tx with Augmenti n and again 11/2018. Raji Saravai MD [address] [facility], [place], [address], [facility] 4 07:06:47 Screenin g for malignan t neoplasm of cervix Completed 202301/22/2024 9 nmL cytology and Neg HPV (no further Pap screenin g indicate d after age 65). Cyndi Farris APRN, FOILING MACHINE OPERATOR [address] [place] [address], [address], [facility] 4 12:35:17 Hyperlip idemia 91863014 Active 2023 Statin indicate d for CAD. Tx atorvast atin & ezetimib e - LDL 37 (nmL LFTs) Cyndi Farris APRN, FOILING MACHINE OPERATOR [address] [facility], [place], [address], [facility] 5 22:20:09 [facility] l hyperten katelyn 70987238 Active 2023 Goal < 140/90 per JNC8 for concurre nt DM. Controll ed on amlodipi ne and carvedil ol. - HCTZ stopped in 2012 d/t fatigue and hypotens ion. Cyndi Farris APRN, FOILING MACHINE OPERATOR [address] [place], [address], [facility] 4 12:36:03 Hypothyr oidism 22240650 Active 2023 intermit tent low TSH, T4 f/b multiple normals mx by AMADOU psych. TSH 0.5 Cyndi Farris APRN, FOILING MACHINE OPERATOR [address] [place] [address], [address], [facility] 5 22:21:42 Hepatiti s C screenin g Completed non-reac tive . Raji Saravia MD [address] [place] [address], [address], [facility] 4 07:06:38 Screenin g for malignan t neoplasm of lung Active 2023 benign appearin g lung nodules on CT, repeat 1 yr. stable, no concerni ng lesions noted on chest CT in the ER (nor on PET scan ). Plan repeat LDCT . Cyndi Farris APRN, FOILING MACHINE OPERATOR [address] [place] [address], [address], [facility] 5 11:32:49 Obesity 877423235 Active 2023 Ozempic added. on hold d/t constipa tion / newly dx'd anal ca. Cyndi Farris APRN, FOILING MACHINE OPERATOR [address] [place] [address], [address], [facility] 5 13:30:48 Osteoart hritis of knee 400595922 Active left, s/p Euflexxa injxn series 1 (p pain refrctry to steroid injxns & PT). Synvis injxn then by Ortho 04/18/24. Cyndi Farris APRN, FOILING MACHINE OPERATOR [address] [place] [address], [address], [facility] 4 11:34:43 Tear of meniscus of knee 900930428 Active 2023 on MRI 02/2021. Cyndi Farris APRN, FOILING MACHINE OPERATOR [address] [facility], [place], [address], [facility] 4 12:40:37 Thromboe mbolic disorder 985271764 Active Dx per [facility] Dr. Mc Fall 2010 on w/u L.U.E. DVT & strong FHx DVTs. Labs then (Fall 2010): Factor VIII hyperact ivity & Lupus Anticoag ulant positive . Dr. Mc recommen ded long-ter m anticoag ualtion. Complica kell then by recurren t anemia / hematoch ezia and anal cancer , where-in Heme-Onc reviewed and advised STOP anticoag as of . Raji Saravia MD [address] [facility], [place], [address], [facility] 5 17:02:29 Deep venous thrombos is of upper extremit y 183682464 Completed L. arm 04/2011 Raji Saravia MD [address] [place] [address], [address], [facility] 4 07:06:24 Thyroid nodule 887459247 Active 10/2020 Incident ally on carotid u/s (cardiol ogy). Then, Thyroid u/s: multiple bilatera l & isthmus nodules, B9 findings . several stable/ smaller nodules, one rt nodule increase d from 1.3cm to 1.6 cm, stable, Rad's recommen ded repeat u/s again in 1 year. Cyndi Farris APRN, FOILING MACHINE OPERATOR [address] [facility], [place], [address], [facility] 5 16:42:36 Tibialis posterio r tendinit is 992512622 Completed 202301/22/2024 hx repair of left achilles tendon 04/28/17. Cyndi Farris APRN, FOILING MACHINE OPERATOR [address] [facility], [place], [address], [facility] 4 12:43:26 Mixed anxiety and depressi ve disorder 375774039 Active f/b [facility] Psychiat ry. Raji Saravia MD [address] [facility], [place], [address], [facility] 4 07:05:16 Diabetic retinal eye exam Active 2023 no retinopa thy detected . Cyndi Farris APRN, FOILING MACHINE OPERATOR [address] [facility], [place], [address], [facility] 4 11:09:06 Screenin g mammogra phy Active 2023 nmL HH 03/02/24 Cyndi Farris APRN, FOILING MACHINE OPERATOR [address] [place] [address], [address], [facility] 4 10:02:03 Problem Notes Documentation Provider Name and Address Organization Details Recorded Time [address] [address] Ariadna Giraldo 68yo F 1955 #[id number] 10/02/2024 Millie Saravia MD, Ariadna Giraldo was seen in our office today 09/29/2024, and a copy of that evaluation is enclosed. Thank you for allowing us to participate in the care of your patient. Please contact us with any questions. Sincerely, Electronically Signed by: CARLA QUIJANO MD, DO Encounter Reason/Date Involuntary arm and leg movements 09/29/2024 - 10:00AM - [facility] ([place])ProblemsReviewed Problems Thyroid nodule - Onset: 01/22/2024 - [...] disorder - Onset: 01/22/2024 - Dx per [facility] Dr. Mc Fall 2010 on w/u [...] knee - left, s/p Euflexxa injxn series 7884-7808 (p pain refrctry to steroid injxns & [...] Allergies ; Some allergies listed in Document: #[id number] could not be added to this patient's chart. Please review this document and add these allergies to the patient's chart manually as needed. Medications Medications not reviewed (last reviewed 09/25/2024) NameDate Source albuterol sulfate HFA 90 mcg/actuation aerosol inhalerINHALE 2 PUFFS BY MOUTH EVERY 6 HOURS NEEDED FOR WHEEZING AND FOR SHORTNESS OF AXOGGJ52/03/23 filled surescripts amitriptyline 100 mg tabletTAKE 1 TABLET BY MOUTH AT UBWEJYP75/29/25 filled surescripts amLODIPine 2.5 mg tabletTAKE 1 TABLET BY MOUTH ONCE DAILY09/15/24 filled surescripts ARIPiprazole 2 mg tabletTAKE 2 TABLETS BY MOUTH IN THE MAFWUJS47/07/25 filled surescripts aspirin 81 mg tablet,delayed releaseTake 1 tablet(s) every day by oral route.04/18/24 entered Nicole Casey atorvastatin 80 mg tabletTAKE 1 TABLET BY MOUTH AT MPXDTRZ30/07/25 filled surescripts carvediloL 25 mg tabletTAKE 1 TABLET BY MOUTH TWICE DAILY09/15/24 filled surescripts ezetimibe 10 mg tabletTAKE 1 TABLET BY MOUTH AT EHCQXGD55/15/25 prescribed Cyndi Farris APRN, FOILING MACHINE OPERATOR FeroSuL 325 mg (65 mg iron) tabletTAKE [...] 1 LANCET TO CHECK GLUCOSE ONCE DAILY XQYRWZUU16/05/25 renewed Raji Saravia MD OneTouch Ultra Test stripsUSE 1 STRIP TO CHECK GLUCOSE ONCE DAILY ZTNRKQGH01/05/25 renewed Raji Saravia MD OneTouch Ultra2 MeterCHECK GLUCOSE ONCE DAILY03/29/24 filled surescripts Ozempic 1 mg/dose (4 mg/3 mL) subcutaneous pen injectorINJECT 1MG SUBCUTANEOUSLY ONCE ZPPFIS48/09/25 filled surescripts Tylenol Arthritis Pain 650 mg tablet,extended releaseTake 2 tablet(s) every 8 hours by oral route as needed.04/18/24 entered Nicole Casey warfarin 3 mg tabletTake 1 tab daily on Wednesday, Wednesday and Wednesday. Recheck INR on .09/04/24 prescribed Cyndi Farris, MARITZA, FOILING MACHINE OPERATOR Family HistoryFamily History not reviewed (last reviewed [...] Code: V15.82 Last Reviewed Date: 20191207 SnomedCode: 5672499 ICD10 Code: Z87.891 Surgical HistorySurgical & Procedure [...] touch b/lLower extremities intact light touch b/lCerebellar: Xurhhz-hw-bsoc intact without dysmetria, jbnd-uo-sjbe intact without dysmetriaGait: There is significant decreased [...] on this date of service including both afzi-xq-ocrl and gyo-lelh-qm-face time excluding any separately reportable services.saw 1.Abnormal xatxdxrcoW17.9: Unspecified abnormal involuntary movements MRI, BRAIN + BRAIN STEM, W/WO CONTRAST Height (ft.): 5 ft 2 in Weight (lbs): 191 MRI, CERVICAL SPINE, W/WO CONTRAST Height (ft.): 5 ft 2 in Weight (lbs): 191 HEPATIC FUNCTION PANEL, SERUM AMMONIA, BLOOD CERULOPLASMIN, SERUM COPPER, SERUM OR PLASMA ZINC, PLASMA (OR ONLY) VITAMIN B12, SERUM 2.Gait bhohkcsujisG42.81: Unsteadiness on feet Return to Office Raji Saravia MD for TCM Visit 20.EST at [facility]) on 10/02/2024 at 03:40 PM Carla Quijano MD for TeleHealth 15.TELE at [address] [place] on 02/05/2025 at 02:45 PM Raji Saravia MD [facility], [address], [facility] 10/02/2024 11:46:01 Procedures Surgical History Date Name Laterality Status Provider Name and Address Organization Details Recorded Time 08/09/19 16 open heart surgery completed Sherlyn Tello [facility] 05/03/2024 14:59:17 extraction of cataract completed Karuna Lebron [facility] 01/21/2024 09:25:54 surgical procedure completed [facility] 05/03/2024 14:59:53 Imaging Results None recorded. Procedure Notes None recorded. Medical Equipment None Reported. Allergies Allergen ID Allergen Name Allergen Category Reaction Reaction Severity Criticality Documentation Date Start Date Code Code System Note Provider Name and Address Organization Details Recorded Time 162984 iodine-so dium iodide medicatio n hives Not available Not available 09/06/20232011 69365 UNK React ion: Hives ; Not Available Counts include 234 beds at the [facility] 21:57:00 937579 Iodinated contrast media (substanc e) medicatio n hives Not available Not available 09/06/20232011 69425 2004 SNOMED React ion: Hives ; Not Available Counts include 234 beds at the [facility] 21:57:00 Medications Name Sig Start Date Stop Date [...] Not Available No t Available amitripty line 75 mg tablet TAKE 1 [...] completed Not Available Not Available Not Available ondansetr on 8 mg disintegr ating tablet DISSOLVE 1 TABLET ON TOP OF TONGUE THEN SWALLOW WITH SALIVA EVERY 8 HOURS NEEDED FOR NAUSEA OR VOMITING active Not Available Not Available No t Available warfarin 4 mg tablet take 4mg tab on wed and wednesday only 09/04 completed Not Available Not Available Not Available warfarin 3 mg tablet ALTERNAT E TAKING 3MG AND 3.5MG ONCE DAILY, START 3.5MG TONIGHT (WEDNESDAY ) 10/26 completed Not Available Not Available Not Available OneTouch Ultra Test strips USE 1 STRIP TO CHECK GLUCOSE ONCE DAILY DIRECTED active Not Available Not Available No t Available cephalexi n 500 mg capsule TAKE ONE CAPSULE BY MOUTH THE DAY BEFORE SURGERY, NONE THE DAY OF SURGERY, THEN TAKE ONE CAPSULE BY MOUTH DAILY FOR 3 DAYS AFTER SURGERY 04/18 completed Not Available Not Available Not Available docusate sodium 100 mg capsule TAKE 1 CAPSULE BY MOUTH TWICE DAILY active Not Available Not Available No t Available hydrocort isone 2.5 % topical cream APPLY CREAM TO AFFECTED AREA TWICE DAILY active Not Available Not Available No t Available lorazepam 1 mg tablet TAKE 1 TABLET BY MOUTH TWICE DAILY AND 1/2 TABLET BY MOUTH ONCE DAILY NEEDED FOR ANXIETY active Not Available Not Available No t Available warfarin 1 mg tablet take 0.5 tab along with 1- 3mg tab to equal a total of 3.5mg every other day 10/26 completed Not Available Not Available Not Available cefuroxim e axetil 500 mg tablet TAKE [...] Not Available Not Available No t Available lubiprost one 24 mcg capsule TAKE 1 [...] future. Not Available Not Available Not Available aspirin 80 mg tablet Take by oral route. active Not Available Not Available No t Available naloxone 4 mg/actuat ion nasal spray [...] injector INJECT 0.5 MG SUBCUTAN EOUSLY WEEKLY 10/29 /2024 completed Not Available Not Available Not Available Vitals Date Recorded Body height Body mass index (BMI) Body weight Body temperature Heart rate Oxygen saturation Oxygen saturation in Arterial blood by Pulse oximetry Systolic blood pressure Diastolic blood pressure Provider Name and Address Organization Details Last Updated DateTime 5 157.48 cm 34 kg/m2 18943.4 6 g 97.8 [degF] 93 /min 99 % 99 % 102 mm[Hg] 80 mm[Hg] Karuna arcos [facility] 5 12:19:33 Date Recorded Body height Body mass index (BMI) Body weight Heart rate Oxygen saturation Oxygen saturation in Arterial blood by Pulse oximetry Systolic blood pressure Diastolic blood pressure Provider Name and Address Organization Details Last Updated DateTime 5 157.48 cm 34.9 kg/m2 97355.4 2 g 90 /min 98 % 98 % 122 mm[Hg] 66 mm[Hg] Sandra Simpson [facility] 5 10:01:20 Date Recorded Body height Body mass index (BMI) Body weight Body temperature Heart rate Oxygen saturation Oxygen saturation in Arterial blood by Pulse oximetry Systolic blood pressure Diastolic blood pressure Provider Name and Address Organization Details Last Updated DateTime 5 157.48 cm 33.5 kg/m2 07112.8 4 g 98.2 [degF] 85 /min 96 % 96 % 128 mm[Hg] 76 mm[Hg] Nicole Hernandeze [facility] 5 12:21:01 Date Recorded Body height Body mass index (BMI) Body weight Body temperature Respiratory rate Heart rate Oxygen saturation Oxygen saturation in Arterial blood by Pulse oximetry Systolic blood pressure Diastolic blood pressure Provider Name and Address Organization Details Last Updated DateTime 5 157.48 cm 33.7 kg/m2 14634.7 g 97.4 [degF] 20 /min 90 /min 99 % 99 % 136 mm[Hg] 82 mm[Hg] Arpita Lee [facility] 5 10:41:30 Date Recorded Body height Body mass index (BMI) Body weight Body temperature Heart rate Oxygen saturation Oxygen saturation in Arterial blood by Pulse oximetry Systolic blood pressure Diastolic blood pressure Provider Name and Address Organization Details Last Updated DateTime 5 157.48 cm 34.3 kg/m2 96312.9 3 g 98.5 [degF] 99 /min 96 % 96 % 122 mm[Hg] 70 mm[Hg] Nicole Casey [facility] 15:08:55 Social History Question Answer Notes LastModified by Organizat ion Details LastModified Time Tobacco Smoking Status Current Every Day Smoker Nicole Casey [facility] 04/18/2024 14:24:04 How Many Packs Per Day [...] Recorded Time Tdap 2 completed Nicole Casey [facility] 10/17/2024 12:01:41 Influenza, split virus, quadrivalent, preservative 0 completed [facility] 09/25/2024 12:19:51 Influenza, recombinant, quadrivalent, PF 2 completed [facility] 09/25/2024 12:19:51 COVID-19, mRNA, LNP-S, PF, 100 mcg/0.5mL dose or 50 mcg/0.25mL dose 1 completed [facility] 09/25/2024 12:19:51 COVID-19, mRNA, LNP-S, PF, 100 mcg/0.5mL dose or 50 mcg/0.25mL dose 1 completed [facility] 09/25/2024 12:19:51 COVID-19, mRNA, LNP-S, PF, 100 mcg/0.5mL dose or 50 mcg/0.25mL dose 1 completed [facility] 09/25/2024 12:19:51 COVID-19, mRNA, LNP-S, bivalent, PF, 30 mcg/0.3 mL dose 2 completed [facility] 09/25/2024 12:19:51 Past Encounters Encounter ID Performer Location Encounter Start Date Encounter Closed Date Diagnosis/Indication Diagnosis SNOMED-CT Code Diagnosis ICD10 Code Diagnosis Note [id number] Cyndi Farris APRN [facility]) [address] [place] [address] 01/24/2024 11:19:56 01/24/2024 12:21:34 Type 2 diabetes mellitus without complication 154849865 E11.9 Anemia 401168362 D64.9 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 Hypothyroidism 80555861 E03.9 [id number] Cyndi Farris APRN [facility]) On license [place] [address] 04/18/2024 14:02:48 04/18/2024 14:58:13 Acute urinary tract infection 569162718 N39.0 [id number] Cyndi Farris APRN [facility]) [address] [place] [address] 05/03/2024 14:27:06 05/03/2024 15:42:20 Type 2 diabetes mellitus without complication 925597838 E11.9 Acute urin iván tract infection 978983657 N39.0 Type 2 tiffanie betes mellitus 35674784 E11.9 [id number] Cyndi Farris APRN [facility] ([place]) [address] [place] [address] 08/23/2024 11:48:17 08/23/2024 12:36:03 Type 2 diabetes mellitus without complication 242412198 E11.9 Bleeding hemorrhoids 515 00516 K64.9 Involuntary movement 267 026554 R25.9 Hypertensive disorder 38 994296 I10 Hyperlipidemia 31337412 E78.5 Coronary arteriosclerosis 10927626 I25.10 Thromboemb olic disorder 043087453 I74.9 [id number] Carla Quijano MD [facility] ([place]) [address] [place] [address] 09/29/2024 09:53:14 09/29/2024 11:49:32 Abnormal movement 146804952 R25.9 Abnormal gait 57919519 R 26.81 [id number] Cyndi Farris APRN, CNP [facility] ([place]) [address] [place] [address] 09/25/2024 12:10:54 09/25/2024 13:03:15 Bleeding hemorrhoids 55376667 K64.9 Anemia 783217619 D64.9 Thromboemb olic disorder 461045974 I74.9 [id number] Cyndi Farris APRN, CNP [facility] ([place]) [address] [place] [address] 10/17/2024 11:56:17 10/17/2024 13:02:02 Type 2 diabetes mellitus 23527411 E11.9 Anemia 411318949 D64.9 Chronic constipation 236 169307 K59.09 Thromboemb olic disorder 081503782 I74.9 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 Post-disch arge follow-up 901209258 Z09 [id number] Cyndi Farris APRN, CNP [facility] ([place]) [address] [place] [address] 10/23/2024 10:33:08 10/23/2024 11:01:11 Thromboembolic disorder 502868274 I74.9 Carcinoma in situ of anus 17083860 D01.3 Chronic constipation 236 047973 K59.09 [id number] Cyndi Farris APRN, CNP [facility]) [address] [place] [address] 11/15/2024 14:55:30 11/15/2024 15:57:53 Chronic constipation 509273456 K59.09 Anemia 688983659 D64.9 Carcinoma in situ of anus 87729609 D01.3 Health Concerns Section Related Observation LastModified by Organization Detai ls LastModified Time None Recorded Concern Status LastModified by Organization Details LastModified Time None Recorded Advance Directives Directive None Recorded Payers Insurance Date Sequence Insurance Name Policy Number Policy De La [place] Covered Member ID De La Vega Member ID Guarantor Name 01/07/2025 1 [place] Ariadna Olguin Kristal [id number] Ariadna Olguin Kristal 01/09/2025 2 [place] [facility] Ariadna Olguin Kristal [id number] Ariadna Olguin Kristal 01/05/2025 [place] - [facility] (MEDICARE) Ariadna Olguin Kristal [id number] Ariadna Olguin Kristal Notes Date Note Type Note Provider Name and Address Organization Details Recorded Time 09/25/2024 text/html Alva woke up at 2 [...] Normal appetite, no n/v. Cyndi Farris APRN, FOILING MACHINE OPERATOR [address] [place] [address], [address], [place] [facility] 09/25/2024 15:36:21 09/29/2024 text/html Ariadna Giraldo [...] stopping movements. Carla Quijano MD [address] [place] [address], [phone], [facility] 10/02/2024 11:13:10 10/17/2024 text/html [facility] Discharge Follow up Admitted 10/05/24-10/13/24 Discharge summary: [...] has a follow up apt on at [facility] for Dr. Randell Naqvi Colorectal Surgery with a CT scan prior to apt. - Seeing psychiatrist tomorrow - Due for INR, has been back on Coumadin 3mg since home on Wednesday. Overall feeling better. She has had no rectal bleeding since admission to the hospital. She is still constipated. No BM since being in the hospital and getting a suppository. Cyndi Farris, PHARMACEUTICAL PHYSICIAN, FOILING MACHINE OPERATOR [address] [facility], [place], [address], [facility] 10/18/2024 17:10:55 10/23/2024 text/html patient is here today for a 1 week follow up on constipation. Needs INR rechecked today.-since starting the Colace BID and fiber daily, she has had a good BM. She feels overall better in that respect. She has not had any rectal bleeding. -wants to know if she should restart ozempic or not Raji Saravia MD [address] [place] [address], [phone], [facility] 10/26/2024 17:00:09 11/15/2024 text/html Follow up-since out last visit, Alva stopped taking Colace, but is still taking fiber. She is struggling with constipation again, no bleeding. Rectal cancer-yesterday she found out her lymph node biopsy was + for cancer. 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 Abnormal movement/ falls-still planning to do work up rec'd by neurology, but plans to probably wait until she has at least started cancer treatments. Cyndi Farris, MARITZA, FOILING MACHINE OPERATOR [address] , [place], [address], [facility] 11/16/2024 10:26:39 OBGyn Episode No OBEpisode recorded.
--- OUTSIDE RECORDS SUMMARY | 2025-01-17 14:06 | XMS_ITS | Encounter Summary ---
Author Organization [facility] Address [address] [place] [address] Care Team Providers Care Boathouse Keeper Name Role Phone Raji Judd MD Primary Care Provider [phone]- [phone] Encounter Details Date Type Department Care Team (Late Contact Info) Description 01/17/2025 Orders Only [facility] Oncology and Hematology - [place] [address] [facility] [[email or web address] [address] [place] [address] Rufus Amin MD [address] [facility] [address] [place] [address] Social History Tobacco Use Types [...] on file 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 Gender Identity Not on file Sexual Orientation Not on file documented as of this encounter Plan of Treatment Upcoming Encounters Date Type Department Care Team (Late Contact Info) Description 02/15/2025 11:15 AM CDT Office Visit [facility] Oncology and Hematology - [place] [address] [facility] [address] [place] [address] Rufus Amin MD [address] [facility] [address] [place] [address] documented as of this encounter Procedures Procedure Name Priority Date/Time Associated Diagnosis Comments US VENOUS DOPPLER LEG LEFT Routine 01/17/2025 1:18 PM CDT BASIC METABOLIC PANEL Routine 01/17/2025 12:49 PM CDT COMPREHENSIVE METABOLIC PANEL Routine 01/17/2025 12:48 PM CDT documented in this encounter Results * US VENOUS DOPPLER LEG LEFT (01/17/2025 1:18 PM CDT) Anatomical Region Laterality Modality Lower Extremity Ultrasound us Rufus Amin MD US ORDERABLES Final Result * BASIC METABOLIC PANEL (01/17/2025 12:49 PM CDT) Blood us Rufus Amin MD CHEMISTRY ORDERABLES Final Resu lt * COMPREHENSIVE METABOLIC PANEL (01/17/2025 12:48 PM CDT) Blood us Rufus Amin MD CHEMISTRY ORDERABLES Final Resu lt documented in this encounter Visit Diagnoses Not on filedocumented in this encounter Care Teams Boathouse Keeper Relationship Specialty Start Date End Date Raji Judd MD [address] [place] [address] PCP - General Family Practice 10/05/24 documented as of this encounter
--- OUTSIDE RECORDS SUMMARY | 2025-01-17 14:06 | XMS_ITS | Encounter Summary ---
Author Organization [facility] [employer] Address [address] [place] [address] Care Team Providers Care Nurse Outreach Case Manager Name Role Phone Raji Judd MD Primary Care Provider [phone] Reason for Referral * Radiology Services (Urgent) - Open Specialty Diagnoses / Procedures Referred By Contac t Referred To Contact Diagnoses Left leg swelling Procedures US VENOUS DOPPLER LEG LEFT Rufus Amin MD [address] [place] [address] Phone: tel: fax: Referral ID Status Reason Start Date Expiration Date Visits Re quested Visits Authorized [id number] Open 01/17/2025 02/17/2026 1 1 Reason for Visit * Reason Comments Cancer Follow Up Encounter Details Date Type Department Care Team (Late st Contact Info) Description 01/17/2025 9:30 AM CDT Office Visit [facility] Oncology and Hematology - [place] [address] [place] [address] [address] [place] [address] Rufus Amin MD [address] [place] [address] Left leg swelling (Primary Dx); Anal cancer (CMS/HCC) Social History Tobacco Use Types Packs/Day Years [...] on file 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 Sex: female : 1955 DIAGNOSIS 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 CURRENT TREATMENT Chemotherapy with mitomycin and Xeloda started December 04, 2024. Concurrent radiation therapy. TREATMENT HISTORY SUBJECTIVE Patient came into the office for follow-up visit. She has been taking Xeloda and tolerating it well. Denies any nausea vomiting. No diarrhea and constipation. Denies any excessive tiredness and fatigue and no new complaint. Review of system Constitutional: Patient did not mention fevers, sweats, weight and appetite stable, denies any excessive tiredness and fatigue HEENT: Patient did not mention sinus congestion, hearing or vision problems Respiratory: Patient did not mention cough, dyspnea, wheeze Cardiovascular: Patient did not mention chest pain, exertional chest pressure/discomfort, nausea, syncope, shortness of breath GI: Patient did not mention constipation, diarrhea, dsyphagia, reflux symptoms, vomiting, melena : Patient did not mention dysuria, frequency, incontinence, urgency Integumentary system: no lymphadenopathy, sweats, flushing Musculoskeletal: Patient not mention: myalgia, arthralgia, complain of left lower extremity edema Neurological: Patient did not mention blurry or disturbed vision, numbness/weakness, dizziness Skin: No lumps, bumps or rashes. 12 point review of system was reviewed Objective: Vital signs in last 24 hours: As per nursing note Exam: HEENT: Atraumatic, external ears normal, nose normal, [...] guarding : No costovertebral angle tenderness Musculoskeletal: Swelling in the left lower extremity noted, no tenderness, no deformities. Back- no tenderness Integument: Well hydrated, no rash, bruising noted in the left upper extremity Digits and nails inspection normal Lymphatic: No lymphadenopathy noted Neurologic: Alert & oriented x 3, CN 2-12 normal, normal motor function, normal sensory function, no focal deficits noted Psychiatric: Speech and behavior appropriate Exam as above [facility] Labs from December 13 showed WBC 4.6 hemoglobin 9.9 platelet 177,000 creatinine 0.6 Labs from January 02 showed WBC 4.5 hemoglobin 9.8 platelets 69,000 creatinine 0.7 Labs from January 17 show WBC 4.1 hemoglobin 9.5 platelet 137,000 neutrophils 74% creatinine 0.8 Assessment: Plan: Patient Active Problem List Diagnosis Date Noted Heme positive stool 11/28/2024 Normocytic anemia 10/06/2024 Acute blood loss anemia 10/05/2024 Hypotension 10/05/2024 DM (diabetes mellitus), type 2 (CMS/HCC) 10/05/2024 Major depression 10/05/2024 Benign essential HTN 10/05/2024 CAD (coronary atherosclerotic disease) 10/05/2024 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 PET scan done on November 07 showed circumferential wall thickening with prominent increase FDG uptake at the anus consistent with primary anal cancer along with enlarged FDG avid right inguinal lymph node with no other evidence of metastatic disease. Patient started concurrent chemoradiation therapy with mitomycin and Xeloda on December 04, 2024. Will noted. Platelet count has improved after reducing the dose of Xeloda to 1000 mg twice a day. Iwill increase Xeloda dose to 1500 mg in the morning and 1000 g in the evening. Patient will receivelast dose of mitomycin today. She will finish last radiation therapy treatment on January 26. I plan to see her back in 4 weeks. Patient will have digital rectal exam with inguinal lymph node palpation and anoscopy on every 3 to6 months basis for the first [address] scan chest abdomen pelvis will be done in 3 months after completion of therapy and then 6 months and then annually. Anemia secondary to chemotherapy. Patient will continue iron and vitamin B12. Hemoglobin stable. Type 2 diabetes. Continue metformin and Jardiance. 01/17/2025 Rufus Amin MD documented in this encounter Plan of Treatment Upcoming Encounters Date Type Department Care Team (Late st Contact Info) Description 02/15/2025 11:15 AM CDT Office Visit [facility] Oncology and Hematology - [place] [address] [facility] [address] [place] [address] Rufus Amin MD [address] [facility] [address] [place] [address] Scheduled Orders Name Type Priority Associated Diagnoses Orde r Schedule US VENOUS DOPPLER LEG LEFT Imaging Stat Left leg swelling Expected: 01/17/2025, Expires: 01/17/2026 CBC WITH DIFFERENTIAL Lab Stat Anal cancer (CMS/HCC) Expected: 02/14/2025, Expires: 01/17/2026 BASIC METABOLIC PANEL Lab Stat Anal cancer (CMS/HCC) Expected: 02/14/2025, Expires: 01/17/2026 documented as of this encounter Visit Diagnoses Diagnosis Left leg swelling- Primary Anal cancer (CMS/HCC) Malignant neoplasm of anus, unspecified site documented in this encounter Care Teams Nurse Outreach Case Manager Relationship Specialty Start Date End Date Raji Judd MD [address] [place] [address] PCP - General Family Practice 10/05/24 documented as of this encounter
== END 2025-01-17 12:00 | disposition home or self-care (01) ==
PROVIDERS: Visit Provider Internal Medicine Hematology & Oncology
DX: M79.89 Other specified soft tissue disorders (principal)
CPT/HCPCS: 93971

== ENCOUNTER 2025-05-01 00:46 | Day surgery (SDC) | payer MEDICARE, MEDICAID, SELFPAY ==
[2025-04-17 10:53] VITALS: BMI 34.2
--- OUTSIDE RECORDS SUMMARY | 2025-05-01 00:50 | XMS_ITS | Encounter Summary ---
Author Organization [facility] [employer] Address [address] [place] [address] Care Team Providers Care Taker Away Name Role Phone Raji Judd MD Primary Care Provider [phone] Encounter Details Date Type Department Care Team (Late Contact Info) Description 04/30/2025 Orders Only [facility] Oncology and Hematology - [place] [address] [facility] [address] [place] [address] Rufus Amin MD [address] [facility] [address] [place] [address] Anal cancer (CMS/HCC) Social History Tobacco Use [...] on file Legal Sex Female 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 Gender Identity Not on file Sexual Orientation Not on file documented as of this encounter Plan of Treatment Upcoming Encounters Date Type Department Care Team (Late Contact Info) Description 05/28/2025 11:15 AM CDT Office Visit [facility] Oncology and Hematology - [place] [address] [facility] [place] [address] [place] [address] Rufus Amin MD [address] [facility] [address] [place] [address] documented as of this encounter Visit Diagnoses Diagnosis Anal cancer (CMS/HCC) Malignant neoplasm of anus, unspecified site documented in this encounter Care Teams Taker Away Relationship Specialty Start Date End Date Raji Judd MD [address] [place] [id number] PCP - General Family Practice 10/05/24 documented as of this encounter
--- OUTSIDE RECORDS SUMMARY | 2025-05-01 00:50 | XMS_ITS | Clinical Summary ---
Author Organization [facility] Address [address] [place] [address] Care Team Providers Care Arabic Professor Name Role Phone Miranda Godinez MD, [place] Unavailable [phone] Miladis Young ANP-BC Unavailable [phone] Wesley Tinsley DO Unavailable [phone] Raji Judd MD Primary Care Provider [phone] Allergies Active Allergy Reactions Criticality Noted Date [...] mg total) by mouth daily. 3 Active Listen EditionTOUCH ULTRA test strip 1 strip by Other route daily. 2 Active albuterol sulfate HFA 108 (90 Base) MCG/ACT inhaler Inhale 2 puffs into the lungs every 6 (six) hours as needed for Wheezing or Shortness of breath (Chest tightness). 18 g 3 Active Lancets (ONETOUCH DELICA PLUS [id number]) [facility] [place] 1 LANCET TO CHECK GLUCOSE ONCE [...] knee 08/24/2019 Coronary artery disease invo lving upper [place] coronary artery of upper [place] heart 02/01/2016 HTN (hypertension) Dyslipidemia Hypercoagulable state (HHS/HCC) Resolved Problems Problem Noted Date Diagnosed Date Resolved Date CAD (coronary artery disease) 12/07/2016 Encounters Date Type Department Care Team Description 03/19/2025 Telephone [facility] [address] [place] [address] Miladis Young, HARMONY-BC Reschedule 03/14/2025 2:38 PM CDT - 03/14/2025 11:59 PM CDT Hospital Encounter [facility] [address] [place] [address] Carla Yeh, Discharge Disposition: Home or Self Care (Routine Discharge) 03/14/[address] [facility] [address] [place] [address] Carla Yeh, 03/14/2025 Travel 03/06/2025 Abstract [facility] [address] [place] [address] Abstract, Doc Pccl 02/26/2025 Travel 02/14/2025 Telephone [facility] [address] [place] [address] Miladis Young, HARMONY-BC Appointment Request from Last 3 Months Immunizations Immunization Administration Dates Next Due Tdap (Boostrix) 01/23/2022 [...] Sex Assigned at Female 08/28/2024 7:35 AM MINER ASSISTANT Legal Sex Female 8:01 PM CDT Gender Identity Not on file Sexual Orientation Not on file Last Filed Vital Signs Vital Sign Reading Time Taken Comments Blood Pressure 122/96 10/04/2024 9:36 PM MINER ASSISTANT Pulse 98 10/04/2024 9:36 PM MINER ASSISTANT Temperature 37.2 C (99 F) 10/04/2024 9:38 PM MINER ASSISTANT Respiratory Rate 21 10/04/2024 9:36 PM MINER ASSISTANT Oxygen Saturation 94% 10/04/2024 9:36 PM MINER ASSISTANT Inhaled Oxygen Concentration - - Weight 89.8 kg (198 lb) 10/04/2024 11:01 AM MINER ASSISTANT Height 152.4 cm (5') 10/04/2024 11:01 AM MINER ASSISTANT Body Mass Index 38.67 10/04/2024 11:01 AM MINER ASSISTANT Plan of Treatment Upcoming Encounters Date Type Department Care Team (Late st Contact Info) Description 07/23/2025 11:30 AM MINER ASSISTANT [facility] [address] [place] [address] Miladis Young, ANP-BC [address] [facility] [address] [place] [address] Health Maintenance Due Date Last Done Comments ASCVD Statin 1955 Meningococcal Vaccine (1 - Risk 2-dose series) 11/04/1959 Meningococcal B Vaccine (1 of 5 - Increased Risk) 11/04/1967 Hepatitis C 11/04/1975 Pneumococcal Vaccine: 50+ Years (1 of 2 - PCV) 1976 Mammogram Screening 1997 Zoster Vaccines (1 of 2) 11/04/2007 RSV Immunization or 60+ Years (1 - Risk 60-74 years 1-dose series) 2017 Annual Medicare Wellness Visit 2022 Dexa Scan (General) 2022 COVID-19 Vaccine (5 - season) 2025 05/21/2022, 07/08/2021, 11/20/2020, Additional history exists Colorectal Cancer Screening FIT/FOBT [...] Procedure Name Priority Date/Time Associated Diagnosis Comments HEPATIC FUNCTION PANEL Routine 3:00 PM CDT Unspecified abnormal involuntary movements AMMONIA Routine 03/14/2025 3:00 PM CDT Unspecified abnormal involuntary movements CERULOPLASMIN Routine 03/14/2025 3:00 PM CDT Unspecified abnormal involuntary movements COPPER Routine 03/14/2025 3:00 PM CDT Unspecified abnormal involuntary movements ZINC PLASMA Routine 03/14/2025 3:00 PM CDT Unspecified abnormal involuntary movements VITAMIN B-12 Routine 03/14/2025 3:00 PM CDT Unspecified abnormal involuntary movements OCCULT BLOOD, FECES STAT 10/04/2024 2 :[address] CHEST WO CON STAT 10/04/2024 1:27 PM MINER ASSISTANT COLONOSCOPY Routine MINER ASSISTANT from Last 3 Months or Most Recently Relevant to Health Maintenance Results * ZINC PLASMA (03/14/2025 3:00 PM CDT) ZINC S/P/B 62 60 - 130 mcg/dL 03/17/2025 3:51 AM CDT [facility] Comment: This test was developed and its analytical performance characteristics have been determined by [facility] [place], [place]. It has not been cleared or approved by the U.S. Food and Drug Administration. This assay has been validated pursuant to the CLIA regulations and is used for clinical purposes. Test Performed by [email or web address], [facility], [address] [place] [address] Adryan Galvan M.D., Ph.D., Director of Laboratories , CLIA [id number] 03/14/2025 3:00 PM CDT Carla Yeh DO LABORATORY Final Result Performing Organization Address City/[facility]/ZIP Co de Phone Number [facility] [address] , * VITAMIN B-12 (03/14/2025 3:00 PM CDT) VITAMIN B12 S/P/B 619 193 - 986 PG/ML 03/14/2025 8:24 PM CDT [facility] 03/14/2025 3:00 PM CDT Carla Yeh DO LABORATORY Final Result [facility] [address] [place] [address], [place] [phone] [id number] * (ABNORMAL) HEPATIC FUNCTION PANEL (03/14/2025 3:00 PM CDT) BILIRUBIN TOTAL S/P/B 0.3 0.2 - 1.0 MG/DL 03/14/2025 3:27 PM CDT [facility] Comment: THIS ASSAY IS NOT RECOMMENDED FOR PATIENTS UNDERGOING TREATMENT WITH ELTROMBOPAG DUE TO THE POTENTIAL FOR FALSELY ELEVATED RESULTS. BILIRUBIN DIRECT S/P/B 0.1 0.0 - 0.2 MG/DL 03/14/2025 3:27 PM CDT [facility] ALKALINE PHOSPHATASE S/P/B 94 55 - 142 U/L 03/14/2025 3:27 PM CDT [facility] AST 15 15 - 37 U/L 03/14/2025 3:27 PM CDT [facility] ALT 18 14 - 59 U/L 03/14/2025 3:27 PM CDT [facility] TOTAL PROTEIN S/P/B 6.4 6.4 - 8.2 G/DL 03/14/2025 3:27 PM CDT [facility] ALBUMIN S/P/B 2.9(L) 3.4 - 5.0 G/DL 03/14/2025 3:27 PM CDT [facility] 03/14/2025 3:00 PM CDT Carla Yeh DO LABORATORY Final Result [facility] [place] [address], * (ABNORMAL) AMMONIA (03/14/2025 3:00 PM CDT) AMMONIA <10(L) 11 - 32 UMOL/L 03/14/2025 3:27 PM CDT [facility] 03/14/2025 3:00 PM CDT Carla Misty [employer] LABORATORY Final Result [facility] [address] [place] [address], * COPPER (03/14/2025 3:00 PM CDT) COPPER S/P/B 116 70 - 175 mcg/dL 03/17/2025 3:51 AM CDT [facility] Comment: This test was developed and its analytical performance characteristics have been determined by [facility] [place], [place]. It has not been cleared or approved by the U.S. Food and Drug Administration. This assay has been validated pursuant to the CLIA regulations and is used for clinical purposes. Test Performed by [facility], [place], [address] [place] [address] Adryan Galvan M.D., Ph.D., Director of Laboratories , CLIA [id number] 03/14/2025 3:00 PM CDT Carla Yeh DO LABORATORY Final Result Performing Organization Address [facility]/ZIP Co de Phone Number [facility] , [place] [phone] * CERULOPLASMIN (03/14/2025 3:00 PM CDT) Pathologist [facility] CERULOPLASMIN 28 14 - 48 mg/dL 03/17/2025 4:17 PM CDT [facility]ST[facility] Comment: Test Performed by [facility], [facility] [place], [address] [place] [address] Adryan Galvan M.D., Ph.D., Director of Laboratories , CLIA [id number] 03/14/2025 3:00 PM CDT Carla Yeh DO LABORATORY Final Result Performing Organization Address City/[facility]/ZIP Co de Phone Number [facility] [place] [id number] [place], [place] , [place] [phone] * (ABNORMAL) OCCULT BLOOD, FECES (10/04/2024 2:37 PM MINER ASSISTANT) OCCULT BLOOD FECAL POSITIVE(A ) NEGATIVE 10/04/2024 3:27 PM MINER ASSISTANT [facility] Comment:1+ STOOL SPECIMEN / Unknown 10/04/2024 2:37 PM MINER ASSISTANT us Efrain Aguilar DO BODY FLUIDS AND STOOLS ORDER JEANINE Final Result [facility] [address] [place] [address], * CT CHEST WO CON (10/04/2024 1:27 PM MINER ASSISTANT) Anatomical Region Laterality Modality Chest Computed Tomogra phy 10/04/2024 1:43 PM MINER ASSISTANT Impressions 10/04/2024 1:47 PM MINER ASSISTANT IMPRESSION: Suspected atelectatic changes are present within the right and left lung. Respiratory motion artifact compromises the examination. No pleural effusions. Mild cardiomegaly. Ordered By: EFRAIN AGUILAR Interpreted By: Jose G Wiseman MD, 10/04/2024 1:43 PM Narrative 10/04/2024 1:47 PM MINER ASSISTANT [facility] [address] [facility] [place] [address] Procedure(s): CT CHEST WO CON Date of [...] Note Jose G Wiseman MD - 10/04/2024 [facility] [address] [facility] [place] [address] Procedure(s): CT CHEST WO CON Date of [...] Efrain Aguilar DO CT Final Result * Colonoscopy ( MINER ASSISTANT) Narrative [facility] TO EPIC CONVERSION - MINER ASSISTANT Documented hx of procedure Procedure Note Jamilah Us MD - 06/12/2018 Documented hx of procedure us Generic Conversion Md US GI PROCEDURE ORDERABLES Final Result [facility] TO EP[facility] CONVERSION from Last 3 Months or Most Recently Relevant to Health Maintenance Insurance MEDICAID MEDICARE MEDICARE MEDICAID Care Teams Arabic Professor Relationship Specialty Start Date End Date Raji Judd MD [address] [place] [address] PCP - General FAMILY PRACTICE 01/23/22 [place]field Jean MD CARDIOVASCULAR DISEASE 02/05/16 Miladis Young, ANP- [address] [facility] [address] [place] [address] NURSE PRACTITIONER 12/14/16 Wesley Tinsley DO [address] [place] [address] SURGERY 12/14/16
--- OUTSIDE RECORDS SUMMARY | 2025-05-01 00:50 | XMS_ITS | Clinical Summary ---
Author Organization [facility] Address [address] [place] [address] Phone Care Team Providers Care Exam Proctor Name Role Phone Raji Judd MD Primary Care Provider [phone] Allergies Active Allergy Reactions Criticality Noted Date [...] (2.5 mg) by mouth daily. 30 Tablet 5 Active omeprazole (PriLOSEC) 40 mg Capsule, Delayed Release(E.C.) Take 1 Capsule (40 mg) by mouth daily. 30 Capsule 5 Active amitriptyline (ELAVIL) 100 mg tablet Take 1 Tablet (100 mg) by mouth daily at bedtime. 30 Tablet 5 Active carvediloL (COREG) 25 mg tablet Take 1 Tablet (25 mg) by mouth 2 times daily with meals. 60 Tablet 5 Active atorvastatin (LIPITOR) 80 mg tablet Take 1 Tablet (80 mg) by mouth daily. 30 Tablet 5 Active ezetimibe (ZETIA) 10 mg tablet Take 1 Tablet (10 mg) by mouth daily. 30 Tablet 5 Active liothyronine (CYTOMEL) 5 mcg Tablet Take 2 Tablets (10 mcg) by mouth daily. 60 Tablet 5 Active predniSONE (DELTASONE) 20 mg tablet Take 2 Tablets (40 mg) by mouth see administration instructions. 4 Tablet 5 Active diphenhydrAMIN E (BENADRYL) 25 mg capsule Take 2 Capsules (50 mg) by mouth see administration instructions. 2 Capsule 5 Active ondansetron (ZOFRAN ODT) 8 mg Tablet, Rapid Dissolve Dissolve 1 tablet on top of tongue then swallow with saliva every 8 hours as needed for nausea or vomiting 30 Tablet 1 5 Active capecitabine (Xeloda) 500 mg tablet Take 3 tablets by mouth twice a day with meals Wednesday through Wednesday on days of radiation therapy treatment only 120 Tablet 12/28/2024 8:02 AM CDT 5 Active Active Problems Problem Noted Date Diagnosed Date Heme positive stool 11/28/2024 Normocytic anemia 10/06/2024 Acute blood loss anemia 10/05/2024 Hypotension 10/05/2024 DM (diabetes mellitus), type 2 10/05/2024 Major depression 10/05/2024 Benign essential HTN 10/05/2024 CAD (coronary atherosclerotic disease) 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 Influenza with pneumonia 10/05/2024 Hematochezia 10/05/2024 terminologist (current) use of anticoagulants 2024 Encounters Date Type Department Care Team Description 04/30/2025 Orders Only [facility] Oncology and Hematology - [place] [address] [place] [address] Rufus Amin MD Anal cancer ([facility]/HCC) 04/16/2025 Orders Only [facility] Oncology and Hematology - [place] [address] [place] [address] Rufus Amin MD Anal cancer ([facility]/HCC) 04/02/2025 Orders Only [facility] Oncology and Hematology - [place] [address] [place] [address] Rufus Amin MD Anal cancer ([facility]/HCC) 03/28/2025 External Device Data STL ABSTRACTION Provider, Abstract 03/19/2025 Orders Only [facility] Oncology and Hematology - [place] [address] [place] [address] Rufus Amin MD Anal cancer ([facility]/HCC) 03/05/2025 Orders Only [facility] Oncology and Hematology - [place] [address] [place] [address] Rufus Amin MD Anal cancer ([facility]/HCC) 02/22/2025 Orders Only [facility] Oncology and Hematology - [address] [place] [address] Rufus Amin MD Anal cancer ([facility]/HCC) (Primary Dx) 02/21/2025 External Device Data STL ABSTRACTION Provider, Abstract 02/21/2025 External Device Data STL ABSTRACTION Provider, Abstract 02/21/2025 External Device Data STL ABSTRACTION Provider, Abstract 02/20/2025 External Device Data STL ABSTRACTION Provider, Abstract 02/19/2025 Orders Only [facility] Oncology and Hematology - [address] [place] [address] Rufus Amin MD Anal cancer ([facility]/HCC) 02/15/2025 11:15 AM CDT Office Visit [facility] Oncology and Hematology [facility] [address] [place] [address] Rufus Amin MD Anal cancer ([facility]/HCC) (Primary Dx) 02/15/2025 Specialty [address] 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 Gender Identity Not on file Sexual Orientation Not on file Last Filed Vital Signs Vital Sign Reading Time Taken Comments Blood Pressure 111/73 02/15/2025 10:46 AM CDT Pulse 90 02/15/2025 10:46 AM CDT Temperature 36.7 C (98.1 F) 02/15/2025 10:46 AM CDT Respiratory Rate 16 02/15/2025 10:4 6 AM CDT Oxygen Saturation 91% 02/15/2025 10: 46 AM CDT Inhaled Oxygen Concentration - - Weight 86.5 kg (190 lb 12.8 oz) 025 10:46 AM CDT Height 157.5 cm (5' 2) 10/25/2024 8:39 AM CDT Body Mass Index 34.9 10/25/2024 8:39 AM CDT Plan of Treatment Upcoming Encounters Date Type Department Care Team (Late st Contact Info) Description 05/28/2025 11:15 AM CDT Office Visit [facility] Oncology and Hematology - [address] [place] [address] Rufus Amin MD [address] [facility] [address] [place] [address] Health Maintenance Due Date Last Done Comments DIABETES ANNUAL FOOT EXAM 11/04/1975 DIABETES MICROALBUMIN ANNUAL SCREEN 11/04/1975 LDL CHOLESTEROL ANNUAL 11/04/1975 PNEUMOCOCCAL VACCINE 50+ YEA RS (1 of 2 - PCV) 1976 Traditional Medicare (ACO) A nnual Wellness Visit 1976 FIT-DNA Q 3 years 2002 FIT/FOBT Q 1 year 2002 Flex Sig/CT Colonography Q 5 years 2002 ZOSTER VACCINE (1 of 2) 11/04/2007 RSV VACCINE (60+ or ) (1 - Risk 60-74 years 1-dose series) 2017 OSTEOPOROSIS SCREENING 2022 DIABETES ANNUAL RETINAL EXAM 02/27/2025, 05/18/2023, 04/15/2023, Additional history exists BREAST CANCER SCREENING 03/02/2025 03/02/20 24, 03/02/2024, 02/25/2023, Additional history exists INFLUENZA VACCINE (#1) 2025 05/21/2022, 2019 COVID-19 Vaccine ( - 2024-2 6 season) 2025 05/21/2022, 07/08/2021, 11/20/2020, Additional history exists DIABETES HBA1C Q 6 MONTHS 04/19/20252024, 10/05/2024, 12/24/2023, Additional history exists DTAP/TDAP/TD VACCINES (2 - T d or Tdap) 01/24/2032 01/23/2022 COLORECTAL SCREENING 10/11/2034 10/11/2024, 10/11/2024, 07/21/2022, Additional history exists Colorectal Cancer Screening 10/11/2034 Procedures Procedure Name Priority Date/Time Associated Diagnosis Comments COLONOSCOPY REPORT 10/11/2024 9: 02 AM MEATCUTTER HEMOGLOBIN A1C Routine 10/05/2024 4:14 PM MEATCUTTER from Last 3 Months or Most Recently Relevant to Health Maintenance Results * COLONOSCOPY REPORT (10/11/2024 9:02 AM MEATCUTTER) Narrative Procedure Note Hunter Kemp DO - 10/11/2024 9:02 AM CST [facility] Endoscopy Patient Name: Ariadna Giraldo Procedure [...] of Addenda: [address]; [place] [address] Hunter Ball Kemp DO GI PROCEDURE ORDERABLES Fin al Result * HEMOGLOBIN A1C (10/05/2024 4:14 PM MEATCUTTER) HEMOGLOBIN A1C 5.2 <5.7 % 10/06/2024 1:08 AM [facility] [employer] [facility] EST. AVG GLUCOSE, A1C 103 mg/dL 10/06/2024 1:08 AM [facility] [employer] [facility] Blood Venipuncture / Unknown 10/05/2024 4:14 PM MEATCUTTER 10/05/2024 4:46 PM MEATCUTTER Narrative [facility] [employer] [facility] - 10/06/2024 1:08 AM MEATCUTTER HGB A1C INTERPRETATION NORMAL: <5.7% PRE-DIABETES: 5.7 - 6.4% DIABETES: 6.5% OR GREATER Myrna Luis NP CHEMISTRY ORDERABLES Final Re sult [facility] [employer] [facility] CLIA# [id number] [address] [place] [place] [address] from Last 3 Months or Most Recently Relevant to Health Maintenance Insurance MEDICARE PART A AND B MEDICAID [place] RX [employer] Medicare Part D RX [place] Medicare Part B MEDICARE PART A AND B MED[place] Advance Directives For more information, please contact: [phone] * Full Code (Latest Code Status on File) Date Activated Date Inactivated Comments 10/05/2024 12:38 AM 10/11/2024 8:58 PM Care Teams Exam Proctor Relationship Specialty Start Date End Date Raji Judd MD [address] [place] [address] PCP - General Family Practice 10/05/24
--- OUTSIDE RECORDS SUMMARY | 2025-05-01 00:50 | XMS_ITS | Encounter Summary ---
Author Organization [facility] Address [facility] [place] [address] Care Team Providers Care Electronics Technician Apprentice Name Role Phone Catrachito Judd MD Primary Care Provider Unavailab norman Godinez MD, [place] Unavailable [phone] [facility]- Unavailable +[phone] Wesley Tinsley DO Unavailable [phone] Raji Judd MD Primary Care Provider [phone] Encounter Details Date Type Department Care Team (Late st Contact Info) Description 12/30/2015 Abstract [facility] [address] [place] [address] Garfield Jean MD [address] [address] Social History Tobacco Use Types Packs/Day Years Used Date Smoking Tobacco: Smoker, Current Status Unknown Alcohol Use Standard Drinks/Week Comments No 0 (1 standard drink = 0.6 oz pur e alcohol) Comments Unknown Sex and Gender Information Value Date Recorded Sex Assigned at Female 08/28/2024 7:35 AM MOLTEN IRON POURER Legal Sex Female 8:01 PM CDT Gender Identity Not on file Sexual Orientation Not on file documented as of this encounter Plan of Treatment Upcoming Encounters Date Type Department Care Team (Late st Contact Info) Description 07/23/2025 11:30 AM MOLTEN IRON POURER Office Visit [facility] [address] Miladis Young, ANP-BC [address] [facility] [address] [place] [address] documented as of this encounter Visit Diagnoses Not on filedocumented in this encounter Additional Health Concerns Infection Onset Date Last Indicated Resolved Time COVID-19 Rule Out 07/11/2023 07/11/2023 07/11/2023 11:22 AM MOLTEN IRON POURER COVID-19 Rule Out 10/02/2024 10/02/2024 10/02/2024 1:16 PM MOLTEN IRON POURER Respiratory Rule Out 10/04/2024 10/04/2024 025 11:57 AM MOLTEN IRON POURER COVID-19 Rule Out 10/04/2024 10/04/2024 10/04/2024 12:07 PM MOLTEN IRON POURER Influenza - Seasonal 10/04/2024 10/04/2024 025 12:33 AM MOLTEN IRON POURER documented as of this encounter Care Teams Electronics Technician Apprentice Relationship Specialty Start Date End Date Catrachito Judd MD PCP - General FAMILY PRACTICE 02/05/16 01/22/22 Raji Judd MD [address] [place] [address] PCP - General FAMILY PRACTICE 01/23/22 Garfield Jean MD CARDIOVASCULAR DISEASE 02/05/16 Miladis Young, ANP-BC [address] [facility] [address] [place] [address] NURSE PRACTITIONER 12/14/16 Wesley Tinsley DO [address] [place] [address] SURGERY 12/14/16 documented as of this encounter
--- OUTSIDE RECORDS SUMMARY | 2025-05-01 00:50 | XMS_ITS | Encounter Summary ---
Author Organization [facility] Address [facility] [place] [address] Care Team Providers Care Stem Threshing Machine Operator Name Role Phone Catrachito Judd MD Primary Care Provider Unavailab norman Godinez MD, Gar[place] Unavailable [phone] [facility]- Unavailable +[phone] Wesley Tinsley DO Unavailable [phone] Raji Judd MD Primary Care Provider [phone] Encounter Details Date Type Department Care Team (Late st Contact Info) Description 01/29/2016 [facility] [address] [place] [address] Garfield Jean MD [address] [address] Social History Tobacco Use Types Packs/Day Years Used Date Smoking Tobacco: Every Day Cigarettes 1 35 Started: 08/04/1985; Last attempted to quit: 08/04/2020 Smokeless Tobacco: Never Alcohol Use Standard Drinks/Week Comments Yes 0 (1 standard drink = 0.6 oz pur e alcohol) rarely Comments No Sex and Gender Information Value Date Recorded Sex Assigned at Female 08/28/2024 7:35 AM EPIC PROFESSIONAL Legal Sex Female 8:01 PM CDT Gender Identity Not on file Sexual Orientation Not on file documented as of this encounter Plan of Treatment Upcoming Encounters Date Type Department Care Team (Late st Contact Info) Description 07/23/2025 11:30 AM EPIC PROFESSIONAL Office Visit [facility] [address] [place] [address] Miladis Young ANP-BC [address] [phone] documented as of this encounter Visit Diagnoses Not on filedocumented in this encounter Additional Health Concerns Infection Onset Date Last Indicated Resolved Time COVID-19 Rule Out 07/11/2023 07/11/2023 07/11/2023 11:22 AM EPIC PROFESSIONAL COVID-19 Rule Out 10/02/2024 10/02/2024 10/02/2024 1:16 PM EPIC PROFESSIONAL Respiratory Rule Out 10/04/2024 10/04/2024 025 11:57 AM EPIC PROFESSIONAL COVID-19 Rule Out 10/04/2024 10/04/2024 10/04/2024 12:07 PM EPIC PROFESSIONAL Influenza - Seasonal 10/04/2024 10/04/2024 025 12:33 AM EPIC PROFESSIONAL documented as of this encounter Care Teams Stem Threshing Machine Operator Relationship Specialty Start Date End Date Catrachito Judd MD PCP - General FAMILY PRACTICE 02/05/16 01/22/22 Raji Judd MD [address] [place] [address] PCP - General FAMILY PRACTICE 01/23/22 Garfield Jean MD CARDIOVASCULAR DISEASE 02/05/16 Miladis Young, ANP-BC [address] [place] [address] NURSE PRACTITIONER 12/14/16 Wesley Tinsley DO [address] [id number] SURGERY 12/14/16 documented as of this encounter
--- OUTSIDE RECORDS SUMMARY | 2025-05-01 00:50 | XMS_ITS | Encounter Summary ---
Author Organization [facility] Address [facility] [place] [address] Care Team Providers Care Threshing Department Supervisor Name Role Phone Catrachito Judd MD Primary Care Provider Unavailab norman Godinez MD, [place] Unavailable [phone] Young [facility]- Unavailable [phone] Wesley Tinsley DO Unavailable [phone] Raji Judd MD Primary Care Provider [phone] Encounter Details Date Type Department Care Team (Late st Contact Info) Description 02/01/2016 Abstract [facility] [address] [place] [address] Garfield Jean MD [address] [address] Social History Tobacco Use Types Packs/Day Years Used Date Smoking Tobacco: Smoker, Current Status Unknown Alcohol Use Standard Drinks/Week Comments No 0 (1 standard drink = 0.6 oz pur e alcohol) Comments Unknown Sex and Gender Information Value Date Recorded Sex Assigned at Female 08/28/2024 7:35 AM DERMATOLOGY NURSE Legal Sex Female 8:01 PM CDT Gender Identity Not on file Sexual Orientation Not on file documented as of this encounter Plan of Treatment Upcoming Encounters Date Type Department Care Team (Late st Contact Info) Description 07/23/2025 11:30 AM DERMATOLOGY NURSE Office Visit [facility] [address] Miladis Young, ANP-BC [address] [facility] [address] [place] [address] documented as of this encounter Visit Diagnoses Not on filedocumented in this encounter Additional Health Concerns Infection Onset Date Last Indicated Resolved Time COVID-19 Rule Out 07/11/2023 07/11/2023 07/11/2023 11:22 AM DERMATOLOGY NURSE COVID-19 Rule Out 10/02/2024 10/02/2024 10/02/2024 1:16 PM DERMATOLOGY NURSE Respiratory Rule Out 10/04/2024 10/04/2024 025 11:57 AM DERMATOLOGY NURSE COVID-19 Rule Out 10/04/2024 10/04/2024 10/04/2024 12:07 PM DERMATOLOGY NURSE Influenza - Seasonal 10/04/2024 10/04/2024 025 12:33 AM DERMATOLOGY NURSE documented as of this encounter Care Teams Threshing Department Supervisor Relationship Specialty Start Date End Date Catrachito Judd MD PCP - General FAMILY PRACTICE 02/05/16 01/22/22 Raji Judd MD [address] [place] [address] PCP - General FAMILY PRACTICE 01/23/22 Garfield Jean MD CARDIOVASCULAR DISEASE 02/05/16 Miladis Young, ANP-BC [address] [facility] [address] [place] [address] NURSE PRACTITIONER 12/14/16 Wesley Tinsley DO [address] [place] [address] SURGERY 12/14/16 documented as of this encounter
--- OUTSIDE RECORDS SUMMARY | 2025-05-01 00:50 | XMS_ITS | Encounter Summary ---
Author Organization [facility] Address [facility] [place] [address] Care Team Providers Care Banquet Chef Name Role Phone Catrachito Judd MD Primary Care Provider Unavailab norman Godinez MD, [place] Unavailable [phone] [facility] [phone] Wesley Tinsley DO Unavailable [phone] Raji Judd MD Primary Care Provider [phone] Encounter Details Date Type Department Care Team (Late st Contact Info) Description 03/02/2019 Abstract [facility] [address] [place] [address] Miladis Young, [facility] [address] [facility] [address] [place] [address] Social History Tobacco Use Types Packs/Day Years Used Date Smoking Tobacco: Former Cigarettes Q uit: 10/31/2018 Smokeless Tobacco: Never Alcohol Use Standard Drinks/Week Comments Yes 0 (1 standard drink = 0.6 oz pur e alcohol) rarely Comments Unknown Sex and Gender Information Value Date Recorded Sex Assigned at Female 08/28/2024 7:35 AM PRESS MANAGER Legal Sex Female 8:01 PM CDT Gender Identity Not on file Sexual Orientation Not on file documented as of this encounter Plan of Treatment Upcoming Encounters Date Type Department Care Team (Late st Contact Info) Description 07/23/2025 11:30 AM PRESS MANAGER [facility] [address] [place] [address] Miladis Young, ANP- [address] [facility] [address] [place] [address] documented as of this encounter Procedures Procedure [...] Rule Out 07/11/2023 07/11/2023 07/11/2023 11:22 AM PRESS MANAGER COVID-19 Rule Out 10/02/2024 10/02/2024 10/02/2024 1:16 PM PRESS MANAGER Respiratory Rule Out 10/04/2024 10/04/2024 025 11:57 AM PRESS MANAGER COVID-19 Rule Out 10/04/2024 10/04/2024 10/04/2024 12:07 PM PRESS MANAGER Influenza - Seasonal 10/04/2024 10/04/2024 025 12:33 AM PRESS MANAGER documented as of this encounter Care Teams Banquet Chef Relationship Specialty Start Date End Date Catrachito Judd MD PCP - General FAMILY PRACTICE 02/05/16 01/22/22 Raji Judd MD [address] [place] [address] PCP - General [facility] PRACTICE 01/23/22 Garfield Jean MD CARDIOVASCULAR DISEASE 02/05/16 Miladis Young, ANP- [address] [facility] [address] [address] NURSE PRACTITIONER 12/14/16 Wesley Tinsley DO [address] [place] [address] SURGERY 12/14/16 documented as of this encounter
--- OUTSIDE RECORDS SUMMARY | 2025-05-01 00:50 | XMS_ITS | Encounter Summary ---
Author Organization [facility] Address [address] [place] [address] Care Team Providers Care Culinary Assistant Name Role Phone Catrachito Judd MD Primary Care Provider Unavailab norman Godinez MD, [place] Unavailable [phone] Miladis Young-BC Unavailable [phone] Wesley Tinsley DO Unavailable [phone] Raji Judd MD Primary Care Provider [phone] Encounter Details Date Type Department Care Team (Late st Contact Info) Description 01/14/2019 Abstract [facility] [address] [place] [address] , Generic Conversion, Social History Tobacco Use Types Packs/Day Years Used Date Smoking Tobacco: Former Cigarettes Q uit: 07/28/2017 Smokeless Tobacco: Never Alcohol Use Standard Drinks/Week Comments Yes 0 (1 standard drink = 0.6 oz pur e alcohol) once a week Comments Unknown Sex and Gender Information Value Date Recorded Sex Assigned at Female 08/28/2024 7:35 AM PALEOBOTANIST Legal Sex Female 8:01 PM CDT Gender Identity Not on file Sexual Orientation Not on file documented as of this encounter Plan of Treatment Upcoming Encounters Date Type Department Care Team (Late st Contact Info) Description 07/23/2025 11:30 AM PALEOBOTANIST Office Visit [facility] [address] [place] [address] Miladis Young, ANP-BC [address] [facility] [address] [place] [address] documented as of this encounter Visit Diagnoses Not on filedocumented in this encounter Additional Health Concerns Infection Onset Date Last Indicated Resolved Time COVID-19 Rule Out 07/11/2023 07/11/2023 07/11/2023 11:22 AM PALEOBOTANIST COVID-19 Rule Out 10/02/2024 10/02/2024 10/02/2024 1:16 PM PALEOBOTANIST Respiratory Rule Out 10/04/2024 10/04/2024 025 11:57 AM PALEOBOTANIST COVID-19 Rule Out 10/04/2024 10/04/2024 10/04/2024 12:07 PM PALEOBOTANIST Influenza - Seasonal 10/04/2024 10/04/2024 025 12:33 AM PALEOBOTANIST documented as of this encounter Care Teams Culinary Assistant Relationship Specialty Start Date End Date Catrachito Judd MD PCP - General FAMILY PRACTICE 02/05/16 01/22/22 Raji Judd MD [address] [place] [address] PCP - General FAMILY PRACTICE 01/23/22 Garfield Jean MD CARDIOVASCULAR DISEASE 02/05/16 Miladis Young, [facility] [address] [facility] [address] [place] [address] NURSE PRACTITIONER 12/14/16 Wesley Tinsley DO [address] [place] [address] SURGERY 12/14/16 documented as of this encounter
[2025-05-01 11:20] VITALS: BP 114/63; PULSE 81; RESP 18; TEMP 36.6; O2SAT 93
[2025-05-01 11:30] VITALS: BP 122/65; PULSE 83; RESP 23; O2SAT 88
[2025-05-01] MEDS: LACTATED RINGERS 1,000 ML 150 ML IV CONT (11:30)
--- NOTE | 2025-05-01 11:30 | SUR.PREOP ---
Patient to GI pre-op room 3. Upon received patient from waiting room, patient was slumped in wheelchair, but able to answer questions and have conversation. Transported patient from wheelchair to stretcher via standby assist x2 RN. Patient very unsteady on feet. Laid patient down on stretcher, dressed in gown, and cleaned patient from soiled garments. Patient able to answer questions appropriately, but seems very altered. When asked, the patient states im just really tired and says this is not normal for her. Patient continues to fall asleep during conversation. Vitals checked BP 114/63, HR 81, RESP 18, O2 93%, TEMP 98.0. BG 93. Patient able to state she took her bowel prep, carvedilol, metformin, and ativan this AM at 0515. Patient unable to recall if she fell at home or hit her head during her prep. IV started and LR infusing. Anesthesiology notified.
--- NOTE | 2025-05-01 11:35 | SUR.PREOP ---
Called and spoke with ER charge, Shania, in regards to patient. Report given to Shania that patient is unsafe to sit in waiting room, and she states she will return call when she has a room.
--- NOTE | 2025-05-01 11:35 | SUR.PREOP ---
Per Dr. Wheeler, draw labs for patient and transport to ER when available.
--- NOTE | 2025-05-01 11:40 | SUR.PREOP ---
Per Dr. Wheeler, cancel procedure for today, as it would be unsafe to give patient anesthesia in her current state. MD requests patient to go to ER for workup.
--- NOTE | 2025-05-01 11:44 | WPDANESEPPF ---
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, unspecified Patient Data Age: 69 Gender: F Height: 1.57 m Weight: 85 kg Allergies Allergy/AdvReac Type Severity Reaction Status Date / Time Iodine and Iodide Containing Allergy Hives Verified 04/17/25 10:39 Produc Home Medications ?Medication ?Instructions ?Recorded ?Confirmed ?Type amitriptyline 75 mg tablet 75 mg PO DAILY 05/15/21 04/17/25 History amlodipine 2.5 mg tablet 2.5 mg PO DAILY 05/15/21 04/17/25 History aripiprazole 2 mg tablet 2 mg PO BID 05/15/21 04/17/25 History atorvastatin 80 mg tablet 80 mg PO QPM 05/15/21 04/17/25 History carvedilol 25 mg tablet 25 mg PO Q12H 05/15/21 04/17/25 History ezetimibe 10 mg tablet 10 mg PO QPM 05/15/21 04/17/25 History liothyronine 5 mcg tablet 5 mcg PO BID 05/15/21 04/17/25 History lorazepam 1 mg tablet 0.5 mg PO Q12H 05/15/21 04/17/25 History omeprazole 40 mg capsule,delayed 40 mg PO DAILY 05/15/21 04/17/25 History release metformin 500 mg tablet 500 mg PO BID 11/30/24 04/17/25 History Laboratory Tests 05/01/25 11:13 POC Capillary Glucose 93 mg/dl (65-105) Patient hx anesthesia problems: none Family hx anesthesia problems: none Results Review: All pre-operative results and documents have been reviewed as part of the pre-operative evaluation. [facility] Past Medical History Medical History Anal cancer High cholesterol Hypertension Surgical History Surgical History S/P triple vessel bypass Family History Family History Other Hypertension Social History Social History Years smoked: 47 Smoking status: Current every day smoker Tobacco type: cigarettes Smoking end date: 03/09/21 Alcohol intake: current Spiritual care concerns: No Anes - Eval Final PreProcedure Day of Procedure 05/01/25 11:44 Patient weight: obese Lungs: normal air movement Airway: Mallampati scale class II Neurological: confused ASA classification: III Emergent: no Anesthetic plan: delay Results Review: All pre-operative results and documents have been reviewed as part of the pre-operative evaluation. Pt w altered mental status in preop area, apparently needed a wheelchair to get to restroom and was incontinent of stool. Answers questions but very slow to respond, VSS. Will send pt to ER for further eval and treatment. IV started and prelim labs sent. Family updated by preop RNs. Informed Consent: The patient's anesthetic plan and its attendant risks and benefits were discussed with the patient/family/POA. Questions were solicited and answers provided to the satisfaction of the patient/family/POA.
[2025-05-01 11:45] VITALS: BP 127/70; PULSE 81; RESP 22; O2SAT 91
[2025-05-01 11:50] VITALS: BP 131/74; PULSE 82; RESP 20; O2SAT 94
[2025-05-01 12:00] VITALS: BP 138/76; PULSE 84; RESP 23; O2SAT 90
[2025-05-01 12:01] LABS: Hematocrit 37.7 % (37.0-47.0); Hemoglobin 11.0 g/dL (12.0-15.0); Mean Corpuscular HGB Conc 29.2 g/dl (32-36); Mean Corpuscular Hemoglobin 27.2 pg (26-34); Mean Corpuscular Volume 93.3 fl (80-100); Platelet Count Result 135 k/mm3 (150-375); Red Blood Count 4.04 M/mm3 (4.2-5.4); White Blood Count 6.6 K/mm3 (4.5-10.0)
--- NOTE | 2025-05-01 12:10 | SUR.PREOP ---
Per Shania, ER charge, patient able to admit to ER room H2. Updated patient sister Yael via phone. Per Yael, patient told her when she picked her up that she had fallen in the bathroom. Yael unable to say if she hit her head or hurt anything. Transported patient to ER via stretcher. When moving patient from GI stretcher to ER stretcher, blood was noted on patient pillow case. Shania verbalized blood stains, and left to speak with ER physician regarding find. Full bedside report given to patients Cole RICHMOND.
[2025-05-01 12:28] LABS: Alanine Aminotransferase 19 U/L (6-35); Albumin Level 4.6 g/dL (3.5-5.1); Alkaline Phosphatase 100 U/L (38-126); Anion Gap 13 mmol/L (4-12); Aspartate Amino Transferase 28 U/L (14-36); Bilirubin,Total 0.7 mg/dL (0.2-1.3); Blood Urea Nitrogen 12 mg/dL (7-17); Calcium 9.4 mg/dL (8.4-10.2); Carbon Dioxide 21 mmol/L (22-30); Chloride 105 mmol/L (98-107); Estimated CRCL calculation 56 ml/min; Estimated Glomerular Filt Rate > 60; Glucose 94 mg/dL (65-110); Potassium 4.4 mmol/L (3.4-5.0); Sodium 139 mmol/L (137-145); Total Protein 7.9 g/dL (6.3-8.2)
== END 2025-05-01 12:45 | disposition home or self-care (01) ==
PROVIDERS: Anesthesiology; Referring Provider Internal Medicine Hematology & Oncology; Visit Provider Internal Medicine Gastroenterology
PROC: 0DJD8ZZ Inspection of Lower Intestinal Tract, Via Natural or Artificial Opening Endoscopic (ICD-10-PCS; CPT 45330; principal; 2025-05-01 12:30)
DX: C21.0 Malignant neoplasm of anus, unspecified (principal); Z53.8 Procedure and treatment not carried out for other reasons; R41.82 Altered mental status, unspecified; I10 Essential (primary) hypertension; E03.9 Hypothyroidism, unspecified; E78.00 Pure hypercholesterolemia, unspecified; F17.210 Nicotine dependence, cigarettes, uncomplicated; E66.9 Obesity, unspecified; Z68.33 Body mass index [BMI] 33.0-33.9, adult; Z79.84 Long term (current) use of oral hypoglycemic drugs; Z95.1 Presence of aortocoronary bypass graft
CPT/HCPCS: 36415; 80053; 82948; 85027; 85610; 99215; G0463; J7120

== ENCOUNTER 2025-05-01 12:11 | Emergency (ER) | payer MEDICARE, MEDICAID, SELFPAY ==
--- NOTE | ~2025-05-01 | XR_ITS ---
EXAMINATION: XR chest 1V 05/01/2025 12:51 INDICATION: AMS TECHNIQUE:A single AP upright frontal image of the chest was obtained. COMPARISON: None available FINDINGS: Heart is mildly enlarged. Median sternotomy wires are present. No pneumothorax. Possible small bilateral pleural effusions. No free air under the diaphragm. Small interstitial and airspace opacities scattered throughout both lungs. Minimal atelectasis or scarring in the right lung base. IMPRESSION: 1: Small interstitial and air space opacities scattered throughout both lungs. Differential includes but is not limited to a edema or pneumonia. 2. Possible small bilateral pleural effusions. Reviewed, dictated and finalized at location Q.
--- NOTE | ~2025-05-01 | CT_ITS ---
CT HEAD NON-CONTRAST CT C-SPINE Clinical History: Fall Comparison: None Technique: Unenhanced axial images skull base to vertex. Coronal, sagittal reformats. Axial images thoracic inlet to skull base. Sagittal and coronal reformats. CT images acquired with automatic exposure control for dose reduction DLP: 605 mGy-cm Findings: Head: Mild global atrophy. Mild white matter changes, typically chronic microvascular ischemic disease. Sulci, ventricles: Unremarkable. No intracerebral hemorrhage. No evidence acute territorial infarct. No mass effect, midline shift, intra-/extra-axial fluid collection. Bony calvarium intact. Visualized paranasal sinuses: Clear. Mastoid air cells: Clear. C-spine: No acute fracture or listhesis. Vertebral bodies normal height and alignment. Mild degenerative changes. Disc disease C5-6. Prevertebral soft tissues within normal limits. Visualized lung apices: Clear. Visualized thyroid: Unremarkable. No enlarged cervical nodes. IMPRESSION: HEAD: 1. No acute intracranial findings. C-SPINE: 1. No acute fracture. Reviewed, dictated and finalized at location R. IMPRESSION: HEAD: 1. No acute intracranial findings. C-SPINE: 1. No acute fracture.
[2025-05-01 12:12] VITALS: BP 139/71; PULSE 84; RESP 25; O2SAT 95
[2025-05-01 12:20] VITALS: PULSE 85
[2025-05-01 12:27] VITALS: O2SAT 95
--- OUTSIDE RECORDS SUMMARY | 2025-05-01 12:31 | XMS_ITS | Clinical Summary ---
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 2024 Encounters Date Type Department Care Team Description 04/30/2025 Orders Only [facility] Oncology and Hematology - [place] [address] [place] [address] Rufus Amin MD Anal cancer ([facility]/HCC) 04/16/2025 Orders Only [facility] Oncology and Hematology - [place] [address] [place] [address] Rufus Amin MD Anal cancer ([facility]/HCC) 04/02/2025 Orders Only [facility] Oncology and Hematology - [place] [address] [place] [address] Rufus Amin MD Anal cancer ([facility]/HCC) 03/28/2025 External Device Data STL ABSTRACTION Provider, Abstract 03/19/2025 Orders Only [facility] Oncology and Hematology - [place] [address] [place] [address] Rufus Amin MD Anal cancer ([facility]/HCC) 03/05/2025 Orders Only [facility] Oncology and Hematology - [place] [address] [place] [address] Rufus Amin MD Anal cancer ([facility]/HCC) 02/22/2025 Orders Only [facility] Oncology and Hematology - [place] [address] [place] [address] Rufus Amin MD Anal cancer ([facility]/HCC) (Primary Dx) 02/21/2025 External Device Data STL ABSTRACTION Provider, Abstract 02/21/2025 External Device Data STL ABSTRACTION Provider, Abstract 02/21/2025 External Device Data ST[facility] ABSTRACTION Provider, Abstract 02/20/2025 External Device Data ST[place] ABSTRACTION Provider, Abstract 02/19/2025 Orders Only [facility] Oncology and Hematology - [place] [address] [place] [address] Rufus Amin MD Anal cancer ([facility]/HCC) 02/15/2025 11:15 AM CDT Office Visit [facility] Oncology and Hematology [facility] [address] [place] [address] Rufus Amin MD Anal cancer ([facility]/HCC) (Primary Dx) 02/15/2025 Specialty Pharmacy [facility] [address] [place] [id number] Shelbie Lucas, PHARMACIST 02/06/2025 External Device Data STL ABSTRACTION Provider, Abstract 02/05/2025 Orders Only [facility] Oncology and Hematology - [place] [address] [place] [address] Rufus Amin MD Anal cancer (CMS/HCC) from [...] on file Legal Sex Female 4:49 PM CONSULTING DATABASE ADMINISTRATOR Gender Identity Not on file Sexual Orientation [...] Description 05/28/2025 11:15 AM CDT Office Visit [facility] Oncology and Hematology - [place] [address] [place] [address] Rufus Amin MD [address] [facility] [address] [place] [address] Health Maintenance Due Date Last Done Comments DIABETES ANNUAL FOOT EXAM 11/04/1975 DIABETES MICROALBUMIN ANNUAL SCREEN 11/04/1975 LDL CHOLESTEROL ANNUAL 11/04/1975 PNEUMOCOCCAL VACCINE 50+ YEA RS (1 of 2 - PCV) 1976 FIT-DNA Q 3 years 2002 FIT/FOBT [...] VACCINE (#1) 2025 05/21/2022, 2019 COVID-19 Vaccine (5 - 2024-2 6 season) 2025 05/21/2022, 07/08/2021, 11/20/2020, Additional history exists DIABETES HBA1C Q 6 MONTHS 04/19/20252024, 10/05/2024, 12/24/2023, Additional history exists DTAP/TDAP/TD VACCINES (2 - T d or Tdap) 01/24/2032 01/23/2022 COLORECTAL SCREENING 10/11/2034 10/11/2024, 10/11/2024, 07/21/2022, Additional history exists Colorectal Cancer Screening 10/11/2034 Procedures Procedure Name Priority Date/Time Associated Diagnosis Comments COLONOSCOPY REPORT 10/11/2024 9: 02 AM CONSULTING DATABASE ADMINISTRATOR HEMOGLOBIN A1C Routine 10/05/2024 4:14 PM CONSULTING DATABASE ADMINISTRATOR from Last 3 Months or Most Recently Relevant to Health Maintenance Results * COLONOSCOPY REPORT (10/11/2024 9:02 AM CONSULTING DATABASE ADMINISTRATOR) Narrative Procedure Note Hunter Kemp DO - 10/11/2024 9:[address] [facility] Endoscopy Patient Name: Ariadna Giraldo Procedure Date: [...] of Addenda: [address]; [place] [address] Hunter Ball Kemp DO GI PROCEDURE ORDERABLES Fin al Result * HEMOGLOBIN A1C (10/05/2024 4:14 PM CONSULTING DATABASE ADMINISTRATOR) HEMOGLOBIN A1C 5.2 <5.7 % 10/06/2024 1:08 AM [facility] EST. AVG GLUCOSE, A1C 103 mg/dL 10/06/2024 1:08 AM [facility] Blood Venipuncture / Unknown 10/05/2024 4:14 PM CONSULTING DATABASE ADMINISTRATOR 10/05/2024 4:46 PM CONSULTING DATABASE ADMINISTRATOR Narrative [facility] - 10/06/2024 1:08 AM CONSULTING DATABASE ADMINISTRATOR HGB A1C INTERPRETATION NORMAL: <5.7% PRE-DIABETES: 5.7 - 6.4% DIABETES: 6.5% OR GREATER Myrna Luis NP CHEMISTRY ORDERABLES Final Re sult [facility] CLIA# [id number] [address] [place] [id number] from Last 3 Months or Most Recently Relevant to Health Maintenance Insurance MEDICARE PART A AND B MEDICAID [place] [employer] Medicare Part D RX [employer] Medicare Part B MEDICARE PART A AND B MEDICARE PART A AND B MEDICAID [place] Advance Directives For more information, please contact: [phone] * Full Code (Latest Code Status on File) Date Activated Date Inactivated Comments 10/05/2024 12:38 AM 10/11/2024 8:58 PM Care Teams Benefits Clerk Relationship Specialty Start Date End Date Raji Judd MD [address] [place] [address] PCP - General Family Practice 10/05/24
--- OUTSIDE RECORDS SUMMARY | 2025-05-01 12:31 | XMS_ITS | Encounter Summary ---
Author Organization [facility] Address [address] [place] [address] Care Team Providers Care Satellite Communications Operator Name Role Phone Raji Judd MD Primary Care Provider +1- [phone] Encounter Details Date Type Department Care Team (Late Contact Info) Description 04/30/2025 Orders Only [facility] Oncology and Hematology - [place] [address] [facility] [address] [place] [address] Rufus Amin MD [address] [facility] [address] [place] [address] Anal cancer (CMS/HCC) Social History [...] on file Legal Sex Female 4:49 PM MANAGER ADULT Gender Identity Not on file Sexual Orientation Not on file documented as of this encounter Plan of Treatment Upcoming Encounters Date Type Department Care Team (Late Contact Info) Description 05/28/2025 11:15 AM CDT Office Visit [facility] Oncology and Hematology - [place] [address] [facility] [address] [place] [address] Rufus Amin MD [address] [facility] [address] [place] [address] documented as of this encounter Visit Diagnoses Diagnosis Anal cancer (CMS/HCC) Malignant neoplasm of anus, unspecified site documented in this encounter Care Teams Satellite Communications Operator Relationship Specialty Start Date End Date Raji Judd MD [address] [place] [id number] PCP - General Family Practice 10/05/24 documented as of this encounter
[2025-05-01 12:49] LABS: Add Urine Microscopic? YES; Appearance Urine Clear (Clear); Glucose Urine UA Negative (Negative); Leukocyte Esterase Ur Trace LEU/UL (Negative); Nitrate Urine Positive (Negative); Non Pathogenic Casts 0-2; Specific Grav Ur 1.006 (1.001-1.035)
--- NOTE | 2025-05-01 13:01 | ED.AMS ---
HPI - Altered Mental Status General Chief Complaint: Altered Mental Status Stated Complaint: Lethargic Time Seen by Provider: 05/01/25 12:18 History of Present Illness HPI narrative: This is a 69 yo female with history of rectal cancer, hypertension, hypothyroidism who presents the ED for altered mental status. Patient states that she woke in the middle night as she was doing her colon prep for her colonoscopy today and she believes she lost her balance as she was so tired caused her to fall back and hit the back head. She denies loss of consciousness. She states that she got approximately an hour half of sleep last night. She went to her colonoscopy today there was concerns for altered mental status prompting her to be sent to the ED for further evaluation. Patient has no other symptoms at this time. Related Data Home Medications ?Medication ?Instructions ?Recorded ?Confirmed ?Last Taken ?Type amitriptyline 75 mg tablet 75 mg PO DAILY 05/15/21 04/17/25 05/15/21 History amlodipine 2.5 mg tablet 2.5 mg PO DAILY 05/15/21 04/17/25 05/15/21 History aripiprazole 2 mg tablet 2 mg PO BID 05/15/21 04/17/25 05/15/21 History atorvastatin 80 mg tablet 80 mg PO QPM 05/15/21 04/17/25 05/15/21 History carvedilol 25 mg tablet 25 mg PO Q12H 05/15/21 05/01/25 05/01/25 History ezetimibe 10 mg tablet 10 mg PO QPM 05/15/21 04/17/25 05/15/21 History liothyronine 5 mcg tablet 5 mcg PO BID 05/15/21 04/17/25 05/15/21 History lorazepam 1 mg tablet 0.5 mg PO Q12H 05/15/21 05/01/25 05/01/25 History omeprazole 40 mg capsule,delayed 40 mg PO DAILY 05/15/21 04/17/25 05/15/21 History release metformin 500 mg tablet 500 mg PO BID 11/30/24 05/01/25 05/01/25 History Allergies Allergy/AdvReac Type Severity Reaction Status Date / Time Iodine and Iodide Containing Allergy Hives Verified 05/01/25 12:21 Produc Review of Systems Review of Systems: Gen.: Denies fevers or chills Eyes: Denies eye pain or visual change ENT: Denies congestion Respiratory: Denies shortness of breath or cough CV: Denies chest pain or palpitations GI: Denies abdominal pain nausea, emesis or diarrhea denies burning, urgency, frequency or hematuria Musculoskeletal: Denies back pain or muscle pain Neuro: Denies numbness, tingling, weakness or focal weakness Skin: Denies rash Except as documented, all other systems reviewed and negative [facility] Past Medical History Medical History Anal cancer High cholesterol Hypertension Surgical History Surgical History S/P triple vessel bypass Family History Family History Other Hypertension Social History Social History Smoking packs per day: 0.5 Smoking cigarettes per day: 10.0 Years smoked: 47 Smoking pack-years: 23.50 Smoking status: Current every day smoker Tobacco type: cigarettes Smoking end date: 03/09/21 Alcohol intake: current Drinks per week: 3 Substance use type: does not use Living arrangements: with family Spiritual care concerns: No Exam Narrative: APPEARANCE: No acute distress, nontoxic, resting in bed EYES: EOMI HEENT: Normocephalic, OMM. Small abrasion to the posterior scalp bleeding controlled RESPIRATORY: No respiratory distress Clear to auscultation bilaterally with no rhonchi wheezing or rales. CARDIOVASCULAR: Regular rate and rhythm without murmurs rubs or gallops. ABDOMINAL: Soft, nontender, nondistended, no rebound or guarding MUSCULOSKELETAl: Moves all extremities. No clubbing, cyanosis or edema. NEURO: Somnolent but easily arousable. Follows commands, speech normal, no focal deficits. SKIN:: Warm, dry. No rashes lesions or abrasions PSYCHIATRIC: Normal affect/mood, Course Vital Signs Vital signs: Vital Signs Pulse Rate 84 05/01/25 12:12 Respiratory Rate 25 H 05/01/25 12:12 Blood Pressure 139/71 05/01/25 12:12 Pulse Oximetry 95 05/01/25 12:12 Oxygen Delivery Room Air 05/01/25 12:12 Pulse Rate 85 05/01/25 12:20 Respiratory Rate 25 H 05/01/25 12:12 Blood Pressure 139/71 05/01/25 12:12 Pulse Oximetry 95 05/01/25 12:27 Oxygen Delivery Room Air 05/01/25 12:27 MDM - Altered Mental Status MDM Narrative Medical decision making narrative: 69-year-old female who presented to the ED for altered mental status. On initial evaluation, patient was somewhat somnolent. She was afebrile, hemodynamically stable. She did have an abrasion to the posterior scalp with bleeding controlled. CBC was without significant abnormalities. CMP without significant abnormalities. CT head showed no acute process. UA consistent with a UTI. On further discussion with the patient, suspect that she had severe sleep deprivation causing somnolence. She did fall the middle the night this was not likely the source of her issues at this point. Patient also noted to have a UTI so she will be given a prescription for Keflex. She was advised follow-up with her PCP the next week for re-evaluation. She was also advised to call her project safety manager to reschedule the colonoscopy. Patient and family were agreeable to this plan. Given strict return precautions. Differential Diagnosis Differential diagnosis: Likely altered mental status, delirium, subarachnoid hemorrhage, sepsis and other (Sleep deprivation, medication side effect) Medical Records Attestation: I reviewed the patient's medical records. Lab Data Attestation: I reviewed the patient's lab results. 05/01/25 13:07 05/01/25 13:07 Labs: Lab Results 05/01/25 05/01/25 Range/Units 12:34 13:07 WBC 5.9 (4.5-10.0) K/mm3 RBC 4.10 L (4.2-5.4) M/mm3 Hgb 11.1 L (12.0-15.0) g/dL Hct 37.6 (37.0-47.0) % MCV 91.7 (80-100) fl MCH 27.1 (26-34) pg MCHC 29.5 L (32-36) g/dl RDW 18.7 H (11.5-14.5) % Plt Count 139 L (150-375) k/mm3 MPV 9.8 (7.4-10.4) fl Immature Gran % (Auto) 0.2 (0-0.5) % Neut % (Auto) 79.3 H (45.5-73.1) % Lymph % (Auto) 9.6 L (18.3-44.2) % [place] % (Auto) 8.9 H (2.6-8.5) % Eos % (Auto) 1.7 (0-4.4) % Baso % (Auto) 0.3 (0.2-1.2) % Lymph # (Auto) 0.57 L (0.9-3.2) K/mm3 [place] # (Auto) 0.5 (0.1-0.6) K/mm3 Eos # (Auto) 0.1 (0-0.3) K/mm3 Baso # (Auto) 0.0 (0.0-0.1) K/mm3 Abs Immat Gran (auto) 0.01 (0.00-0.031) K/mm3 Absolute Neuts (auto) 4.7 (1.3-6.7) K/mm3 Absolute Nucleated RBC 0.000 (0.0-0.012) K/mm3 Band Neutrophils % Not Reportable Nucleated RBC % 0.0 (0.0-0.2) % Platelet Estimate Slightly decreased (Adequate) Hypochromasia Occasional Schistocytes None seen PT 14.6 (11.1-14.7) Seconds INR 1.1 Sodium 137 (137-145) mmol/L Potassium 4.2 (3.4-5.0) mmol/L Chloride 104 (98-107) mmol/L Carbon Dioxide 23 (22-30) mmol/L Anion Gap 10 (4-12) mmol/L BUN 11 (7-17) mg/dL Creatinine 0.85 (0.7-1.0) mg/dL Estim Creat Clear Calc 58 ml/min Estimated GFR > 60 (59 - ) Glucose 91 (65-110) mg/dL Lactic Acid 1.6 (0.7-2.0) mmol/L Calcium 9.5 (8.4-10.2) mg/dL Total Bilirubin 0.5 (0.2-1.3) mg/dL AST 24 (14-36) U/L ALT 16 (6-35) U/L Alkaline Phosphatase 107 (38-126) U/L Total Creatine Kinase 44 (30-135) U/L Troponin I < 0.012 (0.000-0.034) ng/mL Total Protein 7.7 (6.3-8.2) g/dL Albumin 4.4 (3.5-5.1) g/dL Urine Color Yellow (Yellow) Urine Appearance Clear (Clear) Urine pH 5.0 (5.0-9.0) Ur Specific [place] 1.006 (1.001-1.035) Urine Protein Negative (Negative) mg/dL Urine Glucose (UA) Negative (Negative) mg/dL Urine Ketones Negative (Negative) mg/dL Ur Blood (Man) Negative (Negative) Urine Nitrate Positive H (Negative) Urine Bilirubin Negative (Negative) Urine Urobilinogen 0.2 (<2.0) mg/dL Leukocyte Esterase Rfl Trace H (Negative) GAYLA/UL Urine RBC 0-2 (0-2) /hpf Urine WBC 0-5 (0-3) /hpf Ur Squamous Epith Cells None seen (Few) /hpf Urine Bacteria 3+ H /hpf Urine Casts 0-2 Salicylates < 1.0 L (2-20) mg/dL Urine Opiates Screen Negative (Negative) Urine Methadone Screen Negative (Negative) Acetaminophen < 10 L (10-30) ug/mL Ur Barbiturates Screen Negative (Negative) Ur Phencyclidine Scrn Negative (Negative) Ur Amphetamine Screen Negative (Negative) U Benzodiazepines Scrn Negative (Negative) Urine Cocaine Screen Negative (Negative) U Cannabinoids Screen Negative (Negative) Imaging Data Attestation: I personally reviewed and interpreted this imaging study as follows: (I reviewed the radiologist's interpretations) Radiologist's impression: Impressions Cervical Spine CT 05/01/25 12:44 IMPRESSION: HEAD: 1. No acute intracranial findings. C-SPINE: 1. No acute fracture. Head CT 05/01/25 12:44 IMPRESSION: HEAD: 1. No acute intracranial findings. C-SPINE: 1. No acute fracture. Chest X-Ray 05/01/25 12:53 IMPRESSION: 1: Small interstitial and air space opacities scattered throughout both lungs. Differential includes but is not limited to a edema or pneumonia. 2. Possible small bilateral pleural effusions. Discharge Plan Discharge Clinical Impression: Sleep deprivation, Acute UTI Fall Qualifiers: Encounter type: initial encounter Qualified Code(s): W19.XXXA - Unspecified fall, initial encounter Abrasion head Qualifiers: Encounter type: initial encounter Qualified Code(s): S00.91XA - Abrasion of unspecified part of head, initial encounter Patient Disposition: Home Condition: Stable Instructions: Antibiotic Form Additional Instructions: Call your project safety manager to reschedule your colonoscopy. Follow-up with your PCP in the next week for re-evaluation. Return to the ED for new or worsening symptoms. Patient Language: Romansh Prescriptions: New cephalexin 500 mg capsule 500 mg PO Q12H 7 Days Qty: 14 0RF No Action metformin 500 mg tablet 500 mg PO BID atorvastatin 80 mg tablet 80 mg PO QPM carvedilol 25 mg tablet 25 mg PO Q12H amitriptyline 75 mg tablet 75 mg PO DAILY Patient Comments: . amlodipine 2.5 mg tablet 2.5 mg PO DAILY omeprazole 40 mg capsule,delayed release(DR/EC) 40 mg PO DAILY liothyronine 5 mcg tablet 5 mcg PO BID lorazepam 1 mg tablet 0.5 mg PO Q12H ezetimibe 10 mg tablet 10 mg PO QPM aripiprazole 2 mg tablet 2 mg PO BID Follow-up/Referrals: UNKNOWN,DOCTOR [Primary Care Provider]
[2025-05-01 13:11] LABS: Cannabinoid Screen Urine Negative (Negative)
[2025-05-01 13:20] LABS: Hematocrit 37.6 % (37.0-47.0); Hemoglobin 11.1 g/dL (12.0-15.0); Immature Granulocyte Percent A 0.2 % (0-0.5); Lymphocytes Absolute Auto 0.57 K/mm3 (0.9-3.2); Mean Corpuscular HGB Conc 29.5 g/dl (32-36); Mean Corpuscular Hemoglobin 27.1 pg (26-34); Mean Corpuscular Volume 91.7 fl (80-100); Nucleated Red Blood Cells Absolute Auto 0.000 K/mm3 (0.0-0.012); Nucleated Red Blood Cells Perc 0.0 % (0.0-0.2); Platelet Count Result 139 k/mm3 (150-375); Red Blood Count 4.10 M/mm3 (4.2-5.4); White Blood Count 5.9 K/mm3 (4.5-10.0)
[2025-05-01 13:31] LABS: Alanine Aminotransferase 16 U/L (6-35); Albumin Level 4.4 g/dL (3.5-5.1); Alkaline Phosphatase 107 U/L (38-126); Anion Gap 10 mmol/L (4-12); Aspartate Amino Transferase 24 U/L (14-36); Bilirubin,Total 0.5 mg/dL (0.2-1.3); Blood Urea Nitrogen 11 mg/dL (7-17); Calcium 9.5 mg/dL (8.4-10.2); Carbon Dioxide 23 mmol/L (22-30); Chloride 104 mmol/L (98-107); Creatine Kinase 44 U/L (30-135); Estimated CRCL calculation 58 ml/min; Estimated Glomerular Filt Rate > 60; Glucose 91 mg/dL (65-110); Potassium 4.2 mmol/L (3.4-5.0); Sodium 137 mmol/L (137-145); Total Protein 7.7 g/dL (6.3-8.2)
[2025-05-01 13:40] LABS: Hypochromasia Occasional; Schistocytes None Seen
[2025-05-01 13:42] LABS: Acetaminophen < 10 ug/mL (10-30); Salicylate < 1.0 mg/dL (2-20); Troponin I < 0.012 ng/mL (0.000-0.034)
[2025-05-01 13:57] LABS: INR 1.1; Prothrombin Time 14.6 Seconds (11.1-14.7)
== END 2025-05-01 14:09 | disposition home or self-care (01) ==
PROVIDERS: Emergency Provider Student in an Organized Health Care Education/Training Program
DX: S00.01XA Abrasion of scalp, initial encounter (principal); N39.0 Urinary tract infection, site not specified; Z72.820 Sleep deprivation; I10 Essential (primary) hypertension; E03.9 Hypothyroidism, unspecified; E78.00 Pure hypercholesterolemia, unspecified; Z95.1 Presence of aortocoronary bypass graft; Z85.048 Personal history of other malignant neoplasm of rectum, rectosigmoid junction, and anus; Z87.891 Personal history of nicotine dependence; Z79.899 Other long term (current) drug therapy; W18.39XA Other fall on same level, initial encounter
CPT/HCPCS: 36415; 70450; 71045; 72125; 80053; 80143; 80179; 80307; 81001; 82550; 82948; 83605; 84484; 85025; 85027; 85610; 87077; 87086; 87186; 99284; J7120

== ENCOUNTER 2025-05-21 09:58 | Outpatient (CLI) | payer MEDICARE, MEDICAID, SELFPAY ==
--- NOTE | ~2025-05-21 | CT_ITS ---
EXAMINATION: CT abdomen pelvis wo con DATE: 05/21/2025 10:17 INDICATION: Anal cancer. TECHNIQUE: Computed tomography (CT) of the abdomen and pelvis was performed without intravenous contrast. Automated exposure control and iterative reconstruction technique were employed. The dose-length product was 973.51 mGy-cm. COMPARISON: CT abdomen and pelvis 10/19/2024, PET/CT 11/07/2024 FINDINGS: The visualized portions of lung bases demonstrate mild atelectasis. No pleural effusion. There is left atrial enlargement of the heart. No pericardial effusion. There are coronary artery calcifications. Median sternotomy wires are noted. The liver, gallbladder, spleen, pancreas, adrenal glands, and kidneys are normal. There is no urolithiasis. There are no dilated loops of bowel. There is a small sliding hiatal hernia. There are no pathologically enlarged lymph nodes. There is no free intraperitoneal fluid. There is a hemangioma in L3 vertebral body. There is severe thoracic and lumbar spondylosis. IMPRESSION: 1. Unremarkable anus. No evidence of metastatic disease. Reviewed, dictated and finalized at location E.
--- OUTSIDE RECORDS SUMMARY | 2025-05-21 10:52 | XMS_ITS | Data Portability ---
Author Organization [facility], [address] [place] [address] Neurology ([place]) Address [address] [address] Care Team Providers Care Manager Skilled Name Role Phone ELENITA BOTELLO Medical Oncologist RAJI SARAVIA Primary Care Provider Assessment Encounter Date Assessment Date Assessment LastModified by Organization Details LastModified Time 11/15/2024 11/15/2024 Constipation -resume Colace, continue daily fiber then as needed laxatives. CMP, CBC, lipid, TSH collected today. Plan f/u here in 3 mo, sooner, of course, if needed. She will be busy with upcoming oncology visits. She has a son who is an RN and sister helping her. Patient voices understanding and agreement with the plan. [email or web address] Not available 11/15/2024 16:14:38 04/23/2025 04/23/2025 Ariadna Cordova is a 69-year-old female who returns for follow-up who I historically saw for abnormal movements that have since resolved in addition to complaints of significant dysequilibrium. On exam, she has no findings that would be concerning at this point for a large fiber peripheral neuropathy despite her recent radiation therapy for colon cancer. At this time, what we have discussed, is that I would recommend proceeding with the MRI of the brain and cervical spine with and without contrast that we discussed obtaining back in September 2024. I will re-order these examinations and we will review the results and proceed from there. If she needs anything in the interim, she understands to call the office. I will see her back in 6 months' time. I personally spent a total of 20 minutes on the patient on this date of service including both [id number] and xic-lfwq-ti-face time excluding any separately reportable services. [email or web address] Not available 04/23/2025 11:19:17 Plan of Treatment Reminders Order Date Submit Date Provider Last Modified By Organization Details Last Modified Time Details Appointments Establish ed Patient 15.EST 2025 01:00P M Dr. Carla Yeh Not available Not available Not available Lab urinalysi s, dipstick [address] [facility] ([place]), [address] [place], [address], 05/03/2025 12:58:44 culture + sensitivi ty, urine 2024 [facility], [address] [place] [address], [id number], 05/04/2025 15:47:51 Referral None recorded. Procedures None recorded. Surgeries None recorded. Imaging MRI, brain, w/wo contrast 2024 [facility], [address], [place], [address], 05/02/2025 15:45:28 MRI, cervical spine, w/wo contrast 2024 025 [facility], [address], [place], [address], 05/02/2025 15:45:28 US, duplex, venous, lower extremity , unilatera l 2024 025 [facility], [address] [place], [address], 04/05/2025 12:08:45 Medication Orders metformin 500 mg tablet 2024 025 [facility] [place], [address], 02/20/2025 12:00:07 amlodipin e 2.5 mg tablet 2024 025 [facility], [address] [place], [address], 04/05/2025 14:28:33 carvedilo l 25 mg tablet 2024 025 [facility], [address] [place], [address], 02/20/2025 12:00:07 atorvasta tin 80 mg tablet 2024 025 [facility], [address] [place], [address], 02/20/2025 12:00:07 ezetimibe 10 mg tablet 2024 025 [facility], [address] [place], [address], 02/20/2025 12:00:05 Colace 100 mg capsule 2024 025 [facility], [address] [place], [address], 02/20/2025 11:42:41 Patient TargetsNo targets recorded. Patient Instructions Encounter Date Encounter Id Patient Instructions Last Modified By Organization Details Last Modified Time 02/20/2025 [id number] Continue current medication regimen. Plan routine follow up in 6 months, sooner if needed. Patient voices understanding of and agreement with plan. [email or web address] Not available 02/20/2025 14:14:14 04/05/2025 [id number] Plan phone f/u i n 2 weeks. Patient voices understanding and agreement with the plan. [email or web address] Not available 04/05/2025 13:11:07 05/03/2025 [id number] Patient & sister voice understanding and agreement with the plan. [email or web address] Not available 05/03/2025 12:14:41 Reason for Referral None Reported. Results Created Date Observation Date Name Description Value Unit Range Abnormal Flag Note LastModifiedBy Organization Detail LastModifiedTime 10/18/19 25 10/17/2024 PT (prot hromb in time) , taylor rstic k, blood PT/INR fingerstick Not Available [facility] [address] [place] [address], [id number], 10/17/2024 12:26:44 10/18/19 25 10/17/2024 PT (prot hromb in time) , taylor rstic k, blood INR 1.3 INR INTER PRETA TION 2.0-3 .0 FOR DEEP VEIN THROM BOSIS PULMO NARY EMBOL ISM ACUTE MYOCA RDIAL INFAR CTION ATRIA L FIBRI LLATI ON 3.0-4 .5 FOR MECHA NICAL HEART VALVE S Not Available [facility] Only [facility] [address] [place] [address], [address], 10/17/2024 12:26:44 10/18/19 25 10/18/2024 hemog lobin A1c + avera ge gluco se, QN, blood hemoglobin A1C Not Available [facility] [address] [place] [address], [address], 10/18/2024 16:01:55 10/18/19 25 10/18/2024 hemog lobin A1c + avera ge gluco se, QN, blood HGB A1C 5.4 %_A1C 4.3 - 5.6 Not Available [facility] [address] [place] [address], [address], 10/18/2024 16:01:55 10/18/19 25 10/18/2024 hemog lobin A1c + avera ge gluco se, QN, blood estimated average glucose 108 mg/dL Not Available [facility] [address] [place] [address], [address], 10/18/2024 16:01:55 10/18/19 25 10/18/2024 CBC CBC Not Available [facility] - [facility] [address] [place] [address], [address], 10/18/2024 16:13:44 10/18/19 25 10/18/2024 CBC WBC 5.9 K/uL 3.8-11 .2 Not Available [facility] - [facility] [address] [place] [address], [address], 10/18/2024 16:13:44 10/18/19 25 10/18/2024 CBC RBC 3.53 M/uL 3.92-5 .10 low Not Available [facility] - [facility] [address] [place] [address], [address], 10/18/2024 16:13:44 10/18/19 25 10/18/2024 CBC HGB 9.1 g/dL 11.8-1 5.3 low Not Available [facility] - [facility] [address] [place] [address], [address], 10/18/2024 16:13:44 10/18/19 25 10/18/2024 CBC HCT 29.9 % 36.5-4 4.8 low Not Available [facility] - [facility] [address] [place] [address], [address], 10/18/2024 16:13:44 10/18/19 25 10/18/2024 CBC MCV 84.7 fL 80.0-9 9.0 Not Available [facility] - [facility] [address] [place] [address], [address], 10/18/2024 16:13:44 10/18/19 25 10/18/2024 CBC MCH 25.8 pg 25.5-3 3.6 Not Available [facility] - [facility] [address] [place] [address], [address], 10/18/2024 16:13:44 10/18/19 25 10/18/2024 CBC MCHC 30.4 g/dL 32.0-3 6.0 low Not Available [facility] - [facility] [address] [place] [address], [address], 10/18/2024 16:13:44 10/18/19 25 10/18/2024 CBC RDW-SD 70.0 fL 35.1 - 46.3 high Not Available [facility] [address] [place] [address], [address], 10/18/2024 16:13:44 10/18/19 25 10/18/2024 CBC plt 311 K/uL 130-40 0 Not Available [facility] [address] [place] [address], [address], 10/18/2024 16:13:44 10/18/19 25 10/18/2024 CBC MPV 10.4 fL 9.3-12 .8 Plate lets appea r adequ ate Sligh t aniso cytos is Sligh t polyc hroma rhiannon Not Available [facility] [address] [place] [address], [address], 10/18/2024 16:13:44 10/24/19 25 10/23/2024 PT (prot hromb in time) , finge rstic k, blood PT/INR fingerstick Not Available [facility] [address] [place] [address], [address], 10/23/2024 11:17:49 10/24/1910/23/2024 PT (prot hromb in time) , finge rstic k, blood INR 1.8 INR INTER PRETA TION 2.0-3 .0 FOR DEEP VEIN THROM BOSIS PULMO NARY EMBOL ISM ACUTE MYOCA RDIAL INFAR CTION ATRIA L FIBRI LLATI ON 3.0-4 .5 FOR MECHA NICAL HEART VALVE S Not Available [facility] [address] [place] [address], [address], 10/23/2024 11:17:49 11/16/19 25 11/16/2024 CBC CBC Not Available [facility] - [facility] [address] [place] [address], [address], 11/16/2024 15:37:46 11/16/19 25 11/16/2024 CBC WBC 5.6 K/uL 3.8-11 .2 Not Available [facility] - [facility] [address] [place] [address], [address], 11/16/2024 15:37:46 11/16/19 25 11/16/2024 CBC RBC 4.20 M/uL 3.92-5 .10 Not Available [facility] - [facility] [address] [place] [address], 39[address], 11/16/2024 15:37:46 11/16/19 25 11/16/2024 CBC HGB 10.5 g/dL 11.8-1 5.3 low Not Available [facility] [address] [place] [address], 880[address], 11/16/2024 15:37:46 11/16/19 25 11/16/2024 CBC HCT 33.9 % 36.5-4 4.8 low Not Available [facility] [address] [place] [address], 26[address], 11/16/2024 15:37:46 11/16/19 25 11/16/2024 CBC MCV 80.7 fL 80.0-9 9.0 Not Available [facility] [address] [place] [address], 455[address], 11/16/2024 15:37:46 11/16/19 25 11/16/2024 CBC MCH 25.0 pg 25.5-3 3.6 low Not Available [facility] [address] [place] [address], 089[address], 11/16/2024 15:37:46 11/16/19 25 11/16/2024 CBC MCHC 31.0 g/dL 32.0-3 6.0 low Not Available [facility] [address] [place] [address], 8[address], 11/16/2024 15:37:46 11/16/19 25 11/16/2024 CBC RDW-SD 59.0 fL 35.1 - 46.3 high Not Available [facility] [address] [place] [address], 7[address], 11/16/2024 15:37:46 11/16/19 25 11/16/2024 CBC plt 218 K/uL 130-40 0 Not Available [facility] [address] [place] [address], [address], 11/16/2024 15:37:46 11/16/19 25 11/16/2024 CBC MPV 10.6 fL 9.3-12 .8 Not Available [facility] [address] [place] [address], 23[address], 11/16/2024 15:37:46 11/16/19 25 11/16/2024 TSH, ultra -sens itive , serum TSH3 0.575 uIU/m L .340-5 .600 Not Available [facility] [address] [place] [address], 58[address], 11/16/2024 16:07:40 11/16/19 25 11/16/2024 lipid panel , serum lipid profile Not Available [facility] [address] [place] [address], 74[address], 11/16/2024 16:12:48 11/16/19 25 11/16/2024 lipid panel , serum cholesterol 127 mg/dL <25-20 0 Not Available [facility] [address] [place] [address], 19210, 11/16/2024 16:12:48 11/16/19 25 11/16/2024 lipid panel , serum triglyceride 133 mg/dL 15-200 Not Available [facility] [address] [place] [address], 37[address], 11/16/2024 16:12:48 11/16/19 25 11/16/2024 lipid panel , serum HDL 63 mg/dL >40 Not Available [facility] [address] [place] [address], 67[address], 11/16/2024 16:12:48 11/16/19 25 11/16/2024 lipid panel , serum LDL, calculated 37 mg/dL 5-100 Not Available [facility] [address] [place] [address], 54336, 11/16/2024 16:12:48 11/16/19 25 11/16/2024 lipid panel , serum VLDL 27 mg/dL 1-40 Not Available [facility] [address] [place] [address], 55640, 11/16/2024 16:12:48 11/16/1911/16/2024 lipid panel , serum chol/HDL 2.0 ratio 0.0-4. 4 Not Available [facility] [address] [place] [address], 59324, 11/16/2024 16:12:48 11/16/1911/16/2024 CMP, serum or plasm a comp. met. panel Not Available [facility] [address] [place] [address], 82810, 11/16/2024 16:35:18 11/16/19 25 11/16/2024 CMP, serum or plasm a sodium 142 mmol/ L 136-14 6 Not Available [facility] [address] [place] [address], 094[address], 11/16/2024 16:35:18 11/16/1911/16/2024 CMP, serum or plasm a potassium 4.2 mmol/ L 3.5-5. 1 Not Available [facility] [address] [place] [address], 18740, 11/16/2024 16:35:18 11/16/19 25 11/16/2024 CMP, serum or plasm a chloride 108 mmol/ L 98-110 Not Available [facility] [address] [place] [address], 61063, 11/16/2024 16:35:18 11/16/19 25 11/16/2024 CMP, serum or plasm a CO2 25 mEq/L 20-32 Not Available [facility] [address] [place] [address], 88653, 11/16/2024 16:35:18 11/16/19 25 11/16/2024 CMP, serum or plasm a anion gap 13 mmol/ L 10-22 Not Available [facility] [address] [place] [address], 92751, 11/16/2024 16:35:18 11/16/19 25 11/16/2024 CMP, serum or plasm a glucose 174 mg/dL 70-100 high Not Available [facility], [facility] - [facility] [address] [place] [address], 71881, 11/16/2024 16:35:18 11/16/19 25 11/16/2024 CMP, serum or plasm a calcium 9.5 mg/dL 8.4-10 .4 Not Available [facility] [address] [place] [address], 90052, 11/16/2024 16:35:18 11/16/19 25 11/16/2024 CMP, serum or plasm a total protein 6.7 g/dL 6.4-8. 3 Not Available [facility] [address] [place] [address], 56822, 11/16/2024 16:35:18 11/16/19 25 11/16/2024 CMP, serum or plasm a albumin 4.5 g/dL 3.5-5. 3 Not Available [facility] [address] [place] [address], 26458, 11/16/2024 16:35:18 11/16/19 25 11/16/2024 CMP, serum or plasm a ALP 92 U/L 44 - 127 Not Available [facility] [address] [place] [address], 33103, 11/16/2024 16:35:18 11/16/19 25 11/16/2024 CMP, serum or plasm a AST (SGOT) 24 U/L 10-40 Not Available [facility] [address] [place] [address], 07466, 11/16/2024 16:35:18 11/16/19 25 11/16/2024 CMP, serum or plasm a total bilirubin 0.2 mg/dL 0.2-1. 2 Not Available [facility] [address] [place] [address], 08977, 11/16/2024 16:35:18 11/16/19 25 11/16/2024 CMP, serum or plasm a ALT (SGPT) 18 U/L 8-35 Not Available [facility] - [facility] [address] [place] [address], 92693, 11/16/2024 16:35:18 11/16/19 25 11/16/2024 CMP, serum or plasm a BUN 13 mg/dL 7-21 Not Available [facility] [address] [place] [address], 06160, 11/16/2024 16:35:18 11/16/19 25 11/16/2024 CMP, serum or plasm a creatinine 0.7 mg/dL 0.7-1. 3 Not Available [facility] - [facility] [address] [place] [address], 89995, 11/16/2024 16:35:18 11/16/19 25 11/16/2024 CMP, serum or plasm a CKD-epi GFR 95 eGFR was calcu lated using the 2020 CKD-E PI equat ion. (Chair Caner salima Kidne y Disea se has an eGFR less than 60 mL/mi n/1.7 3mm for a perio d of three month s or more. ) This calcu latio n has not been valid ated for patie nt ages <18 or >90 years old. Not Available [facility] [address] [place] [address], 00302, 11/16/2024 16:35:18 05/03/2005/05/2025 cultu re + sensi tivit y, urine urine culture and sens. MARGOTH L URINE After overn ight incub ation <5,00 0 CFU/m L Mixed uroge nital nubia isola kell. No addit ional growt h after two night s incub ation . Not Available [facility] [address] [place] [address], 14357, 05/05/2025 09:41:06 05/03/2005/04/2025 cultu re + sensi tivit y, urine urine culture and sens. PREL IM URINE After overn ight incub ation <5,00 0 CFU/m L Mixed uroge nital nubia isola kell. Not Available [facility] [address] [place] [address], 39290, 05/04/2025 15:47:51 05/03/2005/03/2025 urina lysis , dipst ick Protein Negati ve Not Available [facility] ([facility]) [facility] [place] [place], [address], 05/03/2025 12:15:52 05/03/20 25 05/03/2025 urina lysis , dipst ick Glucose Negati ve Not Available [facility] ([place]) [address] [place], [address], 05/03/2025 12:15:52 05/03/20 25 05/03/2025 urina lysis , dipst ick Ketones Negati ve Not Available [facility] ([place]) [address] [place], [address], 05/03/2025 12:15:52 05/03/20 25 05/03/2025 urina lysis , dipst ick Bilirubin Negati ve Not Available [facility] ([place]) [address] [place], [address], 05/03/2025 12:15:52 05/03/2005/03/2025 urina lysis , dipst ick Urobilinogen 0.2 Not Available [facility] ([facility]) [address] [place], [address], 05/03/2025 12:15:52 05/03/2005/03/2025 urina lysis , dipst ick Blood Negati ve Not Available [facility] ([place]) [address] [place], [address], 05/03/2025 12:15:52 05/03/2005/03/2025 urina lysis , dipst ick Leukocytes Trace Not Available [facility] ([place]) [address] [place], [address], 05/03/2025 12:15:52 05/03/20 25 05/03/2025 urina lysis , dipst ick Nitrate Negati ve Not Available [facility] ([place]) [address] [place], [address], 05/03/2025 12:15:52 05/03/2005/03/2025 urina lysis , dipst ick Specific [place] 1.015 Not Available [facility] ([place]) [address] [place], [address], 05/03/2025 12:15:52 05/03/2005/03/2025 urina lysis , dipst ick pH 5.5 Not Available [facility] ([place]) [address] [place], [address], 05/03/2025 12:15:52 05/03/20 25 05/03/2025 urina lysis , dipst ick Color YELLOW Not Available [facility] ([place]) [address] [facility], [place], [address], 05/03/2025 12:15:52 05/03/2005/03/2025 urina lysis , dipst ick Clarity CLEAR Not Available [facility] ([place]) [address] [place], [address], 05/03/2025 12:15:52 10/25/19 25 10/19/2024 CT, abdom en + pelvi s, w/ contr ast No observ ation record ed. [address] [facility] [address] [place] [address] [address], [place], [address], 10/26/2024 18:56:04 11/16/19 25 11/07/2024 PET, skull base to mid-t high No observ ation record ed. [place] [id number], [place], [address], 11/16/2024 09:47:59 12/22/19 25 MRI, cervi scarlett spine , w/wo contr ast No observ ation record ed. [email or web address] [facility] [address], [place], [address], 12/28/2024 16:30:18 12/22/19 25 MRI, brain + brain stem, w/wo contr ast No observ ation record ed. [email or web address] [facility] [address], [place], [address], 12/29/2024 08:44:32 02/10/20 25 08/17/2019 imagi ng/di agnos tic resul t No observ ation record ed. [email or web address] Not Available 0 02/09/2025 03:20:52 02/10/20 25 08/17/2019 imagi ng/di agnos tic resul t No observ ation record ed. [email or web address] Available 0 02/09/2025 03:20:53 02/10/20 25 09/18/2019 imagi ng/di agnos tic resul t No observ ation record ed. [email or web address] Available 0 02/09/2025 03:21:00 02/10/20 25 11/11/2017 imagi ng/di agnos tic resul t No observ ation record ed. [email or web address] Not Available 0 02/09/2025 03:21:14 02/10/20 25 11/30/2017 imagi ng/di agnos tic resul t No observ ation record ed. [email or web address] Not Available 0 02/09/2025 03:21:20 02/10/20 25 12/01/2018 imagi ng/di agnos tic resul t No observ ation record ed. [email or web address] Available 0 02/09/2025 03:21:20 02/10/20 25 12/15/2018 imagi ng/di agnos tic resul t No observ ation record ed. [email or web address] Available 0 02/09/2025 03:21:24 02/10/20 25 12/26/2018 imagi ng/di agnos tic resul t No observ ation record ed. [email or web address] Available 0 02/09/2025 03:21:25 02/10/20 25 12/28/2018 imagi ng/di agnos tic resul t No observ ation record ed. [email or web address] Available 0 02/09/2025 03:21:29 02/10/20 25 01/30/2020 imagi ng/di agnos tic resul t No observ ation record ed. [email or web address] Available 0 02/09/2025 03:21:35 02/10/20 25 02/20/2019 imagi ng/di agnos tic resul t No observ ation record ed. [email or web address] Available 0 02/09/2025 03:21:43 02/10/20 25 03/05/2020 imagi ng/di agnos tic resul t No observ ation record ed. [email or web address] Available 0 02/09/2025 03:21:50 02/10/20 25 03/05/2020 imagi ng/di agnos tic resul t No observ ation record ed. [email or web address] Available 0 02/09/2025 03:21:50 02/10/20 25 05/01/2020 imagi ng/di agnos tic resul t No observ ation record ed. [email or web address] Available 0 02/09/2025 03:22:10 02/10/2007/25/2019 imagi ng/di agnos tic resul t No observ ation record ed. [email or web address] Available 0 02/09/2025 03:22:31 02/10/2007/25/2019 imagi ng/di agnos tic resul t No observ ation record ed. [email or web address] Available 0 02/09/2025 03:22:31 02/10/2008/04/2019 imagi ng/di agnos tic resul t No observ ation record ed. [email or web address] Not Available 0 02/09/2025 03:22:34 02/10/20 25 08/08/2019 imagi ng/di agnos tic resul t No observ ation record ed. [email or web address] Not Available 0 02/09/2025 03:22:35 02/10/2008/08/2019 imagi ng/di agnos tic resul t No observ ation record ed. [email or web address] Not Available 0 02/09/2025 03:22:36 04/05/2004/05/2025 US, duple x, venou s, lower extre mity, unila teral No observ ation record ed. [facility] [address] [place], [address], 04/05/2025 13:13:47 04/18/2004/18/2025 MAMMO , scree solo, digit al, bilat eral No observ ation record ed. [facility] [address] [place], [address], 04/20/2025 13:50:29 Result Notes None recorded. Problems Name Problem SNOMED Code Status Onset Date Resolution Date Notes Provider Name and Address Organization Details Recorded Time Post-dis charge follow-u p [id number] Active admitted from office 09/21/24- 09/26/24 for rectal bleeding / anemia. Hb reid 8.2. Gen/surg consulte d. Rec'd OP f/u & HC supposit ory & HOLD Coumadin . 09/28/24 pt reports she resumed Coumadin . Then, Subhash is ER visit for fall / difficul ty getting up 10/02/24 (Hb 8.3 stable there, d/c home). Then return 10/04/24, transfer to [facility] ([facility]) for suspecte d GI bleed where EGD unimpres sive (chronic gastriti s), but colonosc opy biopsy identifi ed Anal Carcinom a. May need outpt colorect al referral (?) post-dis charge. Raji Saravia MD [address] [place] [address], [address] , [facility] 5 11:36:58 Abnormal movement [id number] Active radha-bal istic type in . Neurolog y onboard (where-i n pt reported sx's perhaps resolved x2mo). Raji Saravia MD [address] [place] [address], [address] , [facility] 5 11:45:05 Abnormal gait 35154611 Active onset perhaps mid . Neurolog y onboard . Raji Saravia MD [address] [place] [address], [address] , [facility] 5 11:44:32 Carcinom a in situ of anus [id number] Active on bx at [facility] 10/11/24. Heme-Onc onboard ([facility] in [facility] ). 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 Oncology tx incl radiatio n/ chemo (started 12/04/24) . Raji Saravia MD [address] [place] [address], [address] , [facility] 5 12:06:18 Disorder of tendon 25632514 Completed 01/21/2024 History of Achilles tendonos is of right lower extremit y right calcanea l spur resectio n Achilles tenoplas ty 3 Karuna Lebron null, [facility] 4 09:24:09 Adrenal adenoma [id number] Completed incident al finding on lung CT, left 1.7cm. MRI confirme d aderenal adenoma. Raji Saravia MD [address] [place] [address], [address] , [facility] 4 07:03:17 Screenin g colonosc opy Active s/p repeat colonosc opy (while inpt at [facility] ) . Pending again (after a failed attempt d/t inaccura te prep ) - see also Anal Carcinom a. Cyndi Farris APRN, EDUCATIONAL PROGRAMMING DIRECTOR [address] [place] [address], [address] , [facility] 5 12:19:54 History of divertic ulitis [id number] 9100 Completed 05/2018, persumed divertic ulitis with mild LLQ pain tx with Augmenti n and again 11/2018. Raji Saravia MD [address] [place] [address], [address] , [facility] 4 07:06:47 Hepatiti s C screenin g Completed non-reac tive . Raji Saravia MD [address] [place] [address], [address] , [facility] 4 07:06:38 Osteoart hritis of knee [id number] Active left, s/p Euflexxa injxn series 1 (p pain refrctry to steroid injxns & PT). Synvis injxn then by Ortho 04/18/24. Cyndi Farris APRN, EDUCATIONAL PROGRAMMING DIRECTOR [address] [place] [address], [phone] , [facility] 4 11:34:43 Thromboe mbolic disorder [id number] Active Dx per [facility] Mc Fall [...] of . Raji Saravia MD [address] [facility], [place], [phone] , [facility] 5 17:02:29 Deep venous thrombos is of upper extremit y [id number] Completed L. arm 04/2011 Raji Saravia MD [address] [facility], [place], [phone] , [facility] 4 07:06:24 Mixed anxiety and depressi ve disorder 919733839 Active f/b [facility] Psychiat ry. Raji Saravia MD [address] [place] [address], [address] , [facility] 4 07:05:16 Anemia 839757784 Active 2023 Hb 10.9 on --> nmL [...] 10.5 - RBC Folate nmL . Cyndi Farris, CLOTH BEAMER, EDUCATIONAL PROGRAMMING DIRECTOR [address] [place] [address], [address] , [facility] 5 22:21:21 Coronary arterios clerosis 41160494 Active 2023 dx on cath 2015 (w/u exertion al dyspnea) , & CABG done 02/2016. Cyndi Farris APRN, EDUCATIONAL PROGRAMMING DIRECTOR [address] [place] [address], [address] , [facility] 4 12:33:14 Chronic constipa tion 893001976 Active 2023 Lactulos e nightly rx'd by Dr. Tinsley, who then added Amitiza (along w/ fiber/ topical HC for bleeding hemorrho ids). Amtiza ineffect mavis. then Modest control w/ return to daily docusate , fiber. Also see anal CA. - prior hx Trial of Linzess ordered by Dr. Alvina Farris APRN, EDUCATIONAL PROGRAMMING DIRECTOR [address] [place] [address], [address] , [facility] 5 16:15:18 Steatoti c liver disease 163179358 Active 2023 noted on MRI abd (for adrenal adenoma) . Cyndi Farris APRN, EDUCATIONAL PROGRAMMING DIRECTOR [address] [place] [address], [phone] , [facility] 4 12:34:25 Screenin g for malignan t neoplasm of cervix Completed 202301/22/2024 9 nmL cytology and Neg HPV (no further Pap screenin g indicate d after age 65). Cyndi Farris APRN, EDUCATIONAL PROGRAMMING DIRECTOR [address] [place] [address], [address] , [facility] 4 12:35:17 Hyperlip idemia 97263380 Active 2023 Statin indicate d for CAD. Tx atorvast atin & ezetimib e - LDL 37 (nmL LFTs) Cyndi Farris APRN, EDUCATIONAL PROGRAMMING DIRECTOR [address] [place] [address], [address] , [facility] 5 22:20:09 Essentia l hyperten katelyn 33595871 Active 2023 Goal < 140/90 per JNC8 for concurre nt DM. Controll ed on amlodipi ne and carvedil ol. 04/05/25 amlodipi ne stopped 2/2 BLE. If BP not at goal on solo carvedil ol, plan to add ARB. - HCTZ stopped in 2012 d/t fatigue and hypotens ion. 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 TSH 0.5 Cyndi Farris APRN, EDUCATIONAL PROGRAMMING DIRECTOR [address] [place] [address], [address] , [facility] 5 22:21:42 Screenin g for malignan t neoplasm of lung Active 2023 benign appearin g lung nodules on CT, repeat 1 yr. stable, no concerni ng lesions noted on chest CT in the ER (nor on PET scan ). Plan repeat LDCT . Cyndi Farris APRN, EDUCATIONAL PROGRAMMING DIRECTOR [address] [place] [address], [address] , [facility] 5 11:32:49 Obesity 796098502 Active 2023 Ozempic added. on hold d/t constipa tion / newly dx'd anal ca. Cyndi Farris APRN, EDUCATIONAL PROGRAMMING DIRECTOR [address] [place] [address], [address] , [facility] 5 13:30:48 Tear of meniscus of knee 631890207 Active 2023 on MRI 02/2021. Cyndi Farris APRN, EDUCATIONAL PROGRAMMING DIRECTOR [address] , [place], [address] , [facility] 4 12:40:37 Thyroid nodule 771257553 Active 10/2020 Incident ally on carotid u/s (cardiol ogy). Then, Thyroid u/s: multiple bilatera l & isthmus nodules, B9 findings . several stable/ smaller nodules, one rt nodule increase d from 1.3cm to 1.6 cm, stable, Rad's recommen ded repeat u/s again in 1 year. Cyndi Farris APRN, EDUCATIONAL PROGRAMMING DIRECTOR [address] [facility] [place], [address] , [facility] 5 16:42:36 Tibialis posterio r tendinit is 654495259 Completed 202301/22/2024 hx repair of left achilles tendon 04/28/17. Cyndi Farris APRN, EDUCATIONAL PROGRAMMING DIRECTOR [address] , [place], [address] , [facility] 4 12:43:26 Diabetic retinal eye exam Active 2023 no retinopa thy detected . Cyndi Farris APRN, EDUCATIONAL PROGRAMMING DIRECTOR [address] , [place], [address] , [facility] 4 11:09:06 Screenin g mammogra phy Active 2023 nmL HH Cyndi Farris APRN, EDUCATIONAL PROGRAMMING DIRECTOR [address] , [place], [address] , [facility] 5 13:19:53 Bleeding hemorrho ids 95546883 Active 2024 Cyndi Farris APRN, EDUCATIONAL PROGRAMMING DIRECTOR [address] , [place], [address] , [facility] 5 12:27:37 Type 2 diabetes mellitus without complica tion 216208507 Active 2024 dx by A1c >6.5 x2 in 2014. [...] and instance of UTI). Cyndi Farris APRN, EDUCATIONAL PROGRAMMING DIRECTOR [address] [place] [address], [phone] , [facility] 5 14:15:34 Retinopa thy due to type 2 diabetes mellitus 436397944 Active 2024 optometr y planning 6 mo f/u. Cyndi Farris APRN, EDUCATIONAL PROGRAMMING DIRECTOR [address] [place] [address], [address] , [facility] 5 11:47:32 Swelling of left lower limb 557704329 Active 2024 Ruthie Combs [facility], [facility] 5 10:42:00 Bilatera l lower limb edema 527715581 Active 2024 likely 2/2 CCB. Neg DVT US on left. Cyndi Farris APRN, EDUCATIONAL PROGRAMMING DIRECTOR [address] [place] [address], [address] , [facility] 5 13:13:01 Recurren t falls 118158359 Active 2024 Carla Yeh MD [address] [place] [address], [address] , [facility] 5 10:37:24 Acute urinary tract infectio n 309277719 Active 2024 dx'd at [place], [place] Keflex (cx pending in office). Cyndi Farris APRN, EDUCATIONAL PROGRAMMING DIRECTOR [address] [place] [address], [address] , [facility] 12:18:40 Acute diarrhea 535946827 Completed 202405/03/2025 Cyndi Farris APRN, EDUCATIONAL PROGRAMMING DIRECTOR [address] [place] [address], [address] , [facility] 12:18:13 Problem Notes Documentation Provider Name and Address Organization Details Recorded Time Diabetic Eye Exam* : This document (1 ) was received from [email or web address] on 03/07/2025 through Direct Message along with the following message body content: You have received a 2 page fax at 03/07/2025 1:46:38 PM. * The Caller-ID for this fax is [phone]. If you have any questions regarding this message or your service contact Corporate Support: [place] Email: [email or web address] Phone: or Email: [email or web address] Phones: [phone] Thank you for using the [employer] service! Cyndi Farris APRN, EDUCATIONAL PROGRAMMING DIRECTOR [address] [place] [address], [phone], [facility] 03/09/2025 11:47:45 Procedures Surgical History Date Name Laterality Status Provider Name and Address Organization Details Recorded Time 08/09/19 16 open heart surgery completed [facility] 05/03/2024 14:59:17 [facility] cataract [facility] 09:25:54 surgical procedure completed [facility] 05/03/2024 14:59:53 Imaging Results None recorded. Procedure Notes None recorded. Medical Equipment None Reported. Allergies Allergen ID Allergen Name Allergen Category Reaction Reaction Severity Criticality Documentation Date Start Date Code Code System Note Provider Name and Address Organization Details Recorded Time 281747 iodine-so dium iodide medicatio n hives Not available Not available 09/06/20232011 React ion: Hives ; Not Available [facility] 4 21:57:00 452055 Iodinated contrast media (substanc e) medicatio n hives Not available Not available 09/06/20232011 18248 2004 SNOMED React ion: Hives ; Not Available [facility] 4 21:57:00 Medications Name Sig Start Date Stop [...] TAKE 1 TABLET BY MOUTH ONCE DAILY 04/05 completed Not Available Not Available Not Available acetamino phen 300 mg-codein e 30 [...] 8 HOURS NEEDED FOR NAUSEA OR VOMITING 02/20 completed Not Available Not Available Not Available warfarin 4 mg tablet take 4mg tab on wed and wednesday only 09/04 completed Not Available Not Available Not Available warfarin 3 mg tablet ALTERNAT E TAKING 3MG AND 3.5MG ONCE DAILY, START 3.5MG TONIGHT (WEDNESDAY ) 10/26 completed Not Available Not Available Not Available Optifreeze Ultra Test strips USE 1 STRIP TO [...] TAKE 1 CAPSULE BY MOUTH TWICE DAILY 02/20 completed Not Available Not Available Not Available hydrocort isone 2.5 % topical cream APPLY CREAM TO AFFECTED AREA TWICE DAILY 04/05 completed Not Available Not Available Not Available lorazepam 1 mg tablet TAKE 1 TABLET BY MOUTH TWICE DAILY (MAY TAKE 1/2 TABLET ONCE DAILY NEEDED FOR ANXIETY) active Not Available Not Available No t [...] WHEEZING AND FOR SHORTNES S OF BREATH 02/20 completed Not Available Not Available Not Available amitripty line 100 mg tablet TAKE [...] TAKE 1 TABLET BY MOUTH ONCE DAILY 02/20 completed Not Available Not Available Not Available Linzess 145 mcg capsule TAKE 1 [...] in Arterial blood by Pulse oximetry Systolic And Diastolic Provider Name and Address Organization Details Last Updated DateTime 5 157.48 cm 34.3 kg/m2 74245.9 3 g 98.5 [degF] 99 /min 96 % 96 % 122/70 mm[Hg] Nicole Casey [facility] 5 15:08:55 Date Recorded Body height Body mass index (BMI) Body weight Heart rate Oxygen saturation Oxygen saturation in Arterial blood by Pulse oximetry Systolic And Diastolic Provider Name and Address Organization Details Last Updated DateTime 5 157.48 cm 34.8 kg/m2 31821.5 5 g 93 /min 95 % 95 % 146/74 mm[Hg] [facility] 5 11:40:48 Date Recorded Body height Body mass index (BMI) Body weight Body temperature Oxygen saturation Oxygen saturation in Arterial blood by Pulse oximetry Heart rate Systolic And Diastolic Provider Name and Address Organization Details Last Updated DateTime 5 157.48 cm 34.8 kg/m2 54637.2 5 g 98.9 [degF] 97 % 97 % 87 /min 110/60 mm[Hg] Ruthie Combs [facility] 5 10:26:59 Date Recorded Body height Body mass index (BMI) Body weight Heart rate Oxygen saturation Oxygen saturation in Arterial blood by Pulse oximetry Systolic And Diastolic Provider Name and Address Organization Details Last Updated DateTime 5 157.48 cm 35 kg/m2 73818.2 2 g 79 /min 96 % 96 % 150/75 mm[Hg] Sandra Simpson [facility] 5 09:55:59 Date Recorded Body height Body mass index (BMI) Body weight Body temperature Heart rate Oxygen saturation Oxygen saturation in Arterial blood by Pulse oximetry Systolic And Diastolic Provider Name and Address Organization Details Last Updated DateTime 5 157.48 cm 34 kg/m2 96523.1 8 g 98.2 [degF] 83 /min 93 % 93 % 112/80 mm[Hg] Deysi [facility] 5 11:39:12 Social History Question Answer Notes LastModified by Organizat ion Details LastModified Time Tobacco Smoking Status Former Smoker quit 02/2025 Ruthie Combs [facility] 04/05/2025 10:24:31 When Did You Quit Smoking? 1-5yearssin luis alberto horn Quit 02/2025 [email or web address] Information not available 04/05/2025 How Many Packs Per Day (PPD)? 0.5 Information not available 04/18/2024 How Long Have You Smoked? 45 Years Information not available 04/18/2024 What Was The Date Of Your Most Recent Tobacco Screening? 04/05/2025 [email or web address] Information not available 04/05/2025 Sex: Unknown Functional Status None recorded. Mental [...] Organization Details Recorded Time Tdap 2 completed Deysi Ortiz [facility] 02/20/2025 11:41:12 Influenza, split virus, quadrivalent, preservative 0 completed Karuna [facility] 09/25/2024 12:19:51 Influenza, recombinant, quadrivalent, PF 2 completed [facility] 09/25/2024 12:19:51 COVID-19, mRNA, LNP-S, PF, 100 mcg/0.5mL dose or 50 mcg/0.25mL dose 1 completed Karuna [facility] 09/25/2024 12:19:51 COVID-19, mRNA, LNP-S, PF, 100 mcg/0.5mL dose or 50 mcg/0.25mL dose 1 completed [facility] 09/25/2024 12:19:51 COVID-19, mRNA, LNP-S, PF, 100 mcg/0.5mL dose or 50 mcg/0.25mL dose 1 completed [facility] 09/25/2024 12:19:51 COVID-19, mRNA, LNP-S, bivalent, PF, 30 mcg/0.3 mL dose 2 completed [facility] 09/25/2024 12:19:51 Past Encounters Encounter ID Performer Location Encounter Start Date Encounter Closed Date Diagnosis/Indication Diagnosis SNOMED-CT Code Diagnosis ICD10 Code Diagnosis IMO Codes Diagnosis Note [id number] Cyndi Farris APRN, CNP [facility]) [address] [place] [address] 01/24/2024 11:19:56 01/24/2024 12:21:34 Type 2 diabetes mellitus without complication 526355173 E11.9 Anemia 389123733 D64.9 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 Hypothyroidism 01414424 E03.9 [id number] Cyndi Farris APRN [facility]) [address] [place] [address] 04/18/2024 14:02:48 04/18/2024 14:58:13 Acute urinary tract infection 307627256 N39.0 [id number] Cyndi Farris APRN [facility]) [address] [place] [address] 05/03/2024 14:27:06 05/03/2024 15:42:20 Type 2 diabetes mellitus without complication 248134103 E11.9 Acute urin iván tract infection 336742997 N39.0 Type 2 tiffanie betes mellitus 32674096 E11.9 [id number] Cyndi Farris APRN, CNP [facility]) [address] [place] [address] 08/23/2024 11:48:17 08/23/2024 12:36:03 Type 2 diabetes mellitus without complication 570096743 E11.9 Bleeding hemorrhoids 515 38256 K64.9 4319 Involuntary movement 267 277492 R25.9 2952766 Hypertensive disorder 38 995839 I10 Hyperlipidemia 84372978 E78.5 Coronary arteriosclerosis 40913119 I25.10 Thromboemb olic disorder 771418898 I74.9 [id number] Carla Yeh MD [facility] ([place]) [address] [place] [address] 09/29/2024 09:53:14 09/29/2024 11:49:32 Abnormal movement 770552694 R25.9 53600942 Abnormal gait 26585627 R 26.81 012132 [id number] Cyndi Farris APRN, VARSHA [facility] ([place]) [address] [place] [address] 09/25/2024 12:10:54 09/25/2024 13:03:15 Bleeding hemorrhoids 37016493 K64.9 4319 Anemia 345762317 D64.9 Thromboemb olic disorder 552038511 I74.9 [id number] Cyndi Farris APRN, VARSHA [facility] ([place]) [address] [place] [address] 10/17/2024 11:56:17 10/17/2024 13:02:02 Type 2 diabetes mellitus 37979735 E11.9 Anemia 082247284 D64.9 Chronic constipation 236 046725 K59.09 Thromboemb olic disorder 115359366 I74.9 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3 54394 [id number] Cyndi Farris APRN, VARSHA [facility] ([place]) [address] [place] [address] 02/20/2025 11:26:01 02/20/2025 12:04:24 Hyperlipidemia 44223670 E78.5 Continue atorvastat in / ezetimibe. LDL 37 in November. Coronary arteriosclerosis 06440736 I25.10 Type 2 tiffanie betes mellitus without complication 308430402 E11.9 A1c due in Apr. Order printed for Alva to take when she gets her next blood draw w/ oncology, which is at least every 3 mo. Last A1c 5.7. Continue metformin. Essential hypertension 47361713 I10 Well controlled w/ amlodipine & carvedilol (concurren t CAD). I suspect her lower leg swelling is from having inadverten tly increased her amlodipine to BID. She is back to once daily. If swelling doesn't improve, consider switch to AWILDA or ARB. [id number] Cyndi Farris APRN, VARSHA [facility]) [address] [place] [address] 04/05/2025 10:15:45 04/05/2025 10:46:38 Swelling of left lower limb 124861023 M79.89 09325293 Given asymmetry in edema, hx or thromboemb olism, we obtained US, which, fortunatel y, was negative for DVT. Bilateral lower limb edema 643644979 R60.0 879800 Suspect from amlodipine . Her BP today is low 110/60, so we are just going to stop it for now. She is on carvedilol 25mg BID, also (hx CAD / CABG 2015). Essential hypertension 96470624 I10 Previously controlled w/ amlodipine & carvedilol (concurren t CAD). As above, we are going to DC amlodipine 2/2 edema. If BP increasing , would likely add AWILDA/ ARB (in setting of DM), but hesitate at this point, as I do not want to cause orthostasi s (as she already has increased fall risk related to mobility). [id number] Carla Yeh MD [facility] ([place]) [address] [place] [address] 04/23/2025 09:48:29 04/23/2025 10:43:12 Abnormal gait 03428460 R26.81 099747 Abnormal movement 579961 002 R25.9 83129853 Recurrent falls 51789707 2 R29.6 4314081 [id number] Cyndi Farris APRN, [facility] ([place]) [address] [place] [address] 05/03/2025 11:29:14 05/03/2025 12:19:43 Acute urinary tract infection 530594518 N39.0 [id number] Dx'd at [facility]. Alva has started Keflex. We repeated dip & will culture. Acute diarrhea 487884211 R19.7 75505 Acute diarrhea during colonoscop y prep, started too late in the night, resulting in being up all night, which led to general weakness and diarrhea ongoing into the morning of procedure. Her colonoscop y is reschedule d for late May. I spoke to Alva and her sister, who will stay with her the day/ night of the next prep to ensure she does it correctly and has someone there. Health Concerns Section Related Observation LastModified by Organization Detai ls LastModified Time None Recorded Concern Status LastModified by Organization Details LastModified Time None Recorded Advance Directives Directive None Recorded Payers Insurance Date Sequence Insurance Name Policy Number Policy [place] Covered Member ID De [place] Member ID Guarantor Name 05/03/2025 1 [place] Ariadna Giraldo [id number] Ariadna Giraldo 05/03/2025 2 [place] [employer] [place] [employer] Ariadna Giraldo [id number] Ariadna Giraldo 05/03/2025 [place] - [facility] (MEDICARE) Ariadna Giraldo [id number] Ariadna Camposaide 05/03/2025 [place] [facility] - [facility] (MEDICARE) Ariadna Giraldo [id number] Ariadna Giraldo Notes Date Note Type Note Provider Name and Address Organization Details Recorded Time 11/15/2024 text/html Follow up-since out last visit, Alva stopped taking Colace, but is still taking fiber. She is struggling with constipation again, no bleeding. Rectal cancer-yesterday she found out her lymph node biopsy was + for cancer. 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 Abnormal movement/ falls-still planning to do work up rec'd by neurology, but plans to probably wait until she has at least started cancer treatments. Cyndi Farris APRN, EDUCATIONAL PROGRAMMING DIRECTOR [address] [place] [address], [phone], [facility] 11/16/2024 10:26:39 02/20/2025 text/html Diabetes-managed w/ metformin-eye dr jacobo scheduled this month, so goes yearly in February Hyperlipidemia-manag ed on atorvastatin and ezetimibe-no concerns. HTN-managed on carvedilol / amlodipine-she took amlodipine BID on accident for a couple of months. Realized it when she ran out of it before her other meds. She has had increased leg swelling since about that time. Back to once daily about a week ago.-no CP, no SOB GERD-well controlled w/ omeprazol.e Cyndi Farris APRN, EDUCATIONAL PROGRAMMING DIRECTOR [address] [place] [address], [phone], [facility] 02/20/2025 14:17:12 04/05/2025 text/html 1) bilateral leg swelling-left is worse than right leg-been going on a couple months-the back of her left calf gets hard as the day goes on-no redness noted Cyndi Farris APRN, EDUCATIONAL PROGRAMMING DIRECTOR [address] [place] [address], [phone], [facility] 04/11/2025 12:24:15 04/23/2025 text/html Ariadna Giraldo is a 69-year-old female who returns for follow-up for general sensations of dysequilibrium and recurrent falls. I actually saw her back in September of 2024 for this complaint. She does not recall our consultation at that point. Unfortunately, this was complicated in that she had a diagnosis of colon cancer following our consultation and deferred a neurologic workup at that point. At that time, she was having some abnormal movements that had resolved within the right upper and right lower extremity. My concern is that it could have been related to a myoclonic hemiballismus type movement. We had discussed getting an MRI of the brain in addition to the cervical spine with and without contrast, but she never proceeded with these examinations. She really has not had much change in symptoms. She does not report any recurrent movements within the right upper or right lower extremity since I saw her. She had remained long duration on amitriptyline and Aripiprazole and since this was long duration, I did not think at the time that this was correlated. She continues to report general sensations of instability with recurrent falls. She had a fall this week that was fairly severe. She has had approximately 16 falls since the beginning of 2024. She does have what she describes as odom-lq-jsuj arthritis within the left knee. Historically on the x-ray, this looked to be reported as moderate degenerative changes. She is hoping she can get an injection upcoming. She does not report any additional problems such as numbness within the feet. The lab work we obtained and reviewed included a vitamin B12, copper and zinc, serum ceruloplasmin and ammonia, and a hepatic function panel. Carla Yeh MD [facility] [address], [address], [facility] 04/27/2025 13:18:58 05/03/2025 text/html ER follow up-Alva was supposed to have a colonoscopy tomorrow. She started the prep on Wednesday night. She was a little confused by the instructions. Didn't start until 11pm and then was up all night having diarrhea. Diarrhea continued on the way to the hospital (went in the car). She was weak and confused, had fallen. They cancelled the colonoscopy and sent her to the ER. In the ER, labs were normal, she was diagnosed w/ a UTI. Discharged home. Today she feels much better. She thinks the combo of prep and no sleep caused all of this. Cyndi Farris, CLOTH BEAMER, EDUCATIONAL PROGRAMMING DIRECTOR [address] [facility], [place], [address], [facility] 05/03/2025 12:19:14 OBGyn Episode No OBEpisode recorded.
--- OUTSIDE RECORDS SUMMARY | 2025-05-21 10:52 | XMS_ITS | Clinical Summary ---
Author Organization [facility] Address [address] [place] [address] Phone Care Team Providers Care Operations Tech Name Role Phone Raji Judd MD Primary Care Provider +1- [phone] Allergies Active Allergy Reactions Criticality Noted Date [...] 10/05/2024 Influenza with pneumonia 10/05/2024 Hematochezia 10/05/2024 [facility] (current) use of anticoagulants 2024 Encounters Date Type Department Care Team Description 05/14/2025 Orders Only [facility] Oncology and Hematology - [place] [address] [place] [address] Rufus Amin MD Anal cancer ([facility]/HCC) 04/30/2025 Orders Only [facility] Oncology and Hematology - [place] [address] [place] [address] Rufus Amin MD Anal cancer ([facility]/HCC) 04/16/2025 Orders Only [facility] Oncology and Hematology - [place] [address] [place] [address] Rufus Amin MD Anal cancer (CMS/HCC) 04/02/2025 Orders Only [facility] Oncology and Hematology [place] [address] [place] [phone] Rufus Amin MD Anal cancer (CMS/HCC) 03/28/2025 External Device Data STL ABSTRACTION Provider, Abstract 03/19/2025 Orders Only [facility] Oncology and Hematology [place] [address] [place] [phone] Rufus Amin MD Anal cancer ([facility]/HCC) 03/05/2025 Orders Only [facility] Oncology and Hematology [facility] [address] [place] [phone] Rufus Amin MD Anal cancer ([facility]/HCC) 02/22/2025 Orders Only [facility] Oncology and Hematology [facility] [address] [place] [phone] Rufus Amin MD Anal cancer ([facility]/HCC) (Primary Dx) 02/21/2025 External Device Data STL ABSTRACTION Provider, Abstract 02/21/2025 External Device Data STL ABSTRACTION Provider, Abstract 02/21/2025 External Device Data STL ABSTRACTION Provider, Abstract 02/20/2025 External Device Data STL ABSTRACTION Provider, Abstract 02/19/2025 Orders Only [facility] Oncology and Hematology [facility] [address] [place] [address] Rufus Amin MD Anal cancer ([facility]/HCC) from Last 3 Months Family History Medical [...] on file Legal Sex Female 4:49 PM COMPETITIVE ATHLETE Gender Identity Not on file Sexual Orientation [...] Description 05/28/2025 11:15 AM CDT Office Visit [facility] Oncology and Hematology - [place] [address] [facility] [address] [place] [address] Rufus Amin MD [address] [facility] [address] [place] [address] Health Maintenance Due Date Last [...] Comments COLONOSCOPY REPORT 10/11/2024 9: 02 AM COMPETITIVE ATHLETE HEMOGLOBIN A1C Routine 10/05/2024 4:14 PM COMPETITIVE ATHLETE from Last 3 Months or Most Recently Relevant to Health Maintenance Results * COLONOSCOPY REPORT (10/11/2024 9:02 AM COMPETITIVE ATHLETE) Narrative Procedure Note Hunter Kemp, - 10/11/2024 9:02 AM CST [facility] Endoscopy Patient Name: Ariadna Giraldo Procedure [...] of Addenda: [address]; [place] [address] us Hunter Kemp DO GI PROCEDURE ORDERABLES Fin al Result * HEMOGLOBIN A1C (10/05/2024 4:14 PM COMPETITIVE ATHLETE) HEMOGLOBIN A1C 5.2 <5.7 % 10/06/2024 1:[address] [facility] EST. AVG GLUCOSE, A1C 103 mg/dL 10/06/2024 1:[address] [facility] Blood Venipuncture / Unknown 10/05/2024 4:14 PM COMPETITIVE ATHLETE 10/05/2024 4:46 PM COMPETITIVE ATHLETE Narrative [facility] - 10/06/2024 1:08 AM COMPETITIVE ATHLETE HGB A1C INTERPRETATION NORMAL: <5.7% PRE-DIABETES: 5.7 - 6.4% DIABETES: 6.5% OR GREATER Myrna Luis NP CHEMISTRY ORDERABLES Final Re sult [facility] CLRAFAEL# [id number] [address] [place] [place] [address] from Last 3 Months or Most Recently Relevant to Health Maintenance Insurance MEDICARE PART A AND B MEDICAID [place] [employer] Medicare Part D RX [facility] Medicare Part B MEDICARE PART A AND B MEDICARE PART A AND B MED[place] Advance Directives For more information, please contact: [phone] * Full Code (Latest Code Status on File) Date Activated Date Inactivated Comments 10/05/2024 12:38 AM 10/11/2024 8:58 PM Care Teams Operations Tech Relationship Specialty Start Date End Date Raji Judd MD [address] [place] [address] PCP - General Family Practice 10/05/24
== END 2025-05-21 09:59 | disposition home or self-care (01) ==
PROVIDERS: Visit Provider Internal Medicine Hematology & Oncology
DX: C21.0 Malignant neoplasm of anus, unspecified (principal)
CPT/HCPCS: 74176

== ENCOUNTER 2025-06-05 00:25 | Day surgery (SDC) | payer MEDICARE, MEDICAID, SELFPAY ==
--- NOTE | 2025-05-02 12:19 | PC.NURSE ---
05/02/25 Spoke with patient to reschedule her for her flex. sig. that was canceled on 05/01/2025. Pt has little memory of events from after she arrived her at the hospital. She thought her proc. was canceled due to her having diarrhea still upon arrival. I did review what had happened with her fall at home, hitting her head, lethargy on arrival and incident in restroom here and her forgetting she had fallen at home. She was sent to ER due to her change in mental status. Labs and head CT were normal except she did have a UTI. She did not remember that an antibiotic had been ordered, sister assured me she would pick it up and make sure she starts it today, she also called on my encouragement to sched. a follow up with her PCP, which she sched. for 05/03/2025 in am. I did call and speak to Nurse in Dr. Zuluaga office to let them know what had transpired here. They will request her records. Pt is rescheduled for Flex. Sig on 06/05/2025
[2025-05-25 13:59] VITALS: BMI 33.0
--- NOTE | 2025-06-04 09:25 | PC.NURSE ---
Spoke with patient regarding Flex. sig. and she was reluctant to do proc. said that Dr. Amin said she is cancer free and so she assumed she may not need to proceed. She is calling his office and asking. I called pt back after reading notes from radiation oncologist and he is expecting her to have procedure. She states she spoke with her sister and she told her she still needs to have this done. I offered her an earlier time but she prefers to stick with the 1245. I reviewed her prep instructions with her and encouraged her to take in plenty of clear liquids today to help prevent dehydration again and she also assured her sister is staying with her tonight while she preps.
--- OUTSIDE RECORDS SUMMARY | 2025-06-05 00:29 | XMS_ITS | Encounter Summary ---
Author Organization [facility] [employer] Address [address] [place] [address] Care Team Providers Care Software Engineer Backend Name Role Phone Raji Judd MD Primary Care Provider +1- [phone] Encounter Details Date Type Department Care Team (Late Contact Info) Description 06/01/2025 Orders Only [facility] Oncology and Hematology - [place] [address] [facility] [address] [place] [address] Rufus Amin MD [address] [facility] [address] [place] [address] Social History Tobacco Use Types [...] on file 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 Gender Identity Not on file Sexual Orientation Not on file documented as of this encounter Plan of Treatment Upcoming Encounters Date Type Department Care Team (Late Contact Info) Description 06/05/2025 4:30 PM CDT Telephone Check Up [facility] Oncology and Hematology [facility] [address] [place] [address] Rufus Amin MD [address] [facility] [address] [place] [address] 10/01/2025 11:15 AM PARKING PATROLLER Office Visit [facility] Oncology and Hematology [facility] [address] [place] [address] Rufus Amin MD [address] [facility] [address] [place] [address] documented as of this encounter Procedures Procedure Name Priority Date/Time Associated Diagnosis Comments CHG SOLUBLE TRANSFERRIN RECEPTOR Routine 05/28/2025 10:24 AM CDT documented in this encounter Results * CHG SOLUBLE TRANSFERRIN RECEPTOR (05/28/2025 10:24 AM CDT) Rufus Amin MD [facility] LABORATORY Final Result documented in this encounter Visit Diagnoses Not on filedocumented in this encounter Care Teams Software Engineer Backend Relationship Specialty Start Date End Date Raji Judd MD [address] [place] [address] PCP - General Family Practice 10/05/24 documented as of this encounter
--- OUTSIDE RECORDS SUMMARY | 2025-06-05 00:29 | XMS_ITS | Clinical Summary ---
Author Organization [facility] Address [address] [place] [address] Phone Care Team Providers Care Assembly Machine Tool Setter Name Role Phone Raji Judd MD Primary Care Provider +1- [phone] Allergies Active Allergy Reactions Criticality Noted Date [...] 10/05/2024 Influenza with pneumonia 10/05/2024 Hematochezia 10/05/2024 snf (current) use of anticoagulants 2024 Encounters Date Type Department Care Team Description 06/01/2025 Orders Only [facility] Oncology and Hematology - [place] [address] [place] [address] Rufus Amin MD 05/30/2025 External Device Data STL ABSTRACTION Provider, Abstract 05/29/2025 Orders Only [facility] Oncology and Hematology - [place] [address] [place] [address] Rufus Amin MD 05/28/2025 11:15 AM CDT Office Visit [facility] Oncology and Hematology - [place] [address] [place] [address] Rufus Amin MD Chronic anemia (Primary Dx); Anal cancer (CMS/HCC) 05/22/2025 External Device Data STL ABSTRACTION Provider, Abstract 05/22/2025 Orders Only [facility] Oncology and Hematology - [place] [address] [place] [phone] Rufus Amin MD 05/21/2025 Orders Only [facility] Oncology and Hematology - [place] [address] [place] [address] Rufus Amin MD 05/14/2025 Orders Only [facility] Oncology and Hematology - [place] [address] [place] [address] Rufus Amin MD Anal cancer (CMS/HCC) 04/30/2025 Orders Only [facility] Oncology and Hematology - [place] [address] [place] [address] Rufus Amin MD Anal cancer (CMS/HCC) 04/16/2025 Orders Only [facility] Oncology and Hematology - [place] [address] [place] [address] Rufus Amin MD Anal cancer (CMS/HCC) 04/02/2025 Orders Only [facility] Oncology and Hematology - [place] [address] [place] [address] Rufus Amin MD Anal cancer (CMS/HCC) 03/28/2025 External Device Data STL ABSTRACTION Provider, Abstract 03/19/2025 Orders Only [facility] Oncology and Hematology - [place] [address] [place] [address] Rufus Amin MD Anal cancer (CMS/HCC) 03/05/2025 Orders Only [facility] Oncology and Hematology - [place] [address] [place] [address] Rufus Amin MD Anal cancer (CMS/HCC) from [...] on file 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 Gender Identity Not on file Sexual Orientation Not on file Last Filed Vital Signs Vital Sign Reading Time Taken Comments Blood Pressure 143/76 05/28/2025 11:30 AM CDT Pulse 88 05/28/2025 11:26 AM CDT Temperature 36.7 C (98.1 F) 05/28/2025 11:26 AM CDT Respiratory Rate 12 05/28/2025 11:26 AM CDT Oxygen Saturation 93% 05/28/2025 11:26 AM CDT Inhaled Oxygen Concentration - - Weight 85.7 kg (189 lb) 05/28/2025 11:26 AM CDT Height 157.5 cm (5' 2) 10/25/2024 8:39 AM CDT Body Mass Index 34.57 10/25/2024 8:39 AM CDT Plan of Treatment Upcoming Encounters Date Type Department Care Team (Late st Contact Info) Description 06/05/2025 4:30 PM CDT Telephone Check Up [facility] Oncology and Hematology - [place] [address] [place] [address] Rufus Amin MD [address] [facility] [address] [place] [address] 10/01/2025 11:15 AM ACCOUNTING OFFICER Office Visit [facility] Oncology and Hematology - [place] [address] [place] [address] Rufus Amin MD [address] [facility] [address] [place] [address] Health Maintenance Due Date Last Done Comments DIABETES ANNUAL FOOT EXAM 11/04/1975 DIABETES MICROALBUMIN ANNUAL SCREEN 11/04/1975 LDL CHOLESTEROL ANNUAL 11/04/1975 PNEUMOCOCCAL VACCINE 50+ YEA RS (1 of 2 - PCV) 1976 FIT-DNA Q 3 years 2002 FIT/FOBT Q 1 year 2002 Flex Sig/CT Colonography Q 5 years 2002 RSV VACCINE (60+ or ) (1 - Risk 50-74 years 1-dose series) 11/04/2007 ZOSTER VACCINE (1 of 2) 11/04/2007 OSTEOPOROSIS SCREENING 2022 DIABETES ANNUAL RETINAL EXAM [...] Procedure Name Priority Date/Time Associated Diagnosis Comments VITAMIN B12 LEVEL Routine 05/28/2025 4:2 2 PM CDT IRON, TIBC, AND PERCENT SATURATION Routine 05/28/2025 4:16 PM CDT CHG SOLUBLE TRANSFERRIN RECEPTOR Routine 05/28/2025 10:[address] ABDOMEN PELVIS W CONTRAST Routine 05/21/2025 2:37 PM CDT CBC WITH AUTODIFFERENTIAL Routine 05/21/2025 1:42 PM CDT COMPREHENSIVE METABOLIC PANEL Routine 05/21/2025 7:57 AM CDT COLONOSCOPY REPORT 10/11/2024 9: 02 AM ACCOUNTING OFFICER HEMOGLOBIN A1C Routine 10/05/2024 4:14 PM ACCOUNTING OFFICER from Last 3 Months or Most Recently Relevant to Health Maintenance Results * VITAMIN B12 LEVEL (05/28/2025 4:22 PM CDT) Blood us Rufus Amin MD CHEMISTRY ORDERABLES Final Resu lt * IRON, TIBC, AND PERCENT SATURATION (05/28/2025 4:16 PM CDT) Blood us Rufus Amin MD CHEMISTRY ORDERABLES Final Resu lt * CHG SOLUBLE TRANSFERRIN RECEPTOR (05/28/2025 10:24 AM CDT) us Rufus Amin MD [facility] - LABORATORY Final Result * CT ABDOMEN PELVIS W CONTRAST (05/21/2025 2:37 PM CDT) Anatomical Region Laterality Modality Abdomen Computed Tomogra phy us Rufus Amin MD CT ORDERABLES Final Result * CBC WITH AUTODIFFERENTIAL (05/21/2025 1:42 PM CDT) Blood us Rufus Amin MD HEMATOLOGY ORDERABLES Final Res ult * COMPREHENSIVE METABOLIC PANEL (05/21/2025 7:57 AM CDT) Blood us Rufus Amin MD CHEMISTRY ORDERABLES Final Resu lt * COLONOSCOPY REPORT (10/11/2024 9:02 AM ACCOUNTING OFFICER) Narrative Procedure Note Hunter Kemp DO - 10/11/2024 9:02 AM CST [facility] Endoscopy Patient Name: Ariadna Giraldo Procedure [...] of Addenda: [address]; [place] [address] Hunter Kemp DO GI PROCEDURE ORDERABLES Fin al Result * HEMOGLOBIN A1C (10/05/2024 4:14 PM ACCOUNTING OFFICER) HEMOGLOBIN A1C 5.2 <5.7 % 10/06/2024 1:08 AM ACCOUNTING OFFICER [facility] EST. AVG GLUCOSE, A1C 103 mg/dL 10/06/2024 1:08 AM [facility] Blood Venipuncture / Unknown 10/05/2024 4:14 PM ACCOUNTING OFFICER 10/05/2024 4:46 PM ACCOUNTING OFFICER Narrative [facility] - 10/06/2024 1:08 AM ACCOUNTING OFFICER HGB A1C INTERPRETATION NORMAL: <5.7% PRE-DIABETES: 5.7 - 6.4% DIABETES: 6.5% OR GREATER Myrna Luis VOCATIONAL CASE MANAGER CHEMISTRY ORDERABLES Final Re sult [facility] [employer] [facility] CLIA# [id number] [address] [place] [address] from Last 3 Months or Most Recently Relevant to Health Maintenance Insurance MEDICARE PART A AND B MEDICAID [place] RX [employer] Medicare Part D [facility] Medicare Part B MEDICARE PART A AND B MEDICARE PART A AND B [place] Advance Directives For more information, please contact: [phone] * Full Code (Latest Code Status on File) Date Activated Date Inactivated Comments 10/05/2024 12:38 AM 10/11/2024 8:58 PM Care Teams Assembly Machine Tool Setter Relationship Specialty Start Date End Date Raji Judd MD [address] [place] [address] PCP - General Family Practice 10/05/24
[2025-06-05 11:12] VITALS: BP 165/82; PULSE 90; RESP 20; TEMP 36.3; O2SAT 97; BMI 33.0
[2025-06-05] MEDS: LACTATED RINGERS 1,000 ML 150 ML IV CONT (11:39)
--- NOTE | 2025-06-05 12:23 | WPDANESEPPF ---
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, unspecified Patient Data Age: 69 Gender: F Height: 1.57 m Weight: 82 kg Last Vital Signs Temp 97.3 F L 06/05/25 11:12 Pulse 90 06/05/25 11:12 Resp 20 06/05/25 11:12 BP 165/82 H 06/05/25 11:12 Pulse Ox 97 06/05/25 11:12 O2 Del Method Room Air 06/05/25 11:12 Allergies Allergy/AdvReac Type Severity Reaction Status Date / Time Iodine and Iodide Containing Allergy Hives Verified 06/05/25 11:41 Produc Home Medications ?Medication ?Instructions ?Recorded ?Confirmed ?Type amitriptyline 75 mg tablet 75 mg PO DAILY 05/15/21 06/05/25 History aripiprazole 2 mg tablet 2 mg PO BID 05/15/21 06/05/25 History atorvastatin 80 mg tablet 80 mg PO QPM 05/15/21 06/05/25 History carvedilol 25 mg tablet 25 mg PO Q12H 05/15/21 06/05/25 History ezetimibe 10 mg tablet 10 mg PO QPM 05/15/21 06/05/25 History liothyronine 5 mcg tablet 5 mcg PO BID 05/15/21 06/05/25 History lorazepam 1 mg tablet 0.5 mg PO Q12H 05/15/21 06/05/25 History omeprazole 40 mg capsule,delayed 40 mg PO DAILY 05/15/21 06/05/25 History release metformin 500 mg tablet 500 mg PO BID 11/30/24 06/05/25 History aspirin 81 mg capsule 81 mg PO DAILY 06/05/25 06/05/25 History Laboratory Tests 06/05/25 11:10 POC Capillary Glucose 86 mg/dl (65-105) Patient hx anesthesia problems: none Family hx anesthesia problems: none Results Review: All pre-operative results and documents have been reviewed as part of the pre-operative evaluation. [facility] Past Medical History Medical History Anal cancer High cholesterol Hypertension Surgical History Surgical History S/P triple vessel bypass Family History Family History Other Hypertension Social History Social History Smoking packs per day: 0.5 Smoking cigarettes per day: 10.0 Years smoked: 45 Smoking pack-years: 22.50 Smoking status: Current every day smoker Tobacco type: cigarettes Smoking end date: 03/09/21 Alcohol intake: never Drinks per week: 3 Substance use: never Substance use type: does not use Living arrangements: alone Spiritual care concerns: No Anes - Eval Final PreProcedure Day of Procedure 06/05/25 12:23 Patient weight: obese Lungs: normal air movement Airway: Mallampati scale class II and special considerations (Upper and lower dentures. ) Neurological: alert and oriented Last oral intake: >/= 8 hours ASA classification: III Emergent: no Anesthetic plan: proceed Anesthesia type and monitoring: general GIVS and standard monitoring Results Review: All pre-operative results and documents have been reviewed as part of the pre-operative evaluation. Pt w hyperlipidemia, DM fsbs nml, now for flex sig. Informed Consent: The patient's anesthetic plan and its attendant risks and benefits were discussed with the patient/family/POA. Questions were solicited and answers provided to the satisfaction of the patient/family/POA.
--- NOTE | 2025-06-05 12:27 | PM.HPGS ---
History of Present Illness History of Present Illness Consent: Risks, benefits, and alternatives have been discussed and questions answered. Patient agrees to proceed with procedure. Chief complaint: Malignant neoplasm of anus, unspecified Narrative: Ariadna Giraldo is a 69 year old female here for sigmoidoscopy. 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 8 cm right inguinal lymphadenopathy which was consistent with PET positive disease suspicious for malignancy. The pathology on the inguinal lymph nodes were positive for malignancy, she received XRT and chemo. Recent CT scan showed Unremarkable anus. No evidence of metastatic disease. Review of Systems Review of Systems: All systems reviewed & are unremarkable except as noted in HPI and below PMFSH Past Medical History Medical History Anal cancer High cholesterol Hypertension Surgical History Surgical History S/P triple vessel bypass Family History Family History Other Hypertension Social History Social History Smoking packs per day: 0.5 Smoking cigarettes per day: 10.0 Years smoked: 45 Smoking pack-years: 22.50 Smoking status: Current every day smoker Tobacco type: cigarettes Smoking end date: 03/09/21 Alcohol intake: never Drinks per week: 3 Substance use: never Substance use type: does not use Living arrangements: alone Spiritual care concerns: No Meds Home Medications and Allergies Home Medications ?Medication ?Instructions ?Recorded ?Confirmed ?Type amitriptyline 75 mg tablet 75 mg PO DAILY 05/15/21 06/05/25 History aripiprazole 2 mg tablet 2 mg PO BID 05/15/21 06/05/25 History atorvastatin 80 mg tablet 80 mg PO QPM 05/15/21 06/05/25 History carvedilol 25 mg tablet 25 mg PO Q12H 05/15/21 06/05/25 History ezetimibe 10 mg tablet 10 mg PO QPM 05/15/21 06/05/25 History liothyronine 5 mcg tablet 5 mcg PO BID 05/15/21 06/05/25 History lorazepam 1 mg tablet 0.5 mg PO Q12H 05/15/21 06/05/25 History omeprazole 40 mg capsule,delayed 40 mg PO DAILY 05/15/21 06/05/25 History release metformin 500 mg tablet 500 mg PO BID 11/30/24 06/05/25 History aspirin 81 mg capsule 81 mg PO DAILY 06/05/25 06/05/25 History Allergies Allergy/AdvReac Type Severity Reaction Status Date / Time Iodine and Iodide Containing Allergy Hives Verified 06/05/25 11:41 Produc Vital Signs Vital Signs - 24 hr 06/05/25 11:12 Temperature 97.3 F L Pulse Rate 90 Respiratory Rate 20 Blood Pressure 165/82 H Pulse Oximetry 97 Oxygen Delivery Room Air Exam Const: General: comfortable and no acute distress HENMT: Face/Nose/Sinus: Normal nares present Eyes: General: appearance normal, both eyes and all related structures Resp: Auscultation: clear to auscultation bilaterally Cardio: Rate: regular rate Rhythm: regular rhythm GI: Inspection: non-distended GI Palp: Yes Soft to palpation Skin: General skin exam: normal color Neuro: General: gait normal Speech: normal speech Extrem: General: normal to inspection Assessment and Plan Assessment and plan (1) Anal cancer: Code(s): C21.0 - Malignant neoplasm of anus, unspecified Status: Acute Assessment and Plan: treated with chemo and radiation recent imaging no more tumor, will assess today with sigmoidoscopy
--- NOTE | 2025-06-05 12:39 | S_PTH ---
PATIENT: Ariadna Giraldo LOC: [facility] Tim#:[id number] AGE/SX: 69/F ROOM: RE06/05/[address]: Trevor Georges MD : 1955 BED: DIS: 06/05/2025 SPEC #: [id number] RECD: 06/05/25 12:44 STATUS: JAIME REJacques #: [id number] HEMA: 06/05/25 12:[address]: Trevor Georges DEPT: [facility] Surgical RECD BY: Kalyn Jc Tissues: A - Colon Biopsy Procedures: Hematoxylin and Eosin Stain Gross and Microscopic Level 4
[2025-06-05 12:41] VITALS: BP 135/66; PULSE 80; RESP 28; O2SAT 97
[2025-06-05 12:51] VITALS: BP 147/78; PULSE 76; RESP 20; O2SAT 99
[2025-06-05 13:01] VITALS: BP 152/77; PULSE 76; RESP 23; O2SAT 100
== END 2025-06-05 13:08 | disposition home or self-care (01) ==
PROVIDERS: Visit Provider Internal Medicine Gastroenterology
PROC: 0DJD8ZZ Inspection of Lower Intestinal Tract, Via Natural or Artificial Opening Endoscopic (ICD-10-PCS; CPT 45330; principal; 2025-06-05 12:45)
DX: C21.0 Malignant neoplasm of anus, unspecified (principal); Z87.891 Personal history of nicotine dependence; E66.9 Obesity, unspecified; Z68.33 Body mass index [BMI] 33.0-33.9, adult; Z79.899 Other long term (current) drug therapy
CPT/HCPCS: 45331; 82948; 88305; J2003; J2704; J7120